=== PATIENT | male | born 1965 | race Caucasian/White ===

== ENCOUNTER 2017-01-30 17:00 | Emergency (ER) | payer OTHER ==
[2017-01-30 17:21] VITALS: BMI 25.0
--- NOTE | 2017-01-30 17:37 | PDOC ---
[id number] is a 51 year old male, nonverbal at baseline, with a significant past medical history of epilepsy (last seizure was about a month ago) and MR, who presents to the emergency department via ems from [facility]) for seizure activity today. The patients framer reports the patient usually perks up just seconds after the one prior seizure she witnessed him have, however, was told by the laborer beam house that the patient was shaking intensely and became very sleepy after the seizure occurred. The patient s framer states the patient is ambulatory with leg braces, but uses a wheelchair on most days, and responds to verbal prompts. The patients framer states the patient has been at the home for about 2 months and she is new to the facility herself about 4 weeks ago. Allergies: NKDA <Ladi Finn - Last Filed: 01/30/17 18:42> <Jillian Mobley - Last Filed: 02/01/17 10:54> - General Chief Complaint: Seizure Stated Complaint: Seizure Time Seen by Provider: 01/30/17 17:17 Past History <Ladi Finn - Last Filed: 01/30/17 18:42> - Past Medical History GI Disorders: Yes (gerd, constipation) Seizures: Yes Other medical history: profound intellectual developmental disability, eczema - Psycho/Social/Smoking Cessation Hx Anxiety: No Suicidal Ideation: No Smoking History: Never smoked Have you smoked in the past 12 months: No Information on smoking cessation initiated: No Hx Alcohol Use: No Drug/Substance Use Hx: No Substance Use Type: None <Jillian Mobley - Last Filed: 02/01/17 10:54> - Past Medical History Allergies/Adverse Reactions: Allergies Allergy/AdvReac Type Severity Reaction Status Date / Time No Known Allergies Allergy Verified 01/30/17 17:14 Home Medications: Ambulatory Orders Ascorbate Calcium [Vitamin C] 500 mg PO DAILY 01/30/17 Calcium Carbonate/Vitamin D3 [Calcium 600 + D3 Softgel] 1 each PO BID 01/30/17 Lacosamide [Vimpat -] 100 mg PO BID 01/30/17 Lactulose [Kristalose] 10 gm PO DAILY 01/30/17 Loratadine 10 mg PO DAILY 01/30/17 Lorazepam [Ativan] 0.25 mg PO TID 01/30/17 [place]-3 Fatty Acids [Fish Oil] 500 mg PO DAILY 01/30/17 Phenobarbital 64.8 mg PO HS 01/30/17 Polyethylene Glycol 3350 [Miralax (For Daily Use) -] 17 gm PO DAILY 01/30/17 Potassium Chloride [Klor-Con 10] 10 meq PO DAILY 01/30/17 Ranitidine [Zantac -] 150 mg PO BID 01/30/17 Ubidecarenone/Vit E Acetate [Co Q-10 100 mg Softgel] 1 each PO DAILY 01/30/17 Review of Systems - Review of Systems Able to Perform ROS?: No (Pt is nonverbal at BL.) <Ladi Finn - Last Filed: 01/30/17 18:42> *Physical Exam - Vital Signs Last Vital Signs Temp Pulse Resp BP Pulse Ox 98.2 F 60 20 155/79 99 01/30/17 17:15 01/30/17 17:15 01/30/17 17:15 01/30/17 17:15 01/30/17 17:15 - Physical Exam Comments: 01/30/17 17:44 GENERAL: (+) Awake, Alert, and appropriate. in no acute distress HEAD: No signs of trauma EYES: PERRLA, EOMI, sclera anicteric, conjunctiva clear ENT: Auricles normal inspection, hearing grossly normal, nares patent, oropharynx clear without exudates. Moist mucosa NECK: Normal ROM, supple, no lymphadenopathy, JVD, or masses LUNGS: Breath sounds equal, clear to auscultation bilaterally. No wheezes, and no crackles HEART: Regular rate and rhythm, normal S1 and S2, no murmurs, rubs or gallops ABDOMEN: Soft, nontender, normoactive bowel sounds. No guarding, no rebound. No masses EXTREMITIES: (+) braces on bilateral lower extremities. no edema. No clubbing or cyanosis. No cords, erythema, or tenderness SKIN: Warm, Dry, normal turgor, no rashes or lesions noted. NEURO: Unable to assess due to patient's capacity. <Ladi Finn - Last Filed: 01/30/17 18:42> - Vital Signs Last Vital Signs Temp Pulse Resp BP Pulse Ox 98.2 F 60 20 155/79 99 01/30/17 17:15 01/30/17 17:15 01/30/17 17:15 01/30/17 17:15 01/30/17 17:15 <Jillian Mobley - Last Filed: 02/01/17 10:54> ED Treatment Course - LABORATORY CBC & Chemistry Diagram: 01/30/17 18:33 01/30/17 18:33 <Jillian Mobley - Last Filed: 02/01/17 10:54> Medical Decision Making - Medical Decision Making 01/30/17 18:42 The framer states the facility has a nurse on staff and provided me with her information: Name: Baron RN <Ladi Finn - Last Filed: 01/30/17 18:42> - Medical Decision Making Pt endorsed to Dr. Xavier at 7pm shift change. Awaiting basic labs (as patient is new to his facility and they do not know him well). If lytes wnl, will DC back to facility. I have given him the PM klonopin. Vimpat is not on formulary. Will give phenobarb as well, as he is due for it at 8pm. <Jillian Mobley - Last Filed: 02/01/17 10:54> *DC/Admit/Observation/Transfer - Attestations Scribe Attestion: 01/30/17 17:45 Documentation prepared by Ladi Finn, acting as medical lab scientist for Jillian Mobley MD, MD <Ladi Finn - Last Filed: 01/30/17 18:42> <Jillian Mobley - Last Filed: 02/01/17 10:54> Diagnosis at time of Disposition: Seizure - Discharge Dispostion Disposition: HOME Condition at time of disposition: Good - Referrals Referrals: Estrella Rhoades MD [Primary Care Provider] - - Patient Instructions Additional Instructions: Please follow up with the PMD within the next 48 hours and if there is any change otherwise in symptoms, please return immediately to the ED.
[2017-01-30] MEDS ORDERED: clonazePAM 0.5 MG TABLET PO ONE (17:43)
[2017-01-30] MEDS ORDERED: clonazePAM 0.5 MG TABLET ONE (18:03)
[2017-01-30 18:45] LABS: BASOPHIL 0.6 % (0-2.0); EOSINOPHIL 2.4 % (0-4.5); MCH 28.3 pg (25.7-33.7); MCHC 33.9 g/dl (32.0-35.9); MEAN CELL VOLUME 83.4 fl (80-96); MEAN PLT VOLUME 9.2 fl (7.5-11.1); NEUTROPHILS 57.1 % (42.8-82.8); PLATELET COUNT 200 K/MM3 (134-434); RDW 12.8 % (11.9-15.9); WHITE BLOOD COUNT 4.5 K/mm3 (4.0-10.0)
[2017-01-30 19:12] LABS: ALBUMIN 3.7 g/dl (3.4-5.0); ALK PHOS 231 U/L (45-117); ANION GAP 9 (8-16); BILIRUBIN,TOTAL 0.1 mg/dL (0.2-1.0); CALCIUM 8.8 mg/dL (8.5-10.1); CO2 30 mmol/L (21-32); COCKROFT - GAULT 146.15; CREATININE 0.6 mg/dL (0.7-1.3); GLUCOSE,RANDOM 90 mg/dL (74-106); SGPT/ALT 37 U/L (12-78)
[2017-01-30 19:14] LABS: TOT PROT 8.2 g/dl (6.4-8.2)
[2017-01-30 19:30] LABS: MAGNESIUM 1.9 mg/dL (1.8-2.4); SGOT/AST 31 U/L (15-37)
[2017-01-30] MEDS ORDERED: PHENobarbital 30 MG TABLET PO ONE (19:42)
[2017-01-30] MEDS ORDERED: PHENobarbital 20 MG/5 ML UNIT-DOSE CUP ONE (19:58)
--- NOTE | 2017-01-30 20:53 | PDOC ---
*Physical Exam - Vital Signs Last Vital Signs Temp Pulse Resp BP Pulse Ox 98.7 F 67 19 152/72 100 01/30/17 19:30 01/30/17 19:30 01/30/17 19:30 01/30/17 19:30 01/30/17 19:30 ED Treatment Course - LABORATORY CBC & Chemistry Diagram: 01/30/17 18:33 01/30/17 18:33 - ADDITIONAL ORDERS Additional order review: Laboratory Results 01/30/17 18:33 Sodium 135 L Potassium 4.5 Chloride 96 L Carbon Dioxide 30 Anion Gap 9 BUN 10 Creatinine 0.6 L Creat Clearance w eGFR > 60 Random Glucose 90 Calcium 8.8 Magnesium 1.9 Total Bilirubin 0.1 L AST 31 ALT 37 Alkaline Phosphatase 231 H Total Protein 8.2 Albumin 3.7 01/30/17 18:33 RBC 5.25 MCV 83.4 MCHC 33.9 RDW 12.8 MPV 9.2 Neutrophils % 57.1 Lymphocytes % 32.6 Monocytes % 7.3 Eosinophils % 2.4 Basophils % 0.6 - Medications Given in the ED: ED Medications Discontinued Medications Generic Name Dose Route Start Last Admin Trade Name Freq PRN Reason Stop Dose Admin Clonazepam 0.25 mg 01/30/17 17:43 01/30/17 18:20 Klonopin - PO 01/30/17 17:44 0.25 mg ONCE ONE Administration Phenobarbital 60 mg 01/30/17 19:42 01/30/17 20:06 Phenobarbital - PO 01/30/17 19:43 60 mg NOW ONE Administration Medical Decision Making - Medical Decision Making 01/30/17 20:52 Pt received, comfortable; no repeated seizure activity noted, labs pending at this time; will likely discharge after observation. 01/30/17 22:16 All labs reviewed, normal with mild elevation of ALP; no pain on palpation; he has been observed for appreciable amount of time without repeated seizure episode. Will discharge at this time. Encouraged follow up with the PMD within the next 24 hours. *DC/Admit/Observation/Transfer Diagnosis at time of Disposition: Seizure - Discharge Dispostion Disposition: HOME Condition at time of disposition: Good Admit: No Decision to Admit order Date/Time: 01/30/17 22:19 - Referrals Referrals: Estrella Rhoades MD [Primary Care Provider] - - Patient Instructions Additional Instructions: Please follow up with the PMD within the next 48 hours and if there is any change otherwise in symptoms, please return immediately to the ED. - Post Discharge Activity
[2017-01-30 22:29] VITALS: BP 141/73; PULSE 66; TEMP 98.5
== END 2017-01-30 22:29 | disposition home or self-care (01) ==
LOC: JER 17:00
DX: G40.909 Epilepsy, unspecified, not intractable, without status epilepticus (principal); F73 Profound intellectual disabilities; K21.9 Gastro-esophageal reflux disease without esophagitis; K59.00 Constipation, unspecified
CPT/HCPCS: 36415; 80053; 83735; 85025; 99282-25

== ENCOUNTER 2017-11-15 10:25 | Inpatient (IN) | payer OTHER ==
[2017-11-15 11:06] VITALS: BMI 23.7
--- NOTE | 2017-11-15 12:38 | PDOC ---
History of Present Illness - General Chief Complaint: Edema Stated Complaint: SWOLLEN LT LEG Time Seen by Provider: 11/15/17 12:36 History Source: Patient Exam Limitations: No Limitations - History of Present Illness Initial Comments: CHIEF COMPLAINT: 52 y/o tachycardic male BIB EMS from [facility] for swollen left leg. HISTORY OF PRESENT ILLNESS: Care workers state they noticed the left leg swollen yesterday. Patient is non verbal with a PMH of severe intellectual disability. Patient was uncooperative for temperature. Vital signs on arrival are notable for pulse of 114. REVIEW OF SYSTEMS: Provided by staff and skilled nursing notes. GENERAL/CONSTITUTIONAL: No fever/chills. GENITOURINARY: No change in urination. MUSCULOSKELETAL: +swollen, red and warm left lower leg SKIN: No rash or easy bruising. PHYSICAL EXAM: VITAL_SIGNS: tachycardic GENERAL_APPEARANCE: non verbal. MENTAL_STATUS: non verbal. EXTREMITIES: 2+ dorsalis pedis pulse in left LE. LLE erythematous and edematous with 2+pitting edema 1/3 way up left lower leg. Area is warm to touch. Small wound on dorsum of left foot that is scabbed over. SKIN: warm, dry, good color. Past History - Past Medical History Allergies/Adverse Reactions: Allergies Allergy/AdvReac Type Severity Reaction Status Date / Time No Known Allergies Allergy Verified 11/15/17 10:59 Home Medications: Ambulatory Orders Calcium Carbonate/Vitamin D3 [Calcium 600 + D3 Softgel] 1 each PO BID 01/30/17 Lactulose [Kristalose] 10 gm PO DAILY 01/30/17 [place]-3 Fatty Acids [Fish Oil] 500 mg PO DAILY 01/30/17 Polyethylene Glycol 3350 [Miralax (For Daily Use) -] 17 gm PO DAILY 01/30/17 Ranitidine [Zantac -] 150 mg PO BID 01/30/17 Ubidecarenone/Vit E Acet [Co Q-10 100 mg Softgel] 1 each PO DAILY 01/30/17 Pravastatin Sodium [Pravachol (Nf)] 40 mg PO HS 11/15/17 Clonazepam 0.25 tab PO TID 11/16/17 Lacosamide [Vimpat -] 100 mg PO DAILY 11/16/17 Lacosamide [Vimpat -] 200 tab PO HS 11/16/17 Multiple Vitamins 1 each PO DAILY 11/16/17 COPD: No GI Disorders: Yes (gerd, constipation) Seizures: Yes Other medical history: MR - Suicide/Smoking/Psychosocial Hx Smoking History: Never smoked Have you smoked in the past 12 months: No Information on smoking cessation initiated: No Hx Alcohol Use: No Drug/Substance Use Hx: No Substance Use Type: None *Physical Exam - Vital Signs Last Vital Signs Temp Pulse Resp BP Pulse Ox 114 H 20 126/73 99 11/15/17 10:59 11/15/17 10:59 11/15/17 10:59 11/15/17 10:59 ED Treatment Course - LABORATORY CBC & Chemistry Diagram: 11/18/17 05:56 11/18/17 05:56 Medical Decision Making - Medical Decision Making A/P: 52 y/o male with left lower extremity swelling, warmth and redness. Plan is to r/o DVT and infection. 1. Labs 2. Doppler 3. IV tylenol 4. IV fluids pt signed out to Dr. Fenton, who will follow up on labs and doppler results and dispo accordingly. *DC/Admit/Observation/Transfer Diagnosis at time of Disposition: Cellulitis - Discharge Dispostion Condition at time of disposition: Guarded - Referrals - Patient Instructions - Post Discharge Activity
[2017-11-15] MEDS ORDERED: SODIUM CHLORIDE 1,000 ML IV STA (12:46)
[2017-11-15] MEDS ORDERED: ACETAMINOPHEN 1000 MG/100 ML VIAL (NON FORMULARY) IVPB ONE (12:46)
[2017-11-15] MEDS ORDERED: ACETAMINOPHEN INJECTION 100 ML IVPB ONE (13:26)
[2017-11-15 13:27] LABS: BASO % 0.3 % (0-2.0); HEMATOCRIT 40.7 % (35.4-49); HEMOGLOBIN 13.4 GM/dL (11.7-16.9); LYMPH % 13.4 % (8-40); MCH 27.1 pg (25.7-33.7); MCHC 32.9 g/dl (32.0-35.9); MEAN CELL VOLUME 82.3 fl (80-96); MEAN PLT VOLUME 8.7 fl (7.5-11.1); MONO % 10.5 % (3.8-10.2); NEUT % 75.8 % (42.8-82.8); PLATELET COUNT 184 K/MM3 (134-434); RBC 4.94 M/mm3 (4.00-5.60); RDW 12.7 % (11.9-15.9); WHITE BLOOD COUNT 9.4 K/mm3 (4.0-10.0)
[2017-11-15 13:51] LABS: ALBUMIN 3.9 g/dl (3.4-5.0); ALK PHOS 221 U/L (45-117); ANION GAP 10 (8-16); BILIRUBIN,TOTAL 0.4 mg/dL (0.2-1.0); BLOOD UREA NITROGEN 13 mg/dL (7-18); CALCIUM 9.1 mg/dL (8.5-10.1); CHLORIDE 97 mmol/L (98-107); CO2 30 mmol/L (21-32); CREATININE 0.7 mg/dL (0.7-1.3); GLUCOSE,RANDOM 106 mg/dL (74-106); POTASSIUM 4.2 mmol/L (3.5-5.1); SGOT/AST 48 U/L (15-37); SGPT/ALT 35 U/L (12-78); SODIUM 137 mmol/L (136-145); TOT PROT 8.2 g/dl (6.4-8.2)
--- NOTE | 2017-11-15 14:18 | PDOC ---
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 Tachycardic, possibly febrile, unable to get temp on arrival as patient was resisting. Awaiting results of Doppler r/o DVT. ED Treatment Course - LABORATORY CBC & Chemistry Diagram: 11/15/17 12:30 11/15/17 12:30 - ADDITIONAL ORDERS Additional order review: Laboratory Results 11/15/17 12:30 Sodium 137 Potassium 4.2 Chloride 97 L Carbon Dioxide 30 Anion Gap 10 BUN 13 D Creatinine 0.7 Creat Clearance w eGFR > 60 Random Glucose 106 Calcium 9.1 Total Bilirubin 0.4 D AST 48 H D ALT 35 Alkaline Phosphatase 221 H Total Protein 8.2 Albumin 3.9 11/15/17 12:30 RBC 4.94 MCV 82.3 MCHC 32.9 RDW 12.7 MPV 8.7 Neutrophils % 75.8 D Lymphocytes % 13.4 D Monocytes % 10.5 H Eosinophils % 0.0 D Basophils % 0.3 - Medications Given in the ED: ED Medications Discontinued Medications Generic Name Dose Route Start Last Admin Trade Name Freq PRN Reason Stop Dose Admin Acetaminophen 1,000 mg 11/15/17 12:46 11/15/17 13:32 Ofirmev Injection - IVPB 11/15/17 12:47 1,000 mg ONCE ONE Administration Sodium Chloride 1,000 mls @ 1,000 mls/hr 11/15/17 12:46 11/15/17 13:32 Normal Saline - IV 11/15/17 13:45 1,000 mls/hr ASDIR STA Administration Medical Decision Making - Medical Decision Making 11/15/17 16:37 [facility] microblogged for obs placement. Ordered is 1 GM vancomycin IV. Will attempt to get rectal temp. 11/15/17 17:02 Spoke to Raffi Campbell, admitting to Dr. Rock to Med/Surg obs for IV abx. *DC/Admit/Observation/Transfer Diagnosis at time of Disposition: Cellulitis Qualifiers: Site of cellulitis: unspecified site Qualified Code(s): L03.90 - Cellulitis, unspecified - Discharge Dispostion Condition at time of disposition: Guarded Admit: Yes - Referrals - Patient Instructions - Post Discharge Activity
[2017-11-15] MEDS ORDERED: VANCOMYCIN 1 GRAM (PRE-DOCKED) 1,000 MG/250 ML BAG IVPB ONE ×2 (16:35→16:57)
--- NOTE | 2017-11-15 17:52 | HP ---
<Raffi Campbell - Last Filed: 11/16/17 07:15> CHIEF COMPLAINT: swelling of L leg PCP: From [facility] HISTORY OF PRESENT ILLNESS: 52 y/o non-verbal / non-communicative male w/PMH of MR, seizure d/o (has multiple seizures/day which they let pass and is not medically treated), GERD, eczema presents to the ER from [facility] for LLE swelling that started yesterday and progressed from his foot to mid tibial region since then. According to staff from [place] present at bedside pt had a healing lesion ( healing over past several days) on dorsal aspect of foot w/no signs of new infection at site. Pt has not been vomiting, no changes in bowel movements, no changes in urination, no diaphoresis, no change in behavior noted by staff. ER course was notable for: (1) [facility] (2) LLE U/S (3) Recent Travel: no recent travel PAST MEDICAL HISTORY: seizure d/o (has multiple seizures/day which they let pass and is not medically treated), GERD, eczema Social History: Smoking: no smoking hx Alcohol: no alcohol use Drugs: no drug use Family History: n-c Allergies No Known Allergies Allergy (Verified 11/15/17 10:59) HOME MEDICATIONS: Home Medications Medication Instructions Recorded Calcium Carbonate/Vitamin D3 1 each PO BID 01/30/17 [Calcium 600 + D3 Softgel] Lactulose [Kristalose] 10 gm PO DAILY 01/30/17 [place]-3 Fatty Acids [Fish Oil] 500 mg PO DAILY 01/30/17 Polyethylene Glycol 3350 [Miralax 17 gm PO DAILY 01/30/17 (For Daily Use) -] Ranitidine [Zantac -] 150 mg PO BID 01/30/17 Ubidecarenone/Vit E Acet [Co Q-10 1 each PO DAILY 01/30/17 100 mg Softgel] Pravastatin Sodium [Pravachol (Nf)] 40 mg PO HS 11/15/17 REVIEW OF SYSTEMS Unable to get as pt is non-communicative PHYSICAL EXAMINATION Vital Signs - 24 hr 11/15/17 10:59 Pulse Rate 114 H Respiratory 20 Rate Blood Pressure 126/73 O2 Sat by Pulse 99 Oximetry (%) GENERAL: Awake, alert, in no acute distress. Pt unable to communicate HEAD: Normal with no signs of trauma. EYES: sclera anicteric, conjunctiva clear. No lid lag. EARS, NOSE, THROAT: Dry mucous membranes. LUNGS: Auscultated anteriorly, poor inspiratory effort, diminished breath sounds. HEART: Regular rate and rhythm, normal S1 and S2. 2/6 systolic murmur heard best in aortic region ABDOMEN: Soft, nontender, not distended, normoactive bowel sounds. UPPER EXTREMITIES: warm, well-perfused. No peripheral edema. LOWER EXTREMITIES:+small 1cm in diameter lesion on dorsal aspect of L foot with no active drainage. LLE swollen, red, tender touch, warm to touch from foot to L mid flores w/ 2+ pitting edema. Laboratory Results - last 24 hr 11/15/17 11/15/17 12:30 12:30 WBC 9.4 D RBC 4.94 Hgb 13.4 D Hct 40.7 MCV 82.3 MCH 27.1 MCHC 32.9 RDW 12.7 Plt Count 184 MPV 8.7 Neutrophils % 75.8 D Lymphocytes % 13.4 D Monocytes % 10.5 H Eosinophils % 0.0 D Basophils % 0.3 Sodium 137 Potassium 4.2 Chloride 97 L Carbon Dioxide 30 Anion Gap 10 BUN 13 D Creatinine 0.7 Creat Clearance w eGFR > 60 Random Glucose 106 Calcium 9.1 Total Bilirubin 0.4 D AST 48 H D ALT 35 Alkaline Phosphatase 221 H Total Protein 8.2 Albumin 3.9 Imaging: LLE DUPLEX U/S 11/15/17: No evidence of DVT Active Medications Acetaminophen (Tylenol -) 650 mg PO Q4H PRN PRN Reason: PAIN OR FEVER Atorvastatin Calcium (Lipitor -) 10 mg PO HS [facility] Heparin Sodium (Porcine) (Heparin -) 5,000 unit SQ TID SEAN Sodium Chloride (Normal Saline -) 1,000 mls @ 75 mls/hr IV ASDIR SEAN Lactulose (Cephulac (Oral Use)) 10 gm PO DAILY SE[facility] Polyethylene Glycol (Miralax (For Daily Use) -) 17 gm PO DAILY [facility] Ranitidine HCl (Zantac -) 150 mg PO BID [facility] ASSESSMENT/PLAN: 52 y/o non-verbal / non-communicative male w/PMH of MR, seizure d/o, GERD, eczema presents to the ER from [facility]. Pt admitted for cellulitis -Cellulitis of LLE -Given vanco x1 in ER -ID consulted -Tylenol 650 mg po q4h PRN for fever or pain -NS @ 75 ml/hr -Seizures -Pt has hx of daily seizures despite being on vimpat 100 mg in am and 200 mg in pm and clonazepam 0.25 mg tid. these meds have been restarted here -Neuro consulted -Hx of constipation -Lactulose 10 g po qd, Miralax qd -GERD -Ranitidine 150 mg po bid -DVT ppx -Heparin 5000 units sq q8h -FEN -NS @ 75 ml/hr -Monitor electrolytes -Chopped diet w/thin liquids as per [facility] staff -Dispo: Admit to m/s Visit type - Emergency Visit Emergency Visit: Yes ED Registration Date: 11/15/17 Care time: The patient presented to the Emergency Department on the above date and was hospitalized for further evaluation of their emergent condition. - New Patient This patient is new to me today: Yes Date on this admission: 11/16/17 - Critical Care Critical Care patient: No <Alexei Holden - Last Filed: 11/16/17 07:53> PE: as per resident's note LLE: increased the size 2x of RLE. positive erythema and swelling up to the knee area. Patient is seen and examined with the resident. Agree with the Assessment and plan. # Acute cellulitis of LLE with edema , on IV antibiotic, finn cx, duplex of LLE is negative since positive for swelling and erythema of LLE.
[2017-11-15] MEDS: SODIUM CHLORIDE 1,000 ML IV SCH (21:34)
[2017-11-15] MEDS: HEPARIN NA (PORCINE) 5,000 UNITS/ML 1ML VIAL SQ SCH (21:36)
[2017-11-15] MEDS: ATORVASTATIN CA 10 MG TABLET (FP) PO SCH (21:37)
[2017-11-15] MEDS: RANITIDINE HCL 150 MG TABLET (FP) PO SCH (21:37)
[2017-11-16] MEDS: ACETAMINOPHEN 325 MG TABLET (FP) PO PRN ×3 (01:26→16:51)
[2017-11-16] MEDS ORDERED: clonazePAM 0.5 MG TABLET PO PRN (04:56)
[2017-11-16] MEDS: LACOSAMIDE 50 MG TABLET PO SCH (05:24)
[2017-11-16] MEDS: HEPARIN NA (PORCINE) 5,000 UNITS/ML 1ML VIAL SQ SCH ×3 (05:26→21:55)
[2017-11-16] MEDS ORDERED: LACOSAMIDE 50 MG TABLET PO SCH ×2 (06:00→21:00)
[2017-11-16] MEDS: clonazePAM 0.5 MG TABLET PO SCH ×3 (06:36→21:54)
[2017-11-16 07:50] LABS: BASO % 0.2 % (0-2.0); EOS % 0.1 % (0-4.5); HEMATOCRIT 36.7 % (35.4-49); HEMOGLOBIN 12.1 GM/dL (11.7-16.9); LYMPH % 20.2 % (8-40); MCH 27.4 pg (25.7-33.7); MCHC 32.9 g/dl (32.0-35.9); MEAN CELL VOLUME 83.2 fl (80-96); MEAN PLT VOLUME 8.7 fl (7.5-11.1); MONO % 14.8 % (3.8-10.2); NEUT % 64.7 % (42.8-82.8); PLATELET COUNT 164 K/MM3 (134-434); RBC 4.42 M/mm3 (4.00-5.60); RDW 12.8 % (11.9-15.9); WHITE BLOOD COUNT 8.4 K/mm3 (4.0-10.0)
[2017-11-16 08:10] LABS: ALBUMIN 3.2 g/dl (3.4-5.0); ANION GAP 4 (8-16); BLOOD UREA NITROGEN 8 mg/dL (7-18); CHLORIDE 102 mmol/L (98-107); CO2 32 mmol/L (21-32); GLUCOSE,RANDOM 93 mg/dL (74-106); MAGNESIUM 1.6 mg/dL (1.8-2.4); PHOSPHOROUS 2.9 mg/dL (2.5-4.9); POTASSIUM 3.8 mmol/L (3.5-5.1); SODIUM 138 mmol/L (136-145)
[2017-11-16 08:13] LABS: ALK PHOS 182 U/L (45-117); BILIRUBIN,TOTAL 0.8 mg/dL (0.2-1.0); CREATININE 0.5 mg/dL (0.7-1.3); SGOT/AST 53 U/L (15-37); SGPT/ALT 32 U/L (12-78); TOT PROT 6.9 g/dl (6.4-8.2)
[2017-11-16] MEDS ORDERED: PT OWN MED DRAWER 7, Y5N ONE ×3 (08:59→21:03)
[2017-11-16] MEDS: LACTULOSE 20 GM/30 ML UDC (FOR ORAL USE ONLY) PO SCH (09:01)
[2017-11-16] MEDS: RANITIDINE HCL 150 MG TABLET (FP) PO SCH ×2 (09:02→21:54)
--- NOTE | 2017-11-16 09:03 | PN ---
Progress Note, Physician Chief Complaint: ID Full note dictated - Current Medication List Current Medications: Active Medications Acetaminophen (Tylenol -) 650 mg PO Q4H PRN PRN Reason: PAIN OR FEVER Last Admin: 11/16/17 01:26 Dose: 650 mg Atorvastatin Calcium (Lipitor -) 10 mg PO HS [facility] Last Admin: 11/15/17 21:37 Dose: 10 mg Clonazepam (Klonopin -) 0.25 mg PO TID [facility] Last Admin: 11/16/17 06:36 Dose: 0.25 mg Heparin Sodium (Porcine) (Heparin -) 5,000 unit SQ TID [facility] Last Admin: 11/16/17 05:26 Dose: 5,000 unit Sodium Chloride (Normal Saline -) 1,000 mls @ 75 mls/hr IV ASDIR [facility] Last Admin: 11/15/17 21:34 Dose: 75 mls/hr Lacosamide (Vimpat -) 100 mg PO DAILY@0500 [facility] Last Admin: 11/16/17 05:24 Dose: 100 mg Lacosamide (Vimpat -) 200 mg PO DAILY@2100 [facility] Lactulose (Cephulac (Oral Use)) 10 gm PO DAILY [facility] Polyethylene Glycol (Miralax (For Daily Use) -) 17 gm PO DAILY [facility] Ranitidine HCl (Zantac -) 150 mg PO BID [facility] Last Admin: 11/15/17 21:37 Dose: 150 mg - Objective Vital Signs: Vital Signs Temperature 99.3 F 11/16/17 05:53 Pulse Rate 104 H 11/16/17 05:53 Respiratory Rate 20 11/16/17 05:53 Blood Pressure 146/78 11/16/17 05:53 O2 Sat by Pulse Oximetry (%) 96 11/15/17 23:13 Extremities: Yes: Other (Confluent erythema left foot and LLE hard swelling with dry eschar dorsum of the foot dry no fluctuance) Labs: CBC, BMP 11/16/17 06:10 11/16/17 06:10 Problem List - Problems (1) Cellulitis Code(s): L03.90 - CELLULITIS, UNSPECIFIED Qualifiers: Site of cellulitis: unspecified site Qualified Code(s): L03.90 - Cellulitis , unspecified Assessment/Plan Microbiology Laboratory Tests 11/16/17 11/16/17 06:10 06:10 WBC 8.4 RBC 4.42 Hct 36.7 Plt Count 164 BUN 8 D ALT 32 Assessment Severe cellulitis of the LLE NO DVT seen on duplex from a skilled care facility Plan Vanco and Cefepime ( yes would cover gram negative celleulitis as well) Tiera SHAH
--- NOTE | 2017-11-16 09:56 | PN ---
Physical Exam: SUBJECTIVE: Patient seen and examined Patient is lying in bed comfortably. no fever or chills. OBJECTIVE: Vital Signs Period Temp Pulse Resp BP Sys/Morales Pulse Ox Last 24 Hr 98.3 F-100.3 F 99-114 20-20 122-167/57-93 95-99 GENERAL: The patient lying in bed , non verbal just stares at you in no acute distress. HEAD: Normal with no signs of trauma. EYES: PERRL, extraocular movements intact, sclera anicteric, conjunctiva clear. ENT: Ears normal, oropharynx clear without exudates, moist mucous membranes. NECK: Trachea midline, full range of motion, supple. LUNGS: Breath sounds equal, clear to auscultation bilaterally, no wheezes, no crackles, no accessory muscle use. HEART: mild tachycardia , rhythm, S1, S2 without murmur, rub or gallop. ABDOMEN: Soft, nontender, nondistended, normoactive bowel sounds, no guarding, no rebound, no hepatosplenomegaly, no masses. EXTREMITIES: 2+ pulses, warm, LLE SWELLING WITH ERYTHEMA WITH CELLULITIS . cONTRACTED lower extremities. NEUROLOGICAL: gait not observed. PSYCH: MR unable to access . SKIN: Warm, dry, normal turgor, CBCD WBC 8.4 K/mm3 (4.0-10.0) 11/16/17 06:10 RBC 4.42 M/mm3 (4.00-5.60) 11/16/17 06:10 Hgb 12.1 GM/dL (11.7-16.9) 11/16/17 06:10 Hct 36.7 % (35.4-49) 11/16/17 06:10 MCV 83.2 fl (80-96) 11/16/17 06:10 MCHC 32.9 g/dl (32.0-35.9) 11/16/17 06:10 RDW 12.8 % (11.9-15.9) 11/16/17 06:10 Plt Count 164 K/MM3 (134-434) 11/16/17 06:10 MPV 8.7 fl (7.5-11.1) 11/16/17 06:10 CMP Sodium 138 mmol/L (136-145) 11/16/17 06:10 Potassium 3.8 mmol/L (3.5-5.1) 11/16/17 06:10 Chloride 102 mmol/L (98-107) 11/16/17 06:10 Carbon Dioxide 32 mmol/L (21-32) 11/16/17 06:10 Anion Gap 4 (8-16) L 11/16/17 06:10 BUN 8 mg/dL (7-18) D 11/16/17 06:10 Creatinine 0.5 mg/dL (0.7-1.3) L D 11/16/17 06:10 Creat Clearance w eGFR > 60 (>60) 11/16/17 06:10 Random Glucose 93 mg/dL (74-106) 11/16/17 06:10 Calcium 8.0 mg/dL (8.5-10.1) L 11/16/17 06:10 Total Bilirubin 0.8 mg/dL (0.2-1.0) D 11/16/17 06:10 AST 53 U/L (15-37) H 11/16/17 06:10 ALT 32 U/L (12-78) 11/16/17 06:10 Alkaline Phosphatase 182 U/L (45-117) H 11/16/17 06:10 Total Protein 6.9 g/dl (6.4-8.2) 11/16/17 06:10 Albumin 3.2 g/dl (3.4-5.0) L 11/16/17 06:10 Active Medications Generic Name Dose Route Start Last Admin Trade Name Freq PRN Reason Stop Dose Admin Acetaminophen 650 mg 11/15/17 17:37 11/16/17 01:26 Tylenol - PO 650 mg Q4H PRN Administration PAIN OR FEVER Atorvastatin Calcium 10 mg 11/15/17 22:00 11/15/17 21:37 Lipitor - PO 10 mg HS SEAN Administration Clonazepam 0.25 mg 11/16/17 06:00 11/16/17 06:36 Klonopin - PO 0.25 mg TID SEAN Administration Heparin Sodium (Porcine) 5,000 unit 11/15/17 22:00 11/16/17 05:26 Heparin - SQ 5,000 unit TID SEAN Administration Sodium Chloride 1,000 mls @ 75 mls/hr 11/15/17 17:45 11/15/17 21:34 Normal Saline - IV 75 mls/hr ASDIR SEAN Administration Vancomycin HCl 1,000 mg/ 250 mls @ 250 mls/hr 11/16/17 10:00 Dextrose IVPB BID SEAN Protocol Cefepime HCl 2 gm/ Dextrose 100 mls @ 200 mls/hr 11/16/17 10:00 IVPB Q8H-IV SEAN Lacosamide 100 mg 11/16/17 05:30 11/16/17 05:24 Vimpat - PO 100 mg DAILY@0500 SEAN Administration Lacosamide 200 mg 11/16/17 21:00 Vimpat - PO DAILY@2100 [facility] Lactulose 10 gm 11/16/17 10:00 11/16/17 09:01 Cephulac (Oral Use) PO 10 gm DAILY SEAN Administration Polyethylene Glycol 17 gm 11/16/17 10:00 Miralax (For Daily Use) - PO DAILY [facility] Ranitidine HCl 150 mg 11/15/17 22:00 11/16/17 09:02 Zantac - PO 150 mg BID SEAN Administration Home Medications Medication Instructions Recorded Calcium Carbonate/Vitamin D3 1 each PO BID 01/30/17 [Calcium 600 + D3 Softgel] Lactulose [Kristalose] 10 gm PO DAILY 01/30/17 [place]-3 Fatty Acids [Fish Oil] 500 mg PO DAILY 01/30/17 Polyethylene Glycol 3350 [Miralax 17 gm PO DAILY 01/30/17 (For Daily Use) -] Ranitidine [Zantac -] 150 mg PO BID 01/30/17 Ubidecarenone/Vit E Acet [Co Q-10 1 each PO DAILY 01/30/17 100 mg Softgel] Pravastatin Sodium [Pravachol (Nf)] 40 mg PO HS 11/15/17 Clonazepam 0.25 tab PO TID 11/16/17 Lacosamide [Vimpat -] 100 mg PO DAILY 11/16/17 Lacosamide [Vimpat -] 200 tab PO HS 11/16/17 Multiple Vitamins 1 each PO DAILY 11/16/17 ASSESSMENT/PLAN: [place] is a 52 y/o non-verbal ,non-communicative male w/PMH of MR, seizure d/o , GERD, eczema presents to the ER from [facility]. Pt is being admitted for cellulitis #Acute Cellulitis of LLE on Vanco/cefepime continue as per ID #Seizures continue his meds at home vimpat 100 mg in am and 200 mg in pm and clonazepam 0.25 mg tid. Neuro consulted #Hx of constipation continue Lactulose 10 g po qd, Miralax qd #GERD continue Ranitidine 150 mg po bid DVT ppx: Heparin 5000 units sq q8h Visit type - Emergency Visit Emergency Visit: Yes ED Registration Date: 11/15/17 Care time: The patient presented to the Emergency Department on the above date and was hospitalized for further evaluation of their emergent condition. - New Patient This patient is new to me today: No - Critical Care Critical Care patient: No - Discharge Referral Referred to [facility] Med P.C.: No
--- NOTE | 2017-11-16 09:57 | CONS ---
INFECTIOUS DISEASE CONSULTATION DATE OF CONSULTATION: DATE OF DICTATION: 11/16/2017 HISTORY OF PRESENT ILLNESS: This is a 52-year-old male, profoundly mentally retarded individual from the [facility], who is brought after his foot and left lower extremity were noted to be red and swollen. He apparently has had a healing ulcer of the dorsal aspect of his left foot noted over the last week. On admission here, he had low-grade temperature, and the leg was markedly swollen. A duplex study was ordered which showed no evidence for DVT and he was given a dose of vancomycin and I am asked to see him for further evaluation and treatment. PAST MEDICAL HISTORY: Includes seizure disorder with refractory seizures and eczema. CURRENT MEDICATIONS: [place] fatty acids, ranitidine, pravastatin. ALLERGIES: None known. SOCIAL HISTORY: Nonsmoker. No EtOH history. FAMILY HISTORY: Unobtainable. REVIEW OF SYSTEMS: All systems reviewed and noncontributory. PHYSICAL EXAMINATION: General: He was an arousable man in no acute distress. Vital Signs: The temperature maximum 100.3, currently 99.3; pulse 104; blood pressure 146/78; respirations 20. Neck: Supple. Lungs: Clear to P&A. Heart: S1, S2. Regular rhythm. No audible murmur. Abdomen: Soft, nontender. No organomegaly. Extremities: Reveal diffuse redness and confluent erythema with marked swelling and induration of the left lower extremity and foot. There was a dry, necrotic ulcer on the dorsal aspect of the foot. No purulence or fluctuance was noted. DIAGNOSTIC DATA: The BUN was 8 with a creatinine of 0.5. AST 53, alkaline phosphatase 182. White count of 9.4, hemoglobin 13.4, platelets of 184. ASSESSMENT: A 52-year-old male with a small, necrotic eschar of the dorsal aspect of the left foot, dry. Probably portal of entry for bacterial cellulitis of the left lower extremity. Should be gram positive. However, given his background living in a skilled care nursing facility, would empirically treat him for both gram- positive as well as gram-negative organisms. I will give him a combination of vancomycin and cefepime. Two sets of blood cultures drawn TOMMIE MCDANIEL M.D. [id number] [facility] HEALTH CENTERGurwinder
[2017-11-16] MEDS ORDERED: CEFEPIME 2 GM in DEXTROSE 5%-WATER - 100 ML IVPB SCH (10:00)
[2017-11-16] MEDS ORDERED: CEFEPIME HCL 2 GM VIAL (RESTRICTED TO ID) IVPB SCH (10:00)
[2017-11-16] MEDS: CEFEPIME 2 GM in DEXTROSE 5%-WATER - 100 ML IVPB SCH ×2 (10:20→18:08)
[2017-11-16] MEDS: VANCOMYCIN 1,000 MG in DEXTROSE 5%-WATER - 250 ML IVPB SCH ×2 (11:20→21:53)
--- NOTE | 2017-11-16 13:12 | EKG ---
Test Reason : Blood Pressure : / mmHG Vent. Rate : 104 BPM Atrial Rate : 104 BPM P-R Int : 186 ms QRS Dur : 062 ms QT Int : 320 ms P-R-T Axes : 074 060 069 degrees QTc Int : 420 ms SINUS TACHYCARDIA BIATRIAL ENLARGEMENT NONSPECIFIC T WAVE ABNORMALITY ABNORMAL ECG WHEN COMPARED WITH ECG OF 12-NOV-2017 10:32, VENT. RATE HAS INCREASED BY 35 BPM BASELINE ARTIFACT Confirmed by BLAYNE SHAH, DAKOTA ([id number]) on 11/16/2017 1:12:08 PM Referred By: Confirmed By:DAKOTA CISNEROS MD
--- NOTE | 2017-11-16 17:26 | PN ---
Physical Exam: SUBJECTIVE: Patient seen and examined OBJECTIVE: Vital Signs Period Temp Pulse Resp BP Sys/Morales Pulse Ox Last 24 Hr 98.3 F-101.8 F 101-117 18-20 122-167/57-93 95-96 GENERAL: The patient is awake, alert, and fully oriented, in no acute distress. HEAD: Normal with no signs of trauma. EYES: PERRL, extraocular movements intact, sclera anicteric, conjunctiva clear. No ptosis. ENT: Ears normal, nares patent, oropharynx clear without exudates, moist mucous membranes. NECK: Trachea midline, full range of motion, supple. LUNGS: Breath sounds equal, clear to auscultation bilaterally, no wheezes, no crackles, no accessory muscle use. HEART: Regular rate and rhythm, S1, S2 without murmur, rub or gallop. ABDOMEN: Soft, nontender, nondistended, normoactive bowel sounds, no guarding, no rebound, no hepatosplenomegaly, no masses. EXTREMITIES: 2+ pulses, warm, well-perfused, no edema. NEUROLOGICAL: Cranial nerves II through XII grossly intact. Normal speech, gait not observed. PSYCH: Normal mood, normal affect. SKIN: Warm, dry, normal turgor, no rashes or lesions noted Laboratory Results - last 24 hr 11/16/17 11/16/17 06:10 06:10 WBC 8.4 RBC 4.42 Hgb 12.1 Hct 36.7 MCV 83.2 MCH 27.4 MCHC 32.9 RDW 12.8 Plt Count 164 MPV 8.7 Neutrophils % 64.7 Lymphocytes % 20.2 D Monocytes % 14.8 H Eosinophils % 0.1 D Basophils % 0.2 Sodium 138 Potassium 3.8 Chloride 102 Carbon Dioxide 32 Anion Gap 4 L BUN 8 D Creatinine 0.5 L D Creat Clearance w eGFR > 60 Random Glucose 93 Calcium 8.0 L Phosphorus 2.9 Magnesium 1.6 L Total Bilirubin 0.8 D AST 53 H ALT 32 Alkaline Phosphatase 182 H Total Protein 6.9 Albumin 3.2 L Active Medications Generic Name Dose Route Start Last Admin Trade Name Freq PRN Reason Stop Dose Admin Acetaminophen 650 mg 11/15/17 17:37 11/16/17 16:51 Tylenol - PO 650 mg Q4H PRN Administration PAIN OR FEVER Atorvastatin Calcium 10 mg 11/15/17 22:00 11/15/17 21:37 Lipitor - PO 10 mg HS SEAN Administration Clonazepam 0.25 mg 11/16/17 06:00 11/16/17 13:49 Klonopin - PO 0.25 mg TID SEAN Administration Heparin Sodium (Porcine) 5,000 unit 11/15/17 22:00 11/16/17 13:50 Heparin - SQ 5,000 unit TID SEAN Administration Sodium Chloride 1,000 mls @ 75 mls/hr 11/15/17 17:45 11/15/17 21:34 Normal Saline - IV 11/17/17 07:04 75 mls/hr ASDIR SEAN Administration Vancomycin HCl 1,000 mg/ 250 mls @ 250 mls/hr 11/16/17 10:00 11/16/17 11:20 Dextrose IVPB 250 mls/hr BID SEAN Administration Protocol Cefepime HCl 2 gm/ Dextrose 100 mls @ 200 mls/hr 11/16/17 10:00 11/16/17 10: 20 IVPB 200 mls/hr Q8H-IV SEAN Administration Lacosamide 100 mg 11/16/17 05:30 11/16/17 05:24 Vimpat - PO 100 mg DAILY@0500 SEAN Administration Lacosamide 200 mg 11/16/17 21:00 Vimpat - PO DAILY@2100 SEAN Lactulose 10 gm 11/16/17 10:00 11/16/17 09:01 Cephulac (Oral Use) PO 10 gm DAILY SEAN Administration Polyethylene Glycol 17 gm 11/16/17 10:00 Miralax (For Daily Use) - PO DAILY SEAN Ranitidine HCl 150 mg 11/15/17 22:00 11/16/17 09:02 Zantac - PO 150 mg BID SEAN Administration ASSESSMENT/PLAN:
[2017-11-16] MEDS ORDERED: ACETAMINOPHEN 325 MG TABLET (FP) PO ONE (18:30)
--- NOTE | 2017-11-16 19:09 | CONSULT ---
Consult - text type - Consultation Consultation Note: NEUROLOGY CONSULTATION is greatly appreciated: This52 yo man with h/o static encephalopathy and seizure disorder is admitted with lethargy, fever and left leg cellulitis. Apparently has multiple seizures at the adult home in which he lives, according to Dustin, his aide, who estimates 16 seizures/month. Dustin sees approx 8/month and believes the same again occur at his day program. He describes both Tonic/clonic, Brief clonic/atonic and even briefer atonic seizures. In spite of this he is only maintained on Vimpat 100 mg BID and Phenobarbital 64.8 mg QHS. ODILIA: Multiple well-healed forehead scars. Neck supple. Left leg/foot swollen and cellulytic to the mid-calf. Clear palpation tenderness left ankle. NEURO: Lethargic. Opens eyes to name. Makes eye contact. No speech, follows no commands. Full lazaro to threat. Full EOM's. Moves all fours well without dystaxia. Normal reflexes in arms, reduced both knees, absent both ankles. Downgoing toes. Withdraws all fours to pinch. IMP: Static encephalopathy (moderately severe, B/L cerebral dysfunction) Seizure disorder Toxic-metabolic encephalpathy due to cellulitis/sepsis. SUGGEST: Continue antibiotics, hydration. Seizures are clearly undertreated, for unclear reasons. When infection has cleared, I would strongly recommend increasing Vimpat to 200 mg q12 hrs and PB to 97.2 mg q HS and a neurological follow-up after 2-3 mos on these doses. Thank you very much, Mayito Jefferson MD
[2017-11-16] MEDS: POLYETHYLENE GLYCOL 3350 119 GM BTL PO SCH (19:38)
[2017-11-16] MEDS: ATORVASTATIN CA 10 MG TABLET (FP) PO SCH (21:54)
[2017-11-16] MEDS: SODIUM CHLORIDE 1,000 ML IV SCH (21:56)
[2017-11-17] MEDS ORDERED: PT OWN MED DRAWER 7, Y5N ONE ×4 (01:18→21:38)
[2017-11-17] MEDS: ACETAMINOPHEN 325 MG TABLET (FP) PO PRN ×4 (01:22→23:55)
[2017-11-17] MEDS: CEFEPIME 2 GM in DEXTROSE 5%-WATER - 100 ML IVPB SCH ×3 (01:22→17:21)
[2017-11-17] MEDS: SODIUM CHLORIDE 1,000 ML IV SCH ×2 (01:28)
[2017-11-17] MEDS: LACOSAMIDE 50 MG TABLET PO SCH ×2 (05:39→21:58)
[2017-11-17] MEDS: clonazePAM 0.5 MG TABLET PO SCH ×3 (05:40→21:58)
[2017-11-17] MEDS: HEPARIN NA (PORCINE) 5,000 UNITS/ML 1ML VIAL SQ SCH ×3 (05:40→21:57)
[2017-11-17] MEDS: RANITIDINE HCL 150 MG TABLET (FP) PO SCH ×2 (09:12→21:58)
[2017-11-17] MEDS: VANCOMYCIN 1,000 MG in DEXTROSE 5%-WATER - 250 ML IVPB SCH ×2 (09:57→21:57)
[2017-11-17] MEDS: POLYETHYLENE GLYCOL 3350 119 GM BTL PO SCH (10:06)
--- NOTE | 2017-11-17 11:59 | PN ---
<Ricardo Gomez - Last Filed: 11/17/17 12:04> Physical Exam: SUBJECTIVE: Patient seen and examined at bedside. No acute overnight events. Patient is not able to communicate for a good history. His aid from [place] is present but unable to answer questions about his current cellulitis. OBJECTIVE: Vital Signs Period Temp Pulse Resp BP Sys/Morales Pulse Ox Last 24 Hr 98.6 F-101.8 F 88-117 18-20 103-143/46-73 95 GENERAL: The patient is alert but not oriented x 3, no acute distress HEAD: Normal with no signs of trauma. LUNGS: Breath sounds equal, clear to auscultation bilaterally, no wheezes, no crackles, no accessory muscle use. HEART: Regular rate and rhythm, S1, S2, systolic murmur appreciated on exam ABDOMEN: Soft, nontender, nondistended, normoactive bowel sounds, no guarding, no rebound, no hepatosplenomegaly, no masses. EXTREMITIES: 2+ pulses, warm, well-perfused, L leg warm and erythematous/ blanching with non-pitting edema. erythema demarcated on leg with a pen. mildly improved since demarcation. Active Medications Generic Name Dose Route Start Last Admin Trade Name Freq PRN Reason Stop Dose Admin Acetaminophen 650 mg 11/15/17 17:37 11/17/17 01:22 Tylenol - PO 650 mg Q4H PRN Administration PAIN OR FEVER Atorvastatin Calcium 10 mg 11/15/17 22:00 11/16/17 21:54 Lipitor - PO 10 mg HS SEAN Administration Clonazepam 0.25 mg 11/16/17 06:00 11/17/17 05:40 Klonopin - PO 0.25 mg TID SEAN Administration Heparin Sodium (Porcine) 5,000 unit 11/15/17 22:00 11/17/17 05:40 Heparin - SQ 5,000 unit TID SEAN Administration Vancomycin HCl 1,000 mg/ 250 mls @ 250 mls/hr 11/16/17 10:00 11/17/17 09:57 Dextrose IVPB 250 mls/hr BID SEAN Administration Protocol Cefepime HCl 2 gm/ Dextrose 100 mls @ 200 mls/hr 11/16/17 10:00 11/17/17 09: 12 IVPB 200 mls/hr Q8H-IV SEAN Administration Lacosamide 100 mg 11/16/17 05:30 11/17/17 05:39 Vimpat - PO 100 mg DAILY@0500 SEAN Administration Lacosamide 200 mg 11/16/17 21:00 11/16/17 21:54 Vimpat - PO 200 mg DAILY@2100 SEAN Administration Lactulose 10 gm 11/16/17 10:00 11/16/17 09:01 Cephulac (Oral Use) PO 10 gm DAILY SEAN Administration Polyethylene Glycol 17 gm 11/16/17 10:00 11/16/17 19:38 Miralax (For Daily Use) - PO Not Given DAILY SEAN Ranitidine HCl 150 mg 11/15/17 22:00 11/17/17 09:12 Zantac - PO 150 mg BID SEAN Administration ASSESSMENT/PLAN: 52 year old male from [facility] [place] (non-verbal), with past medical history of of MR, seizure disorder, GERD, eczema is admitted for treatment of cellulitis #Cellulitis of LLE: slightly improving -Continue vancomycin/cefepime -ID consult appreciated -Tylenol 650 mg po q4h PRN for fever or pain #Seizure Disorder: no acute overnight events -neuro consult Dr. Jefferson appreciated- once infection clears, recommends vimpat 200 Q12 and phenobarbitol 97.2 -currently, continue vimpat on 100PO in AM and 200PO PM, and klonopin 0.25mg TID #Constipation: not an acute issue -continue Lactulose 10 g po qd and Miralax qd #GERD: not an acute issue -Ranitidine 150 mg po bid #Hyperlipidemia: not an acute concern -continue on atorvastatin 10mg PO at night #FEN -No standing fluids -Replete lytes in AM -Chopped diet w/thin liquids as per [facility] staff #Prophylaxis: -Heparin 5000 units sq q8h #Disposition: -continue to monitor on med-surg Visit type - Emergency Visit Emergency Visit: No - New Patient This patient is new to me today: Yes Date on this admission: 11/17/17 - Critical Care Critical Care patient: No <Alexei Holden - Last Filed: 11/17/17 19:14> Physical Exam: Patient seen and examined, agree with the plan.
[2017-11-17] MEDS: LACTULOSE 20 GM/30 ML UDC (FOR ORAL USE ONLY) PO SCH (12:21)
--- NOTE | 2017-11-17 15:07 | PN ---
Progress Note (short form) - Note Progress Note: NEUROLOGY FOLLOW-UP: Events reviewed and discussed with his aide, Iván, who has not noticed and seizures. Patient is more alert and interactive. At his baseline according to his aide. EXAM: Unchanged. Non-verbal. Follows simple commands. Makes eye contact and follows examiner. Moves all 4'w symmetrically. IMP: Severe static encephalopathy Refractory seizure disorder. Toxic-metabolic encephalopathy. SUGGEST: Will increase vimpat to 200mg BID while he is in the hospital in order to observe for tolerability and any possible adverse effects. Thank you very much, Mayito Jefferson MD
[2017-11-17 17:28] LABS: URINE APPEARANCE CLEAR; URINE BILIRUBIN NEGATIVE (NEGATIVE); URINE BLOOD NEGATIVE (NEGATIVE); URINE COLOR LTYELLOW; URINE GLUCOSE (UA) NEGATIVE (NEGATIVE); URINE KETONE NEGATIVE (NEGATIVE); URINE LEUK ESTERASE NEGATIVE (NEGATIVE); URINE NITRITE NEGATIVE (NEGATIVE); URINE PROTEIN NEGATIVE (NEGATIVE); URINE UROBILINOGEN NEGATIVE mg/dL (0.2-1.0)
[2017-11-17 18:05] LABS: BASO % 0.3 % (0-2.0); HEMATOCRIT 33.4 % (35.4-49); HEMOGLOBIN 11.1 GM/dL (11.7-16.9); LYMPH % 16.4 % (8-40); MCH 27.5 pg (25.7-33.7); MCHC 33.1 g/dl (32.0-35.9); MEAN PLT VOLUME 8.9 fl (7.5-11.1); MONO % 13.1 % (3.8-10.2); NEUT % 70.2 % (42.8-82.8); PLATELET COUNT 199 K/MM3 (134-434); RBC 4.03 M/mm3 (4.00-5.60); RDW 12.4 % (11.9-15.9); WHITE BLOOD COUNT 8.1 K/mm3 (4.0-10.0)
[2017-11-17] MEDS: ATORVASTATIN CA 10 MG TABLET (FP) PO SCH (21:58)
[2017-11-18] MEDS ORDERED: IBUPROFEN 800 MG/8 ML IJ IVPB ONE (01:25)
[2017-11-18] MEDS ORDERED: PT OWN MED DRAWER 7, Y5N ONE ×3 (01:59→18:02)
[2017-11-18] MEDS: CEFEPIME 2 GM in DEXTROSE 5%-WATER - 100 ML IVPB SCH ×3 (02:31→18:04)
[2017-11-18] MEDS: HEPARIN NA (PORCINE) 5,000 UNITS/ML 1ML VIAL SQ SCH ×3 (06:40→22:16)
[2017-11-18 07:16] LABS: HEMATOCRIT 33.9 % (35.4-49); HEMOGLOBIN 11.3 GM/dL (11.7-16.9); MCHC 33.3 g/dl (32.0-35.9); MEAN CELL VOLUME 84.1 fl (80-96); MEAN PLT VOLUME 9.1 fl (7.5-11.1); PLATELET COUNT 206 K/MM3 (134-434); RBC 4.02 M/mm3 (4.00-5.60); RDW 12.9 % (11.9-15.9); WHITE BLOOD COUNT 7.1 K/mm3 (4.0-10.0)
[2017-11-18 07:36] LABS: ALBUMIN 2.7 g/dl (3.4-5.0); ALK PHOS 129 U/L (45-117); ANION GAP 8 (8-16); BILIRUBIN,TOTAL 0.4 mg/dL (0.2-1.0); BLOOD UREA NITROGEN 10 mg/dL (7-18); CALCIUM 7.7 mg/dL (8.5-10.1); CHLORIDE 103 mmol/L (98-107); CO2 30 mmol/L (21-32); CREATININE 0.5 mg/dL (0.7-1.3); GLUCOSE,RANDOM 89 mg/dL (74-106); MAGNESIUM 1.9 mg/dL (1.8-2.4); PHOSPHOROUS 3.5 mg/dL (2.5-4.9); POTASSIUM 3.8 mmol/L (3.5-5.1); SGOT/AST 50 U/L (15-37); SGPT/ALT 26 U/L (12-78); SODIUM 141 mmol/L (136-145); TOT PROT 6.4 g/dl (6.4-8.2)
[2017-11-18] MEDS: clonazePAM 0.5 MG TABLET PO SCH ×3 (07:56→22:18)
[2017-11-18] MEDS: LACTULOSE 20 GM/30 ML UDC (FOR ORAL USE ONLY) PO SCH (09:56)
[2017-11-18] MEDS: RANITIDINE HCL 150 MG TABLET (FP) PO SCH ×2 (09:57→22:19)
[2017-11-18] MEDS: LACOSAMIDE 50 MG TABLET PO SCH ×2 (09:57→22:18)
--- NOTE | 2017-11-18 10:57 | PN ---
Progress Note, Physician Chief Complaint: ID Fevers noted but Im not really too concerned as he appears stable and has severe LLE cellulitis which will take time Vancomyin and Cefepime - Current Medication List Current Medications: Active Medications Acetaminophen (Tylenol -) 650 mg PO Q4H PRN PRN Reason: PAIN OR FEVER Last Admin: 11/17/17 23:55 Dose: 650 mg Atorvastatin Calcium (Lipitor -) 10 mg PO HS [facility] Last Admin: 11/17/17 21:58 Dose: 10 mg Clonazepam (Klonopin -) 0.25 mg PO TID [facility] Last Admin: 11/18/17 07:56 Dose: Not Given Heparin Sodium (Porcine) (Heparin -) 5,000 unit SQ TID [facility] Last Admin: 11/18/17 06:40 Dose: 5,000 unit Vancomycin HCl 1,000 mg/ (Dextrose) 250 mls @ 250 mls/hr IVPB BID SEAN PRN Reason: Protocol Last Admin: 11/17/17 21:57 Dose: 250 mls/hr Cefepime HCl 2 gm/ Dextrose 100 mls @ 200 mls/hr IVPB Q8H-IV [facility] Last Admin: 11/18/17 09:56 Dose: 200 mls/hr Lacosamide (Vimpat -) 200 mg PO BID [facility] Last Admin: 11/18/17 09:57 Dose: 200 mg Lactulose (Cephulac (Oral Use)) 10 gm PO DAILY [facility] Last Admin: 11/18/17 09:56 Dose: 10 gm Polyethylene Glycol (Miralax (For Daily Use) -) 17 gm PO DAILY [facility] Last Admin: 11/16/17 19:38 Dose: Not Given Ranitidine HCl (Zantac -) 150 mg PO BID [facility] Last Admin: 11/18/17 09:57 Dose: 150 mg - Objective Vital Signs: Vital Signs Temperature 100.1 F H 11/18/17 09:35 Pulse Rate 96 H 11/18/17 09:35 Respiratory Rate 18 11/18/17 09:35 Blood Pressure 146/53 11/18/17 09:35 O2 Sat by Pulse Oximetry (%) 95 11/17/17 21:00 Constitutional: Yes: Well Nourished, No Distress HENT: Yes: WNL, Atraumatic Neck: Yes: WNL, Supple Cardiovascular: Yes: Regular Rate and Rhythm, S1, S2. No: Murmur Respiratory: Yes: WNL, Regular, CTA Bilaterally Gastrointestinal: Yes: WNL, Normal Bowel Sounds, Soft Extremities: Yes: Other (Erythema improving Dry eschar no fluctuant no crepitance really no pain when I press mostly swelling redness) Labs: CBC, BMP 11/18/17 05:56 11/18/17 05:56 Problem List - Problems (1) Cellulitis Code(s): L03.90 - CELLULITIS, UNSPECIFIED Qualifiers: Site of cellulitis: unspecified site Qualified Code(s): L03.90 - Cellulitis , unspecified Assessment/Plan Microbiology 11/15/17 12:30 Blood - Peripheral Venous Blood Culture - Preliminary NO GROWTH OBTAINED AFTER 48 HOURS, INCUBATION TO CONTINUE FOR 3 DAYS. 11/15/17 12:30 Blood - Peripheral Venous Blood Culture - Preliminary NO GROWTH OBTAINED AFTER 48 HOURS, INCUBATION TO CONTINUE FOR 3 DAYS. Laboratory Tests 11/18/17 11/18/17 05:56 05:56 WBC 7.1 Hgb 11.3 L Hct 33.9 L Plt Count 206 BUN 10 D Assessment Severe cellulitis improving gradually Plan to continue IV as ordered another 48 h ours then po ? Keflex or vipul Mott MD
[2017-11-18] MEDS: VANCOMYCIN 1,000 MG in DEXTROSE 5%-WATER - 250 ML IVPB SCH ×2 (11:43→23:53)
[2017-11-18] MEDS: POLYETHYLENE GLYCOL 3350 119 GM BTL PO SCH (11:43)
--- NOTE | 2017-11-18 12:49 | PN ---
<Ricardo Gomez - Last Filed: 11/18/17 12:50> Physical Exam: SUBJECTIVE: Patient seen and examined at bedside. Due to mental status, history unable to be taken. no acute overnight events. OBJECTIVE: Vital Signs Period Temp Pulse Resp BP Sys/Morales Pulse Ox Last 24 Hr 98.9 F-102.6 F 87-114 16-20 130-149/53-82 95 GENERAL: The patient is alert but not oriented x 3, no acute distress HEAD: Normal with no signs of trauma. LUNGS: Breath sounds equal, clear to auscultation bilaterally, no wheezes, no crackles, no accessory muscle use. HEART: Regular rate and rhythm, S1, S2, systolic murmur appreciated on exam ABDOMEN: Soft, nontender, nondistended, normoactive bowel sounds, no guarding, no rebound, no hepatosplenomegaly, no masses. EXTREMITIES: 2+ pulses, warm, well-perfused, IMPROVING L leg warm and erythematous/blanching with non-pitting edema. erythema demarcated on leg with a pen. mildly improved since demarcation. Laboratory Results - last 24 hr 11/17/17 11/17/17 11/18/17 17:00 18:10 05:56 WBC 8.1 7.1 RBC 4.03 4.02 Hgb 11.1 L 11.3 L Hct 33.4 L 33.9 L MCV 83.0 84.1 MCH 27.5 28.0 MCHC 33.1 33.3 RDW 12.4 12.9 Plt Count 199 D 206 MPV 8.9 9.1 Neutrophils % 70.2 Lymphocytes % 16.4 Monocytes % 13.1 H Eosinophils % 0.0 D Basophils % 0.3 Sodium Potassium Chloride Carbon Dioxide Anion Gap BUN Creatinine Creat Clearance w eGFR Random Glucose Calcium Phosphorus Magnesium Total Bilirubin AST ALT Alkaline Phosphatase Total Protein Albumin Urine Color Ltyellow Urine Appearance Clear Urine pH 7.0 Ur Specific [place] 1.013 Urine Protein Negative Urine Glucose (UA) Negative Urine Ketones Negative Urine Blood Negative Urine Nitrite Negative Urine Bilirubin Negative Urine Urobilinogen Negative Ur Leukocyte Esterase Negative 11/18/17 05:56 WBC RBC Hgb Hct MCV MCH MCHC RDW Plt Count MPV Neutrophils % Lymphocytes % Monocytes % Eosinophils % Basophils % Sodium 141 Potassium 3.8 Chloride 103 Carbon Dioxide 30 Anion Gap 8 BUN 10 D Creatinine 0.5 L Creat Clearance w eGFR > 60 Random Glucose 89 Calcium 7.7 L Phosphorus 3.5 D Magnesium 1.9 Total Bilirubin 0.4 D AST 50 H ALT 26 Alkaline Phosphatase 129 H D Total Protein 6.4 Albumin 2.7 L Urine Color Urine Appearance Urine pH Ur Specific [place] Urine Protein Urine Glucose (UA) Urine Ketones Urine Blood Urine Nitrite Urine Bilirubin Urine Urobilinogen Ur Leukocyte Esterase Active Medications Generic Name Dose Route Start Last Admin Trade Name Freq PRN Reason Stop Dose Admin Acetaminophen 650 mg 11/15/17 17:37 11/17/17 23:55 Tylenol - PO 650 mg Q4H PRN Administration PAIN OR FEVER Atorvastatin Calcium 10 mg 11/15/17 22:00 11/17/17 21:58 Lipitor - PO 10 mg HS SEAN Administration Clonazepam 0.25 mg 11/16/17 06:00 11/18/17 07:56 Klonopin - PO Not Given TID SENA Heparin Sodium (Porcine) 5,000 unit 11/15/17 22:00 11/18/17 06:40 Heparin - SQ 5,000 unit TID SEAN Administration Vancomycin HCl 1,000 mg/ 250 mls @ 250 mls/hr 11/16/17 10:00 11/18/17 11:43 Dextrose IVPB 250 mls/hr BID SEAN Administration Protocol Cefepime HCl 2 gm/ Dextrose 100 mls @ 200 mls/hr 11/16/17 10:00 11/18/17 09: 56 IVPB 200 mls/hr Q8H-IV SEAN Administration Lacosamide 200 mg 11/17/17 22:00 11/18/17 09:57 Vimpat - PO 200 mg BID SEAN Administration Lactulose 10 gm 11/16/17 10:00 11/18/17 09:56 Cephulac (Oral Use) PO 10 gm DAILY SEAN Administration Polyethylene Glycol 17 gm 11/16/17 10:00 11/18/17 11:43 Miralax (For Daily Use) - PO Not Given DAILY SEAN Ranitidine HCl 150 mg 11/15/17 22:00 11/18/17 09:57 Zantac - PO 150 mg BID SEAN Administration ASSESSMENT/PLAN: 52 year old male from [facility] (non-verbal), with past medical history of of MR, seizure disorder, GERD, eczema is admitted for treatment of cellulitis #Cellulitis of LLE: slightly improving -Continue vancomycin/cefepime day 3 abx -ID consult appreciated -Tylenol 650 mg po q4h PRN for fever or pain #Seizure Disorder: no acute overnight events -neuro consult Dr. Jefferson appreciated- once infection clears, recommends vimpat 200 Q12 and phenobarbitol 97.2 -vimpat 200PO BID and klonopin 0.25mg TID #Constipation: not an acute issue -continue Lactulose 10 g po qd and Miralax qd #GERD: not an acute issue -Ranitidine 150 mg po bid #Hyperlipidemia: not an acute concern -continue on atorvastatin 10mg PO at night #FEN -No standing fluids -Replete lytes in AM -Chopped diet w/thin liquids as per [place] staff #Prophylaxis: -Heparin 5000 units sq q8h #Disposition: -continue to monitor on med-surg Visit type - Emergency Visit Emergency Visit: No - New Patient This patient is new to me today: No - Critical Care Critical Care patient: No <Alexei Holden - Last Filed: 11/18/17 17:52> Physical Exam: Patient seen and examined Vital Signs Temperature 100.9 F H 11/18/17 14:13 Pulse Rate 100 H 11/18/17 14:13 Respiratory Rate 20 11/18/17 14:13 Blood Pressure 144/73 11/18/17 14:13 O2 Sat by Pulse Oximetry (%) 95 11/18/17 09:00 CBCD WBC 7.1 K/mm3 (4.0-10.0) 11/18/17 05:56 RBC 4.02 M/mm3 (4.00-5.60) 11/18/17 05:56 Hgb 11.3 GM/dL (11.7-16.9) L 11/18/17 05:56 Hct 33.9 % (35.4-49) L 11/18/17 05:56 MCV 84.1 fl (80-96) 11/18/17 05:56 MCHC 33.3 g/dl (32.0-35.9) 11/18/17 05:56 RDW 12.9 % (11.9-15.9) 11/18/17 05:56 Plt Count 206 K/MM3 (134-434) 02/05/18 05:56 MPV 9.1 fl (7.5-11.1) 11/18/17 05:56 CMP Sodium 141 mmol/L (136-145) 11/18/17 05:56 Potassium 3.8 mmol/L (3.5-5.1) 11/18/17 05:56 Chloride 103 mmol/L (98-107) 11/18/17 05:56 Carbon Dioxide 30 mmol/L (21-32) 11/18/17 05:56 Anion Gap 8 (8-16) 11/18/17 05:56 BUN 10 mg/dL (7-18) D 11/18/17 05:56 Creatinine 0.5 mg/dL (0.7-1.3) L 11/18/17 05:56 Creat Clearance w eGFR > 60 (>60) 11/18/17 05:56 Random Glucose 89 mg/dL (74-106) 11/18/17 05:56 Calcium 7.7 mg/dL (8.5-10.1) L 11/18/17 05:56 Total Bilirubin 0.4 mg/dL (0.2-1.0) D 11/18/17 05:56 AST 50 U/L (15-37) H 11/18/17 05:56 ALT 26 U/L (12-78) 11/18/17 05:56 Alkaline Phosphatase 129 U/L (45-117) H D 11/18/17 05:56 Total Protein 6.4 g/dl (6.4-8.2) 11/18/17 05:56 Albumin 2.7 g/dl (3.4-5.0) L 11/18/17 05:56 Current Medications Generic Name Dose Route Start Last Admin Trade Name Freq PRN Reason Stop Dose Admin Acetaminophen 650 mg 11/15/17 17:37 11/17/17 23:55 Tylenol - PO 650 mg Q4H PRN Administration PAIN OR FEVER Atorvastatin Calcium 10 mg 11/15/17 22:00 11/17/17 21:58 Lipitor - PO 10 mg HS SEAN Administration Clonazepam 0.25 mg 11/16/17 06:00 11/18/17 14:30 Klonopin - PO 0.25 mg TID SEAN Administration Heparin Sodium (Porcine) 5,000 unit 11/15/17 22:00 11/18/17 14:31 Heparin - SQ 5,000 unit TID SEAN Administration Vancomycin HCl 1,000 mg/ 250 mls @ 250 mls/hr 11/16/17 10:00 11/18/17 11:43 Dextrose IVPB 250 mls/hr BID SEAN Administration Protocol Cefepime HCl 2 gm/ Dextrose 100 mls @ 200 mls/hr 11/16/17 10:00 11/18/17 09: 56 IVPB 200 mls/hr Q8H-IV SEAN Administration Lacosamide 200 mg 11/17/17 22:00 11/18/17 09:57 Vimpat - PO 200 mg BID SEAN Administration Lactulose 10 gm 11/16/17 10:00 11/18/17 09:56 Cephulac (Oral Use) PO 10 gm DAILY SEAN Administration Polyethylene Glycol 17 gm 11/16/17 10:00 11/18/17 11:43 Miralax (For Daily Use) - PO Not Given DAILY SEAN Ranitidine HCl 150 mg 11/15/17 22:00 11/18/17 09:57 Zantac - PO 150 mg BID SEAN Administration Home Medications Medication Instructions Recorded Calcium Carbonate/Vitamin D3 1 each PO BID 01/30/17 [Calcium 600 + D3 Softgel] Lactulose [Kristalose] 10 gm PO DAILY 01/30/17 [place]-3 Fatty Acids [Fish Oil] 500 mg PO DAILY 01/30/17 Polyethylene Glycol 3350 [Miralax 17 gm PO DAILY 01/30/17 (For Daily Use) -] Ranitidine [Zantac -] 150 mg PO BID 01/30/17 Ubidecarenone/Vit E Acet [Co Q-10 1 each PO DAILY 01/30/17 100 mg Softgel] Pravastatin Sodium [Pravachol (Nf)] 40 mg PO HS 11/15/17 Clonazepam 0.25 tab PO TID 11/16/17 Lacosamide [Vimpat -] 100 mg PO DAILY 11/16/17 Lacosamide [Vimpat -] 200 tab PO HS 11/16/17 Multiple Vitamins 1 each PO DAILY 11/16/17 PE: LLE: swelling and erythema continues but improving , pulses are positive. CT Of left LE: reported Fx of Tibia and Fibia distally. # Acute fx of LLE will get ortho consult who is [employer] # Acute cellulitis of LLE continue IV antibiotic for now as per ID further management.
[2017-11-18] MEDS: ATORVASTATIN CA 10 MG TABLET (FP) PO SCH (22:19)
[2017-11-18] MEDS: ACETAMINOPHEN 325 MG TABLET (FP) PO PRN (23:29)
[2017-11-19] MEDS: CEFEPIME 2 GM in DEXTROSE 5%-WATER - 100 ML IVPB SCH ×3 (01:22→17:11)
[2017-11-19] MEDS: HEPARIN NA (PORCINE) 5,000 UNITS/ML 1ML VIAL SQ SCH ×3 (06:44→21:48)
[2017-11-19] MEDS: clonazePAM 0.5 MG TABLET PO SCH ×3 (06:45→21:49)
[2017-11-19] MEDS: ACETAMINOPHEN 325 MG TABLET (FP) PO PRN ×3 (06:45→21:55)
[2017-11-19 07:51] LABS: BLOOD UREA NITROGEN 13 mg/dL (7-18); CALCIUM 7.8 mg/dL (8.5-10.1); CHLORIDE 99 mmol/L (98-107); POTASSIUM 3.9 mmol/L (3.5-5.1); SODIUM 137 mmol/L (136-145)
[2017-11-19 07:54] LABS: ANION GAP 9 (8-16); CO2 29 mmol/L (21-32); CREATININE 0.6 mg/dL (0.7-1.3); GLUCOSE,RANDOM 99 mg/dL (74-106)
[2017-11-19 08:13] LABS: HEMATOCRIT 34.2 % (35.4-49); HEMOGLOBIN 11.1 GM/dL (11.7-16.9); MCH 27.2 pg (25.7-33.7); MCHC 32.6 g/dl (32.0-35.9); MEAN CELL VOLUME 83.6 fl (80-96); MEAN PLT VOLUME 8.7 fl (7.5-11.1); PLATELET COUNT 243 K/MM3 (134-434); RBC 4.09 M/mm3 (4.00-5.60); RDW 12.6 % (11.9-15.9)
--- NOTE | 2017-11-19 09:00 | PN ---
Physical Exam: SUBJECTIVE: Patient seen and examined at bedside. No acute overnight events, no interval change from last night. OBJECTIVE: Vital Signs Period Temp Pulse Resp BP Sys/Morales Pulse Ox Last 24 Hr 100.1 F-101.8 F 93-115 18-20 113-148/53-74 95-95 GENERAL: The patient is alert but not oriented x 3, no acute distress HEAD: Normal with no signs of trauma. LUNGS: Breath sounds equal, clear to auscultation bilaterally, no wheezes, no crackles, no accessory muscle use. HEART: Regular rate and rhythm, S1, S2, systolic murmur appreciated on exam ABDOMEN: Soft, nontender, nondistended, normoactive bowel sounds, no guarding, no rebound, no hepatosplenomegaly, no masses. EXTREMITIES: 2+ pulses, warm, well-perfused, IMPROVING L leg warm and erythematous/blanching with non-pitting edema. erythema demarcated on leg with a pen. mildly improved since demarcation. Laboratory Results - last 24 hr 11/18/17 11/19/17 11/19/17 23:10 06:45 06:45 WBC 10.0 D RBC 4.09 Hgb 11.1 L Hct 34.2 L MCV 83.6 MCH 27.2 MCHC 32.6 RDW 12.6 Plt Count 243 MPV 8.7 Sodium 137 Potassium 3.9 Chloride 99 Carbon Dioxide 29 Anion Gap 9 BUN 13 D Creatinine 0.6 L Random Glucose 99 Calcium 7.8 L Magnesium 2.0 Vancomycin Pre-Dose 5.889 Active Medications Generic Name Dose Route Start Last Admin Trade Name Freq PRN Reason Stop Dose Admin Acetaminophen 650 mg 11/15/17 17:37 11/19/17 06:45 Tylenol - PO 650 mg Q4H PRN Administration PAIN OR FEVER Atorvastatin Calcium 10 mg 11/15/17 22:00 11/18/17 22:19 Lipitor - PO 10 mg HS SEAN Administration Clonazepam 0.25 mg 11/16/17 06:00 11/19/17 06:45 Klonopin - PO 0.25 mg TID SEAN Administration Heparin Sodium (Porcine) 5,000 unit 11/15/17 22:00 11/19/17 06:44 Heparin - SQ 5,000 unit TID SEAN Administration Vancomycin HCl 1,000 mg/ 250 mls @ 250 mls/hr 11/16/17 10:00 11/18/17 23:53 Dextrose IVPB 250 mls/hr BID SEAN Administration Protocol Cefepime HCl 2 gm/ Dextrose 100 mls @ 200 mls/hr 11/16/17 10:00 11/19/17 01: 22 IVPB 200 mls/hr Q8H-IV SEAN Administration Lacosamide 200 mg 11/17/17 22:00 11/18/17 22:18 Vimpat - PO 200 mg BID SEAN Administration Lactulose 10 gm 11/16/17 10:00 11/18/17 09:56 Cephulac (Oral Use) PO 10 gm DAILY SEAN Administration Polyethylene Glycol 17 gm 11/16/17 10:00 11/18/17 11:43 Miralax (For Daily Use) - PO Not Given DAILY SEAN Ranitidine HCl 150 mg 11/15/17 22:00 11/18/17 22:19 Zantac - PO 150 mg BID SEAN Administration ASSESSMENT/PLAN: 52 year old male from [facility] (non-verbal), with past medical history of of MR, seizure disorder, GERD, eczema is admitted for treatment of cellulitis #Cellulitis of LLE: slightly improving -Continue vancomycin/cefepime day 4 abx -ID consult appreciated -Tylenol 650 mg po q4h PRN for fever or pain -CT lower extremities was done to R/O fluid collection, discovered tib/fib fracture #Tib/Fib fracture: new, unclear etiology -Sugar tong splint placed to stabilize the fracture with ample padding -ORIF contraindicated at this time due to cellulitis. #Seizure Disorder: no acute overnight events -neuro consult Dr. Jefferson appreciated- vimpat 200 Q12, possible phenobarbital when infection clears -vimpat 200PO BID and klonopin 0.25mg TID #Constipation: not an acute issue -continue Lactulose 10 g po qd and Miralax qd #GERD: not an acute issue -Ranitidine 150 mg po bid #Hyperlipidemia: not an acute concern -continue on atorvastatin 10mg PO at night #FEN -No standing fluids -Replete lytes in AM -Chopped diet w/thin liquids as per [place] staff #Prophylaxis: -Heparin 5000 units sq q8h #Disposition: -continue to monitor on med-surg Visit type - Emergency Visit Emergency Visit: No - New Patient This patient is new to me today: No - Critical Care Critical Care patient: No
[2017-11-19] MEDS ORDERED: PT OWN MED DRAWER 7, Y5N ONE (09:09)
[2017-11-19] MEDS: POLYETHYLENE GLYCOL 3350 119 GM BTL PO SCH (09:29)
[2017-11-19] MEDS: LACTULOSE 20 GM/30 ML UDC (FOR ORAL USE ONLY) PO SCH (09:30)
[2017-11-19] MEDS: LACOSAMIDE 50 MG TABLET PO SCH ×2 (09:30→21:54)
[2017-11-19] MEDS: RANITIDINE HCL 150 MG TABLET (FP) PO SCH ×2 (09:30→21:48)
[2017-11-19] MEDS: VANCOMYCIN 1,000 MG in DEXTROSE 5%-WATER - 250 ML IVPB SCH ×2 (10:20→21:44)
--- NOTE | 2017-11-19 10:27 | CONSULT ---
Consult Consult Specialty:: orthopedics Reason for Consultation:: left leg - History of Present Illness Chief Complaint: left leg History of Present Illness: 52y/o male admitted to the hospital after a fall 5 days ago. he developed cellulitis of the LLE and has been treated with IV ABX. He had a CT scan and was found to have fractures of the tibia and fibula. Pt is non-verbal and lying in bed comfortably. According to the manager building at the home he lives they did not witness any injury to his LLE or fall. They did not that he was not walking on despite being able to walk normally. - History Source History Provided By: Medical Record, Caregiver - Alcohol/Substance Use Hx Alcohol Use: No - Smoking History Smoking history: Never smoked Have you smoked in the past 12 months: No Aproximately how many cigarettes per day: 0 Home Medications - Allergies Allergies/Adverse Reactions: Allergies Allergy/AdvReac Type Severity Reaction Status Date / Time No Known Allergies Allergy Verified 11/15/17 10:59 - Home Medications Home Medications: Ambulatory Orders Calcium Carbonate/Vitamin D3 [Calcium 600 + D3 Softgel] 1 each PO BID 01/30/17 Lactulose [Kristalose] 10 gm PO DAILY 01/30/17 [place]-3 Fatty Acids [Fish Oil] 500 mg PO DAILY 01/30/17 Polyethylene Glycol 3350 [Miralax (For Daily Use) -] 17 gm PO DAILY 01/30/17 Ranitidine [Zantac -] 150 mg PO BID 01/30/17 Ubidecarenone/Vit E Acet [Co Q-10 100 mg Softgel] 1 each PO DAILY 01/30/17 Pravastatin Sodium [Pravachol (Nf)] 40 mg PO HS 11/15/17 Clonazepam 0.25 tab PO TID 11/16/17 Lacosamide [Vimpat -] 100 mg PO DAILY 11/16/17 Lacosamide [Vimpat -] 200 tab PO HS 11/16/17 Multiple Vitamins 1 each PO DAILY 11/16/17 Review of Systems Unable to obtain ROS, reason: Non-verbal Physical Exam Vital Signs: Vital Signs Temperature 100.2 F H 11/19/17 09:17 Pulse Rate 98 H 11/19/17 09:17 Respiratory Rate 18 11/19/17 09:17 Blood Pressure 152/73 11/19/17 09:17 O2 Sat by Pulse Oximetry (%) 95 11/18/17 21:00 Constitutional: Yes: Well Nourished, No Distress, Calm HENT: Yes: Atraumatic, Normocephalic Musculoskeletal: Yes: Other (LLE: There is diffuse erythema and edema of the foot and ankle. No open wounds or drainage. Tenderness over the distal tibia/ fibula. +2 distal pulses. compartments soft) Labs: CBC, BMP 11/19/17 06:45 11/19/17 06:45 Imaging - Results Cat Scan: Report Reviewed, Image Reviewed (Distal 1/3rd tibia and fibula fractures) Assessment/Plan #1 LLE cellultis and tibia/fibula fractures -Sugar tong splint placed to stabilize the fracture with ample padding -ORIF contraindicated at this time due to cellulitis. -LLE elevated on pillows and blankets
--- NOTE | 2017-11-19 15:47 | PN ---
Progress Note, Physician History of Present Illness: Awake No acute distress Remains febrile Cast placed L LE WBC WNL BC(-) - Current Medication List Current Medications: Active Medications Acetaminophen (Tylenol -) 650 mg PO Q4H PRN PRN Reason: PAIN OR FEVER Last Admin: 11/19/17 15:34 Dose: 650 mg Atorvastatin Calcium (Lipitor -) 10 mg PO HS [facility] Last Admin: 11/18/17 22:19 Dose: 10 mg Clonazepam (Klonopin -) 0.25 mg PO TID [facility] Last Admin: 11/19/17 14:15 Dose: 0.25 mg Heparin Sodium (Porcine) (Heparin -) 5,000 unit SQ TID [facility] Last Admin: 11/19/17 14:15 Dose: 5,000 unit Vancomycin HCl 1,000 mg/ (Dextrose) 250 mls @ 250 mls/hr IVPB BID SEAN PRN Reason: Protocol Last Admin: 11/19/17 10:20 Dose: 250 mls/hr Cefepime HCl 2 gm/ Dextrose 100 mls @ 200 mls/hr IVPB Q8H-IV [facility] Last Admin: 11/19/17 09:29 Dose: 200 mls/hr Lacosamide (Vimpat -) 200 mg PO BID [facility] Last Admin: 11/19/17 09:30 Dose: 200 mg Lactulose (Cephulac (Oral Use)) 10 gm PO DAILY [facility] Last Admin: 11/19/17 09:30 Dose: 10 gm Polyethylene Glycol (Miralax (For Daily Use) -) 17 gm PO DAILY [facility] Last Admin: 11/19/17 09:29 Dose: 17 gm Ranitidine HCl (Zantac -) 150 mg PO BID [facility] Last Admin: 11/19/17 09:30 Dose: 150 mg - Objective Vital Signs: Vital Signs Temperature 101.2 F H 11/19/17 13:26 Pulse Rate 100 H 11/19/17 13:26 Respiratory Rate 20 11/19/17 13:26 Blood Pressure 129/66 11/19/17 13:26 O2 Sat by Pulse Oximetry (%) 96 11/19/17 09:00 Constitutional: Yes: No Distress Cardiovascular: Yes: Regular Rate and Rhythm, S1, S2 Respiratory: Yes: CTA Bilaterally Gastrointestinal: Yes: Normal Bowel Sounds, Soft. No: Tenderness Extremities: Yes: Other (Cast in place L LE) Labs: CBC, BMP 11/19/17 06:45 11/19/17 06:45 Assessment/Plan L tib/fib fracture Cellulitis Profound MR Await BC Continue vancomycin/ cefepime
--- NOTE | 2017-11-19 18:12 | PN ---
Teaching Attending Note Name of Resident: Ricardo Gomez ATTENDING PHYSICIAN STATEMENT I saw and evaluated the patient. I reviewed the resident's note and discussed the case with the resident. I agree with the resident's findings and plan as documented. SUBJECTIVE: Patient is lying in bed with no acute distress. OBJECTIVE: Vital Signs Temperature 99.5 F 11/19/17 17:53 Pulse Rate 106 H 11/19/17 17:53 Respiratory Rate 20 11/19/17 17:53 Blood Pressure 121/60 11/19/17 17:53 O2 Sat by Pulse Oximetry (%) 96 11/19/17 09:00 CBCD WBC 10.0 K/mm3 (4.0-10.0) D 11/19/17 06:45 RBC 4.09 M/mm3 (4.00-5.60) 11/19/17 06:45 Hgb 11.1 GM/dL (11.7-16.9) L 11/19/17 06:45 Hct 34.2 % (35.4-49) L 11/19/17 06:45 MCV 83.6 fl (80-96) 11/19/17 06:45 MCHC 32.6 g/dl (32.0-35.9) 11/19/17 06:45 RDW 12.6 % (11.9-15.9) 11/19/17 06:45 Plt Count 243 K/MM3 (134-434) 11/19/17 06:45 MPV 8.7 fl (7.5-11.1) 11/19/17 06:45 CMP Sodium 137 mmol/L (136-145) 11/19/17 06:45 Potassium 3.9 mmol/L (3.5-5.1) 11/19/17 06:45 Chloride 99 mmol/L (98-107) 11/19/17 06:45 Carbon Dioxide 29 mmol/L (21-32) 11/19/17 06:45 Anion Gap 9 (8-16) 11/19/17 06:45 BUN 13 mg/dL (7-18) D 11/19/17 06:45 Creatinine 0.6 mg/dL (0.7-1.3) L 11/19/17 06:45 Creat Clearance w eGFR > 60 (>60) 11/18/17 05:56 Random Glucose 99 mg/dL (74-106) 11/19/17 06:45 Calcium 7.8 mg/dL (8.5-10.1) L 11/19/17 06:45 Total Bilirubin 0.4 mg/dL (0.2-1.0) D 11/18/17 05:56 AST 50 U/L (15-37) H 11/18/17 05:56 ALT 26 U/L (12-78) 11/18/17 05:56 Alkaline Phosphatase 129 U/L (45-117) H D 11/18/17 05:56 Total Protein 6.4 g/dl (6.4-8.2) 11/18/17 05:56 Albumin 2.7 g/dl (3.4-5.0) L 11/18/17 05:56 Current Medications Generic Name Dose Route Start Last Admin Trade Name Freq PRN Reason Stop Dose Admin Acetaminophen 650 mg 11/15/17 17:37 11/19/17 15:34 Tylenol - PO 650 mg Q4H PRN Administration PAIN OR FEVER Atorvastatin Calcium 10 mg 11/15/17 22:00 11/18/17 22:19 Lipitor - PO 10 mg HS SEAN Administration Clonazepam 0.25 mg 11/16/17 06:00 11/19/17 14:15 Klonopin - PO 0.25 mg TID SEAN Administration Heparin Sodium (Porcine) 5,000 unit 11/15/17 22:00 11/19/17 14:15 Heparin - SQ 5,000 unit TID SEAN Administration Vancomycin HCl 1,000 mg/ 250 mls @ 250 mls/hr 11/16/17 10:00 11/19/17 10:20 Dextrose IVPB 250 mls/hr BID SEAN Administration Protocol Cefepime HCl 2 gm/ Dextrose 100 mls @ 200 mls/hr 11/16/17 10:00 11/19/17 17: 11 IVPB 200 mls/hr Q8H-IV SEAN Administration Lacosamide 200 mg 11/17/17 22:00 11/19/17 09:30 Vimpat - PO 200 mg BID SEAN Administration Lactulose 10 gm 11/16/17 10:00 11/19/17 09:30 Cephulac (Oral Use) PO 10 gm DAILY SEAN Administration Polyethylene Glycol 17 gm 11/16/17 10:00 11/19/17 09:29 Miralax (For Daily Use) - PO 17 gm DAILY SEAN Administration Ranitidine HCl 150 mg 11/15/17 22:00 11/19/17 09:30 Zantac - PO 150 mg BID SEAN Administration Home Medications Medication Instructions Recorded Calcium Carbonate/Vitamin D3 1 each PO BID 01/30/17 [Calcium 600 + D3 Softgel] Lactulose [Kristalose] 10 gm PO DAILY 01/30/17 [place]-3 Fatty Acids [Fish Oil] 500 mg PO DAILY 01/30/17 Polyethylene Glycol 3350 [Miralax 17 gm PO DAILY 01/30/17 (For Daily Use) -] Ranitidine [Zantac -] 150 mg PO BID 01/30/17 Ubidecarenone/Vit E Acet [Co Q-10 1 each PO DAILY 01/30/17 100 mg Softgel] Pravastatin Sodium [Pravachol (Nf)] 40 mg PO HS 11/15/17 Clonazepam 0.25 tab PO TID 11/16/17 Lacosamide [Vimpat -] 100 mg PO DAILY 11/16/17 Lacosamide [Vimpat -] 200 tab PO HS 11/16/17 Multiple Vitamins 1 each PO DAILY 11/16/17 PE: Lying in bed with no acute distress LLE placed in sugar tong splint rest of PE per resident's note Cat Scan: Report Reviewed, Image Reviewed (Distal 1/3rd tibia and fibula fractures) ASSESSMENT AND PLAN: 52 [facility] old male from [facility] (non-verbal), with past medical history of of MR, seizure disorder, GERD, eczema is admitted for treatment of cellulitis. #Acute Fracture of Tibia and Fibula s/p sugar tong splint placed to stabilize the fracture with ample padding as per ortho ORIF is contraindicated at this time due to cellulitis. # Acute Cellulitis of LLE: slightly improving on Vancomycin and cefepime ID consult appreciated , Tylenol 650 mg po q4h PRN for fever or pain #Seizure Disorder: neuro consult Dr. Jefferson appreciated- once infection clears , increased vimpat 200 Q12 and phenobarbitol 97.2 and klonopin 0.25mg TID #Constipation: continue Lactulose 10 g po qd and Miralax qd #GERD: Ranitidine 150 mg po bid #Hyperlipidemia: continue on atorvastatin 10mg PO at night #Prophylaxis:Heparin 5000 units sq q8h
[2017-11-19] MEDS: ATORVASTATIN CA 10 MG TABLET (FP) PO SCH (21:48)
[2017-11-20] MEDS: CEFEPIME 2 GM in DEXTROSE 5%-WATER - 100 ML IVPB SCH ×3 (02:10→18:14)
[2017-11-20] MEDS: ACETAMINOPHEN 325 MG TABLET (FP) PO PRN ×3 (02:15→19:11)
[2017-11-20] MEDS: clonazePAM 0.5 MG TABLET PO SCH ×3 (05:48→21:49)
[2017-11-20] MEDS: HEPARIN NA (PORCINE) 5,000 UNITS/ML 1ML VIAL SQ SCH ×3 (05:48→21:49)
[2017-11-20 08:20] LABS: ANION GAP 9 (8-16); BLOOD UREA NITROGEN 14 mg/dL (7-18); CALCIUM 8.4 mg/dL (8.5-10.1); CHLORIDE 99 mmol/L (98-107); CO2 30 mmol/L (21-32); GLUCOSE,RANDOM 92 mg/dL (74-106); MAGNESIUM 2.3 mg/dL (1.8-2.4); POTASSIUM 4.1 mmol/L (3.5-5.1); SODIUM 138 mmol/L (136-145)
[2017-11-20 08:22] LABS: CREATININE 0.5 mg/dL (0.7-1.3); PHOSPHOROUS 3.8 mg/dL (2.5-4.9)
[2017-11-20 08:24] LABS: HEMATOCRIT 32.6 % (35.4-49); HEMOGLOBIN 10.7 GM/dL (11.7-16.9); MCH 27.3 pg (25.7-33.7); MCHC 32.8 g/dl (32.0-35.9); MEAN CELL VOLUME 83.2 fl (80-96); MEAN PLT VOLUME 8.5 fl (7.5-11.1); PLATELET COUNT 271 K/MM3 (134-434); RBC 3.92 M/mm3 (4.00-5.60); RDW 12.3 % (11.9-15.9); WHITE BLOOD COUNT 8.9 K/mm3 (4.0-10.0)
[2017-11-20] MEDS ORDERED: PT OWN MED DRAWER 7, Y5N ONE ×3 (09:56→20:58)
[2017-11-20] MEDS: LACTULOSE 20 GM/30 ML UDC (FOR ORAL USE ONLY) PO SCH (10:05)
[2017-11-20] MEDS: RANITIDINE HCL 150 MG TABLET (FP) PO SCH ×2 (10:05→21:50)
[2017-11-20] MEDS: LACOSAMIDE 50 MG TABLET PO SCH ×2 (10:05→21:49)
[2017-11-20] MEDS: POLYETHYLENE GLYCOL 3350 119 GM BTL PO SCH (10:06)
[2017-11-20] MEDS: VANCOMYCIN 1,000 MG in DEXTROSE 5%-WATER - 250 ML IVPB SCH (11:17)
--- NOTE | 2017-11-20 15:21 | PN ---
Physical Exam: SUBJECTIVE: Patient seen and examined at bedside. No acute overnight events. Patient's left leg is in a splint and wrapped. OBJECTIVE: Vital Signs Period Temp Pulse Resp BP Sys/Morales Pulse Ox Last 24 Hr 99 F-102.3 F 89-106 18-20 106-137/60-64 97-97 GENERAL: The patient is alert but not oriented x 3, no acute distress HEAD: Normal with no signs of trauma. LUNGS: Breath sounds equal, clear to auscultation bilaterally, no wheezes, no crackles, no accessory muscle use. HEART: Regular rate and rhythm, S1, S2, systolic murmur appreciated on exam ABDOMEN: Soft, nontender, nondistended, normoactive bowel sounds, no guarding, no rebound, no hepatosplenomegaly, no masses. EXTREMITIES: 2+ pulses, warm, well-perfused, L leg wrapped in agnes and in a splint - IMPROVING L leg warm and erythematous/blanching with non-pitting edema. erythema demarcated on leg with a pen. improved considerably since demarcation. Laboratory Results - last 24 hr 11/20/17 11/20/17 06:00 06:00 WBC 8.9 RBC 3.92 L Hgb 10.7 L Hct 32.6 L MCV 83.2 MCH 27.3 MCHC 32.8 RDW 12.3 Plt Count 271 MPV 8.5 Sodium 138 Potassium 4.1 Chloride 99 Carbon Dioxide 30 Anion Gap 9 BUN 14 Creatinine 0.5 L Random Glucose 92 Calcium 8.4 L Phosphorus 3.8 Magnesium 2.3 Active Medications Generic Name Dose Route Start Last Admin Trade Name Anirudhq PRN Reason Stop Dose Admin Acetaminophen 650 mg 11/15/17 17:37 11/20/17 11:34 Tylenol - PO 650 mg Q4H PRN Administration PAIN OR FEVER Atorvastatin Calcium 10 mg 11/15/17 22:00 11/19/17 21:48 Lipitor - PO 10 mg HS SEAN Administration Clonazepam 0.25 mg 11/16/17 06:00 11/20/17 15:00 Klonopin - PO 0.25 mg TID SEAN Administration Heparin Sodium (Porcine) 5,000 unit 11/15/17 22:00 11/20/17 15:01 Heparin - SQ 5,000 unit TID SEAN Administration Vancomycin HCl 1,000 mg/ 250 mls @ 250 mls/hr 11/16/17 10:00 11/20/17 11:17 Dextrose IVPB 250 mls/hr BID SEAN Administration Protocol Cefepime HCl 2 gm/ Dextrose 100 mls @ 200 mls/hr 11/16/17 10:00 11/20/17 10: 05 IVPB 200 mls/hr Q8H-IV SEAN Administration Lacosamide 200 mg 11/17/17 22:00 11/20/17 10:05 Vimpat - PO 200 mg BID SEAN Administration Lactulose 10 gm 11/16/17 10:00 11/20/17 10:05 Cephulac (Oral Use) PO 10 gm DAILY SEAN Administration Polyethylene Glycol 17 gm 11/16/17 10:00 11/20/17 10:06 Miralax (For Daily Use) - PO 17 gm DAILY SEAN Administration Ranitidine HCl 150 mg 11/15/17 22:00 11/20/17 10:05 Zantac - PO 150 mg BID SEAN Administration ASSESSMENT/PLAN: 52 year old male from [facility] (non-verbal), with past medical history of of MR, seizure disorder, GERD, eczema is admitted for treatment of cellulitis #Cellulitis of LLE: improving compared to yesterday -Continue vancomycin/cefepime day 5 abx -vanc trough ~5-6 -ID consult appreciated -Tylenol 650 mg po q4h PRN for fever or pain -CT lower extremities was done to R/O fluid collection, discovered tib/fib fracture #Tib/Fib fracture: new, unclear etiology -Sugar tong splint placed to stabilize the fracture with ample padding -ORIF contraindicated at this time due to cellulitis. Continue treating cellulitis #Seizure Disorder: no acute overnight events -neuro consult Dr. Jefferson appreciated- vimpat 200 Q12, possible phenobarbital when infection clears -vimpat 200PO BID and klonopin 0.25mg TID #Constipation: not an acute issue -continue Lactulose 10 g po qd and Miralax qd #GERD: not an acute issue -Ranitidine 150 mg po bid #Hyperlipidemia: not an acute concern -continue on atorvastatin 10mg PO at night #FEN -No standing fluids -Replete lytes in AM -Chopped diet w/thin liquids as per [facility] staff #Prophylaxis: -Heparin 5000 units sq q8h #Disposition: -continue to monitor on med-surg Visit type - Emergency Visit Emergency Visit: No - New Patient This patient is new to me today: No - Critical Care Critical Care patient: No
--- NOTE | 2017-11-20 19:26 | HOSP ---
Subjective - Review of Symptoms Events since last encounter: Was called to see patient because of possible seizure like activity. Pt is nonverbal and does not reliably follow commands. Pt was witnessed by nurse to have a spell of blankly staring, which was different from his baseline. Pt reportedly tracks and makes eye contact. Pt has a sitter who has been with him for a year who confirmed that this is the appearance when pt has a seizure. Pt has been seen by neuro. Currently, pt is at baseline confirmed by nurse and sitter. Vital signs stable. Pupils reactive. Neuro exam limited as pt does not follow commands. Currently tracking and making good eye contact. Physical Examination Vital Signs: Vital Signs Temperature 99 F 11/20/17 16:15 Pulse Rate 95 H 11/20/17 16:15 Respiratory Rate 20 11/20/17 16:15 Blood Pressure 137/65 11/20/17 16:15 O2 Sat by Pulse Oximetry (%) 97 11/20/17 09:00 Labs: CBC, BMP 11/20/17 06:00 11/20/17 06:00 Visit type - Emergency Visit Emergency Visit: No - New Patient This patient is new to me today: Yes Date on this admission: 11/20/17 - Critical Care Critical Care patient: No
--- NOTE | 2017-11-20 19:55 | PN ---
Teaching Attending Note Name of Resident: Ricardo Gomez ATTENDING PHYSICIAN STATEMENT I saw and evaluated the patient. I reviewed the resident's note and discussed the case with the resident. I agree with the resident's findings and plan as documented. SUBJECTIVE: Unable to obtain hx OBJECTIVE: NAD, awake , tracks with eyes. cooperative CV: RRR Lungs: CTAB Ext: LLE in splint which was removed. erythema and tenderness and edema on lower leg , and dorsal foot . DP 2+ . RLE with no edema or erythema Neuro : moves all his ext. tracks , no facial droop ASSESSMENT AND PLAN: 52 y/o man with h/o MR , from [place], seizure , GERD , and other medical problems who presented with LLE erythema and edema . He was found to have cellulitis and L fib/tib Fx 1- cellulitis : improved - cont vanco and cefepime - vanco trough at 9:30 tonight , goal 10-15 2- L Tib/Fib Fx : - cont splint due to cellulitis. - swelling of muscles noted on CT, monitor neuro vascular exam of leg/foot . no signs of compartment syndrome 3- Seizure disorder: - cont Vimpat , phenobarbital - cont klonopin HLOC
[2017-11-20] MEDS: ATORVASTATIN CA 10 MG TABLET (FP) PO SCH (21:50)
[2017-11-20] MEDS ORDERED: IBUPROFEN 800 MG/8 ML IJ IVPB ONE (23:59)
[2017-11-21] MEDS ORDERED: PT OWN MED DRAWER 7, Y5N ONE ×4 (02:01→20:41)
[2017-11-21] MEDS: CEFEPIME 2 GM in DEXTROSE 5%-WATER - 100 ML IVPB SCH ×2 (03:09→09:55)
[2017-11-21] MEDS: VANCOMYCIN 1,000 MG in DEXTROSE 5%-WATER - 250 ML IVPB SCH ×2 (04:22→09:55)
[2017-11-21] MEDS: HEPARIN NA (PORCINE) 5,000 UNITS/ML 1ML VIAL SQ SCH ×3 (06:00→21:32)
[2017-11-21] MEDS: clonazePAM 0.5 MG TABLET PO SCH ×3 (06:00→21:33)
[2017-11-21 08:23] LABS: HEMATOCRIT 31.2 % (35.4-49); HEMOGLOBIN 10.2 GM/dL (11.7-16.9); MCH 27.3 pg (25.7-33.7); MCHC 32.6 g/dl (32.0-35.9); MEAN CELL VOLUME 83.7 fl (80-96); PLATELET COUNT 286 K/MM3 (134-434); RBC 3.73 M/mm3 (4.00-5.60); RDW 12.5 % (11.9-15.9); WHITE BLOOD COUNT 8.6 K/mm3 (4.0-10.0)
[2017-11-21 08:55] LABS: ANION GAP 8 (8-16); BLOOD UREA NITROGEN 19 mg/dL (7-18); CALCIUM 8.3 mg/dL (8.5-10.1); CHLORIDE 101 mmol/L (98-107); CO2 31 mmol/L (21-32); CREATININE 0.5 mg/dL (0.7-1.3); GLUCOSE,RANDOM 96 mg/dL (74-106); POTASSIUM 3.9 mmol/L (3.5-5.1); SODIUM 140 mmol/L (136-145)
[2017-11-21] MEDS: LACTULOSE 20 GM/30 ML UDC (FOR ORAL USE ONLY) PO SCH (09:55)
[2017-11-21] MEDS: RANITIDINE HCL 150 MG TABLET (FP) PO SCH ×2 (09:56→21:33)
[2017-11-21] MEDS: POLYETHYLENE GLYCOL 3350 119 GM BTL PO SCH (09:56)
--- NOTE | 2017-11-21 11:11 | PN ---
Progress Note, Physician Chief Complaint: ID On off fevers now yet looks quite comfortable no distress - Current Medication List Current Medications: Active Medications Acetaminophen (Tylenol -) 650 mg PO Q4H PRN PRN Reason: PAIN OR FEVER Last Admin: 11/20/17 19:11 Dose: 650 mg Atorvastatin Calcium (Lipitor -) 10 mg PO HS [facility] Last Admin: 11/20/17 21:50 Dose: 10 mg Clonazepam (Klonopin -) 0.25 mg PO TID [facility] Last Admin: 11/21/17 06:00 Dose: 0.25 mg Heparin Sodium (Porcine) (Heparin -) 5,000 unit SQ TID [facility] Last Admin: 11/21/17 06:00 Dose: 5,000 unit Cefepime HCl 2 gm/ Dextrose 100 mls @ 200 mls/hr IVPB Q8H-IV [facility] Last Admin: 11/21/17 09:55 Dose: 200 mls/hr Vancomycin HCl 1,250 mg/ (Dextrose) 250 mls @ 250 mls/hr IVPB BID SEAN PRN Reason: Protocol Lacosamide (Vimpat -) 200 mg PO BID [facility] Last Admin: 11/20/17 21:49 Dose: 200 mg Lactulose (Cephulac (Oral Use)) 10 gm PO DAILY [facility] Last Admin: 11/21/17 09:55 Dose: 10 gm Polyethylene Glycol (Miralax (For Daily Use) -) 17 gm PO DAILY [facility] Last Admin: 11/21/17 09:56 Dose: 17 gm Ranitidine HCl (Zantac -) 150 mg PO BID [facility] Last Admin: 11/21/17 09:56 Dose: 150 mg - Objective Vital Signs: Vital Signs Temperature 98.7 F 11/21/17 05:53 Pulse Rate 82 11/21/17 05:53 Respiratory Rate 20 11/21/17 05:53 Blood Pressure 107/56 11/21/17 05:53 O2 Sat by Pulse Oximetry (%) 94 L 11/20/17 21:59 Constitutional: Yes: Well Nourished, No Distress Neck: Yes: WNL, Supple Cardiovascular: Yes: Regular Rate and Rhythm, S1, S2. No: Murmur Respiratory: Yes: WNL, Regular, CTA Bilaterally Extremities: Yes: Other (Erythema has subsided and swelling less No locaized tenderness Dry Eschar no fluctuance) Labs: CBC, BMP 11/21/17 08:00 11/21/17 08:00 Problem List - Problems (1) Cellulitis Code(s): L03.90 - CELLULITIS, UNSPECIFIED Qualifiers: Site of cellulitis: unspecified site Qualified Code(s): L03.90 - Cellulitis , unspecified Assessment/Plan Microbiology 11/15/17 12:30 Blood - Peripheral Venous Blood Culture - Final NO GROWTH AFTER 5 DAYS INCUBATION 11/15/17 12:30 Blood - Peripheral Venous Blood Culture - Final NO GROWTH AFTER 5 DAYS INCUBATION 11/17/17 17:25 Blood - Peripheral Venous Blood Culture - Preliminary NO GROWTH OBTAINED AFTER 72 HOURS, INCUBATION TO CONTINUE FOR 2 DAYS. 11/17/17 16:50 Blood - Peripheral Venous Blood Culture - Preliminary NO GROWTH OBTAINED AFTER 72 HOURS, INCUBATION TO CONTINUE FOR 2 DAYS. Laboratory Tests 11/21/17 11/21/17 08:00 08:00 WBC 8.6 Hgb 10.2 L Hct 31.2 L Plt Count 286 BUN 19 H D Creatinine 0.5 L Assessment LLE fracture with complicating cellulitis ( culture neg) improving Fever ? secondary hematoma will take time Plan Substitute Unasyn 1.5grs q 6 H Tiera SHAH
[2017-11-21] MEDS: LACOSAMIDE 50 MG TABLET PO SCH ×2 (11:53→21:32)
--- NOTE | 2017-11-21 13:16 | PN ---
Progress Note (short form) - Note Progress Note: Pt lying in bed. Nonresponsive to questions. Last Vital Signs Temp Pulse Resp BP Pulse Ox 97.4 F L 85 20 115/64 96 11/21/17 09:00 11/21/17 09:00 11/21/17 09:00 11/21/17 09:00 11/21/17 09:[address] exam shows persistent erythema about the ankle moderate swelling compartments soft calves soft 2+ dp pulse NV exam limited by pt MS XR: displaced tib/fib fracture / mild angulation A/p: 52y M with distal tib fib fracture -given pt is an ambulator and his fracture is not in satisfactory alignment, I believe further intervention is warranted -that being said, the cellulitis precludes casting or operative intervention -will continue abx at this time -while hematoma/fracture inflammation is probably driving some degree of inflammation, the skin does still appear more red than would be typical for fracture alone -would wait about 1 week for skin condition to improve and then consider closed vs open reduction -pt's sister is currently requesting transfer, can further discuss if care will be continued at [facility]
[2017-11-21] MEDS: AMPICILLIN NA/SULBACTAM NA 1.5 GM in SODIUM CHLORIDE 100 ML IVPB SCH ×2 (15:11→23:20)
--- NOTE | 2017-11-21 17:32 | PN ---
Physical Exam: SUBJECTIVE: Patient seen and examined at bedside. Patient is not A&O. Was told by nurse that overnight aid noticed patient staring into space blankly which she thought was seizure-like activity. On exam, patient did not appear changed from yesterday. Patient was febrile overnight OBJECTIVE: Vital Signs Period Temp Pulse Resp BP Sys/Morales Pulse Ox Last 24 Hr 97.4 F-101.5 F 82-115 18-20 107-149/56-69 94-96 GENERAL: The patient is alert but not oriented x 3, no acute distress HEAD: Normal with no signs of trauma. LUNGS: Breath sounds equal, clear to auscultation bilaterally, no wheezes, no crackles, no accessory muscle use. HEART: Regular rate and rhythm, S1, S2, systolic murmur appreciated on exam ABDOMEN: Soft, nontender, nondistended, normoactive bowel sounds, no guarding, no rebound, no hepatosplenomegaly, no masses. EXTREMITIES: L leg wrapped in agnes and in a splint - IMPROVING L leg warm and erythematous/blanching with non-pitting edema. erythema demarcated on leg with a pen. improved considerably since demarcation. L hand new onset swelling without erythema, pulses 2+ in upper extremities and 1+ in left lower extremity Laboratory Results - last 24 hr 11/20/17 11/21/17 11/21/17 22:00 08:00 08:00 WBC 8.6 RBC 3.73 L Hgb 10.2 L Hct 31.2 L MCV 83.7 MCH 27.3 MCHC 32.6 RDW 12.5 Plt Count 286 MPV 8.0 Sodium 140 Potassium 3.9 Chloride 101 Carbon Dioxide 31 Anion Gap 8 BUN 19 H D Creatinine 0.5 L Random Glucose 96 Calcium 8.3 L C-Reactive Protein 12.5 H Vancomycin Pre-Dose 7.968 D 11/21/17 08:00 WBC RBC Hgb Hct MCV MCH MCHC RDW Plt Count MPV Sodium Potassium Chloride Carbon Dioxide Anion Gap BUN Creatinine Random Glucose Calcium C-Reactive Protein Cancelled Vancomycin Pre-Dose Active Medications Generic Name Dose Route Start Last Admin Trade Name Freq PRN Reason Stop Dose Admin Acetaminophen 650 mg 11/15/17 17:37 11/20/17 19:11 Tylenol - PO 650 mg Q4H PRN Administration PAIN OR FEVER Atorvastatin Calcium 10 mg 11/15/17 22:00 02/07/18 21:50 Lipitor - PO 10 mg HS SEAN Administration Clonazepam 0.25 mg 11/16/17 06:00 11/21/17 14:21 Klonopin - PO 0.25 mg TID SEAN Administration Heparin Sodium (Porcine) 5,000 unit 11/15/17 22:00 11/21/17 14:20 Heparin - SQ 5,000 unit TID SEAN Administration Ampicillin Sodium/Sulbactam 100 mls @ 200 mls/hr 11/21/17 15:00 11/21/17 15: 11 Sodium 1.5 gm/ Sodium Chloride IVPB 200 mls/hr Q6H-IV SEAN Administration Lacosamide 200 mg 11/17/17 22:00 11/21/17 11:53 Vimpat - PO 200 mg BID SEAN Administration Lactulose 10 gm 11/16/17 10:00 11/21/17 09:55 Cephulac (Oral Use) PO 10 gm DAILY SEAN Administration Polyethylene Glycol 17 gm 11/16/17 10:00 11/21/17 09:56 Miralax (For Daily Use) - PO 17 gm DAILY SEAN Administration Ranitidine HCl 150 mg 11/15/17 22:00 11/21/17 09:56 Zantac - PO 150 mg BID SEAN Administration ASSESSMENT/PLAN: 52 year old male from [facility] (non-verbal), with past medical history of of MR, seizure disorder, GERD, eczema is admitted for treatment of cellulitis #Cellulitis of LLE: improving compared to yesterday -Continue vancomycin/cefepime day 6 abx -vanc trough ~7.96 -ID consult appreciated - change to unasyn -Tylenol 650 mg po q4h PRN for fever or pain #Left Hand Swelling: unclear etiology - not erythematous -L hand xray portable #Tib/Fib fracture: new, unclear etiology -Sugar tong splint to stabilize the fracture with ample padding -ORIF contraindicated at this time due to cellulitis. Continue treating cellulitis #Seizure Disorder: no acute overnight events -neuro consult Dr. Jefferson appreciated- vimpat 200 Q12, possible phenobarbital when infection clears -vimpat 200PO BID and klonopin 0.25mg TID #Constipation: not an acute issue -continue Lactulose 10 g po qd and Miralax qd #GERD: not an acute issue -Ranitidine 150 mg po bid #Hyperlipidemia: not an acute concern -continue on atorvastatin 10mg PO at night #FEN -No standing fluids -Replete lytes in AM -Chopped diet w/thin liquids as per [place] staff #Prophylaxis: -Heparin 5000 units sq q8h #Disposition: -continue to monitor on med-surg -patient family initially wanted transfer to [facility]. Called [facility] and spoke to Dr. Amador. Denied transfer. Visit type - Emergency Visit Emergency Visit: No - New Patient This patient is new to me today: No - Critical Care Critical Care patient: No
--- NOTE | 2017-11-21 18:26 | PN ---
Teaching Attending Note Name of Resident: Ricardo Gomez ATTENDING PHYSICIAN STATEMENT I saw and evaluated the patient. I reviewed the resident's note and discussed the case with the resident. I agree with the resident's findings and plan as documented. SUBJECTIVE: No events over night, screamed when blood was being drawn, but no seizure activity OBJECTIVES NAD, awake, tracks with eyes. cooperative CV: RRR Lungs: CTAB Ext: LLE in splint which was removed. Erythema and edema on lower leg , and dorsal foot . DP 2+ . RLE with no edema or erythema ASSESSMENT AND PLAN: 52 y/o man with h/o MR , from [place], seizure , GERD , and other medical problems who presented with LLE erythema and edema . He was found to have cellulitis and L fib/tib Fx 1- cellulitis : stable . cont to have low grade fever but improved from before - d?W Dr. Mott who recommended unasyn 2- L Tib/Fib Fx : - cont splint due to cellulitis. - no evidence of compartment sx - xray reviewed. 3- Seizure disorder: - cont Vimpat , phenobarbital - cont klonopin family requested transfer to [facility], team called but pt was not accepted. OC
[2017-11-21] MEDS ORDERED: ACETAMINOPHEN 1000 MG/100 ML VIAL (NON FORMULARY) IVPB ONE (20:30)
[2017-11-21] MEDS ORDERED: ACETAMINOPHEN 500 MG TABLET (FP) PO ONE (21:15)
[2017-11-21] MEDS: ATORVASTATIN CA 10 MG TABLET (FP) PO SCH (21:33)
[2017-11-21] MEDS ORDERED: VANCOMYCIN 1,250 MG in DEXTROSE 5%-WATER - 250 ML IVPB SCH (22:00)
[2017-11-22] MEDS: ACETAMINOPHEN 325 MG TABLET (FP) PO PRN ×3 (00:29→21:08)
[2017-11-22] MEDS: AMPICILLIN NA/SULBACTAM NA 1.5 GM in SODIUM CHLORIDE 100 ML IVPB SCH ×5 (03:48→20:57)
[2017-11-22] MEDS: clonazePAM 0.5 MG TABLET PO SCH ×3 (06:09→21:04)
[2017-11-22] MEDS: HEPARIN NA (PORCINE) 5,000 UNITS/ML 1ML VIAL SQ SCH ×3 (06:09→21:03)
[2017-11-22 08:10] LABS: ANION GAP 7 (8-16); BLOOD UREA NITROGEN 16 mg/dL (7-18); CALCIUM 8.2 mg/dL (8.5-10.1); CHLORIDE 104 mmol/L (98-107); CO2 26 mmol/L (21-32); CREATININE 0.5 mg/dL (0.7-1.3); GLUCOSE,RANDOM 88 mg/dL (74-106); SODIUM 137 mmol/L (136-145)
[2017-11-22 08:13] LABS: POTASSIUM 4.6 mmol/L (3.5-5.1)
[2017-11-22 08:22] LABS: HEMATOCRIT 32.3 % (35.4-49); HEMOGLOBIN 10.6 GM/dL (11.7-16.9); MCH 27.3 pg (25.7-33.7); MCHC 32.9 g/dl (32.0-35.9); MEAN CELL VOLUME 82.9 fl (80-96); MEAN PLT VOLUME 8.2 fl (7.5-11.1); PLATELET COUNT 340 K/MM3 (134-434); RDW 12.3 % (11.9-15.9); WHITE BLOOD COUNT 8.6 K/mm3 (4.0-10.0)
[2017-11-22] MEDS ORDERED: PT OWN MED DRAWER 7, Y5N ONE ×2 (08:55→14:08)
[2017-11-22] MEDS: RANITIDINE HCL 150 MG TABLET (FP) PO SCH ×2 (09:15→21:07)
[2017-11-22] MEDS: LACTULOSE 20 GM/30 ML UDC (FOR ORAL USE ONLY) PO SCH (09:15)
[2017-11-22] MEDS: LACOSAMIDE 50 MG TABLET PO SCH ×2 (09:15→21:07)
[2017-11-22] MEDS: POLYETHYLENE GLYCOL 3350 119 GM BTL PO SCH (09:15)
--- NOTE | 2017-11-22 11:27 | PN ---
Progress Note (short form) - Note Progress Note: Spoke w pt's sister. Informed her of current situation. Will plan on observation over the next 1 week or so to allow skin condition to improve. Patient will require definitive management with either internal or external fixation depending on skin quality. I reviewed surgical options along with the risks benefits and alternatives. She voiced understanding with the plan.
--- NOTE | 2017-11-22 12:05 | PN ---
Progress Note (short form) - Note Progress Note: ID Now on Unasyn for cellulitis Selected Entries 11/22/17 09:00 Temperature 98.4 F Pulse Rate 89 Respiratory 18 Rate Blood Pressure 123/60 Microbiology 11/15/17 12:30 Blood - Peripheral Venous Blood Culture - Final NO GROWTH AFTER 5 DAYS INCUBATION 11/15/17 12:30 Blood - Peripheral Venous Blood Culture - Final NO GROWTH AFTER 5 DAYS INCUBATION 11/17/17 17:25 Blood - Peripheral Venous Blood Culture - Preliminary NO GROWTH OBTAINED AFTER 96 HOURS, INCUBATION TO CONTINUE FOR 1 DAYS. 11/17/17 16:50 Blood - Peripheral Venous Blood Culture - Preliminary NO GROWTH OBTAINED AFTER 96 HOURS, INCUBATION TO CONTINUE FOR 1 DAYS. Laboratory Tests 11/21/17 11/22/17 11/22/17 08:00 07:45 07:45 WBC 8.6 Hgb 10.6 L Plt Count 340 ESR 99 H C-Reactive Protein 12.5 H Assessment Cellulitis with fracture Unclear reason for fever ESR CRP high seems unusual for typical celliulitis Plan If fever persists may stop antibiotics as clinical course seems unusual for a typical cullulitis Hematoma may be driving this fever Problem List - Problems (1) Cellulitis Code(s): L03.90 - CELLULITIS, UNSPECIFIED Qualifiers: Site of cellulitis: unspecified site Qualified Code(s): L03.90 - Cellulitis , unspecified
--- NOTE | 2017-11-22 12:26 | PN ---
Progress Note (short form) - Note Progress Note: doing well fevers trending down Vital Signs Period Temp Pulse Resp BP Sys/Morales Pulse Ox Last 24 Hr 98.4 F-101 F 81-94 18-19 113-133/50-67 94-95 cor-rrr lungs clear leg examined- +ecchymoses at the ankle, less erythema no fluctuance CBC, BMP 11/22/17 07:45 11/22/17 06:30 Microbiology 11/21/17 20:40 Nasopharyngeal Aspirate Influenza Types A,B Antigen (JYOTI) - Final 11/21/17 20:40 Nasopharyngeal Aspirate - Final 11/17/17 16:50 Blood - Peripheral Venous Blood Culture - Preliminary NO GROWTH OBTAINED AFTER 96 HOURS, INCUBATION TO CONTINUE FOR 1 DAYS. 11/17/17 17:25 Blood - Peripheral Venous Blood Culture - Preliminary NO GROWTH OBTAINED AFTER 96 HOURS, INCUBATION TO CONTINUE FOR 1 DAYS. 11/15/17 12:30 Blood - Peripheral Venous Blood Culture - Final NO GROWTH AFTER 5 DAYS INCUBATION 11/15/17 12:30 Blood - Peripheral Venous Blood Culture - Final NO GROWTH AFTER 5 DAYS INCUBATION 11/17/17 17:00 Urine - Urine - Catheterized Urine Culture - Final NO GROWTH OBTAINED a/p s/p fracture tib/fib cellulitis appears to be improving continue unasyn for now
--- NOTE | 2017-11-22 13:08 | PN ---
Physical Exam: SUBJECTIVE: Patient seen and examined at bedside. No acute overnight events. OBJECTIVE: Vital Signs Period Temp Pulse Resp BP Sys/Morales Pulse Ox Last 24 Hr 98.4 F-101 F 81-94 18-19 113-133/50-67 94-95 GENERAL: The patient is alert but not oriented x 3, no acute distress HEAD: Normal with no signs of trauma. LUNGS: Breath sounds equal, clear to auscultation bilaterally, no wheezes, no crackles, no accessory muscle use. HEART: Regular rate and rhythm, S1, S2, systolic murmur appreciated on exam ABDOMEN: Soft, nontender, nondistended, normoactive bowel sounds, no guarding, no rebound, no hepatosplenomegaly, no masses. EXTREMITIES: L leg wrapped in agnes and in a splint - IMPROVING L leg warm and erythematous/blanching with non-pitting edema. erythema demarcated on leg with a pen. Improved considerably since demarcation. LUE hand less swelling, pulses 2 + in upper extremities and 1+ in left lower extremity Laboratory Results - last 24 hr 11/22/17 11/22/17 11/22/17 06:30 07:45 07:45 WBC 8.6 RBC 3.90 L Hgb 10.6 L Hct 32.3 L MCV 82.9 MCH 27.3 MCHC 32.9 RDW 12.3 Plt Count 340 MPV 8.2 ESR 99 H Sodium 137 Potassium 4.6 Chloride 104 Carbon Dioxide 26 Anion Gap 7 L BUN 16 Creatinine 0.5 L Random Glucose 88 Calcium 8.2 L Active Medications Generic Name Dose Route Start Last Admin Trade Name Freq PRN Reason Stop Dose Admin Acetaminophen 650 mg 11/21/17 21:06 11/22/17 00:29 Tylenol - PO 650 mg Q4H PRN Administration PAIN OR FEVER Atorvastatin Calcium 10 mg 11/15/17 22:00 11/21/17 21:33 Lipitor - PO 10 mg HS SEAN Administration Clonazepam 0.25 mg 11/16/17 06:00 11/22/17 06:09 Klonopin - PO 0.25 mg TID SEAN Administration Heparin Sodium (Porcine) 5,000 unit 11/15/17 22:00 11/22/17 06:09 Heparin - SQ 5,000 unit TID SEAN Administration Ampicillin Sodium/Sulbactam 100 mls @ 200 mls/hr 11/21/17 15:00 11/22/17 10: 28 Sodium 1.5 gm/ Sodium Chloride IVPB 200 mls/hr Q6H-IV SEAN Administration Lacosamide 200 mg 11/17/17 22:00 11/22/17 09:15 Vimpat - PO 200 mg BID SEAN Administration Lactulose 10 gm 11/16/17 10:00 11/22/17 09:15 Cephulac (Oral Use) PO 10 gm DAILY SEAN Administration Polyethylene Glycol 17 gm 11/16/17 10:00 11/22/17 09:15 Miralax (For Daily Use) - PO 17 gm DAILY SEAN Administration Ranitidine HCl 150 mg 11/15/17 22:00 11/22/17 09:15 Zantac - PO 150 mg BID SEAN Administration ASSESSMENT/PLAN: 52 year old male from [facility] (non-verbal), with past medical history of of MR, seizure disorder, GERD, eczema is admitted for treatment of cellulitis #Cellulitis of LLE: improving compared to yesterday -continue unasyn -ID consult appreciated -Tylenol 650 mg po q4h PRN for fever or pain #Left Hand Swelling: unclear etiology - not erythematous, improved from yesterday -L hand xray portable negative for fracture -f/u ultrasound #Tib/Fib fracture: new, unclear etiology -Sugar tong splint to stabilize the fracture with ample padding -ORIF contraindicated at this time due to cellulitis. Continue treating cellulitis #Seizure Disorder: no acute overnight events -neuro consult Dr. Jefferson appreciated- vimpat 200 Q12, possible phenobarbital when infection clears -vimpat 200PO BID and klonopin 0.25mg TID #Constipation: not an acute issue -continue Lactulose 10 g po qd and Miralax qd #GERD: not an acute issue -Ranitidine 150 mg po bid #Hyperlipidemia: not an acute concern -continue on atorvastatin 10mg PO at night #FEN -No standing fluids -Replete lytes in AM -Chopped diet w/thin liquids as per [place] [facility] staff #Prophylaxis: -Heparin 5000 units sq q8h #Disposition: -continue to monitor on med-surg -patient family initially wanted transfer to [facility]. Called [facility] and spoke to Dr. Amador. Denied transfer. Visit type - Emergency Visit Emergency Visit: No - New Patient This patient is new to me today: No - Critical Care Critical Care patient: No
--- NOTE | 2017-11-22 18:51 | PN ---
Teaching Attending Note Name of Resident: Ricardo Gomez ATTENDING PHYSICIAN STATEMENT I saw and evaluated the patient. I reviewed the resident's note and discussed the case with the resident. I agree with the resident's findings and plan as documented. SUBJECTIVE: No evens over night OBJECTIVE: NAD, awake, tracks with eyes. cooperative CV: RRR Lungs: CTAB Ext: LLE in splint which was removed. Erythema and edema on lower leg , and dorsal foot ( slightly better than yesterday) . DP 1+ . bruising now visible on ankle RLE with no edema or erythema ASSESSMENT AND PLAN: 52 y/o man with h/o MR , from [place], seizure , GERD , and other medical problems who presented with LLE erythema and edema . He was found to have cellulitis and L fib/tib Fx 1- Cellulitis : stable . fever curve improved , possible small hematoma causing all this fever - cont unasyn - monitor for now - d/w Jim [place] 2- L Tib/Fib Fx : - cont splint due to cellulitis. surgical procedure to be determined - no evidence of compartment sx. 3- Seizure disorder: - cont Vimpat - cont klonopin HLOC
[2017-11-22] MEDS: ATORVASTATIN CA 10 MG TABLET (FP) PO SCH (21:06)
[2017-11-22] MEDS ORDERED: ACETAMINOPHEN 325 MG TABLET (FP) PO ONE (21:56)
[2017-11-23] MEDS: AMPICILLIN NA/SULBACTAM NA 1.5 GM in SODIUM CHLORIDE 100 ML IVPB SCH ×4 (02:21→21:15)
[2017-11-23] MEDS: ACETAMINOPHEN 325 MG TABLET (FP) PO PRN ×2 (02:30→21:18)
--- NOTE | 2017-11-23 05:56 | HOSP ---
Physical Examination Vital Signs: Vital Signs Temperature 100.7 F H 11/23/17 02:00 Pulse Rate 81 11/23/17 02:00 Respiratory Rate 20 11/23/17 02:00 Blood Pressure 112/51 11/23/17 02:00 O2 Sat by Pulse Oximetry (%) 94 L 11/22/17 20:49 Labs: CBC, BMP 11/22/17 07:45 11/22/17 06:30 Hospitalist Encounter Assessment: At 3:38 am this morning, RN informed that patient had shaking movements. RN mentioned that she noticed the shaking movement localized in the face area, lasting for about 3 seconds. This was the third episode that happened tonight @1 :45 am, 2:30 am and 3:35am No urinary/bowel incontinence or tongue bite. plumbing assembler installer was at bed side who said patient makes some noise before the shaking starts and then has up rolling of eyes, hyperextension of neck lasting for about 3 seconds and returns back to his normal state. Physical exam: Vitals: BP- 116/57 mmHg P- 75 bpm RR- 16 Temp- 99.6 F General: Patient lying in bed comfortably, awake, alert, non verbal at baseline. EOM: No pallor or icterus. Chest: B/L lungs clear, no added sounds CVS: Regular rate, no murmurs. Abdomen: Soft, non tender. Ext: Bandage applied on the left lower ext. A/P: Seizures: Focal seizure-lasted for about 3 seconds. Patient has h/o seizure and is on medication Consider Head CT if he continues to have seizure. Will inform the primary team in the morning. Visit type - Emergency Visit Emergency Visit: Yes ED Registration Date: 11/15/17 Care time: The patient presented to the Emergency Department on the above date and was hospitalized for further evaluation of their emergent condition. - New Patient This patient is new to me today: Yes Date on this admission: 11/23/17 - Critical Care Critical Care patient: No
[2017-11-23] MEDS: HEPARIN NA (PORCINE) 5,000 UNITS/ML 1ML VIAL SQ SCH ×3 (06:10→21:16)
[2017-11-23] MEDS: clonazePAM 0.5 MG TABLET PO SCH ×3 (06:11→21:17)
[2017-11-23 08:48] LABS: HEMATOCRIT 31.9 % (35.4-49); HEMOGLOBIN 10.4 GM/dL (11.7-16.9); MCH 27.2 pg (25.7-33.7); MCHC 32.5 g/dl (32.0-35.9); MEAN CELL VOLUME 83.6 fl (80-96); MEAN PLT VOLUME 7.9 fl (7.5-11.1); PLATELET COUNT 371 K/MM3 (134-434); RBC 3.81 M/mm3 (4.00-5.60); RDW 12.4 % (11.9-15.9); WHITE BLOOD COUNT 9.2 K/mm3 (4.0-10.0)
[2017-11-23 08:51] LABS: ALBUMIN 2.7 g/dl (3.4-5.0); ANION GAP 6 (8-16); BLOOD UREA NITROGEN 16 mg/dL (7-18); CALCIUM 8.9 mg/dL (8.5-10.1); CHLORIDE 103 mmol/L (98-107); CO2 31 mmol/L (21-32); CREATININE 0.6 mg/dL (0.7-1.3); GLUCOSE,RANDOM 92 mg/dL (74-106); SODIUM 140 mmol/L (136-145)
[2017-11-23] MEDS: LACOSAMIDE 50 MG TABLET PO SCH ×2 (10:43→21:18)
[2017-11-23] MEDS: LACTULOSE 20 GM/30 ML UDC (FOR ORAL USE ONLY) PO SCH (10:43)
[2017-11-23] MEDS: levETIRAcetam 500 MG TABLET (FP) PO SCH ×2 (10:44→21:16)
[2017-11-23] MEDS: POLYETHYLENE GLYCOL 3350 119 GM BTL PO SCH (10:44)
[2017-11-23] MEDS: RANITIDINE HCL 150 MG TABLET (FP) PO SCH ×2 (10:44→21:17)
--- NOTE | 2017-11-23 11:43 | PN ---
Progress Note (short form) - Note Progress Note: day #8 antibiotics low grade temps persist but these are all rectal temps aide at bedside confirms seizures at his residence-this does not appear to be new Vital Signs Period Temp Pulse Resp BP Sys/Morales Pulse Ox Last 24 Hr 97.4 F-100.8 F 75-89 18-20 112-125/51-63 94 cor-rrr lungs decreased bs at bases abd soft,nt ext foot in splint, less erythema noted, +ecchymoses at ankle CBC, BMP 11/23/17 08:05 11/23/17 08:05 Microbiology 11/17/17 16:50 Blood - Peripheral Venous Blood Culture - Final NO GROWTH AFTER 5 DAYS INCUBATION 11/17/17 17:25 Blood - Peripheral Venous Blood Culture - Final NO GROWTH AFTER 5 DAYS INCUBATION 11/21/17 20:40 Nasopharyngeal Aspirate Influenza Types A,B Antigen (JYOTI) - Final 11/21/17 20:40 Nasopharyngeal Aspirate - Final 11/15/17 12:30 Blood - Peripheral Venous Blood Culture - Final NO GROWTH AFTER 5 DAYS INCUBATION 11/15/17 12:30 Blood - Peripheral Venous Blood Culture - Final NO GROWTH AFTER 5 DAYS INCUBATION 11/17/17 17:00 Urine - Urine - Catheterized Urine Culture - Final NO GROWTH OBTAINED a/p s/p fracture tib/fib intermittent fevers- ?hematoma cellulitis improving continue unasyn d/w hospitalist
--- NOTE | 2017-11-23 14:32 | CON.NEURO ---
Consult - Alcohol/Substance Use Hx Alcohol Use: No - Smoking History Smoking history: Never smoked Have you smoked in the past 12 months: No Aproximately how many cigarettes per day: 0 Home Medications - Allergies Allergies/Adverse Reactions: Allergies Allergy/AdvReac Type Severity Reaction Status Date / Time No Known Allergies Allergy Verified 11/15/17 10:59 - Home Medications Home Medications: Ambulatory Orders Calcium Carbonate/Vitamin D3 [Calcium 600 + D3 Softgel] 1 each PO BID 01/30/17 Lactulose [Kristalose] 10 gm PO DAILY 01/30/17 Irmo-3 Fatty Acids [Fish Oil] 500 mg PO DAILY 01/30/17 Polyethylene Glycol 3350 [Miralax (For Daily Use) -] 17 gm PO DAILY 01/30/17 Ranitidine [Zantac -] 150 mg PO BID 01/30/17 Ubidecarenone/Vit E Acet [Co Q-10 100 mg Softgel] 1 each PO DAILY 01/30/17 Pravastatin Sodium [Pravachol (Nf)] 40 mg PO HS 11/15/17 Clonazepam 0.25 tab PO TID 11/16/17 Lacosamide [Vimpat -] 100 mg PO DAILY 11/16/17 Lacosamide [Vimpat -] 200 tab PO HS 11/16/17 Multiple Vitamins 1 each PO DAILY 11/16/17 Physical Exam-Neuro Vital Signs: Vital Signs Temperature 99.5 F 11/23/17 13:58 Pulse Rate 92 H 11/23/17 13:58 Respiratory Rate 20 11/23/17 13:58 Blood Pressure 129/60 11/23/17 13:58 O2 Sat by Pulse Oximetry (%) 94 L 11/22/17 20:49 Labs: CBC, BMP 11/23/17 08:05 11/23/17 08:05 Assessment/Plan cc Episode of shaking movement ,only on face HPI 52 year old male history of mental retardation, and came with fracture of left tibia and fibula. He has been running fever. Initially seen by Dr Jefferson for breakthrough seizure and vimpat was increased to 200 mg po bid He has one more seizure last night. It was face twitching . Past Medication as above SH,ROS FH reviewed in chart Neurological Examination Alert and track object, no spontaneous speech or not able to follow command. eomi, pupils is reactive, moving all extremity Reflex are normal in upper extremity and diminished in lower extremity sensation isn ormal ct head is unremarkable Assessment/Plan-- 1.Static enecphalopathy- Continue supportive treatment 2. Breakthrough seizure - I suggested to add keppra 500 mg po bid and obtain an EEG , ct head was normal. no further work up needed for cavernoma. Please feel free to call me if you have any question John Zepeda MD
--- NOTE | 2017-11-23 15:16 | PN ---
Physical Exam: SUBJECTIVE: Patient seen and examined at bedside. Pt non-verbal and non- communicative. Pt w/3 short lived seizures that resolved on their own overnight. I was paged to see pt for a seizure that occurred at approx 7:13 AM today where pt hit his head on bed railing. Seizure was witnessed by aide from [facility], who reports it lasted for seconds and resolved on its own. Suzette also mentions that she had seen Mr. Vogel prior to his admission to the hospital and that he would sometimes get up from bed and be able to ambulate a little. But in the days before being sent to the ER for this admission she noticed that he was unable to bear weight on his L leg and was not walking like he usually did and stayed in bed. OBJECTIVE: Vital Signs Temperature 99.5 F 11/23/17 13:58 Pulse Rate 92 H 11/23/17 13:58 Respiratory Rate 20 11/23/17 13:58 Blood Pressure 129/60 11/23/17 13:58 O2 Sat by Pulse Oximetry (%) 94 L 11/22/17 20:49 GENERAL: The patient is awake, alert, in no acute distress. HEAD: no signs of trauma. No open skin lesions, No ecchymosis. No lumps or bumps on head. Non-tender to palpation. EYES: sclera anicteric, conjunctiva clear. ENT: Ears normal, nares patent, moist mucous membranes. NECK: Trachea midline LUNGS: Breath sounds equal, clear to auscultation bilaterally auscultated anteriorly. HEART: Regular rate and rhythm, S1, S2 ABDOMEN: Soft, nontender, nondistended, normoactive bowel sounds, no guarding EXTREMITIES: 2+ pulses, warm, well-perfused, no edema. LLE edematous but erythema much improved compared to when I saw his LLE on admission. Erythema that was present on dorsum of foot now no longer there compared to on day of admission and no longer warm to touch. NEUROLOGICAL: Non-verbal, non-communicative PSYCH: SKIN: Warm, dry, normal turgor, no rashes or lesions noted Laboratory Results - last 24 hr 11/23/17 11/23/17 11/23/17 08:05 08:05 08:05 WBC 9.2 RBC 3.81 L Hgb 10.4 L Hct 31.9 L MCV 83.6 MCH 27.2 MCHC 32.5 RDW 12.4 Plt Count 371 MPV 7.9 Sodium 140 Potassium 4.0 Chloride 103 Carbon Dioxide 31 Anion Gap 6 L BUN 16 Creatinine 0.6 L Random Glucose 92 Calcium 8.9 Albumin 2.7 L Vancomycin Pre-Dose < 0.800 L* D Imaging: CXR: 11/23/17 : no significant change compared to previous study Head CT: 11/23/17 : 1. Subcentimeter nodular hyperdensity in the region of the left superior temporal gyrus may be a cavernoma. 2. No extra-axial collection, mass effects, midline shift or hydrocephalus. Active Medications Generic Name Dose Route Start Last Admin Trade Name Freq PRN Reason Stop Dose Admin Acetaminophen 650 mg 11/21/17 21:06 11/23/17 02:30 Tylenol - PO 650 mg Q4H PRN Administration PAIN OR FEVER Atorvastatin Calcium 10 mg 11/15/17 22:00 11/22/17 21:06 Lipitor - PO 10 mg HS SEAN Administration Clonazepam 0.25 mg 11/16/17 06:00 11/23/17 14:01 Klonopin - PO 0.25 mg TID SEAN Administration Heparin Sodium (Porcine) 5,000 unit 11/15/17 22:00 11/23/17 14:02 Heparin - SQ 5,000 unit TID SEAN Administration Ampicillin Sodium/Sulbactam 100 mls @ 200 mls/hr 11/21/17 15:00 11/23/17 10: 42 Sodium 1.5 gm/ Sodium Chloride IVPB 200 mls/hr Q6H-IV SEAN Administration Lacosamide 200 mg 11/17/17 22:00 11/23/17 10:43 Vimpat - PO 200 mg BID SEAN Administration Lactulose 10 gm 11/16/17 10:00 11/23/17 10:43 Cephulac (Oral Use) PO 10 gm DAILY SEAN Administration Levetiracetam 500 mg 11/23/17 10:00 11/23/17 10:44 Keppra - PO 500 mg BID SEAN Administration Polyethylene Glycol 17 gm 11/16/17 10:00 11/23/17 10:44 Miralax (For Daily Use) - PO 17 gm DAILY SEAN Administration Ranitidine HCl 150 mg 11/15/17 22:00 11/23/17 10:44 Zantac - PO 150 mg BID SEAN Administration ASSESSMENT/PLAN: 52 y/o M from [facility] w/PMH of MR, seizure d/o, GERD, eczema admitted for cellulitis and found to have L tib/fib fracture. -Cellulitis of LLE -c/w unasyn, ID on board -tylenol 650 mg po q4h PRN for fever -Seizure d/o -Spoke with Dr. Zepeda, to add keppra 500 mg po bid -Attempted to contact [facility] twice to find out patients neurologist and past head CT or MRI results and left message with call back number. -c/w vimpat 200 mg po bid, clonazepam 0.25 mg po tid -Tib/Fib fracture -splinted with padding -ORIF once cellulitis improves may be needed. Will need ortho f/u once cellulitis resolves. -Head trauma s/p seizure -Head CT: No acute pathology. -Cavernoma -no further w/u needed as per neuro -L hand swelling -No fracture, no DVT, monitor -GERD -c/w ranitidine 150 mg po bid -HLD -c/w atorvastatin 10 mg po qhs -DVT ppx -heparin 5000 units sq q8h -FEN -No fluids -monitor electrolytes -chopped diet w/thin liquids -Dispo: -monitor on floors. Visit type - Emergency Visit Emergency Visit: Yes ED Registration Date: 11/15/17 Care time: The patient presented to the Emergency Department on the above date and was hospitalized for further evaluation of their emergent condition. - New Patient This patient is new to me today: No - Critical Care Critical Care patient: No
[2017-11-23] MEDS ORDERED: PT OWN MED DRAWER 7, Y5N ONE ×2 (15:54→21:08)
--- NOTE | 2017-11-23 17:04 | PN ---
Teaching Attending Note Name of Resident: Raffi Campbell ATTENDING PHYSICIAN STATEMENT I saw and evaluated the patient. I reviewed the resident's note and discussed the case with the resident. I agree with the resident's findings and plan as documented. SUBJECTIVE: Events over night were noted for 3 episodes of possible seizure activity, this am at 7:13 also pat rolled eyes, screamed, and stared for few seconds.and during that hit his head on bed rail per his aid at bed side, he has these breath through seizures at [facility] as well at his base line ( confirmed by Dr. Fernandez) OBJECTIVE: NAD, awake, tracks with eyes. cooperative. CV: RRR Lungs: CTAB Ext: LLE in splint, Erythema and edema on lower leg are much better than yesterday . DP 1+ . bruising on lateral ankle posterior to lateral maleollus RLE with no edema or erythema ASSESSMENT AND PLAN: 52 y/o man with h/o MR , from [facility], seizure , GERD , and other medical problems who presented with LLE erythema and edema . He was found to have cellulitis and L fib/tib Fx 1- Cellulitis : stable . fever curve improved , possible small hematoma causing all this fever - cont unasyn - monitor for now - d/w Jim Anna again today 2- L Tib/Fib Fx: - cont splint due to cellulitis. surgical procedure per ortho - no evidence of compartment sx. 3- Seizure disorder: with break through seizures. per his aid, he has break through seizures at [facility]. - seen by Dr. Zepeda, keppra BID was recommended - cont increased dose of Vimpat - cont klonopin - EEG ordered. - daughter was updated by Dr. Campbell, and she requested [facility] neurologist to follow here. [facility] facility was called and MD there was not reached HLOC .
[2017-11-23] MEDS: ATORVASTATIN CA 10 MG TABLET (FP) PO SCH (21:17)
[2017-11-24] MEDS: AMPICILLIN NA/SULBACTAM NA 1.5 GM in SODIUM CHLORIDE 100 ML IVPB SCH ×4 (02:41→20:58)
[2017-11-24] MEDS: HEPARIN NA (PORCINE) 5,000 UNITS/ML 1ML VIAL SQ SCH ×3 (06:17→21:06)
[2017-11-24] MEDS: clonazePAM 0.5 MG TABLET PO SCH ×3 (06:17→21:02)
[2017-11-24 07:55] LABS: HEMATOCRIT 32.1 % (35.4-49); HEMOGLOBIN 10.6 GM/dL (11.7-16.9); MCH 27.4 pg (25.7-33.7); MEAN PLT VOLUME 8.1 fl (7.5-11.1); PLATELET COUNT 398 K/MM3 (134-434); RBC 3.87 M/mm3 (4.00-5.60); RDW 12.4 % (11.9-15.9); WHITE BLOOD COUNT 8.5 K/mm3 (4.0-10.0)
[2017-11-24 08:04] LABS: ALBUMIN 2.8 g/dl (3.4-5.0); ANION GAP 6 (8-16); BLOOD UREA NITROGEN 17 mg/dL (7-18); CALCIUM 8.5 mg/dL (8.5-10.1); CHLORIDE 103 mmol/L (98-107); CO2 30 mmol/L (21-32); CREATININE 0.6 mg/dL (0.7-1.3); GLUCOSE,RANDOM 91 mg/dL (74-106); POTASSIUM 4.2 mmol/L (3.5-5.1); SODIUM 139 mmol/L (136-145)
[2017-11-24] MEDS: LACTULOSE 20 GM/30 ML UDC (FOR ORAL USE ONLY) PO SCH (10:15)
[2017-11-24] MEDS: levETIRAcetam 500 MG TABLET (FP) PO SCH ×2 (10:16→21:01)
[2017-11-24] MEDS: RANITIDINE HCL 150 MG TABLET (FP) PO SCH ×2 (10:21→21:03)
[2017-11-24] MEDS: POLYETHYLENE GLYCOL 3350 119 GM BTL PO SCH (10:21)
[2017-11-24] MEDS: LACOSAMIDE 50 MG TABLET PO SCH ×2 (12:17→21:05)
[2017-11-24] MEDS ORDERED: PT OWN MED DRAWER 7, Y5N ONE (15:21)
--- NOTE | 2017-11-24 17:01 | PN ---
Progress Note (short form) - Note Progress Note: Subjective: No events over night Objective: Vital Signs: Last Vital Signs Temp Pulse Resp BP Pulse Ox 98.9 F 77 20 114/70 94 L 11/24/17 14:19 11/24/17 14:19 11/24/17 14:19 11/24/17 14:19 11/24/17 09:00 Laboratory Results - last 24 hr 11/24/17 11/24/17 06:00 06:00 WBC 8.5 RBC 3.87 L Hgb 10.6 L Hct 32.1 L MCV 83.0 MCH 27.4 MCHC 33.0 RDW 12.4 Plt Count 398 MPV 8.1 Sodium 139 Potassium 4.2 Chloride 103 Carbon Dioxide 30 Anion Gap 6 L BUN 17 Creatinine 0.6 L Random Glucose 91 Calcium 8.5 Albumin 2.8 L Physical Exam: NAD, awake, tracks with eyes. cooperative. CV: RRR Lungs: CTAB Ext: LLE in splint, Erythema and edema on L lower leg are much improved compared to yesterday's exam . DP 1+ . bruising on lateral ankle posterior to lateral maleollus RLE with no edema or erythema ASSESSMENT AND PLAN: 52 y/o man with h/o MR , from [facility], seizure , GERD , and other medical problems who presented with LLE erythema and edema . He was found to have cellulitis and L fib/tib Fx 1- Cellulitis : stable . fever curve improved , possible small hematoma causing all this fever - cont unasyn - monitor for now - d/w Jim Anna 2- L Tib/Fib Fx: - cont splint due to cellulitis. surgical procedure per ortho , possibly this week - no evidence of compartment sx. 3- Seizure disorder: with break through seizures.None last night after adding keppra - Cont keppra - cont increased dose of Vimpat - cont klonopin - EEG pending OC . Visit type - Emergency Visit Emergency Visit: Yes ED Registration Date: 11/15/17 Care time: The patient presented to the Emergency Department on the above date and was hospitalized for further evaluation of their emergent condition. - New Patient This patient is new to me today: No - Critical Care Critical Care patient: No
--- NOTE | 2017-11-24 18:04 | PN ---
Progress Note (short form) - Note Progress Note: cc Episode of shaking movement ,only on face HPI 52 year old male history of mental retardation, and came with fracture of left tibia and fibula. He has been running fever. Initially seen by Dr Jefferson for breakthrough seizure and vimpat was increased to 200 mg po bid He has one more seizure last night. It was face twitching . Neurological Examination Alert and track object, no spontaneous speech or not able to follow command. eomi, pupils is reactive, moving all extremity Reflex are normal in upper extremity and diminished in lower extremity sensation isn ormal ct head is unremarkable Assessment/Plan-- 1.Static enecphalopathy- Continue supportive treatment 2. Breakthrough seizure - continue keppra , vimpat a, ct head was normal. no further work up needed for cavernoma. eeg tomorrow Please feel free to call me if you have any question John Zepeda MD
[2017-11-24] MEDS: ATORVASTATIN CA 10 MG TABLET (FP) PO SCH (21:01)
[2017-11-25] MEDS: AMPICILLIN NA/SULBACTAM NA 1.5 GM in SODIUM CHLORIDE 100 ML IVPB SCH ×2 (02:03→10:39)
[2017-11-25] MEDS: clonazePAM 0.5 MG TABLET PO SCH ×3 (06:09→21:15)
[2017-11-25] MEDS: HEPARIN NA (PORCINE) 5,000 UNITS/ML 1ML VIAL SQ SCH ×3 (06:10→21:15)
--- NOTE | 2017-11-25 09:39 | PN ---
Progress Note, Physician Chief Complaint: ID Still on Unasyn and fever is down encouraging Day 4 Uansyn - Current Medication List Current Medications: Active Medications Acetaminophen (Tylenol -) 650 mg PO Q4H PRN PRN Reason: PAIN OR FEVER Last Admin: 11/23/17 21:18 Dose: 650 mg Atorvastatin Calcium (Lipitor -) 10 mg PO HS [facility] Last Admin: 11/24/17 21:01 Dose: 10 mg Clonazepam (Klonopin -) 0.25 mg PO TID [facility] Last Admin: 11/25/17 06:09 Dose: 0.25 mg Heparin Sodium (Porcine) (Heparin -) 5,000 unit SQ TID [facility] Last Admin: 11/25/17 06:10 Dose: 5,000 unit Ampicillin Sodium/Sulbactam (Sodium 1.5 gm/ Sodium Chloride) 100 mls @ 200 mls/ hr IVPB Q6H-IV [facility] Last Admin: 11/25/17 02:03 Dose: 200 mls/hr Lacosamide (Vimpat -) 200 mg PO BID [facility] Last Admin: 11/24/17 21:05 Dose: 200 mg Lactulose (Cephulac (Oral Use)) 10 gm PO DAILY [facility] Last Admin: 11/24/17 10:15 Dose: 10 gm Levetiracetam (Keppra -) 500 mg PO BID [facility] Last Admin: 11/24/17 21:01 Dose: 500 mg Polyethylene Glycol (Miralax (For Daily Use) -) 17 gm PO DAILY [facility] Last Admin: 11/24/17 10:21 Dose: 17 gm Ranitidine HCl (Zantac -) 150 mg PO BID [facility] Last Admin: 11/24/17 21:03 Dose: 150 mg - Objective Vital Signs: Vital Signs Temperature 98.3 F 11/25/17 05:36 Pulse Rate 84 11/25/17 05:36 Respiratory Rate 20 11/25/17 05:36 Blood Pressure 115/82 11/25/17 05:36 O2 Sat by Pulse Oximetry (%) 94 L 11/24/17 21:00 Constitutional: Yes: Well Nourished, No Distress Cardiovascular: Yes: Regular Rate and Rhythm, S1, S2 Respiratory: Yes: WNL, Regular, CTA Bilaterally Gastrointestinal: Yes: Soft. No: Tenderness, Epigastrium Extremities: Yes: Other (Erythema compleetly resolved) Labs: CBC, BMP 11/24/17 06:00 11/24/17 06:00 Problem List - Problems (1) Cellulitis Code(s): L03.90 - CELLULITIS, UNSPECIFIED Qualifiers: Site of cellulitis: unspecified site Qualified Code(s): L03.90 - Cellulitis , unspecified Assessment/Plan Microbiology 11/21/17 20:40 Nasopharyngeal Aspirate Influenza Types A,B Antigen (JYOTI) - Final 11/21/17 20:40 Nasopharyngeal Aspirate - Final 11/17/17 17:25 Blood - Peripheral Venous Blood Culture - Final NO GROWTH AFTER 5 DAYS INCUBATION 11/17/17 17:00 Urine - Urine - Catheterized Urine Culture - Final NO GROWTH OBTAINED 11/17/17 16:50 Blood - Peripheral Venous Blood Culture - Final NO GROWTH AFTER 5 DAYS INCUBATION 11/15/17 12:30 Blood - Peripheral Venous Blood Culture - Final NO GROWTH AFTER 5 DAYS INCUBATION 11/15/17 12:30 Blood - Peripheral Venous Blood Culture - Final NO GROWTH AFTER 5 DAYS INCUBATION Laboratory Tests 11/21/17 11/22/17 11/24/17 08:00 07:45 06:00 WBC 8.5 Hgb 10.6 L Plt Count 398 ESR 99 H C-Reactive Protein 12.5 H Assessment Cellultis improved LLE fracture Plan Substitute Augmentin 875 mg x 3 days Kindly recall as needed
[2017-11-25] MEDS: RANITIDINE HCL 150 MG TABLET (FP) PO SCH ×2 (10:39→21:15)
[2017-11-25] MEDS: LACTULOSE 20 GM/30 ML UDC (FOR ORAL USE ONLY) PO SCH (10:40)
[2017-11-25] MEDS: POLYETHYLENE GLYCOL 3350 119 GM BTL PO SCH (10:40)
[2017-11-25] MEDS: LACOSAMIDE 50 MG TABLET PO SCH ×2 (10:40→21:14)
[2017-11-25] MEDS: levETIRAcetam 500 MG TABLET (FP) PO SCH ×2 (10:40→21:14)
--- NOTE | 2017-11-25 17:31 | PN ---
Progress Note (short form) - Note Progress Note: 52 year old male history of mental retardation, and came with fracture of left tibia and fibula. He has been running fever. Initially seen by Dr Jefferson for breakthrough seizure and vimpat was increased to 200 mg po bid He has one more seizure last night . lasted for few seconds. there was no post ictal cnfusion Neurological Examination Alert and track object, no spontaneous speech or not able to follow command. eomi, pupils is reactive, moving all extremity Reflex are normal in upper extremity and diminished in lower extremity sensation isn ormal ct head is unremarkable Assessment/Plan-- 1.Static enecphalopathy- Continue supportive treatment 2. Breakthrough seizure - vimpat a, ct head was normal. no further work up needed for cavernoma. eeg tomorrow I would increase keppra to 750 mg po bid Please feel free to call me if you have any question John Zepeda MD
[2017-11-25] MEDS: AMOX TR/POT CLAV 875MG/125MG TABLETS (FP) PO SCH (17:36)
--- NOTE | 2017-11-25 18:44 | DS ---
Addendum entered and electronically signed by Ricardo Gomez, RESIDENT 11/25 18:56: Patient was discharged on augmentin BID for 2-3 days. Original Note: Physical Exam: SUBJECTIVE: Patient seen and examined at bedside. No acute changes overnight. Patient is resting comfortably in bed with his leg wrapped in a splint. Patient remained afebrile overnight. OBJECTIVE: Vital Signs Period Temp Pulse Resp BP Sys/Morales Pulse Ox Last 24 Hr 97.9 F-98.9 F 72-90 10-20 110-157/49-82 94-94 PHYSICAL EXAM GENERAL: The patient is alert but not oriented x 3, no acute distress HEAD: Normal with no signs of trauma. LUNGS: Breath sounds equal, clear to auscultation bilaterally, no wheezes, no crackles, no accessory muscle use. HEART: Regular rate and rhythm, S1, S2, systolic murmur appreciated on exam ABDOMEN: Soft, nontender, nondistended, normoactive bowel sounds, no guarding, no rebound, no hepatosplenomegaly, no masses. EXTREMITIES: L leg wrapped in agnes and in a splint -LLE swelling and erythema significantly improved CBC, BMP 11/24/17 06:00 11/24/17 06:00 Microbiology 11/17/17 16:50 Blood - Peripheral Venous Blood Culture - Final NO GROWTH AFTER 5 DAYS INCUBATION 11/17/17 17:25 Blood - Peripheral Venous Blood Culture - Final NO GROWTH AFTER 5 DAYS INCUBATION 11/21/17 20:40 Nasopharyngeal Aspirate Influenza Types A,B Antigen (JYOTI) - Final 11/21/17 20:40 Nasopharyngeal Aspirate - Final 11/15/17 12:30 Blood - Peripheral Venous Blood Culture - Final NO GROWTH AFTER 5 DAYS INCUBATION 11/15/17 12:30 Blood - Peripheral Venous Blood Culture - Final NO GROWTH AFTER 5 DAYS INCUBATION 11/17/17 17:00 Urine - Urine - Catheterized Urine Culture - Final NO GROWTH OBTAINED IMAGING: X ray L upper extremity: No evidence of acute fracture or dislocation in the left hand. Prominent dorsal soft tissues overlying the carpal rows and metacarpals likely correspond to the provided clinical history of left hand swelling. X ray L lower extremity: Encasted fractures of the distal tibia and fibula as above described. CT Left Lower Extremity: Acute fractures are identified involving the distal left tibia and fibula. Subcutaneous edema is seen along the left calf and ankle regions posteriorly. There is possible swelling of the left gastrocnemius and soleus muscles. HOSPITAL COURSE: Date of Admission:11/15/17 52 year old non-verbal male from [place] with past medical history of seizures (has multiple seizures/day normally at facility), GERD, eczema presents to the ER from [place] facility for left lower extremity swelling that started yesterday and progressed from his foot to mid tibial region. According to staff from [place] present at bedside pt had a healing lesion (healing over past several days) on dorsal aspect of foot w/no signs of new infection at site. Pt has not been vomiting, no changes in bowel movements, no changes in urination, no diaphoresis, no change in behavior noted by staff. He was admitted to the hospital for the treatment of left lower extremity cellulitis. Blood cultures were drawn and returned negative after 5 days incubation. Patient was initially started on vancomycin. After several days of treatment, patient remained febrile despite being on antibiotics. His left leg had improved with respect to edema and erythema, but patient still spiked fevers. It was determined that we obtain a CT of the leg to rule out abscess or fluid collection that could be contributing to persistent fevers. We found that incidentally, patient had a fracture of the tibia and fibula of the left leg. There were no documented or witness falls reported by either the nursing staff or staff from [place]. Patient was continued on antibiotics and later switched from vancomycin to unasyn. Patient's left leg continued to improve. Dr. Cerna from orthopedics was consulted. He placed a splint onto the leg and documented that surgical intervention would be discussed after the cellulitis acutely clears. Patient remained afebrile toward the end of this hospitalization. Orthopedics was again called who said to follow up in the office as an outpatient. Neurology saw the patient for suspected seizure-like activity. Dr. Zepeda added keppra 500BID and increased it to 750BID before discharge. Patient received an EEG in the hospital on the day prior to discharge. Patient was discharged home with instructions to see Dr. Cerna in the office within 1 week of discharge for surgical management of the left lower extremity. Date of Discharge: 11/25/17 Minutes to complete discharge: 35 Discharge Summary Reason For Visit: CELLULITIS Current Active Problems Cellulitis (Acute) Fracture closed, fibula, shaft (Acute) Seizure (Acute) Tibia fracture (Acute) Condition: Improved - Instructions Diet, Activity, Other Instructions: You were treated in the hospital for left leg cellulitis. You were treated with antibiotics, you will need an extra 3 days of antibiotics at home. We did a CT scan of your left leg and incidentally found a fracture of your tibia and fibula bones PLEASE DO NOT AMBULATE ON THAT LEG- BEDREST IF NECESSARY UNTIL YOU SEE THE ORTHOPEDIC SURGEON. Orthopedic Surgery was consulted, and it was decided that surgical intervention can be pursued as an outpatient in that office. Medical Recommendations: -Take the antibiotic Augmentin 875/25 twice a day for 3 more days. -Continue to take keppra 750mg twice a day for seizures ( a new medication added ) -Continue to take vimpat 200mg twice a day for seizures ( dose was increased form base line ) -Continue klonopin 0.25 PO TID -Keep your leg wrapped and in the splint until you see the orthopedic surgeon. You should have the wrap changed every day. -Make an appointment with the orthopedic surgeon Dr. Cerna within 1 week of discharge to discuss surgical options for your fracture -EEG was done on the day of discharge , the report which takes few days to be read, will need to be followed by Your neurologist Referrals: Bunny Cerna MD [Staff Physician] - 1 Week Disposition: TRANSFER ACUTE CARE/OTHER HOSP - Home Medications Comprehensive Discharge Medication List: Ambulatory Orders Calcium Carbonate/Vitamin D3 [Calcium 600 + Vit D 400 Softgl] 1 each PO BID Lactulose [Kristalose] 10 gm PO DAILY 01/30/17 [place]-3 Fatty Acids [Fish Oil] 500 mg PO DAILY 01/30/17 Polyethylene Glycol 3350 [Miralax 119 gm Btl -] 17 gm PO DAILY 01/30/17 Ranitidine [Zantac -] 150 mg PO BID 01/30/17 Ubidecarenone/Vit E Acet [Co Q-10 100 mg Softgel] 1 each PO DAILY 01/30/17 Pravastatin Sodium [Pravachol -] 40 mg PO HS 11/15/17 Clonazepam 0.25 tab PO TID 11/16/17 Multiple Vitamins 1 each PO DAILY 11/16/17 Amox-Tr/K Cl [Augmentin 875-125mg Tablet -] 1 tab PO BID@0800,1730 #6 tablet 09/30 Lacosamide [Vimpat -] 200 mg PO BID #60 tab MDD 400 11/25/17 levETIRAcetam [Keppra -] 750 mg PO BID #60 tablet 11/25/17 This patient is new to me today: No Emergency Visit: No Critical Care patient: No - Discharge Referral Referred to [facility] No
[2017-11-25] MEDS ORDERED: levETIRAcetam 500 MG TABLET (FP) PO ONE (18:45)
--- NOTE | 2017-11-25 19:31 | PN ---
Progress Note (short form) - Note Progress Note: Spoke with patient's nurse (Rosana) this evening and she requested a call be made to the patient's sister Miranda in [place] to update her regarding the discharge and transfer of the patient Patient had been discharged to [place] with arrangements made for transportation per Dr Gomez. Unfortunately the patient's nurse (Rosana) at [facility] noted that there was a mix up and the [facility] nurse on duty was not aware of the patient's discharge for today, so patient has not been picked up. I called and left a voice message for Miranda on her cell phone, and also updated Rosana.
--- NOTE | 2017-11-25 19:43 | PN ---
Teaching Attending Note Name of Resident: Ricardo Gomez ATTENDING PHYSICIAN STATEMENT I saw and evaluated the patient. I reviewed the resident's note and discussed the case with the resident. I agree with the resident's findings and plan as documented. SUBJECTIVE: last night had another episode of stating, witnessed by night aid OBJECTIVE: NAD, awake, tracks with eyes. cooperative. CV: RRR Lungs: CTAB Ext: LLE in splint, Erythema on L lower leg almost resolved .edema improved . DP 1+ . bruising on lateral ankle posterior to lateral maleollus RLE with no edema or erythema ASSESSMENT AND PLAN: 52 y/o man with h/o MR , from [place], seizure , GERD , and other medical problems who presented with LLE erythema and edema . He was found to have cellulitis and L fib/tib Fx 1- Cellulitis : stable. fever resolved - augmentin x 3 more days 2- L Tib/Fib Fx: - cont splint . case d/w ortho today, who indicated need for surgery as out pt 3- Seizure disorder: with break through seizures. improved - Cont keppra 750 BID ( increased today ) - cont increased dose of Vimpat 200 BID - cont klonopin - EEG done today, to be followed as out pt . dc to [place] . acepted by POND WORKER . sister updated.
[2017-11-25] MEDS: ATORVASTATIN CA 10 MG TABLET (FP) PO SCH (21:15)
[2017-11-25] MEDS: ACETAMINOPHEN 325 MG TABLET (FP) PO PRN (21:17)
[2017-11-25] MEDS ORDERED: levETIRAcetam 500 MG TABLET (FP) PO SCH (22:00)
[2017-11-25] MEDS ORDERED: levETIRAcetam 250 MG TABLET (FP) PO SCH (22:00)
--- NOTE | 2017-11-25 22:41 | RAPID ---
Physical Examination Vital Signs: Vital Signs Temperature 97.9 F 11/25/17 18:00 Pulse Rate 85 11/25/17 18:00 Respiratory Rate 18 11/25/17 18:00 Blood Pressure 157/61 11/25/17 18:00 O2 Sat by Pulse Oximetry (%) 97 11/25/17 20:32 Findings/Remarks: Rapid response called as the patient was having a seizure. When MD arrived at the room, the patient was post-ictal. Patient has profound MR and is nonverbal at baseline. Patient has a known seizure disorder and is currently in the process of having his AED medications titrated. Constitutional: Yes: Well Nourished, No Distress HENT: Yes: Atraumatic, Normocephalic Cardiovascular: Yes: Regular Rate and Rhythm, Murmur (Systolic ejection murmur heard best at right sternal border), S1, S2 Respiratory: Yes: Regular, CTA Bilaterally Extremities: Yes: WNL Labs: CBC, BMP 11/24/17 06:00 11/24/17 06:00 Rapid Response - Rapid Response Assessment: Patient is known to have seizures at baseline and is currently having his AED medications titrated. At the time of the rapid response, the patient was mildly hypertensive and tachycardic. Fingerstick glucose 190. Plan: Will not adjust the patient's anti-epileptic medications at this time as they are currently being titrated by the primary care team. If the patient continues to have seizures or enters status epilepticus, will consider administration of ativan PRN. Instructed nursing staff to repeat the patient's vital signs to ensure return to baseline.
[2017-11-26] MEDS: clonazePAM 0.5 MG TABLET PO SCH (06:06)
[2017-11-26] MEDS: HEPARIN NA (PORCINE) 5,000 UNITS/ML 1ML VIAL SQ SCH (06:06)
[2017-11-26] MEDS: LACOSAMIDE 50 MG TABLET PO SCH (09:09)
[2017-11-26] MEDS: AMOX TR/POT CLAV 875MG/125MG TABLETS (FP) PO SCH (09:10)
[2017-11-26] MEDS: levETIRAcetam 500 MG TABLET (FP) PO SCH (09:10)
[2017-11-26] MEDS: LACTULOSE 20 GM/30 ML UDC (FOR ORAL USE ONLY) PO SCH (09:10)
[2017-11-26] MEDS: RANITIDINE HCL 150 MG TABLET (FP) PO SCH (09:20)
[2017-11-26] MEDS: POLYETHYLENE GLYCOL 3350 119 GM BTL PO SCH (09:20)
[2017-11-26 12:04] VITALS: BP 107/61; PULSE 81; TEMP 98.1
--- NOTE | 2017-11-26 15:06 | PN ---
Physical Exam: SUBJECTIVE: Patient seen and examined at bedside. No acute changes overnight. Pt up for DC this AM. OBJECTIVE: Vital Signs Period Temp Pulse Resp BP Sys/Morales Pulse Ox Last 24 Hr 97.9 F-98.4 F 81-98 18-20 107-157/52-78 97-97 GENERAL: The patient is alert but not oriented x 3, no acute distress HEAD: Normal with no signs of trauma. LUNGS: Breath sounds equal, clear to auscultation bilaterally, no wheezes, no crackles, no accessory muscle use. HEART: Regular rate and rhythm, S1, S2, systolic murmur appreciated on exam ABDOMEN: Soft, nontender, nondistended, normoactive bowel sounds, no guarding, no rebound, no hepatosplenomegaly, no masses. EXTREMITIES: L leg wrapped in agnes and in a splint -LLE swelling and erythema significantly improved Laboratory Results - last 24 hr 11/25/17 22:29 POC Glucometer 119 ASSESSMENT/PLAN: 52 year old male from [facility] (non-verbal), with past medical history of of MR, seizure disorder, GERD, eczema is admitted for treatment of cellulitis #Cellulitis of LLE: improved -continue unasyn -Tylenol 650 mg po q4h PRN for fever or pain #Left Hand Swelling: resolved -L hand xray portable negative for fracture #Tib/Fib fracture: new, unclear etiology - stable -Sugar tong splint to stabilize the fracture with ample padding -ORIF planned as outpatient #Seizure Disorder: no acute overnight events #Constipation: not an acute issue -continue Lactulose 10 g po qd and Miralax qd #GERD: not an acute issue -Ranitidine 150 mg po bid #Hyperlipidemia: not an acute concern -continue on atorvastatin 10mg PO at night #FEN -No standing fluids -Replete lytes in AM -Chopped diet w/thin liquids as per [facility] staff #Prophylaxis: -Heparin 5000 units sq q8h #Disposition: -DC back to [facility] Visit type - Emergency Visit Emergency Visit: No - New Patient This patient is new to me today: No - Critical Care Critical Care patient: No
--- NOTE | 2017-11-26 18:52 | PN ---
Teaching Attending Note Name of Resident: Ricardo Gomez ATTENDING PHYSICIAN STATEMENT I saw and evaluated the patient. I reviewed the resident's note and discussed the case with the resident. I agree with the resident's findings and plan as documented. SUBJECTIVE: events overnight noted for an episode of staring OBJECTIVE: NAD, awake Lungs: CTAB Ext: LLE in splint, no erythema today over LLE .edema improved . DP 2+ . bruising on lateral ankle posterior to lateral maleollus RLE with no edema or erythema ASSESSMENT AND PLAN: 52 y/o man with h/o MR , from [place], seizure , GERD , and other medical problems who presented with LLE erythema and edema . He was found to have cellulitis and L fib/tib Fx 1- Cellulitis: stable. fever resolved - augmentin x 2 more days 2- L Tib/Fib Fx: - cont splint . sx to be considered as out pt 3- Seizure disorder: with break through seizures. improved - Cont keppra 750 BID ( increased yesterday ) - cont increased dose of Vimpat 200 BID - cont klonopin - EEG done yesterday, to be followed as out pt . was dc'd yesterday, went today due to issues with [facility] staff
== END 2017-11-26 12:54 | disposition home or self-care (01) | DRG 602 ==
LOC: JER 10:25 → JERBED 16:56 → OBSVTOIN 17:37 → J7W 18:55
PROVIDERS: ADMIT Internal Medicine; ATTEND Internal Medicine
DX: L03.116 Cellulitis of left lower limb (principal); G92 Toxic encephalopathy; F73 Profound intellectual disabilities; G40.909 Epilepsy, unspecified, not intractable, without status epilepticus; K59.00 Constipation, unspecified; K21.9 Gastro-esophageal reflux disease without esophagitis; E78.5 Hyperlipidemia, unspecified; S82.402A Unspecified fracture of shaft of left fibula, initial encounter for closed fracture; S82.302A Unspecified fracture of lower end of left tibia, initial encounter for closed fracture; T14.8XXA Other injury of unspecified body region, initial encounter; X58.XXXA Exposure to other specified factors, initial encounter; Y93.9 Activity, unspecified; Y92.89 Other specified places as the place of occurrence of the external cause; Y99.9 Unspecified external cause status
CPT/HCPCS: 36415; 70450-TC; 71045-TC; 73130-TC-LR-FY; 73590-TC-LT-FY; 73701-TC-RT; 80048; 80053; 81003; 82040; 82962; 83735; 84100; 85025; 85027; 85651; 86140; 87040; 87086; 87804; 93005; 93010; 93971; 93971-TC; 99283-25; G0378; G0480; J1644

== ENCOUNTER 2017-12-05 08:52 | Inpatient (IN) | payer OTHER ==
[2017-12-05 09:30] VITALS: BMI 23.7
--- NOTE | 2017-12-05 10:04 | HP ---
History & Physical Update - History History: No Change - Physical Physical: No Change - Assessment Assessment: No Change - Plan Plan: No Change
[2017-12-05] MEDS ORDERED: DIAZEPAM ACUDIAL 12.5-15-20 20 MG KIT RC PRN (10:09)
[2017-12-05] MEDS ORDERED: fentaNYL CITRATE 250 MCG/5 ML VIAL ONE (10:34)
[2017-12-05] MEDS ORDERED: MIDAZOLAM HCL 2 MG/2 ML SINGLE DOSE VIAL ONE ×2 (10:34)
[2017-12-05] MEDS ORDERED: PROPOFOL 20 ML ONE (10:35)
[2017-12-05] MEDS ORDERED: ROCURONIUM BROMIDE 50 MG/5 ML VIAL ONE (10:36)
[2017-12-05] MEDS ORDERED: ceFAZolin SODIUM 1 GM VIAL ONE (10:57)
[2017-12-05] MEDS ORDERED: DEXAMETHASONE SOD PHOSPHATE 4 MG/1 ML VIAL ONE (11:06)
[2017-12-05] MEDS ORDERED: ONDANSETRON 4 MG/2 ML VIAL ONE (14:43)
[2017-12-05] MEDS ORDERED: TRANEXAMIC ACID 1000 MG/10 ML VIAL ONE (15:03)
[2017-12-05] MEDS ORDERED: ACETAMINOPHEN 325 MG TABLET (FP) PO PRN (15:09)
[2017-12-05] MEDS ORDERED: LACTATED RINGERS SOLUTION 1,000 ML/1,000 ML INFUS.BAG IV SCH (15:15)
[2017-12-05] MEDS ORDERED: ACETAMINOPHEN 1000 MG/100 ML VIAL (NON FORMULARY) IVPB ONE (16:15)
[2017-12-05] MEDS ORDERED: ACETAMINOPHEN INJECTION 100 ML IVPB ONE (16:18)
[2017-12-05] MEDS: HYDROmorphone HCL CARPU-JECT 1 MG/1 ML DISP.SYRIN IVPB SCH ×2 (17:37→20:35)
[2017-12-05] MEDS: CEFAZOLIN 2 GM/D5W 2 GM/50 ML ML IVPB SCH (17:37)
--- NOTE | 2017-12-05 17:49 | OP ---
DATE OF OPERATION: 12/05/2017 PREOPERATIVE DIAGNOSIS: Left distal tibia and fibular fractures. POSTOPERATIVE DIAGNOSIS: Left distal tibia and fibular fractures. PROCEDURE: Left distal fibula open reduction and internal fixation, as well as fibula. SURGEON: Carmen Galeano MD POCKET STITCHER: LIBBY Hardwick, and a podiatry resident was present as well. Mr. Ann was necessary to be present for the case. He was able to assist in limb positioning, retraction, assist in fracture reduction, temporary and then final fixation. IMPLANTS: Heather [employer] distal tibia and [employer] distal tibia, 1/3 tibial locking plate. Both plates were filled with a combination of locking and nonlocking 3.5 screws. ANESTHESIA: General. POSTOPERATIVE CONDITION: Stable. COMPLICATIONS: None. BLOOD LOSS: 200 mL TOURNIQUET TIME: 2 hours. INDICATIONS: This is a pleasant gentleman who had an unwitnessed injury. He was initially found to be very cellulitic about the ankle. He was admitted and treated with IV antibiotics. The swelling and redness were allowed to resolve, and then, he was cleared to proceed with surgical fixation. Prior to surgery, the risks, benefits, and alternatives of surgery were discussed with both the patient's guardian as well as his sister. We discussed the option of nonoperative care which will result in malunion and he may never walk or not be able to walk correctly again. We reviewed that operative care was recommended given the displacement of the fractures. This involves putting the bones back into place and then fixing them there with orthopedic hardware. We reviewed surgical risks in detail including bleeding, infection, neurovascular injury, need for further surgery, postoperative pain and stiffness, malunion, nonunion, hardware failure, cutout. We reviewed he would not be able to walk for at least 6 weeks after surgery. We reviewed the use of perioperative and DVT prophylaxis. I addressed all the lace weaver's and the sister's questions. They voiced understanding and elected to proceed. DESCRIPTION OF PROCEDURE: The patient was brought to the operating room where general anesthesia was administered. The left lower extremity was then prepped and draped in the usual sterile fashion. A preoperative dose of antibiotics was given, and the usual timeout procedure was performed. Attention was first turned towards the fibula. An incision was planned out laterally over the fibula. This was carried down through the skin, through subcutaneous tissue. Blunt spreading was used to expose the fascia which was then split in line with its fibers, exposing the fracture. The fracture was noted to be significantly comminuted, significantly shortened. The fracture fragments were individually freed up. Two of the larger distal fragments were then clamped together using fracture reduction forceps, and then, two [id number] 2.7-mm screws from the [employer] tray were placed to stabilize these fractures together. These were then reduced to a more-proximal fragment utilizing the fracture reduction forceps. It was difficult to obtain the adequate length on this fracture. It was felt that the tibia might be holding this up. Therefore, a moist gauze was placed into the wound, and attention was turned to the medial side. Here, an incision was made over the fracture site on the medial side. This was also carried down through the skin, through subcutaneous tissue. Blunt spreading was used to expose the fascia which was then split in line with its fibers to expose the fracture site. Here again, a significant amount of comminution, more so than was appreciated on plain films, was encountered. Fracture fragments were freed up. It was still difficult to obtain the full length of the fracture. It was decided to place a calcaneal pin to try to provide additional traction. An incision was planned out over the calcaneal tuberosity as visualized on fluoroscopy. The calcaneal pin was placed and placement confirmed fluoroscopically. Traction was then applied, and this allowed somewhat better length to be obtained on the tibia. A fracture reduction clamp was then used to maintain the length. This allowed for near-anatomic alignment of the fibula. The fibula was then held in place with a K-wire. A plate was chosen to span the fracture site and bridge fixation. This plate was fixed distally using locking screws and then more proximally, given the good quality of the bone, with nonlocking screws. The fibular site was visualized both visually and fluoroscopically and was found to be in satisfactory alignment with satisfactory hardware placement. It should be noted that prior to starting the tibial side, tourniquet was inflated. Attention was now turned back to the tibial side. Here, during the insertion of the fixation hardware, the tourniquet time did run out to 2 hours, and therefore, the tourniquet was let down, but the procedure was continued. Here, fracture reduction forceps were again used to gain as close to an anatomic alignment as possible. The plate was then chosen and placed subperiosteally up along the tibial shaft. It was secured distally to the bone using initially a cancellous screw to suck it down to the bone, followed by locking screws to secure the fixation. A fracture reduction clamp, after applying this, was then reapplied, maintaining the plates in close continuity to the tibial shaft and maintaining the fracture reduced. The shaft screws were then inserted including a combination of locking and nonlocking screws. At this point, the entire construct was examined both visually and fluoroscopically. Both fracture reduction hardware placements were satisfactory. The deep tissues were approximated using 2-0 Vicryl. The subcutaneous tissue was approximated using 2-0 Vicryl. The skin was closed medially using running 3-0 nylon suture. Laterally, interrupted nylon was used as there was mild tension on the wound. A dressing was placed in order to limit the postoperative swelling. He was placed into a posterior splint. He was extubated, transferred to recovery room in stable condition. CARMEN GALEANO M.D. [id number]
[2017-12-05] MEDS ORDERED: LACOSAMIDE 50 MG TABLET PO SCH (20:30)
[2017-12-05] MEDS ORDERED: ESLICARBAZEPINE ACETATE 400 MG PO SCH (22:00)
[2017-12-05] MEDS: LACOSAMIDE 50 MG TABLET PO SCH (22:13)
[2017-12-05] MEDS: clonazePAM 0.5 MG TABLET PO SCH (22:14)
[2017-12-05] MEDS: ATORVASTATIN CA 10 MG TABLET (FP) PO SCH (22:15)
[2017-12-05] MEDS: CALCIUM 500MG/VIT-D 200 UNITS COMBO TABLET (FP) PO SCH (22:16)
[2017-12-05] MEDS: RANITIDINE HCL 150 MG TABLET (FP) PO SCH (22:16)
[2017-12-06] MEDS: HYDROmorphone HCL CARPU-JECT 1 MG/1 ML DISP.SYRIN IVPB SCH ×6 (00:54→21:39)
[2017-12-06] MEDS: CEFAZOLIN 2 GM/D5W 2 GM/50 ML ML IVPB SCH (01:54)
[2017-12-06] MEDS: clonazePAM 0.5 MG TABLET PO SCH ×3 (05:55→21:40)
[2017-12-06 08:58] LABS: ANION GAP 6 (8-16); BLOOD UREA NITROGEN 8 mg/dl (7-18); CALCIUM 8.3 mg/dl (8.4-10.2); CHLORIDE 95 mmol/L (98-107); CO2 30 mmol/L (22-28); GLUCOSE,RANDOM 111 mg/dl (74-106); SODIUM 131 mmol/L (136-145)
[2017-12-06 08:59] LABS: HEMATOCRIT 30.5 % (35.4-49); HEMOGLOBIN 10.6 GM/dl (11.7-16.9); MCH 28.9 pg (25.7-33.7); MCHC 34.6 g/dl (32.0-35.9); MEAN CELL VOLUME 83.6 fl (80-96); MEAN PLT VOLUME 8.1 fl (7.5-11.1); PLATELET COUNT 286 K/MM3 (134-434); RBC 3.66 M/mm3 (4.00-5.60); RDW 12.3 % (11.9-15.9); WHITE BLOOD COUNT 9.3 K/mm3 (4.0-10.8)
--- NOTE | 2017-12-06 09:11 | PN ---
Progress Note (short form) - Note Progress Note: ANESTHESIA POSTOP 52 YO MALE POD#1, S/P ANKLE ORIF S: Patient alert, in bed, aide present, says patient is tolerating PO O: vitals WNL A/P: Patient doing well s/p anesthesia. Continue current care.
[2017-12-06] MEDS: ACETAMINOPHEN 325 MG TABLET (FP) PO PRN ×2 (10:15→23:34)
[2017-12-06] MEDS: RANITIDINE HCL 150 MG TABLET (FP) PO SCH ×2 (10:15→21:41)
[2017-12-06] MEDS: LACOSAMIDE 50 MG TABLET PO SCH ×3 (10:15→21:41)
[2017-12-06] MEDS: LORATADINE 10 MG TABLET PO SCH (10:15)
[2017-12-06] MEDS: POTASSIUM CHLORIDE TABS 10 MEQ TABLET.ER (FP) PO SCH (10:15)
[2017-12-06 10:16] LABS: CREATININE 0.7 mg/dl (0.6-1.3)
[2017-12-06] MEDS: LACTULOSE 20 GM/30 ML UDC (FOR ORAL USE ONLY) PO SCH (10:16)
[2017-12-06] MEDS: ASCORBIC ACID 500 MG TABLET (FP) PO SCH (10:16)
[2017-12-06] MEDS: POLYETHYLENE GLYCOL 3350 119 GM BTL PO SCH (10:16)
[2017-12-06] MEDS: CALCIUM 500MG/VIT-D 200 UNITS COMBO TABLET (FP) PO SCH ×2 (10:16→21:41)
[2017-12-06] MEDS: ATORVASTATIN CA 10 MG TABLET (FP) PO SCH (21:41)
[2017-12-07] MEDS: HYDROmorphone HCL CARPU-JECT 1 MG/1 ML DISP.SYRIN IVPB SCH ×7 (00:58→23:44)
[2017-12-07] MEDS: clonazePAM 0.5 MG TABLET PO SCH ×2 (06:24→21:33)
--- NOTE | 2017-12-07 08:29 | PN ---
Progress Note (short form) - Note Progress Note: pt lying in bed NAD LLE vac in place calves soft/nt nv exam ltd and unchanged a/p L tib/fib ORIF pod 1 -cont vac for wound swelling -elevate -NWB
[2017-12-07] MEDS: RANITIDINE HCL 150 MG TABLET (FP) PO SCH ×2 (10:00→21:38)
[2017-12-07] MEDS: POTASSIUM CHLORIDE TABS 10 MEQ TABLET.ER (FP) PO SCH (10:26)
[2017-12-07] MEDS: LACOSAMIDE 50 MG TABLET PO SCH ×3 (10:26→21:33)
[2017-12-07] MEDS: CALCIUM 500MG/VIT-D 200 UNITS COMBO TABLET (FP) PO SCH ×2 (10:26→21:32)
[2017-12-07] MEDS: ASCORBIC ACID 500 MG TABLET (FP) PO SCH (10:27)
[2017-12-07] MEDS: LORATADINE 10 MG TABLET PO SCH (10:27)
[2017-12-07] MEDS: POLYETHYLENE GLYCOL 3350 119 GM BTL PO SCH (10:27)
[2017-12-07] MEDS: LACTULOSE 20 GM/30 ML UDC (FOR ORAL USE ONLY) PO SCH (10:27)
[2017-12-07] MEDS: ACETAMINOPHEN 325 MG TABLET (FP) PO PRN (18:22)
[2017-12-07] MEDS: ATORVASTATIN CA 10 MG TABLET (FP) PO SCH (21:34)
[2017-12-08] MEDS: HYDROmorphone HCL CARPU-JECT 1 MG/1 ML DISP.SYRIN IVPB SCH ×5 (04:46→21:29)
[2017-12-08] MEDS: clonazePAM 0.5 MG TABLET PO SCH ×3 (07:36→21:22)
[2017-12-08] MEDS: ACETAMINOPHEN 325 MG TABLET (FP) PO PRN ×2 (09:50→21:23)
[2017-12-08] MEDS: POLYETHYLENE GLYCOL 3350 119 GM BTL PO SCH (09:51)
[2017-12-08] MEDS: LACOSAMIDE 50 MG TABLET PO SCH ×3 (09:51→21:22)
[2017-12-08] MEDS: ASCORBIC ACID 500 MG TABLET (FP) PO SCH (09:51)
[2017-12-08] MEDS: POTASSIUM CHLORIDE TABS 10 MEQ TABLET.ER (FP) PO SCH (09:51)
[2017-12-08] MEDS: CALCIUM 500MG/VIT-D 200 UNITS COMBO TABLET (FP) PO SCH ×2 (09:51→21:22)
[2017-12-08] MEDS: LORATADINE 10 MG TABLET PO SCH (09:51)
[2017-12-08] MEDS: RANITIDINE HCL 150 MG TABLET (FP) PO SCH ×2 (09:51→21:22)
[2017-12-08] MEDS: LACTULOSE 20 GM/30 ML UDC (FOR ORAL USE ONLY) PO SCH (09:52)
[2017-12-08] MEDS: ATORVASTATIN CA 10 MG TABLET (FP) PO SCH (21:22)
[2017-12-09] MEDS: HYDROmorphone HCL CARPU-JECT 1 MG/1 ML DISP.SYRIN IVPB SCH ×4 (00:51→13:54)
[2017-12-09] MEDS: clonazePAM 0.5 MG TABLET PO SCH ×2 (06:50→13:58)
[2017-12-09] MEDS: ACETAMINOPHEN 325 MG TABLET (FP) PO PRN (06:50)
[2017-12-09] MEDS: LACTULOSE 20 GM/30 ML UDC (FOR ORAL USE ONLY) PO SCH (10:48)
[2017-12-09] MEDS: CALCIUM 500MG/VIT-D 200 UNITS COMBO TABLET (FP) PO SCH (10:49)
[2017-12-09] MEDS: RANITIDINE HCL 150 MG TABLET (FP) PO SCH (10:49)
[2017-12-09] MEDS: LACOSAMIDE 50 MG TABLET PO SCH (10:49)
[2017-12-09] MEDS: ASCORBIC ACID 500 MG TABLET (FP) PO SCH (10:49)
[2017-12-09] MEDS: POTASSIUM CHLORIDE TABS 10 MEQ TABLET.ER (FP) PO SCH (10:49)
[2017-12-09] MEDS: LORATADINE 10 MG TABLET PO SCH (10:49)
[2017-12-09] MEDS: POLYETHYLENE GLYCOL 3350 119 GM BTL PO SCH (10:50)
--- NOTE | 2017-12-09 11:23 | SURG ---
Surgery Director Of Estate Note Director Of Estate: Christopher Ann PA-C Date of Service: 12/05/17 Diagnosis: Left tibia/fibula fracture Procedure: Open reduction internal fixation of left tibia/fibula fracture I was present for the entirety of the operative procedure. For further detail, please refer to operative report. Visit type - Case Type Case Type: ED Admission - New patient This patient is new to me today: Yes Date on this admission: 12/09/17
--- NOTE | 2017-12-09 13:11 | PN ---
Progress Note (short form) - Note Progress Note: pt lying in bed NAD AFVSS LLE vac removed wounds CDI calves soft nv exam ltd and unchanged a/p L tib/fib ORIF pod 4 -no further need for vac -elevate -NWB -stable for DC -follow up 10 days
[2017-12-09 14:08] VITALS: BP 128/65; PULSE 68; TEMP 98.1
--- NOTE | 2017-12-10 13:59 | PN ---
Progress Note (short form) - Note Progress Note: This note is for Friday, December 08, 2017. At the time I saw the patient already computers were being used by nursing staff. Today is the first and had access to the system since to document the visit. The patient felt well and was with an aide who states he was doing well. The VAC is functioning and there is no drainage from the wound site. Compartments are soft. No infection. Plan continue elevation and wound care.
== END 2017-12-09 14:02 | disposition home or self-care (01) | DRG 494 ==
LOC: FASU 08:52 → FM/S 17:07
PROVIDERS: ADMIT Orthopaedic Surgery Sports Medicine; ATTEND Orthopaedic Surgery Sports Medicine
PROC: 0QSK04Z Reposition Left Fibula with Internal Fixation Device, Open Approach (ICD-10-PCS; 2017-12-05)
PROC: 0QSH04Z Reposition Left Tibia with Internal Fixation Device, Open Approach (ICD-10-PCS; principal; 2017-12-05 11:15)
DX: S82.302A Unspecified fracture of lower end of left tibia, initial encounter for closed fracture (principal); S82.832A Other fracture of upper and lower end of left fibula, initial encounter for closed fracture; S91.002A Unspecified open wound, left ankle, initial encounter; X58.XXXA Exposure to other specified factors, initial encounter; Y93.9 Activity, unspecified; Y92.89 Other specified places as the place of occurrence of the external cause; Y99.9 Unspecified external cause status
CPT/HCPCS: 36415; 73610-TC-LT-FY; 76001-TC-FY; 80048; 85027

== ENCOUNTER 2018-01-21 12:25 | Emergency (ER) | payer OTHER ==
[2018-01-21 12:35] VITALS: BP 111/65; PULSE 68; TEMP 97.8; BMI 22.0
--- NOTE | 2018-01-21 12:51 | PDOC ---
History of Present Illness - General Chief Complaint: Injury Stated Complaint: Contusion Time Seen by Provider: 01/21/18 12:38 History Source: Other (healthcare management consultant) - History of Present Illness Timing/Duration: reports: 4-6 hours Associated Symptoms: denies: loss of consciousness, nausea/vomiting, seizures Past History - Past Medical History Allergies/Adverse Reactions: Allergies Allergy/AdvReac Type Severity Reaction Status Date / Time No Known Allergies Allergy Verified 01/21/18 12:34 Home Medications: Ambulatory Orders Calcium Carbonate/Vitamin D3 [Calcium 600 + Vit D 400 Softgl] 1 each PO BID Lactulose [Kristalose] 10 gm PO DAILY 01/30/17 [place]-3 Fatty Acids [Fish Oil] 500 mg PO DAILY 01/30/17 Polyethylene Glycol 3350 [Miralax 119 gm Btl -] 17 gm PO DAILY 01/30/17 Ranitidine [Zantac -] 150 mg PO BID 01/30/17 Ubidecarenone/Vit E Acet [Co Q-10 100 mg Softgel] 1 each PO DAILY 01/30/17 Pravastatin Sodium [Pravachol -] 40 mg PO HS 11/15/17 Clonazepam 0.25 mg PO TID #0 11/16/17 Multivitamin [Multiple Vitamins] 1 each PO DAILY #0 11/16/17 Ascorbate Calcium [Vitamin C] 1,000 mg PO DAILY 12/04/17 Diazepam Rectal Gel [Diastat *Rectal Gel*] 15 mg RC PRN PRN 12/04/17 Eslicarbazepine Acetate [Aptiom] 400 mg PO BID 12/04/17 Lacosamide [Vimpat -] 100 mg PO BID 12/04/17 Lacosamide [Vimpat -] 200 mg PO HS 12/04/17 Loratadine 10 mg PO DAILY 12/04/17 Potassium Chloride [Klor-Con M10] 10 meq PO DAILY 12/04/17 Anemia: No Asthma: No Cancer: No Cardiac Disorders: No CVA: No COPD: No CHF: No DVT: No Dementia: No Diabetes: No GI Disorders: Yes (GERD /CONSTIPATION) Disorders: No HTN: No Hypercholesterolemia: No Liver Disease: No Seizures: Yes Thyroid Disease: No Other medical history: MR - Suicide/Smoking/Psychosocial Hx Smoking History: Never smoked Have you smoked in the past 12 months: No Number of Cigarettes Smoked Daily: 0 Cigars Per Day: 0 Information on smoking cessation initiated: No Hx Alcohol Use: No Drug/Substance Use Hx: No Substance Use Type: None Hx Substance Use Treatment: No Review of Systems - Review of Systems Able to Perform ROS?: No Constitutional: Yes: Fever *Physical Exam - Vital Signs Last Vital Signs Temp Pulse Resp BP Pulse Ox 97.8 F 68 18 111/65 100 01/21/18 12:33 01/21/18 12:33 01/21/18 12:33 01/21/18 12:33 01/21/18 12:33 - Physical Exam General Appearance: Yes: Appropriately Dressed. No: Apparent Distress HEENT: positive: Normal Voice, Other (~05c. superficial lac to occiput) Neck: positive: Supple Respiratory/Chest: negative: Respiratory Distress Extremity: positive: Normal Inspection, Other (moving all extremities) Integumentary: positive: Dry, Warm Neurologic: positive: Alert, Normal Mood/Affect Procedures - Laceration/Wound Repair Head Wound Length: to 2.5 cm Wound Explored: clean Wound's Depth, Shape: superficial Wound Repaired With: Shashi (3) Sterile Dressing Applied: Yes Medical Decision Making - Medical Decision Making 01/21/18 12:50 52-year-old male history of MR, nonverbal at baseline, epilepsy, brought in by staff from [facility] for head injury in setting of witnessed fall this a.m. As per general scrap worker patient recently had left ankle surgery and while attempting to get out of bed this a.m., lost balance and fell, hitting back of head. No LOC, seizure or vomiting. Patient baseline since fall per staff. Tetanus up-to-date. Patient well-appearing, in no apparent distress with approximately 0.5 cm superficial lac to occiput.. CT head pending. Anticipate discharge back to facility 01/21/18 14:13 CAT scan read as chronic findings, no acute changes. Patient stable to report to facility *DC/Admit/Observation/Transfer Diagnosis at time of Disposition: Head injury Qualifiers: Encounter type: initial encounter Qualified Code(s): S09.90XA - Unspecified injury of head, initial encounter - Discharge Dispostion Disposition: HOME Condition at time of disposition: Good - Referrals - Patient Instructions Printed Discharge Instructions: DI for Closed Head Injury Additional Instructions: Since CAT scan was negative for any acute abnormalities today. If patient develops vomiting or change in mental status, return to ER immediately. Patient had 3 shashi placed to scalp laceration. Keep wound clean and dry for the next 48 hours after that you can let water run over wound. You can also apply Neosporin or bacitracin daily until shashi are removed. Return in 7-14 days for staple removal, return sooner for signs of infection such as redness or fever - Post Discharge Activity
== END 2018-01-21 14:26 | disposition home or self-care (01) ==
LOC: JERFT 12:25
PROC: 0HQ0XZZ Repair Scalp Skin, External Approach (ICD-10-PCS; principal; 2018-01-21)
DX: S01.01XA Laceration without foreign body of scalp, initial encounter (principal); W06.XXXA Fall from bed, initial encounter; Y93.89 Activity, other specified; Y92.193 Bedroom in other specified residential institution as the place of occurrence of the external cause; F79 Unspecified intellectual disabilities; G40.909 Epilepsy, unspecified, not intractable, without status epilepticus; K59.00 Constipation, unspecified; K21.9 Gastro-esophageal reflux disease without esophagitis
CPT/HCPCS: 12001; 70450-TC; 99281-25

== ENCOUNTER 2018-08-04 13:04 | Emergency (ER) | payer OTHER ==
[2018-08-04 13:23] VITALS: BP 130/80; PULSE 80; BMI 22.1
--- NOTE | 2018-08-04 14:14 | PDOC ---
History of Present Illness - General Chief Complaint: Injury Stated Complaint: SWOLLEN TOE Time Seen by Provider: 08/04/18 13:50 History Source: Patient Exam Limitations: No Limitations Past History - Travel Traveled outside of the country in the last 30 days: No Close contact w/someone who was outside of country & ill: No - Past Medical History Allergies/Adverse Reactions: Allergies Allergy/AdvReac Type Severity Reaction Status Date / Time No Known Allergies Allergy Verified 08/04/18 14:01 Home Medications: Ambulatory Orders Calcium Carbonate/Vitamin D3 [Calcium 600 + Vit D 400 Softgl] 1 each PO BID Lactulose [Kristalose] 10 gm PO DAILY 01/30/17 [place]-3 Fatty Acids [Fish Oil] 500 mg PO DAILY 01/30/17 Polyethylene Glycol 3350 [Miralax 119 gm Btl -] 17 gm PO DAILY 01/30/17 Ranitidine [Zantac -] 150 mg PO BID 01/30/17 Ubidecarenone/Vit E Acet [Co Q-10 100 mg Softgel] 1 each PO DAILY 01/30/17 Pravastatin Sodium [Pravachol -] 40 mg PO HS 11/15/17 Clonazepam 0.25 mg PO TID #0 11/16/17 Multivitamin [Multiple Vitamins] 1 each PO DAILY #0 11/16/17 Ascorbate Calcium [Vitamin C] 1,000 mg PO DAILY 12/04/17 Diazepam Rectal Gel [Diastat *Rectal Gel*] 15 mg RC PRN PRN 12/04/17 Eslicarbazepine Acetate [Aptiom] 400 mg PO BID 12/04/17 Lacosamide [Vimpat -] 100 mg PO BID 12/04/17 Lacosamide [Vimpat -] 200 mg PO HS 12/04/17 Loratadine 10 mg PO DAILY 12/04/17 Potassium Chloride [Klor-Con M10] 10 meq PO DAILY 12/04/17 Anemia: No Asthma: No Cancer: No Cardiac Disorders: No CVA: No COPD: No CHF: No DVT: No Dementia: No Diabetes: No GI Disorders: Yes (GERD /CONSTIPATION) Disorders: No HTN: No Hypercholesterolemia: No Liver Disease: No Seizures: Yes Thyroid Disease: No - Suicide/Smoking/Psychosocial Hx Smoking History: Never smoked Have you smoked in the past 12 months: No Number of Cigarettes Smoked Daily: 0 Cigars Per Day: 0 Hx Alcohol Use: No Drug/Substance Use Hx: No Substance Use Type: None Hx Substance Use Treatment: No Review of Systems - Review of Systems Able to Perform ROS?: Yes Comments:: 08/04/18 15:49 CONSTITUTIONAL: Absent: fever, chills, diaphoresis, generalized weakness, malaise, loss of appetite HEENT: Absent: rhinorrhea, nasal congestion, throat pain, throat swelling, difficulty swallowing, mouth swelling, ear pain, eye pain, visual Changes CARDIOVASCULAR: Absent: chest pain, loss of consciousness, palpitations, irregular heart rate, peripheral edema RESPIRATORY: Absent: cough, shortness of breath, dyspnea with exertion, orthopnea, wheezing, stridor, hemoptysis GASTROINTESTINAL: Absent: abdominal pain, abdominal distension, nausea, vomiting, diarrhea, constipation, melena, hematochezia GENITOURINARY: Absent: dysuria, frequency, urgency, hesitancy, hematuria, flank pain, genital pain MUSCULOSKELETAL: Absent: myalgia, arthralgia, joint swelling SKIN: Absent: rash, itching, pallor HEMATOLOGIC/IMMUNOLOGIC: Absent: easy bleeding, easy bruising, lymphadenopathy, frequent infections ENDOCRINE: Absent: unexplained weight gain, unexplained weight loss, heat intolerance, cold intolerance NEUROLOGIC: Absent: headache, focal weakness or paresthesias, dizziness, unsteady gait, seizure, mental status changes, bladder or bowel incontinence PSYCHIATRIC: Absent: anxiety, depression, suicidal or homicidal ideation, hallucinations. Is the patient limited Italian proficient: No *Physical Exam - Vital Signs Last Vital Signs Temp Pulse Resp BP Pulse Ox 80 18 130/80 100 08/04/18 13:22 08/04/18 13:22 08/04/18 13:22 08/04/18 13:22 - Physical Exam Comments: 08/04/18 15:49 GENERAL: Well developed, well nourished. Awake and alert. No acute distress. HEENT: Normocephalic, atraumatic. PERRLA, EOMI. No conjunctival pallor. Sclera are non- icteric. Moist mucous membranes. Oropharynx is clear. NECK: Supple. Full ROM. No JVD. Carotid pulses 2+ and symmetric, without bruits. No thyromegaly. No lymphadenopathy. CARDIOVASCULAR: Regular rate and rhythm. No murmurs, rubs, or gallops. Distal pulses are 2+ and symmetric. PULMONARY: No evidence of respiratory distress. Lungs clear to auscultation bilaterally. No wheezing, rales or rhonchi. ABDOMINAL: Soft. Non-tender. Non-distended. No rebound or guarding. No organomegaly. Normoactive bowel sounds. MUSCULOSKELETAL Normal range of motion at all joints. No bony deformities or tenderness. No CVA tenderness. EXTREMITIES: No cyanosis. No clubbing. No edema. No calf tenderness. SKIN: Warm and dry. Normal capillary refill. No rashes. No jaundice. NEUROLOGICAL: Alert, awake, appropriate. Cranial nerves 2-12 intact. No deficits to light touch and temperature in face, upper extremities and lower extremities. No motor deficits in the in face, upper extremities and lower extremities. Normoreflexic in the upper and lower extremities. Normal speech. Toes are down- going bilaterally. Gait is normal without ataxia. PSYCHIATRIC: Cooperative. Good eye contact. Appropriate mood and affect. *DC/Admit/Observation/Transfer Diagnosis at time of Disposition: Sprain of toe, great, left Qualifiers: Encounter type: initial encounter Qualified Code(s): S93.502A - Unspecified sprain of left great toe, initial encounter - Discharge Dispostion Disposition: HOME Condition at time of disposition: Stable Decision to Admit order: No - Referrals Referrals: Estrella Rhoades MD [Primary Care Provider] - - Patient Instructions Printed Discharge Instructions: DI for Toe Sprain Additional Instructions: Bal's x-ray is negative for broken bones The swelling and bruising is mostly likely d/t a toe sprain Please ice the area for 20 minute intervals Wear shoes when walking He may have Tylenol as needed for pain. Follow the dosing instructions on the bottle. Return to the ED for any new or worsening symptoms - Post Discharge Activity
== END 2018-08-04 15:55 | disposition home or self-care (01) ==
LOC: JERFT 13:04
DX: S93.502A Unspecified sprain of left great toe, initial encounter (principal); X58.XXXA Exposure to other specified factors, initial encounter; Y93.89 Activity, other specified; Y92.198 Other place in other specified residential institution as the place of occurrence of the external cause; Y99.8 Other external cause status; K21.9 Gastro-esophageal reflux disease without esophagitis; K59.00 Constipation, unspecified; G40.909 Epilepsy, unspecified, not intractable, without status epilepticus; Z99.3 Dependence on wheelchair
CPT/HCPCS: 73630-TC-LT; 99281-25

== ENCOUNTER 2019-09-19 22:12 | Emergency (ER) | payer OTHER ==
--- NOTE | 2019-09-19 22:31 | PDOC ---
History of Present Illness - General Stated Complaint: SEIZURE Time Seen by Provider: 09/19/19 22:29 History Source: Patient Exam Limitations: No Limitations - History of Present Illness Initial Comments: 09/19/19 22:46 54 yo M with a hx of epilepsy, severe intellectual disability, and eczema presents to the emergency department with s/p seizure event that occurred today at his fdc ([place] [facility]). Per the nursing records, the patient usually has 2-3 seizures per day and is currently on phenobarbital and vimipat. The patient had 7-8 seizures from 8 pm, lasting approximately 20-45 seconds. The patient was given diazepam rectally prior to presentation. Per the fdc , the patient had a temperature of 100.5 F orally. Currently, the patient is at baseline which is alert without verbal ability. Does not respond to commands, consistent with baseline. Unable to perform ROS. Allergies: NDKA Past History - Past Medical History Allergies/Adverse Reactions: Allergies Allergy/AdvReac Type Severity Reaction Status Date / Time No Known Allergies Allergy Verified 09/19/19 22:32 Home Medications: Ambulatory Orders Ascorbic Acid [Vitamin C] 500 mg PO DAILY 09/19/19 Aspirin 81 mg PO DAILY 09/19/19 Atorvastatin Ca [Lipitor] 80 mg PO HS 09/19/19 Calcium Carb/Vitamin D3/Vit K1 [Calcium + D Soft Chewable Tab] 1 each PO BID 05/01 Clobazam 10 mg PO HS 09/19/19 Clonazepam 0.25 mg PO TID 09/19/19 Diazepam Rectal Gel [Diastat Rectal Gel -] 15 mg [place] ONCE 09/19/19 Docusate Sodium [Colace -] 100 mg PO BID 09/19/19 Famotidine [Pepcid] 40 mg PO HS 09/19/19 LORazepam [Ativan] 2 mg PO QID PRN 09/19/19 Lacosamide [Vimpat] 200 mg PO BID 09/19/19 Lactulose 10 gm PO DAILY 09/19/19 Multivitamins [Tab-A-Vit -] 1 tab PO DAILY 09/19/19 [place]-3 Fatty Acids/Fish Oil [Fish Oil 1,000 mg Capsule] 1 each PO DAILY Phenobarbital 64.8 mg PO DAILY 09/19/19 Polyethylene Glycol 3350 [Purelax] 17 gm PO HS 09/19/19 Potassium Chloride [Klor-Con 10] 10 meq PO DAILY 09/19/19 Sennosides [Senna] 8.6 mg PO DAILY 09/19/19 Ubidecarenone/Vit E Acet [Co Q-10 100 mg Softgel] 1 each PO DAILY 09/19/19 Zolpidem Tartrate [Ambien] 10 mg PO 09/19/19 Anemia: No Asthma: No Cancer: No Cardiac Disorders: No CVA: No COPD: No CHF: No DVT: No Dementia: No Diabetes: No GI Disorders: Yes (GERD /CONSTIPATION) Disorders: No HTN: No Hypercholesterolemia: No Liver Disease: No Seizures: Yes Thyroid Disease: No - Psycho Social/Smoking Cessation Hx Smoking History: Never smoked Have you smoked in the past 12 months: No Number of Cigarettes Smoked Daily: 0 Cigars Per Day: 0 Hx Alcohol Use: No Drug/Substance Use Hx: No Substance Use Type: None Hx Substance Use Treatment: No Review of Systems - Review of Systems Able to Perform ROS?: No (clinical condition) *Physical Exam - Physical Exam General Appearance: Yes: Nourished. No: Appropriately Dressed, Apparent Distress, Intoxicated HEENT: positive: Other (NOEMÍ, pharynx normal, no lympadenopathy, non verbal (At baseline)). negative: Pale Conjunctivae, Scleral Icterus (R), Scleral Icterus ( L), Pharyngeal Erythema, Tonsillar Exudate, Tonsillar Erythema, Nasal Congestion , Rhinorrhea Neck: positive: Trachea midline, Supple. negative: Tender, Decreased range of motion, Lymphadenopathy (R), Lymphadenopathy (L), Rigidity Respiratory/Chest: positive: Lungs Clear, Normal Breath Sounds. negative: Chest Tender, Respiratory Distress, Accessory Muscle Use, Crackles, Rales, Rhonchi, Stridor, Wheezing Cardiovascular: positive: Regular Rhythm, Regular Rate, S1, S2. negative: Systolic Murmur Gastrointestinal/Abdominal: positive: Normal Bowel Sounds, Flat, Soft. negative : Tender Lymphatic: negative: Adenopathy Musculoskeletal: positive: Normal Inspection. negative: CVA Tenderness, Vertebral Tenderness Extremity: positive: Normal Capillary Refill, Normal Inspection, Normal Range of Motion. negative: Tender, Swelling, Calf Tenderness Integumentary: positive: Normal Color, Dry, Warm Neurologic: positive: Alert, Normal Mood/Affect (per the pharmacist aide; at baseline). negative: Fully Oriented ED Treatment Course - LABORATORY CBC & Chemistry Diagram: 09/19/19 22:32 09/19/19 23:10 Medical Decision Making - Medical Decision Making 54 yo M with a hx of epilepsy, severe intellectual disability, and eczema presents to the emergency department with s/p seizure event that occurred today at his fdc ([place]). Initial vitals: Initial Vital Signs Pulse Resp BP Pulse Ox 104 H 20 163/84 100 09/19/19 22:30 09/19/19 22:30 09/19/19 22:30 09/19/19 22:30 Work up: the patient arrived via EMS s/p diazepam administration rectally approximately 30 minutes prior to presentation. patient feels warm to the touch, but afebrile rectally. will obtain labs, levels, CXR to rule out acute processes. Laboratory Tests 09/19/19 09/19/19 09/19/19 22:32 23:10 23:10 WBC 7.8 RBC 4.85 Hgb 13.3 Hct 40.2 D MCV 82.9 MCH 27.4 MCHC 33.0 RDW 12.7 Plt Count 208 D MPV 9.8 D Absolute Neuts (auto) 5.5 Neutrophils % 69.8 Lymphocytes % 21.3 D Monocytes % 7.8 Eosinophils % 0.5 D Basophils % 0.6 Nucleated RBC % 0 PT with INR 11.80 INR 1.00 PTT (Actin FS) 30.0 VBG pH POC VBG pCO2 POC VBG pO2 VBG HCO3 VBG O2 Sat (Sharee) VBG Base Excess Sodium Potassium Chloride Carbon Dioxide Anion Gap BUN Creatinine Est GFR (CKD-EPI)AfAm Est GFR (CKD-EPI)NonAf Random Glucose Lactic Acid Calcium Total Bilirubin AST ALT Alkaline Phosphatase Troponin I < 0.02 Total Protein Albumin Urine Color Urine Appearance Urine pH Ur Specific [place] Urine Protein Urine Glucose (UA) Urine Ketones Urine Blood Urine Nitrite Urine Bilirubin Urine Urobilinogen Ur Leukocyte Esterase Urine WBC (Auto) Urine RBC (Auto) Urine Casts (Auto) U Epithel Cells (Auto) U Sm Round Cell (Auto) Urine Bacteria (Auto) Influenza A (Rapid) Influenza B (Rapid) 09/19/19 09/19/19 09/19/19 23:10 23:10 23:10 WBC RBC Hgb Hct MCV MCH MCHC RDW Plt Count MPV Absolute Neuts (auto) Neutrophils % Lymphocytes % Monocytes % Eosinophils % Basophils % Nucleated RBC % PT with INR INR PTT (Actin FS) VBG pH 7.40 POC VBG pCO2 50.1 POC VBG pO2 127 H VBG HCO3 30.2 H VBG O2 Sat (Sharee) 98.5 H VBG Base Excess 4.8 H Sodium 142 Potassium 4.1 Chloride 106 Carbon Dioxide 31 Anion Gap 5 L BUN 16.1 Creatinine 1.0 Est GFR (CKD-EPI)AfAm 97.08 Est GFR (CKD-EPI)NonAf 83.76 Random Glucose 103 Lactic Acid 2.0 Calcium 9.2 Total Bilirubin 0.1 L AST 25 ALT 44 Alkaline Phosphatase 220 H Troponin I Total Protein 7.6 Albumin 3.3 L Urine Color Urine Appearance Urine pH Ur Specific Eugene Urine Protein Urine Glucose (UA) Urine Ketones Urine Blood Urine Nitrite Urine Bilirubin Urine Urobilinogen Ur Leukocyte Esterase Urine WBC (Auto) Urine RBC (Auto) Urine Casts (Auto) U Epithel Cells (Auto) U Sm Round Cell (Auto) Urine Bacteria (Auto) Influenza A (Rapid) Influenza B (Rapid) 09/20/19 09/20/19 00:30 00:30 WBC RBC Hgb Hct MCV MCH MCHC RDW Plt Count MPV Absolute Neuts (auto) Neutrophils % Lymphocytes % Monocytes % Eosinophils % Basophils % Nucleated RBC % PT with INR INR PTT (Actin FS) VBG pH POC VBG pCO2 POC VBG pO2 VBG HCO3 VBG O2 Sat (Sharee) VBG Base Excess Sodium Potassium Chloride Carbon Dioxide Anion Gap BUN Creatinine Est GFR (CKD-EPI)AfAm Est GFR (CKD-EPI)NonAf Random Glucose Lactic Acid Calcium Total Bilirubin AST ALT Alkaline Phosphatase Troponin I Total Protein Albumin Urine Color Yellow Urine Appearance Clear Urine pH 5.5 D Ur Specific [place] 1.022 Urine Protein Negative Urine Glucose (UA) Negative Urine Ketones Trace H Urine Blood Trace Urine Nitrite Negative Urine Bilirubin Negative Urine Urobilinogen 0.2 Ur Leukocyte Esterase Negative Urine WBC (Auto) 2 Urine RBC (Auto) 15 Urine Casts (Auto) 13 U Epithel Cells (Auto) 4.8 U Sm Round Cell (Auto) None seen Urine Bacteria (Auto) 6.7 Influenza A (Rapid) Negative Influenza B (Rapid) Negative patients labs are negative for infectious etiology CXR negative for PNA negative influenza levels were sent and will be send out labs Patient was observed in the department and had returned back to baseline per his nursing staff and will return to [place]. The patient was well appearing at the time of discharge. Dispo: Discharge Discharge - Discharge Information Problems reviewed: Yes Clinical Impression/Diagnosis: Seizure [facility]position[facility] - Follow up/Referral Referrals: Estrella Rhoades MD [Primary Care Provider] - - Patient Discharge Instructions - Post Discharge Activity
[2019-09-19 22:32] VITALS: BMI 24.3
[2019-09-19] MEDS ORDERED: ACETAMINOPHEN 1000 MG/100 ML VIAL (NON FORMULARY) IVPB ONE (22:35)
[2019-09-19] MEDS ORDERED: ACETAMINOPHEN INJECTION 100 ML IVPB ONE (22:38)
[2019-09-19 22:40] VITALS: TEMP 99.2
[2019-09-19] MEDS ORDERED: levETIRAcetam 500 MG/5 ML INJECTION VIAL IVPB ONE ×2 (22:40→22:51)
--- NOTE | 2019-09-19 22:40 | PDOC ---
Attending Attestation - Resident Resident Name: BingClint - ED Attending Attestation I have performed the following: I have examined & evaluated the patient, The case was reviewed & discussed with the resident, I agree w/resident's findings & plan - HPI HPI: 09/19/19 22:40 [place] resident with MR and marsha due to epilepsy; had several seizures today. 09/20/19 01:10 Pt comes with seizure today; more than usual. Pt takes 2 antiseizure meds daily and he has 2-3 seizures daily regardless; today he had approx 7 so second long seizures back in short succession. No other complaints. We will check basic labs, CXR and UA to look for irritants that could be causing his syptoms. - Physicial Exam PE: 09/20/19 00:41 Pt is afebrile No rashes. Pt has no tachycardia Lungs clear Abd soft NT ND Legs are thin nbut no edema. Pt has old surgical scar on distal right medial lower leg. - Medical Decision Making 09/20/19 00:16 Pt's labs are normal. 09/20/19 00:41 CXR normal 09/20/19 01:09 UA pending Pt is afebrile; no abd pain; no rashes. Pt is ready to go home. 09/20/19 01:12 UA normal; home is arranging transport for the patient. Heart Score/ECG Review - ECG Intrepretation Rhythm: Regular Rhythm - [place]: Normal - P and DE Prominent R with upright T in V1 (true posterior DE): No Delta Wave(s) Present: No WPW: No - QRS Poor R Wave Progression: No Q Wave Present: No - ST and T Early Repolarization: No Non Specific ST-T Wave changes: No Flattened T Waves: No Prolonged Q-T Interval: No - ECG Impressions Normal ECG: No Non-specific ST Elevation: No Ischemic Changes: No Bradycardia: No Tachycardia: Sinus Torsades jayda Pointes: No WPW: No
[2019-09-19 22:41] LABS: BASO % 0.6 % (0-2.0); EOS % 0.5 % (0-4.5); HEMATOCRIT 40.2 % (35.4-49); HEMOGLOBIN 13.3 GM/dL (11.7-16.9); LYMPH % 21.3 % (8-40); MCH 27.4 pg (25.7-33.7); MEAN CELL VOLUME 82.9 fl (80-96); MEAN PLT VOLUME 9.8 fl (7.5-11.1); MONO % 7.8 % (3.8-10.2); NEUT % 69.8 % (42.8-82.8); PLATELET COUNT 208 K/MM3 (134-434); RBC 4.85 M/mm3 (4.00-5.60); RDW 12.7 % (11.9-15.9); WHITE BLOOD COUNT 7.8 K/mm3 (4.0-10.0)
[2019-09-19 23:19] LABS: VENOUS PC02 50.1 mmHg (38-52); VENOUS PH 7.4 (7.31-7.41)
[2019-09-19 23:33] LABS: PROTHROMBIN TIME (PATIENT) 11.8 SEC (9.7-13.0)
[2019-09-19 23:49] LABS: ALBUMIN 3.3 g/dl (3.4-5.0); BILIRUBIN,TOTAL 0.1 mg/dL (0.2-1); BLOOD UREA NITROGEN 16.1 mg/dL (7-18); CALCIUM 9.2 mg/dL (8.5-10.1); POTASSIUM 4.1 mmol/L (3.5-5.1); TOT PROT 7.6 g/dl (6.4-8.2)
[2019-09-20 00:25] VITALS: BP 136/68; PULSE 72
[2019-09-20 00:45] LABS: EPI CELLS 4.8 /HPF (0-5/HPF); HYALINE CASTS 13 /lpf (0-8); PH,URINE 5.5 (5.0-8.0); URINE APPEARANCE CLEAR; URINE BACTERIA 6.7 /hpf (NEGATIVE); URINE BILIRUBIN NEGATIVE (NEGATIVE); URINE COLOR YELLOW; URINE GLUCOSE (UA) NEGATIVE (NEGATIVE); URINE KETONE TRACE (NEGATIVE); URINE LEUK ESTERASE NEGATIVE (NEGATIVE); URINE NITRITE NEGATIVE (NEGATIVE); URINE PROTEIN NEGATIVE (NEGATIVE); URINE RBC 15 /hpf (0-4); URINE UROBILINOGEN 0.2 mg/dL (0.2-1.0); URINE WBC 2 /hpf (0-5)
--- NOTE | 2019-09-21 01:02 | EKG ---
Test Reason : Blood Pressure : / mmHG Vent. Rate : 102 BPM Atrial Rate : 102 BPM P-R Int : 184 ms QRS Dur : 072 ms QT Int : 348 ms P-R-T Axes : 064 040 045 degrees QTc Int : 453 ms SINUS TACHYCARDIA OTHERWISE NORMAL ECG WHEN COMPARED WITH ECG OF 15-NOV-2017 17:48, NO SIGNIFICANT CHANGE WAS FOUND Confirmed by VICKIE CALLE MD ([id number]) on 09/21/2019 1:01:54 AM Referred By: Confirmed By:VICKIE CALLE MD
== END 2019-09-20 02:16 ==
LOC: JER 22:12
PROC: 3E033NZ Introduction of Analgesics, Hypnotics, Sedatives into Peripheral Vein, Percutaneous Approach (ICD-10-PCS; principal; 2019-09-19)
PROC: 3E033GC Introduction of Other Therapeutic Substance into Peripheral Vein, Percutaneous Approach (ICD-10-PCS; 2019-09-19)
DX: G40.909 Epilepsy, unspecified, not intractable, without status epilepticus (principal); L30.9 Dermatitis, unspecified; F72 Severe intellectual disabilities; K21.9 Gastro-esophageal reflux disease without esophagitis
CPT/HCPCS: 36415; 71045-TC-FY; 80053; 80184; 81003; 82803; 83605; 84484; 85025; 85610; 85730; 87040; 87086; 87804; 93005; 93010; 99283-25; G0480; J0131

== ENCOUNTER 2019-09-23 23:00 | Emergency (ER) | payer OTHER ==
--- NOTE | 2019-09-23 23:09 | PDOC ---
History of Present Illness - General Stated Complaint: SEIZURES Time Seen by Provider: 09/23/19 23:07 History Source: Care Provider, Senior Living Records Exam Limitations: Clinical Condition (baseline unresponsive, post-ictal) - History of Present Illness Initial Comments: 09/23/19 23:08 Bal Vogel is a 54M with H developmental disorder, epilepsy presenting from [place] with seizures. Per aide at bedside, patient had a seizure today during day activities and was given Diastat CT. Starting at 21:30, patient had another 5 seizure episodes and was given CT Diastat again. Aide did not witness events, but has seen them in the past, normally flexes at the wrist and becomes unresponsive, denies prior grand mal seizures. Per aide, patient still post-ictal, is non-verbal but ambulatory at baseline. Takes diazepam, clonazepam, and phenobarbitol for epilepsy. Patient has been acting at baseline mental status, no fevers/chills, eating well, patient has not complained of any symptoms. Was last seen at [facility] 4 days ago for same thing, was evaluated for infectious causes and discharged home. Patient has neurologists at [facility]. Past History - Past Medical History Allergies/Adverse Reactions: Allergies Allergy/AdvReac Type Severity Reaction Status Date / Time No Known Allergies Allergy Verified 09/19/19 22:32 Home Medications: Ambulatory Orders Ascorbic Acid [Vitamin C] 500 mg PO DAILY 09/19/19 Aspirin 81 mg PO DAILY 09/19/19 Atorvastatin Ca [Lipitor] 80 mg PO HS 09/19/19 Calcium Carb/Vitamin D3/Vit K1 [Calcium + D Soft Chewable Tab] 1 each PO BID 05/01 Clobazam 10 mg PO HS 09/19/19 Clonazepam 0.25 mg PO TID 09/19/19 Diazepam Rectal Gel [Diastat Rectal Gel -] [address] ONCE 09/19/19 Docusate Sodium [Colace -] 100 mg PO BID 09/19/19 LORazepam [Ativan] 2 mg PO QID PRN 09/19/19 Lacosamide [Vimpat] 200 mg PO BID 09/19/19 Lactulose 10 gm PO DAILY 09/19/19 Multivitamins [Tab-A-Vit -] 1 tab PO DAILY 09/19/19 [place]-3 Fatty Acids/Fish Oil [Fish Oil 1,000 mg Capsule] 1 each PO DAILY Phenobarbital 64.8 mg PO DAILY 09/19/19 Polyethylene Glycol 3350 [Purelax] 17 gm PO HS 09/19/19 Potassium Chloride [Klor-Con 10] 10 meq PO DAILY 09/19/19 Sennosides [Senna] 8.6 mg PO DAILY 09/19/19 Ubidecarenone/Vit E Acet [Co Q-10 100 mg Softgel] 1 each PO DAILY 09/19/19 Zolpidem Tartrate [Ambien] 10 mg PO ASDIR 09/19/19 Anemia: No Asthma: No Cancer: No Cardiac Disorders: No CVA: No COPD: No CHF: No DVT: No Dementia: No Diabetes: No GI Disorders: Yes (GERD /CONSTIPATION) Disorders: No HTN: No Hypercholesterolemia: No Liver Disease: No Seizures: Yes Thyroid Disease: No - Psycho Social/Smoking Cessation Hx Smoking History: Never smoked Have you smoked in the past 12 months: No Number of Cigarettes Smoked Daily: 0 Cigars Per Day: 0 Hx Alcohol Use: No Drug/Substance Use Hx: No Substance Use Type: None Hx Substance Use Treatment: No Review of Systems - Review of Systems Able to Perform ROS?: No (post-ictal) *Physical Exam - Physical Exam General Appearance: Yes: Nourished, Appropriately Dressed. No: Apparent Distress HEENT: positive: NOEMÍ, Normal ENT Inspection, Symmetrical, Pharynx Normal. negative: EOMI (does not follow commands to follow eyes), Normal Voice (non- verbal), Scleral Icterus (R), Scleral Icterus (L) Neck: positive: Trachea midline, Supple. negative: Tender, Rigid, Lymphadenopathy (R), Lymphadenopathy (L) Respiratory/Chest: positive: Lungs Clear, Normal Breath Sounds. negative: Chest Tender, Respiratory Distress, Accessory Muscle Use, Crackles, Rales, Rhonchi, Stridor, Wheezing Cardiovascular: positive: Regular Rhythm, Regular Rate. negative: Murmur Gastrointestinal/Abdominal: positive: Normal Bowel Sounds, Flat, Soft. negative : Tender, Guarding, Rebound Musculoskeletal: positive: Normal Inspection Extremity: positive: Normal Capillary Refill, Normal Inspection, Normal Range of Motion. negative: Tender, Pedal Edema, Swelling, Calf Tenderness Integumentary: positive: Normal Color, Dry, Warm Neurologic: positive: Respond to painful stimul. negative: designer architect II-XII NML intact (unable to asses, patient lethargic), Fully Oriented, Alert (patient is resting in bed, in no acutre distress, unresponsive to voice, raises head to IV placement attempts and sternal rub but is non-vocal), Normal Mood/Affect, Normal Response ED Treatment Course - LABORATORY CBC & Chemistry Diagram: 09/24/19 00:51 09/24/19 00:51 Medical Decision Making - Medical Decision Making 09/23/19 23:08 Bal Vogel is a 54M with H developmental disorder, epilepsy presenting from [place] with seizures. Patient here for at least 6 reported seizure-like activity episodes and was given 2x CT diazepam. Evaluating for infectious causes of seizures. CMP CBC CP lactate phenobarbitol level CXR 09/24/19 03:11 Patient had seizure episode in ED, arms contracted with shaking from the waist up, lasted <5 minutes. Given 2mg IV Ativan. Concern high for airway compromise, has smaller seizures after. Satting well on NRB. Ordering CT head given has had ~10 seizures in the last 2 days, last CT 1 year ago. 09/24/19 03:20 Labs notable for: - WBC 11.3 - Mg 1.7 - UA negative - AP 223 - trop negative Pending CT, will admit for repeated seizures and further evaluation. 09/24/19 04:27 CT head shows no ICH or other acute pathology. CXR appears normal. Patient has had multiple seizures in the ED, meets criteria for status epilepticus. Arranging transfer with [facility], Dr. Pascal has arranged for transfer under the care of neurologist Dr. Carvajal at [facility]. Patient's nurse has called back, confirms patient is not DNR/DNI. 09/24/19 05:20 Patient transferred out of ED to [facility]. Discharge - Discharge Information Problems reviewed: Yes Clinical Impression/Diagnosis: Seizure Condition: Stable Disposition: TRANSFER ACUTE CARE/OTHER HOSP - Admission No - Follow up/Referral - Patient Discharge Instructions - Post Discharge Activity
[2019-09-23 23:41] VITALS: TEMP 98; BMI 24.7
--- NOTE | 2019-09-24 00:44 | PDOC ---
Documentation entered by Placido Mcconnell SCRIBE, acting as scribe for Yuli Reveles DO. Yuli Reveles DO: This documentation has been prepared by the Jayesh rivas Daniel, SCRIBE, under my direction and personally reviewed by me in its entirety. I confirm that the documentation accurately reflects all work, treatment, procedures, and medical decision making performed by me. Attending Attestation - Resident Resident Name: CecyHemant - ED Attending Attestation I have performed the following: I have examined & evaluated the patient, The case was reviewed & discussed with the resident, I agree w/resident's findings & plan, Exceptions are as noted - HPI HPI: 09/24/19 00:09 The patient is a 54 year old male with a past medical history of epilepsy, severe intellectual disability, and eczema here today for evaluation of seizures. Patient was unable to provide history due to being in a postictal state. As per the aide at bedside, the patient had 5 seizures tonight starting at 9:33 PM. Aide reports that the patients seizure activity has become sporadic in the past year and can vary from no seizures a day to multiple in one day. Patient was seen on 09/19/19 for a similar symptoms. Allergies: NKA - Physicial Exam PE: 09/24/19 00:09 Constitutional: +in postictal state, not following commands. Head: Normocephalic. Atraumatic Eyes: PERRL. EOMI. Conjunctivae are not pale. ENT: No evidence of tongue biting. Mucous membranes are moist and intact. Posterior pharynx without exudates or erythema. Uvula midline. Neck: Supple. Full ROM. No lymphadenopathy. Cardiovascular: Regular rate. Regular rhythm. S1, S2 regular. Distal pulses are 2+ and symmetric. Pulmonary/Chest: No evidence of respiratory distress. Protecting airway. Clear to auscultation bilaterally No wheezing, rales or rhonchi. Abdominal: Soft and non-distended. There is no tenderness. No rebound, guarding or rigidity. No organomegaly. No palpable masses. Good bowel sounds. Back: No CVA tenderness. Musculoskeletal: No edema. No cyanosis. No clubbing. Full range of motion in all extremities. Nocalf tenderness. Radial/pedal pulses are intact and 2+ bilaterally Skin: Skin is warm and dry. No petechiae. No purpura. Neurological: unable to perform due to postictal state - Medical Decision Making 09/23/19 23:54 I, Dr. Yuli Reveles, DO, attest that this document has been prepared under my direction and personally reviewed by me in its entirety. I further attest, that it accurately reflects all work, treatment, procedures and medical decision -making performed by me. 09/24/19 00:35 a/p: 54yo male with hx of epilepsy from [place] with around 5 seizures tonight -pt did receive diastat tonight and has not seizures since -pt does take phenobarb, klonopin -will send labs, ekg, cxr, head ct -aide at the bedside denies trauma or missed meds -will send levels of meds -pt currently post-ictal, will monitor 09/24/19 01:24 cxr clear 09/24/19 01:44 pt still postictal wbc 11 lactate [address] will continue to monitor 09/24/19 02:15 pt with another seizure in the ER, resolved without meds given freq of seizures and lack of return to baseline, will need admission for further eval Heart Score/ECG Review - ECG Intrepretation Comment:: 09/24/19 00:44 sinus tach at 113, nl axis, nl interval, no acute st/t wave findings
[2019-09-24 01:27] LABS: BASO % 0.4 % (0-2.0); EOS % 0.2 % (0-4.5); HEMOGLOBIN 13.4 GM/dL (11.7-16.9); LYMPH % 17.2 % (8-40); MCH 27.6 pg (25.7-33.7); MCHC 33.5 g/dl (32.0-35.9); MEAN CELL VOLUME 82.3 fl (80-96); MEAN PLT VOLUME 9.5 fl (7.5-11.1); MONO % 7.7 % (3.8-10.2); NEUT % 74.5 % (42.8-82.8); PLATELET COUNT 205 K/MM3 (134-434); RBC 4.86 M/mm3 (4.00-5.60); RDW 12.6 % (11.9-15.9); WHITE BLOOD COUNT 11.3 K/mm3 (4.0-10.0)
[2019-09-24 01:42] LABS: ALBUMIN 3.4 g/dl (3.4-5.0); ALK PHOS 223 U/L (45-117); ANION GAP 6 MMOL/L (8-16); BILIRUBIN,TOTAL 0.2 mg/dL (0.2-1); BLOOD UREA NITROGEN 13.6 mg/dL (7-18); CALCIUM 9.2 mg/dL (8.5-10.1); CHLORIDE 105 mmol/L (98-107); CO2 32 mmol/L (21-32); CREATININE 0.9 mg/dL (0.55-1.3); GLUCOSE,RANDOM 99 mg/dL (74-106); MAGNESIUM 1.7 mg/dL (1.8-2.4); PHOSPHOROUS 2.8 mg/dL (2.5-4.9); POTASSIUM 3.7 mmol/L (3.5-5.1); SGOT/AST 26 U/L (15-37); SGPT/ALT 47 U/L (13-61); SODIUM 143 mmol/L (136-145); TOT PROT 7.9 g/dl (6.4-8.2)
[2019-09-24] MEDS ORDERED: SODIUM CHLORIDE 0.9% 1000 ML INFUS.BAG IV ONE (01:42)
[2019-09-24] MEDS ORDERED: LORazepam 2 MG/ML SDV VIAL ONE ×2 (02:07→03:04)
[2019-09-24 02:19] VITALS: BP 145/76; PULSE 88
[2019-09-24 02:32] LABS: URINE APPEARANCE CLEAR; URINE BILIRUBIN NEGATIVE (NEGATIVE); URINE COLOR YELLOW; URINE GLUCOSE (UA) NEGATIVE (NEGATIVE); URINE KETONE NEGATIVE (NEGATIVE); URINE LEUK ESTERASE NEGATIVE (NEGATIVE); URINE NITRITE NEGATIVE (NEGATIVE); URINE PROTEIN NEGATIVE (NEGATIVE); URINE UROBILINOGEN 0.2 mg/dL (0.2-1.0)
--- NOTE | 2019-09-25 13:21 | EKG ---
Test Reason : Blood Pressure : / mmHG Vent. Rate : 113 BPM Atrial Rate : 113 BPM P-R Int : 194 ms QRS Dur : 082 ms QT Int : 314 ms P-R-T Axes : 067 040 057 degrees QTc Int : 430 ms SINUS TACHYCARDIA NONSPECIFIC T WAVE ABNORMALITY ABNORMAL ECG WHEN COMPARED WITH ECG OF 19-SEP-2019 22:24, NO SIGNIFICANT CHANGE WAS FOUND Confirmed by ELZA CUNNINGHAM MD ([id number]) on 09/25/2019 1:21:15 PM Referred By: Confirmed By:ELZA CUNNINGHAM MD
== END 2019-09-24 05:30 | disposition short-term general hospital (02) ==
LOC: JER 23:00
PROC: 3E033NZ Introduction of Analgesics, Hypnotics, Sedatives into Peripheral Vein, Percutaneous Approach (ICD-10-PCS; principal; 2019-09-23)
PROC: 3E0337Z Introduction of Electrolytic and Water Balance Substance into Peripheral Vein, Percutaneous Approach (ICD-10-PCS; 2019-09-23)
DX: R56.9 Unspecified convulsions (principal); F89 Unspecified disorder of psychological development; K21.9 Gastro-esophageal reflux disease without esophagitis; K59.00 Constipation, unspecified
CPT/HCPCS: 36415; 70450-TC; 71045-TC-FY; 80053; 80184; 81003; 82550; 83605; 83735; 84100; 84484; 85025; 87086; 93005; 93010; 99285-25; J7030

== ENCOUNTER 2020-05-08 07:38 | Emergency (ER) | payer OTHER ==
--- NOTE | 2020-05-08 08:32 | PDOC ---
History of Present Illness - General Chief Complaint: Seizure Stated Complaint: SEIZURE Time Seen by Provider: 05/08/20 07:54 History Source: Patient, Care Provider Exam Limitations: Clinical Condition - History of Present Illness Initial Comments: 05/08/20 08:22 55M with PMH intellectual disability and epilepsy [facility] from senior living after 8 seizures this morning. As per [facility] nurse, there were 8 seizures lasting 30 seconds each, full body tremors, facial twitching, biting. He gets multiple seizures like this every few months, and often has one seizure per day, but sometimes goes a week without a seizure. No trauma. Recently discharged from [facility], where they added brivaracetam. Seizure Meds: phenobarbital, phenytoin, brivaracetam, lacosamide, diazepam ROS unable to obtain PE Vital Signs Period Temp Pulse Resp BP Sys/Morales Pulse Ox Last 24 Hr 98.3 F 87-87 13-17 109-122/52-67 98-100 GENERAL: Awake, non-verbal, in no acute distress HEAD: No signs of trauma, normocephalic, atraumatic EYES: PERRLA, EOMI, sclera anicteric, conjunctiva clear ENT: Auricles normal inspection, nares patent, oropharynx clear without exudates. Moist mucosa NECK: Normal ROM, supple, no lymphadenopathy, JVD, or masses LUNGS: No distress, speaks full sentences, clear to auscultation bilaterally HEART: Regular rate and rhythm, normal S1 and S2, no murmurs, rubs or gallops, peripheral pulses normal and equal bilaterally. ABDOMEN: Soft, nontender, normoactive bowel sounds. No guarding, no rebound. No masses EXTREMITIES : Contracted. 1+ pitting edema in b/l feet NEUROLOGICAL: patient unable to cooperate with exam. SKIN: Warm, Dry Assessment and Plan 55M with PMH intellectual disability and epilepsy [facility] from senior living after 8 seizures this morning. Vitals stable, no evidence of trauma, but this is more seizures than baseline -EKG, CT head, CXR, CBC, CMP, UA, drug levels -Didn't get morning meds, so will give lacosamide IV 05/08/20 11:48 -Reassess: no new seizure activity. EKG, CT head, CXR, CBC, CMP, UA unremarkable. Drug levels pending. Will send back to [facility] for PCP/neuro f/u. Past History - Medical History Allergies/Adverse Reactions: Allergies Allergy/AdvReac Type Severity Reaction Status Date / Time No Known Allergies Allergy Verified 09/19/19 22:32 Home Medications: Ambulatory Orders Ascorbic Acid [Vitamin C] 500 mg PO DAILY 09/19/19 Aspirin 81 mg PO DAILY 09/19/19 Atorvastatin Ca [Lipitor] 80 mg PO HS 09/19/19 Calcium Carb/Vitamin D3/Vit K1 [Calcium + D Soft Chewable Tab] 1 each PO BID 09/19/19 Clobazam 10 mg PO HS 09/19/19 Clonazepam 0.25 mg PO TID 09/19/19 Diazepam Rectal Gel [Diastat Rectal Gel -] 15 mg [place] ONCE 09/19/19 Docusate Sodium [Colace -] 100 mg PO BID 09/19/19 LORazepam [Ativan] 2 mg PO QID PRN 09/19/19 Lacosamide [Vimpat] 200 mg PO BID 09/19/19 Multivitamins [Tab-A-Vit -] 1 tab PO DAILY 09/19/19 [place]-3 Fatty Acids/Fish Oil [Fish Oil 1,000 mg Capsule] 1 each PO DAILY 09/19 Phenobarbital 64.8 mg PO DAILY 09/19/19 Polyethylene Glycol 3350 [Purelax] 17 gm PO HS 09/19/19 Potassium Chloride [Klor-Con 10] 10 meq PO DAILY 09/19/19 Sennosides [Senna] 8.6 mg PO DAILY 09/19/19 Ubidecarenone/Vit E Acet [Co Q-10 100 mg Softgel] 1 each PO DAILY 09/19/19 Zolpidem Tartrate [Ambien] 10 mg PO ASDIR 09/19/19 Brivaracetam [Briviact] 100 mg PO BID 05/08/20 Cannabidiol (Cbd) [Epidiolex] 100 mg PO BID 05/08/20 Ceramides 1,3,6-11 [Cerave] 340 gm TP Q1H PRN 05/08/20 Doxazosin Mesylate [Cardura -] 1 mg PO DAILY 05/08/20 Famotidine [Pepcid -] 20 mg PO DAILY 05/08/20 Lactulose 10 gm PO DAILY 05/08/20 Phenytoin 100 mg PO HS 05/08/20 Sennosides [Senna] 8.6 mg PO BID 05/08/20 Ubidecarenone [Co Q-10] 100 mg PO DAILY 05/08/20 Anemia: No Asthma: No Cancer: No Cardiac Disorders: No CVA: No COPD: No CHF: No DVT: No Dementia: No Diabetes: No GI Disorders: Yes (GERD /CONSTIPATION) Disorders: No HTN: No Hypercholesterolemia: No Liver Disease: No Seizures: Yes Thyroid Disease: No - Psycho-Social/Smoking History Smoking History: Never smoked Have you smoked in the past 12 months: No Number of Cigarettes Smoked Daily: 0 Cigars Per Day: 0 ED Treatment Course - LABORATORY CBC & Chemistry Diagram: 05/08/20 09:00 05/08/20 09:00 - RADIOLOGY Radiology Studies Ordered: Category Date Time Status CHEST X-RAY PORTABLE* [RAD] Stat Radiology 05/08/20 08:13 Ordered Discharge - Discharge Information Problems reviewed: Yes Clinical Impression/Diagnosis: Seizures Condition: Stable Disposition: [facility]ILITY - Admission No - Follow up/Referral - Patient Discharge Instructions Patient Printed Discharge Instructions: DI for Seizure Disorder -- Adult Additional Instructions: Mr. Vogel was seen in the ER for seizures. Our workup was negative for a cause of his seizures other than his underlying epilepsy. EKG, chest x-ray, CT-head, blood labs and urine labs were normal. Please seek emergent care for persistent or worsening symptoms, fever, falls, abdominal pain. Please follow up with the primary doctor and neurologist within one week. - Post Discharge Activity
[2020-05-08 08:35] VITALS: PULSE 87; TEMP 98.3; BMI 23.1
[2020-05-08] MEDS ORDERED: Lacosamide 200 MG/20 ML VIAL IVPB ONE ×2 (08:44→09:05)
[2020-05-08] MEDS ORDERED: PHENobarbital SODIUM 65 MG/1 ML VIAL IVPUSH ONE (08:47)
--- NOTE | 2020-05-08 08:58 | PDOC ---
Attending Attestation - Resident Resident Name: Anupam Castillo - ED Attending Attestation I have performed the following: I have examined & evaluated the patient, The case was reviewed & discussed with the resident, I agree w/resident's findings & plan, Exceptions are as noted - HPI HPI: 05/08/20 08:05 YOM with refractory seizure disorder (on phenobarbital, phenytoin, brivaracetam, lacosamide, diazepam; still tends to have about one seizure a day, was admitted to [facility] 10 days ago for the same thing and brivaracetam), developmental disability, nonverbal at baseline who was [facility] for 5 seizures lasting ~30 seconds long, as witnessed by [facility] staff. Staff described the episodes as teeth- clenching and all-over muscle contractions and face twitching, but they noted no trauma. The patient himself is nonverbal at baseline and unable to provide any relevant recent history, so the extent of his history is taken from chart review and [place] records. - Physicial Exam PE: 05/08/20 08:51 GENERAL: no distress, nonverbal as per [facility] record baseline HEENT: PERRLA, EOMI, moist mucous membranes NECK/BACK: no midline ttp, no spinal step-off or deformity, no hematoma, full ROM, neck supple CARDIOVASCULAR: regular rate/rhythm, no MGR, strong peripheral pulses, capillary refill <2 seconds, extremities wwp, no edema LUNGS/RESPIRATORY: no respiratory distress, CTAB GI/ABDOMEN: symmetric [id number], normoactive BS, soft, no ttp, no midline pulsatile masses : no CVA tenderness MSK/EXTREMITIES: no muscle atrophy, no acute deformity SKIN: warm and dry, no pallor, no jaundice, no rash, no pathologic-appearing bruising, no skin breakdown, no cuts, no lesions NEUROLOGICAL: GCS 15, CN II-XII grossly intact, 5/5 strength proximally and distally, no facial droop - Medical Decision Making 05/08/20 08:52 55YOM with long-standing refractory seizure disorder, on several medications with regular breakthrough seizures, who p/w 8 short seizures this morning. Initial Vital Signs Temp Pulse Resp BP Pulse Ox 98.3 F 87 17 109/52 L 100 05/08/20 08:12 05/08/20 08:12 05/08/20 08:12 05/08/20 08:12 05/08/20 08:12 DDX IBNLT: seizure with risk for status epilepticus vs. unlikely syncope, unlikely status epilepticus as patient is back to record-stated baseline at this time. Possible causes decreasing sx threshold infectious, structural WEBSPHERE ADMINISTRATOR abnormality, ICH, CVA, subtherapeutic antiepileptic levels, etc. W/U Ordered: labs as noted below, antiepileptic levels to send out, CXR, EKG, HCT EKG: Reviewed; results as noted in ECG Review section. CT/HEAD CT WITHOUT CONTRAST HISTORY PROVIDED: Seizure TECHNIQUE: Sequential axial images were obtained from the base of the skull to the vertex. There is no evidence of acute intracranial hemorrhage, mass lesions or infarctions. There is a mild degree of diffuse cerebral atrophy with sulcal widening and ventricular dilatation. There is partial opacification of the right maxillary sinus consistent with acute/chronic sinusitis. The remainder of the visualized paranasal sinuses and mastoid air cells are clear. There is no evidence of fracture or acute bony pathology. IMPRESSION: No evidence of acute intracranial pathology. Please see above discussion. RAD/CHEST X-RAY PORTABLE* Chest: Seizure. Shortness of breath A single view of the chest has been submitted. Since 11/20/2019 there is less chin artifact. There is still a weak inspiration with clear lungs and normal mediastinum. An acute process is not seen. The angles are sharp. The bones and soft tissues are intact. Impression : No acute chest pathology. Less chin artifact into 05/02/2020 Laboratory Tests 05/08/20 05/08/20 05/08/20 09:00 09:00 11:00 WBC 8.7 RBC 4.25 Hgb 11.6 L Hct 35.0 L MCV 82.3 MCH 27.3 MCHC 33.2 RDW 13.8 Plt Count 263 D MPV 8.9 Absolute Neuts (auto) 5.7 Neutrophils % 66.2 Lymphocytes % 23.1 D Monocytes % 8.0 Eosinophils % 1.9 D Basophils % 0.8 Nucleated RBC % 0 Sodium 141 Potassium 4.0 Chloride 104 Carbon Dioxide 32 Anion Gap 5 L BUN 16.1 Creatinine 0.8 Est GFR (CKD-EPI)AfAm 114.93 Est GFR (CKD-EPI)NonAf 99.16 Random Glucose 81 Calcium 9.0 Total Bilirubin 0.1 L AST 30 ALT 39 Alkaline Phosphatase 241 H Troponin I < 0.02 Total Protein 7.5 Albumin 2.8 L Urine Color Yellow Urine Appearance Cloudy Urine pH 8.5 H D Ur Specific [place] 1.018 Urine Protein Negative Urine Glucose (UA) Negative Urine Ketones Negative Urine Blood Negative Urine Nitrite Negative Urine Bilirubin Negative Urine Urobilinogen 0.2 Ur Leukocyte Esterase Trace Urine WBC (Auto) 2 Urine RBC (Auto) 6 Urine Casts (Auto) 0 U Epithel Cells (Auto) 3 Urine Bacteria (Auto) 23 Labs negative, imaging and EKG negative. The patient reportedly had many short seizure-like episodes this morning as reported by his facility, but no seizure- like activity seen here in the ED. Per his prior records and [place] report, he has similar episodes about once a month. He was just admitted to [facility] for similar and recently added new antiepileptic medication. He will f/u with neurology at [facility] tomorrow or return to the ED for any new or worsening symptoms, including more seizure-like episodes that do not resolve spontaneously or with medications. Last Vital Signs Temp Pulse Resp BP Pulse Ox 98.3 F 87 13 122/67 98 05/08/20 08:12 05/08/20 11:25 05/08/20 11:25 05/08/20 11:25 05/08/20 11:25 Heart Score/ECG Review #1 05/08/20 08:54 Sinus rhythm, rate 84, normal axis and intervals, no ischemic ST-T changes Discharge - Discharge Information Problems reviewed: Yes Clinical Impression/Diagnosis: Seizures Condition: Stable Disposition: [facility] HOME FACILITY - Admission No - Follow up/Referral Referrals: Luis Armando Kay MD [Primary Care Provider] - - Patient Discharge Instructions Patient Printed Discharge Instructions: DI for Seizure Disorder -- Adult Additional Instructions: Mr. Vogel was seen in the ER for seizures. Our workup was negative for a cause of his seizures other than his underlying epilepsy. EKG, chest x-ray, CT-head, blood labs and urine labs were normal. Please seek emergent care for persistent or worsening symptoms, fever, falls, abdominal pain. Please follow up with the primary doctor and neurologist within one week. - Post Discharge Activity
[2020-05-08] MEDS ORDERED: PHENobarbital SODIUM 65 MG/1 ML VIAL ONE (09:05)
[2020-05-08 09:13] LABS: BASO % 0.8 % (0-2.0); EOS % 1.9 % (0-4.5); HEMOGLOBIN 11.6 GM/dL (11.7-16.9); LYMPH % 23.1 % (8-40); MCH 27.3 pg (25.7-33.7); MCHC 33.2 g/dl (32.0-35.9); MEAN CELL VOLUME 82.3 fl (80-96); MEAN PLT VOLUME 8.9 fl (7.5-11.1); NEUT % 66.2 % (42.8-82.8); PLATELET COUNT 263 K/MM3 (134-434); RBC 4.25 M/mm3 (4.00-5.60); RDW 13.8 % (11.9-15.9); WHITE BLOOD COUNT 8.7 K/mm3 (4.0-10.0)
[2020-05-08 09:33] LABS: ALBUMIN 2.8 g/dl (3.4-5.0); ALK PHOS 241 U/L (45-117); ANION GAP 5 MMOL/L (8-16); BILIRUBIN,TOTAL 0.1 mg/dL (0.2-1); BLOOD UREA NITROGEN 16.1 mg/dL (7-18); CHLORIDE 104 mmol/L (98-107); CO2 32 mmol/L (21-32); CREATININE 0.8 mg/dL (0.55-1.3); GLUCOSE,RANDOM 81 mg/dL (74-106); SGOT/AST 30 U/L (15-37); SGPT/ALT 39 U/L (13-61); SODIUM 141 mmol/L (136-145); TOT PROT 7.5 g/dl (6.4-8.2)
[2020-05-08 11:17] LABS: EPI CELLS 3 /uL (0-25.1); HYALINE CASTS 0 /uL (0-3.1); PH,URINE 8.5 (5.0-8.0); URINE APPEARANCE CLOUDY; URINE BACTERIA 23 /uL (0-1359); URINE BILIRUBIN NEGATIVE (NEGATIVE); URINE COLOR YELLOW; URINE GLUCOSE (UA) NEGATIVE (NEGATIVE); URINE KETONE NEGATIVE (NEGATIVE); URINE LEUK ESTERASE TRACE (NEGATIVE); URINE NITRITE NEGATIVE (NEGATIVE); URINE PROTEIN NEGATIVE (NEGATIVE); URINE RBC 6 /uL (0-23.9); URINE UROBILINOGEN 0.2 mg/dL (0.2-1.0); URINE WBC 2 /uL (0-25.8)
[2020-05-08 11:26] VITALS: BP 122/67
--- NOTE | 2020-05-08 17:21 | EKG ---
Test Reason : Blood Pressure : / mmHG Vent. Rate : 084 BPM Atrial Rate : 084 BPM P-R Int : 206 ms QRS Dur : 076 ms QT Int : 392 ms P-R-T Axes : 063 042 055 degrees QTc Int : 463 ms NORMAL SINUS RHYTHM NONSPECIFIC ST AND T WAVE ABNORMALITY ABNORMAL ECG WHEN COMPARED WITH ECG OF 20-NOV-2019 12:17, NONSPECIFIC T WAVE ABNORMALITY NOW EVIDENT IN ANTEROLATERAL LEADS Confirmed by MD Jaquan, Bry ([id number]) on 05/08/2020 5:20:59 PM Referred By: Confirmed By:Bry Partida MD
== END 2020-05-08 13:04 ==
LOC: SUPCPDRO 07:38 → JER 07:38
PROC: 3E033NZ Introduction of Analgesics, Hypnotics, Sedatives into Peripheral Vein, Percutaneous Approach (ICD-10-PCS; principal; 2020-05-08)
PROC: 3E033GC Introduction of Other Therapeutic Substance into Peripheral Vein, Percutaneous Approach (ICD-10-PCS; 2020-05-08)
DX: G40.89 Other seizures (principal)
CPT/HCPCS: 36415; 70450-TC; 71045-TC-FY; 80053; 80184; 81003; 84484; 85025; 87086; 93005; 93010; 99285-25; G0480

== ENCOUNTER 2020-07-07 07:47 | Emergency (ER) | payer OTHER ==
[2020-07-07 08:06] VITALS: BMI 24.0
--- NOTE | 2020-07-07 08:21 | PDOC ---
Attending Attestation - Resident Resident Name: Anupam Castillo - HPI HPI: 07/07/20 11:06 Pt presents to the ED after sent in by [facility] for seizure last night. Patient has a history of seizure disorder with frequent breakthrough seizures. given ativan for seizure last night, sent to the ED because [facility] personnel found him to be sleepy in the morning. At baseline mental status as per aide who is with him now. - Physicial Exam PE: 07/07/20 11:28 agree with resident exam. Patient is alert and in no acute distress. Non verbal at baseline. lungs are clear. CV rrr no m/r/g. abdomen: soft non tender, non distended, no guarding or rebound. - Medical Decision Making 07/07/20 11:33 Pt presents to the ED after seizure last night. Appears to be at his baseline as per aide. no electrolyte abnormality on labs, dilantin level therapeutic. Will discharge to [facility]. Discharge - Discharge Information Problems reviewed: Yes Clinical Impression/Diagnosis: Seizure Condition: Fair Disposition: HOME - Follow up/Referral Referrals: Augustin Kline Jr [Primary Care Provider] - - Patient Discharge Instructions Additional Instructions: Mr. Vogel was seen in the ER for lethargy after a seizure last night. We did a physical exam, EKG, and labs, which did not show any emergent problems. We got a phenytoin level, which was therapeutic. We also got a phenobarbital level, which was sent out to an outside lab. You can call the [facility] ER at [phone] in 2-3 days for a result. Please have the patient see his primary doctor within three days. Please return to the ER for new, persistent, or worsening symptoms. - Post Discharge Activity
--- NOTE | 2020-07-07 08:48 | PDOC ---
History of Present Illness - General Chief Complaint: Seizure Stated Complaint: Lethargy Time Seen by Provider: 07/07/20 08:03 - History of Present Illness Initial Comments: 07/07/20 09:14 55yo M with PMH epilepsy with frequent seizure, intellectual disability (non- verbal and non-ambulatory at baseline) presents to the ED today for lethargy after a seizure at midnight for which lorazepam was given. Aide states patient has been increasingly somnolent since his recent hospital admissions for seizures, and was more somnolent this morning. Did not get morning meds. Aide states patient has a seizure most days. She does not know the nature of the seizure at midnight, but states he has had none since. PMH/PSH/Meds/Allergies: as per chart ROS: unable to obtain (non-verbal) PE GENERAL: Awake, non-verbal, eyes track HEAD: No signs of trauma, normocephalic, atraumatic EYES: PERRLA, EOMI, sclera anicteric, conjunctiva clear ENT: Auricles normal inspection, nares patent exudates. Moist mucosa NECK: Normal ROM, supple, no lymphadenopathy, JVD, or masses LUNGS: No distress, clear to auscultation bilaterally HEART: Regular rate and rhythm, normal S1 and S2, no murmurs, rubs or gallops ABDOMEN: Soft, nontender EXTREMITIES : no edema or cyanosis NEUROLOGICAL: non-verbal, eyes track, moves extremities SKIN: Warm, Dry, normal turgor, no rashes or lesions noted Vital Signs Temp Pulse Resp BP Pulse Ox 97.8 F 68 17 124/64 99 07/07/20 07:55 07/07/20 07:55 07/07/20 07:55 07/07/20 07:55 07/07/20 07:55 55yo M with PMH epilepsy with frequent seizure, intellectual disability (non- verbal and non-ambulatory at baseline) presents to the ED today for lethargy after a seizure at midnight for which lorazepam was given. Vitals and exam not concerning for trauma or infection. Will get EKG, CBC, CMP, and phenobarb and pheytoin levels. If no acute finding, will plan for DC. EKG: NSR, rate 66, normal axis and intervals, no ischemic ST-T changes Labs: no emergent values. pheytoin level is theraputic. phenobarb level is a send out Laboratory Tests 07/07/20 07/07/20 07/07/20 08:25 08:25 08:25 WBC 6.8 RBC 4.01 Hgb 11.0 L Hct 33.8 L MCV 84.4 MCH 27.4 MCHC 32.5 RDW 14.6 Plt Count 409 D MPV 9.0 Absolute Neuts (auto) 3.4 Neutrophils % 49.1 Lymphocytes % 38.9 D Monocytes % 8.4 Eosinophils % 2.7 Basophils % 0.9 Nucleated RBC % 0 Sodium 140 Potassium 4.2 Chloride 105 Carbon Dioxide 30 Anion Gap 5 L BUN 18.0 Creatinine 0.7 Est GFR (CKD-EPI)AfAm 121.41 Est GFR (CKD-EPI)NonAf 104.76 Random Glucose 72 L Calcium 8.9 Total Bilirubin < 0.1 L AST 25 ALT 30 Alkaline Phosphatase 279 H Total Protein 7.6 Albumin 2.8 L Phenytoin 12.3 No repeat seizures in ED DC Past History - Medical History Allergies/Adverse Reactions: Allergies Allergy/AdvReac Type Severity Reaction Status Date / Time No Known Allergies Allergy Verified 05/19/20 18:39 Home Medications: Ambulatory Orders Ascorbic Acid [Vitamin C] 500 mg PO DAILY 09/19/19 Aspirin 81 mg PO DAILY 09/19/19 Atorvastatin Ca [Lipitor] 80 mg PO HS 09/19/19 Calcium Carb/Vitamin D3/Vit K1 [Calcium + D Soft Chewable Tab] 1 each PO BID 09/19/19 Clobazam 10 mg PO BID 09/19/19 Clonazepam 0.25 mg PO TID 09/19/19 Diazepam Rectal Gel [Diastat Rectal Gel -] 15 mg ID PRN 09/19/19 Docusate Sodium [Colace -] 100 mg PO BID 09/19/19 LORazepam [Ativan] 2 mg PO QID PRN 09/19/19 Lacosamide [Vimpat] 200 mg PO BID 09/19/19 Multivitamins [Multivit ([facility] Formulary)] 1 tab PO DAILY 09/19/19 Castana-3 Fatty Acids/Fish Oil [Fish Oil 1,000 mg Capsule] 1 each PO DAILY 09/19/19 Phenobarbital 64.8 mg PO DAILY 09/19/19 Polyethylene Glycol 3350 [Purelax] 17 gm PO HS 09/19/19 Potassium Chloride [Klor-Con 10] 10 meq PO DAILY 09/19/19 Sennosides [Senna] 8.6 mg PO DAILY 09/19/19 Ubidecarenone/Vit E Acet [Co Q-10 100 mg Softgel] 1 each PO DAILY 09/19/19 Zolpidem Tartrate [Ambien] 10 mg PO ASDIR 09/19/19 Brivaracetam [Briviact] 100 mg PO BID 05/08/20 Cannabidiol (Cbd) [Epidiolex] 100 mg PO BID 05/08/20 Ceramides 1,3,6-11 [Cerave] 340 gm TP Q1H PRN 05/08/20 Doxazosin Mesylate [Cardura -] 1 mg PO DAILY 05/08/20 Famotidine [Pepcid -] 20 mg PO DAILY 05/08/20 Lactulose 10 gm PO DAILY 05/08/20 Phenytoin 100 mg PO HS 05/08/20 Ubidecarenone [Co Q-10] 100 mg PO DAILY 05/08/20 clonazePAM [Klonopin -] 0.25 mg PO TID 05/20/20 Anemia: No Asthma: No Cancer: No Cardiac Disorders: No CVA: No COPD: No CHF: No DVT: No Dementia: No Diabetes: No GI Disorders: Yes (GERD /CONSTIPATION) Disorders: No HTN: No Hypercholesterolemia: No Liver Disease: No Seizures: Yes Thyroid Disease: No - Immunization History Immunization Up to Date: Yes - Psycho-Social/Smoking History Smoking History: Unknown if ever smoked Have you smoked in the past 12 months: No Number of Cigarettes Smoked Daily: 0 Cigars Per Day: 0 Information on smoking cessation initiated: No - Substance Abuse Hx (Audit-C & DAST Scrn) How often the patient has a drink containing alcohol: Never Score: In Men: 4 or > Positive; In Women: 3 or > Positive: 0 Screen Result (Pos requires Nsg. Audit-10AR): Negative In the last yr the pt used illegal drug/Rx for NonMed reason: No Score: Yes response is considered Positive: 0 Screen Result (Positive result requires Nsg. DAST-10): Negative *Physical Exam - Vital Signs Last Vital Signs Temp Pulse Resp BP Pulse Ox 97.8 F 68 17 124/64 99 07/07/20 07:55 07/07/20 07:55 07/07/20 07:55 07/07/20 07:55 07/07/20 07:55 ED Treatment Course - LABORATORY CBC & Chemistry Diagram: 07/07/20 08:25 07/07/20 08:25 Discharge - Discharge Information Problems reviewed: Yes Clinical Impression/Diagnosis: Seizure Condition: Fair Disposition: HOME - Admission No - Follow up/Referral Referrals: Augustin Kline Jr [Primary Care Provider] - - Patient Discharge Instructions Additional Instructions: Mr. Vogel was seen in the ER for lethargy after a seizure last night. We did a physical exam, EKG, and labs, which did not show any emergent problems. We got a phenytoin level, which was therapeutic. We also got a phenobarbital level, which was sent out to an outside lab. You can call the [facility] ER at [phone] in 2-3 days for a result. Please have the patient see his primary doctor within three days. Please return to the ER for new, persistent, or worsening symptoms. - Post Discharge Activity
[2020-07-07 09:59] LABS: BASO % 0.9 % (0-2.0); EOS % 2.7 % (0-4.5); HEMATOCRIT 33.8 % (35.4-49); LYMPH % 38.9 % (8-40); MCH 27.4 pg (25.7-33.7); MCHC 32.5 g/dl (32.0-35.9); MEAN CELL VOLUME 84.4 fl (80-96); MONO % 8.4 % (3.8-10.2); NEUT % 49.1 % (42.8-82.8); PLATELET COUNT 409 K/MM3 (134-434); RBC 4.01 M/mm3 (4.00-5.60); RDW 14.6 % (11.9-15.9); WHITE BLOOD COUNT 6.8 K/mm3 (4.0-10.0)
[2020-07-07 10:13] LABS: ALBUMIN 2.8 g/dl (3.4-5.0); ALK PHOS 279 U/L (45-117); ANION GAP 5 MMOL/L (8-16); BILIRUBIN,TOTAL < 0.1 mg/dL (0.2-1); CALCIUM 8.9 mg/dL (8.5-10.1); CHLORIDE 105 mmol/L (98-107); CO2 30 mmol/L (21-32); CREATININE 0.7 mg/dL (0.55-1.3); GLUCOSE,RANDOM 72 mg/dL (74-106); POTASSIUM 4.2 mmol/L (3.5-5.1); SGOT/AST 25 U/L (15-37); SGPT/ALT 30 U/L (13-61); SODIUM 140 mmol/L (136-145); TOT PROT 7.6 g/dl (6.4-8.2)
[2020-07-07 11:35] VITALS: BP 132/67; PULSE 78; TEMP 98
--- NOTE | 2020-07-08 10:42 | EKG ---
Test Reason : Blood Pressure : / mmHG Vent. Rate : 066 BPM Atrial Rate : 066 BPM P-R Int : 204 ms QRS Dur : 076 ms QT Int : 412 ms P-R-T Axes : 054 022 038 degrees QTc Int : 431 ms NORMAL SINUS RHYTHM NORMAL ECG WHEN COMPARED WITH ECG OF 24-MAY-2020 19:52, NO SIGNIFICANT CHANGE WAS FOUND Confirmed by ELZA CUNNINGHAM MD ([id number]) on 07/08/2020 10:42:04 AM Referred By: Confirmed By:ELZA CUNNINGHAM MD
== END 2020-07-07 13:10 | disposition home or self-care (01) ==
LOC: JER 07:47
DX: G40.89 Other seizures (principal)
CPT/HCPCS: 36415; 80053; 80184; 80185; 85025; 93005; 93010; 99285-25

== ENCOUNTER 2020-09-25 13:45 | Emergency (ER) | payer OTHER ==
[2020-09-25 14:37] LABS: VENOUS BASE EXCESS 3.2 mmol/L (-2-2); VENOUS O2 SATURATION 47.1 % (70-80); VENOUS PCO2 61.8 mmHg (38-52); VENOUS PH 7.316 (7.310-7.410)
[2020-09-25 14:41] LABS: BASO % 0.1 % (0-2.0); EOS % 0.3 % (0-4.5); HEMOGLOBIN 11.4 GM/dL (11.7-16.9); LYMPH % 8.9 % (8-40); MCH 26.4 pg (25.7-33.7); MCHC 31.6 g/dl (32.0-35.9); MEAN CELL VOLUME 83.6 fl (80-96); MEAN PLT VOLUME 10.4 fl (7.5-11.1); NEUT % 87.7 % (42.8-82.8); PLATELET COUNT 101 K/MM3 (134-434); RBC 4.31 M/mm3 (4.00-5.60); RDW 14.5 % (11.9-15.9); WHITE BLOOD COUNT 12.8 K/mm3 (4.0-10.0)
[2020-09-25 14:47] VITALS: BMI 33.4
[2020-09-25 14:47] LABS: INR 0.99 (0.83-1.09); PROTHROMBIN TIME (PATIENT) 12.2 SEC (9.7-13.0)
[2020-09-25 14:49] LABS: ACTIVATED PTT 39.6 SECONDS (25.2-36.5)
[2020-09-25 15:10] LABS: CHLORIDE 105 mmol/L (98-107); POTASSIUM 4.5 mmol/L (3.5-5.1); SODIUM 145 mmol/L (136-145)
[2020-09-25 15:12] LABS: ALBUMIN 3.1 g/dl (3.4-5.0); ANION GAP 7 MMOL/L (8-16); BLOOD UREA NITROGEN 23.9 mg/dL (7-18); CALCIUM 9.6 mg/dL (8.5-10.1); CO2 32 mmol/L (21-32); GLUCOSE,RANDOM 70 mg/dL (74-106)
[2020-09-25 15:15] LABS: CREATININE 0.9 mg/dL (0.55-1.3); SGOT/AST 64 U/L (15-37); SGPT/ALT 75 U/L (13-61)
[2020-09-25 15:17] LABS: BILIRUBIN,TOTAL 0.1 mg/dL (0.2-1); TOT PROT 8.2 g/dl (6.4-8.2)
[2020-09-25 15:18] LABS: ALK PHOS 238 U/L (45-117)
[2020-09-25 15:42] LABS: PH,URINE 7.5 (5.0-8.0); URINE APPEARANCE CLOUDY; URINE BILIRUBIN NEGATIVE (NEGATIVE); URINE COLOR YELLOW; URINE GLUCOSE (UA) NEGATIVE (NEGATIVE); URINE KETONE NEGATIVE (NEGATIVE); URINE LEUK ESTERASE NEGATIVE (NEGATIVE); URINE NITRITE NEGATIVE (NEGATIVE); URINE PROTEIN NEGATIVE (NEGATIVE); URINE UROBILINOGEN 0.2 mg/dL (0.2-1.0)
[2020-09-25] MEDS ORDERED: PIPERACILLIN/TAZOB 4.5 GM 4.5 GM in DEXTROSE 5%-WATER 100 ML IVPB ONE (16:30)
[2020-09-25] MEDS ORDERED: levETIRAcetam 500 MG/5 ML INJECTION VIAL IVPB ONE ×2 (16:57→17:43)
[2020-09-25] MEDS ORDERED: PIPERACILLIN/TAZOB 4.5 GM 4.5 GM/100 ML BAG IVPB ONE (17:44)
[2020-09-25] MEDS ORDERED: diazePAM RECTAL GEL 5 MG KIT (PRE-CALIBRATED) RC STA ×2 (21:15→21:16)
[2020-09-25] MEDS ORDERED: LORazepam 2 MG/ML SDV VIAL ONE (21:18)
[2020-09-25 22:40] VITALS: BP 96/41; PULSE 100; TEMP 98
== END 2020-09-25 22:59 | disposition short-term general hospital (02) ==
LOC: JER 13:45
PROC: 3E033GC Introduction of Other Therapeutic Substance into Peripheral Vein, Percutaneous Approach (ICD-10-PCS; principal; 2020-09-25)
PROC: 3E033NZ Introduction of Analgesics, Hypnotics, Sedatives into Peripheral Vein, Percutaneous Approach (ICD-10-PCS; 2020-09-25)
PROC: 3E03329 Introduction of Other Anti-infective into Peripheral Vein, Percutaneous Approach (ICD-10-PCS; 2020-09-25)
DX: G40.89 Other seizures (principal)
CPT/HCPCS: 36415; 70450-TC; 71045-TC-FY; 80053; 80186; 81003; 82803; 82962; 83605; 84484; 85025; 85610; 85730; 87040; 87086; 93005; 93010; 93971-TC; 99285-25; C9803; U0003

== ENCOUNTER 2020-11-09 17:20 | Emergency (ER) | payer OTHER ==
[2020-11-09 17:44] VITALS: TEMP 98.6; BMI 24.3
[2020-11-09 20:58] LABS: BASO % 0.6 % (0-2.0); EOS % 3.3 % (0-4.5); HEMATOCRIT 31.4 % (35.4-49); HEMOGLOBIN 10.2 GM/dL (11.7-16.9); LYMPH % 14.6 % (8-40); MCHC 32.6 g/dl (32.0-35.9); MEAN CELL VOLUME 82.8 fl (80-96); MONO % 4.4 % (3.8-10.2); NEUT % 77.1 % (42.8-82.8); PLATELET COUNT 257 K/MM3 (134-434); RBC 3.79 M/mm3 (4.00-5.60); RDW 15.1 % (11.9-15.9); WHITE BLOOD COUNT 11.5 K/mm3 (4.0-10.0)
[2020-11-09 21:17] LABS: CHLORIDE 107 mmol/L (98-107); POTASSIUM 4.7 mmol/L (3.5-5.1); SODIUM 142 mmol/L (136-145)
[2020-11-09 21:22] LABS: ALBUMIN 2.6 g/dl (3.4-5.0); ANION GAP 5 MMOL/L (8-16); CALCIUM 9.3 mg/dL (8.5-10.1); CO2 30 mmol/L (21-32)
[2020-11-09 21:23] LABS: BLOOD UREA NITROGEN 12.7 mg/dL (7-18); GLUCOSE,RANDOM 80 mg/dL (74-106)
[2020-11-09 21:26] LABS: CREATININE 0.7 mg/dL (0.55-1.3); SGOT/AST 29 U/L (15-37); SGPT/ALT 36 U/L (13-61)
[2020-11-09 21:27] LABS: BILIRUBIN,TOTAL 0.2 mg/dL (0.2-1); TOT PROT 7.8 g/dl (6.4-8.2)
[2020-11-09 21:30] LABS: ALK PHOS 218 U/L (45-117)
[2020-11-09 22:02] VITALS: BP 130/64; PULSE 65
== END 2020-11-10 03:59 | disposition home or self-care (01) ==
LOC: JER 17:20
DX: R56.9 Unspecified convulsions (principal)
CPT/HCPCS: 36415; 71046-TC-FY; 80053; 80164; 80177; 80184; 80185; 82550; 83605; 84484; 85025; 93005; 93010; 99285-25

== ENCOUNTER 2020-11-12 10:08 | Inpatient (IN) | payer OTHER ==
[2020-11-12 10:30] VITALS: BMI 26.7
[2020-11-12 11:30] LABS: BASO % 0.3 % (0-2.0); EOS % 0.7 % (0-4.5); HEMATOCRIT 34.1 % (35.4-49); HEMOGLOBIN 11.2 GM/dL (11.7-16.9); LYMPH % 13.9 % (8-40); MCH 26.9 pg (25.7-33.7); MCHC 32.8 g/dl (32.0-35.9); MEAN CELL VOLUME 81.9 fl (80-96); MEAN PLT VOLUME 9.2 fl (7.5-11.1); NEUT % 77.1 % (42.8-82.8); PLATELET COUNT 226 K/MM3 (134-434); RBC 4.17 M/mm3 (4.00-5.60); RDW 15.5 % (11.9-15.9); WHITE BLOOD COUNT 12.5 K/mm3 (4.0-10.0)
[2020-11-12 11:32] LABS: VENOUS BASE EXCESS 4.5 mmol/L (-2-2); VENOUS O2 SATURATION 78.9 % (70-80); VENOUS PCO2 49.1 mmHg (38-52); VENOUS PH 7.405 (7.310-7.410)
[2020-11-12] MEDS ORDERED: LACTATED RINGERS SOLUTION 1000 ML INFUS.BAG IV ONE (11:36)
[2020-11-12 11:39] LABS: INR 1.08 (0.83-1.09); PROTHROMBIN TIME (PATIENT) 13.2 SEC (9.7-13.0)
[2020-11-12 11:41] LABS: ACTIVATED PTT 42.3 SECONDS (25.2-36.5)
[2020-11-12 11:55] LABS: URINE APPEARANCE TURBID; URINE BILIRUBIN NEGATIVE (NEGATIVE); URINE COLOR YELLOW; URINE GLUCOSE (UA) NEGATIVE (NEGATIVE); URINE KETONE NEGATIVE (NEGATIVE); URINE LEUK ESTERASE NEGATIVE (NEGATIVE); URINE NITRITE NEGATIVE (NEGATIVE); URINE PROTEIN NEGATIVE (NEGATIVE); URINE UROBILINOGEN 0.2 mg/dL (0.2-1.0)
[2020-11-12 11:57] LABS: POTASSIUM 4.7 mmol/L (3.5-5.1)
[2020-11-12 11:59] LABS: ALBUMIN 2.6 g/dl (3.4-5.0); BLOOD UREA NITROGEN 15.6 mg/dL (7-18); CALCIUM 10.2 mg/dL (8.5-10.1)
[2020-11-12] MEDS ORDERED: AZITHROMYCIN IVPB 500 MG in DEXTROSE 5%-WATER - 250 ML IVPB ONE (12:01)
[2020-11-12] MEDS ORDERED: CEFTRIAXONE 1 GM in DEXTROSE 5%-WATER - 100 ML IVPB ONE (12:01)
[2020-11-12 12:04] LABS: BILIRUBIN,TOTAL 0.2 mg/dL (0.2-1); TOT PROT 8.2 g/dl (6.4-8.2)
[2020-11-12] MEDS ORDERED: PIPERACILLIN/TAZOB 3.375 GM 3.375 GM in DEXTROSE 5%-WATER - 50 ML IVPB ONE (12:51)
[2020-11-12] MEDS ORDERED: VANCOMYCIN 1,000 MG in DEXTROSE 5%-WATER - 250 ML IVPB ONE (12:59)
[2020-11-12] MEDS ORDERED: PIPERACILLIN/TAZOB 3.375 GM 3.375 GM/50 ML BAG IVPB ONE ×2 (13:07→13:21)
[2020-11-12] MEDS ORDERED: AZITHROMYCIN IVPB 500 MG/250 ML BAG IVPB ONE ×2 (13:07→13:21)
[2020-11-12] MEDS ORDERED: VANCOMYCIN 1 GRAM (PRE-DOCKED) 1,000 MG/250 ML BAG IVPB ONE (14:24)
[2020-11-12] MEDS ORDERED: PATIENT'S OWN MEDICATION (NON-FORMULARY) (Phenobarbital [Phenobarbital] 64.8 MG Tablet) PO SCH (16:15)
[2020-11-12] MEDS: ASPIRIN 81 MG CHEWABLE TABLETS PO SCH (16:25)
[2020-11-12] MEDS ORDERED: PHENobarbital 30 MG TABLET PO SCH (16:30)
[2020-11-12] MEDS ORDERED: PIPERACILLIN/TAZOB 3.375 GM 3.375 GM in DEXTROSE 5%-WATER - 50 ML IVPB SCH (18:00)
[2020-11-12] MEDS ORDERED: PHENYTOIN NA EXTENDED 100 MG CAPSULE (FP) PO SCH (22:00)
[2020-11-12] MEDS: PIPERACILLIN/TAZOB 3.375 GM 3.375 GM in DEXTROSE 5%-WATER - 50 ML IVPB SCH (22:12)
[2020-11-12] MEDS: DOCUSATE SODIUM 100 MG CAPSULE (FP) PO SCH (22:39)
[2020-11-12] MEDS: clonazePAM 0.5 MG TABLET PO SCH (22:40)
[2020-11-12] MEDS: ATORVASTATIN CA 80 MG TABLET (FP) PO SCH (22:40)
[2020-11-12] MEDS: cloBAZam 10 MG TABLET PO SCH (22:42)
[2020-11-12] MEDS: LACOSAMIDE 50 MG TABLET PO SCH (22:42)
[2020-11-13] MEDS: PIPERACILLIN/TAZOB 3.375 GM 3.375 GM in DEXTROSE 5%-WATER - 50 ML IVPB SCH ×3 (01:39→17:11)
[2020-11-13] MEDS: clonazePAM 0.5 MG TABLET PO SCH ×2 (06:12→14:46)
[2020-11-13] MEDS: DOXAZOSIN MESYLATE 1 MG TABLET PO SCH (09:01)
[2020-11-13] MEDS: DOCUSATE SODIUM 100 MG CAPSULE (FP) PO SCH ×2 (09:01→21:29)
[2020-11-13] MEDS: ASPIRIN 81 MG CHEWABLE TABLETS PO SCH (09:01)
[2020-11-13] MEDS: ASCORBIC ACID 500 MG TABLET (FP) PO SCH (09:02)
[2020-11-13] MEDS: FOLIC ACID 1 MG TABLET (FP) PO SCH (09:02)
[2020-11-13] MEDS: FAMOTIDINE 20 MG TABLET PO SCH (09:02)
[2020-11-13] MEDS: cloBAZam 10 MG TABLET PO SCH ×2 (09:02→21:29)
[2020-11-13] MEDS: LACOSAMIDE 50 MG TABLET PO SCH (09:02)
[2020-11-13 09:13] LABS: HEMATOCRIT 30.9 % (35.4-49); HEMOGLOBIN 10.2 GM/dL (11.7-16.9); MCH 27.1 pg (25.7-33.7); MEAN CELL VOLUME 82.1 fl (80-96); MEAN PLT VOLUME 9.3 fl (7.5-11.1); PLATELET COUNT 185 K/MM3 (134-434); RBC 3.76 M/mm3 (4.00-5.60); RDW 15.6 % (11.9-15.9); WHITE BLOOD COUNT 9.5 K/mm3 (4.0-10.0)
[2020-11-13 09:16] LABS: POTASSIUM 4.2 mmol/L (3.5-5.1)
[2020-11-13 09:18] LABS: CALCIUM 9.3 mg/dL (8.5-10.1)
[2020-11-13 09:19] LABS: BLOOD UREA NITROGEN 13.6 mg/dL (7-18); MAGNESIUM 1.4 mg/dL (1.8-2.4)
[2020-11-13 09:21] LABS: CREATININE 0.9 mg/dL (0.55-1.3); PHOSPHOROUS 3.5 mg/dL (2.5-4.9)
[2020-11-13] MEDS: ENOXAPARIN NA (PORCINE) 40 MG/0.4 ML DISP.SYRIN SQ SCH (09:42)
[2020-11-13] MEDS: DEXTROSE 5%-NORMAL SALINE 1,000 ML IV SCH (11:00)
[2020-11-13] MEDS ORDERED: MAGNESIUM SULF 50% (8.12 MEQ/2 ML-1 GM VIAL) IVPB ONE (14:24)
[2020-11-13] MEDS ORDERED: LORazepam 2 MG/ML SDV VIAL IVPUSH PRN (14:34)
[2020-11-13] MEDS: PATIENT'S OWN MEDICATION (NON-FORMULARY) (Brivaracetam [Briviact] 100 MG Tablet) PO SCH ×2 (14:41→14:43)
[2020-11-13] MEDS: PHENobarbital SODIUM 65 MG/1 ML VIAL IVPUSH SCH (18:17)
[2020-11-13] MEDS: levETIRAcetam 500 MG/5 ML INJECTION VIAL IVPB SCH (21:28)
[2020-11-13] MEDS: PHENYTOIN SODIUM 100 MG/2 ML VIAL IVPB SCH (21:28)
[2020-11-13] MEDS: Lacosamide 200 MG/20 ML VIAL IVPB SCH (21:28)
[2020-11-13] MEDS: ATORVASTATIN CA 80 MG TABLET (FP) PO SCH (21:29)
[2020-11-14] MEDS: PIPERACILLIN/TAZOB 3.375 GM 3.375 GM in DEXTROSE 5%-WATER - 50 ML IVPB SCH ×3 (01:17→17:06)
[2020-11-14 08:53] LABS: BASO % 0.5 % (0-2.0); EOS % 6.2 % (0-4.5); HEMOGLOBIN 10.4 GM/dL (11.7-16.9); LYMPH % 39.5 % (8-40); MCH 26.8 pg (25.7-33.7); MCHC 32.6 g/dl (32.0-35.9); MEAN PLT VOLUME 9.2 fl (7.5-11.1); MONO % 9.2 % (3.8-10.2); NEUT % 44.6 % (42.8-82.8); PLATELET COUNT 156 K/MM3 (134-434); RDW 15.3 % (11.9-15.9); WHITE BLOOD COUNT 5.2 K/mm3 (4.0-10.0)
[2020-11-14 09:14] LABS: POTASSIUM 3.5 mmol/L (3.5-5.1)
[2020-11-14 09:16] LABS: ALBUMIN 2.2 g/dl (3.4-5.0)
[2020-11-14 09:17] LABS: BLOOD UREA NITROGEN 11.6 mg/dL (7-18); MAGNESIUM 1.7 mg/dL (1.8-2.4)
[2020-11-14 09:20] LABS: CREATININE 0.7 mg/dL (0.55-1.3); PHOSPHOROUS 3.4 mg/dL (2.5-4.9)
[2020-11-14 09:21] LABS: BILIRUBIN,TOTAL 0.6 mg/dL (0.2-1); TOT PROT 7.2 g/dl (6.4-8.2)
[2020-11-14] MEDS: levETIRAcetam 500 MG/5 ML INJECTION VIAL IVPB SCH ×2 (09:57→22:24)
[2020-11-14] MEDS: Lacosamide 200 MG/20 ML VIAL IVPB SCH ×2 (10:01→22:22)
[2020-11-14] MEDS: PHENobarbital SODIUM 65 MG/1 ML VIAL IVPUSH SCH (10:01)
[2020-11-14] MEDS: ENOXAPARIN NA (PORCINE) 40 MG/0.4 ML DISP.SYRIN SQ SCH (10:02)
[2020-11-14] MEDS: FOLIC ACID 1 MG TABLET (FP) PO SCH (10:04)
[2020-11-14] MEDS: DOCUSATE SODIUM 100 MG CAPSULE (FP) PO SCH ×2 (10:04→22:23)
[2020-11-14] MEDS: DOXAZOSIN MESYLATE 1 MG TABLET PO SCH (10:04)
[2020-11-14] MEDS: FAMOTIDINE 20 MG TABLET PO SCH (10:04)
[2020-11-14] MEDS: cloBAZam 10 MG TABLET PO SCH ×2 (10:04→22:23)
[2020-11-14] MEDS: ASCORBIC ACID 500 MG TABLET (FP) PO SCH (10:04)
[2020-11-14] MEDS: ASPIRIN 81 MG CHEWABLE TABLETS PO SCH (10:04)
[2020-11-14] MEDS: DEXTROSE 5%-NORMAL SALINE 1,000 ML IV SCH (11:00)
[2020-11-14] MEDS: PHENYTOIN SODIUM 100 MG/2 ML VIAL IVPB SCH ×2 (11:19→22:23)
[2020-11-14] MEDS ORDERED: MAGNESIUM SULF 50% (8.12 MEQ/2 ML-1 GM VIAL) IVPB ONE (14:02)
[2020-11-14] MEDS: MULTIVIT INJ. ADULT COMBO WITH VIT K 1 COMBO 10 ML VIAL IV SCH (17:56)
[2020-11-14] MEDS: AMINO ACIDS 4.25%/D5W 1,000 ML IV SCH (17:56)
[2020-11-14] MEDS ORDERED: FAT EMULSION/OLIVE/SOY (CLINOLIPID) 250 ML EMULSION IV SCH (22:00)
[2020-11-14] MEDS: ATORVASTATIN CA 80 MG TABLET (FP) PO SCH (22:22)
[2020-11-15] MEDS: PIPERACILLIN/TAZOB 3.375 GM 3.375 GM in DEXTROSE 5%-WATER - 50 ML IVPB SCH ×3 (01:02→17:37)
[2020-11-15] MEDS: ASPIRIN 81 MG CHEWABLE TABLETS PO SCH (09:46)
[2020-11-15] MEDS: FAMOTIDINE 20 MG TABLET PO SCH (09:47)
[2020-11-15] MEDS: cloBAZam 10 MG TABLET PO SCH ×2 (09:47→23:17)
[2020-11-15] MEDS: FOLIC ACID 1 MG TABLET (FP) PO SCH (09:47)
[2020-11-15] MEDS: DOXAZOSIN MESYLATE 1 MG TABLET PO SCH (09:47)
[2020-11-15] MEDS: DOCUSATE SODIUM 100 MG CAPSULE (FP) PO SCH ×2 (09:47→23:17)
[2020-11-15] MEDS: ASCORBIC ACID 500 MG TABLET (FP) PO SCH (09:48)
[2020-11-15] MEDS: AMINO ACIDS 4.25%/D5W 1,000 ML IV SCH ×2 (09:49→13:55)
[2020-11-15] MEDS: PHENobarbital SODIUM 65 MG/1 ML VIAL IVPUSH SCH (09:52)
[2020-11-15] MEDS: ENOXAPARIN NA (PORCINE) 40 MG/0.4 ML DISP.SYRIN SQ SCH (09:53)
[2020-11-15] MEDS: levETIRAcetam 500 MG/5 ML INJECTION VIAL IVPB SCH ×2 (11:22→22:27)
[2020-11-15 11:30] LABS: BASO % 0.3 % (0-2.0); EOS % 6.7 % (0-4.5); HEMATOCRIT 33.8 % (35.4-49); HEMOGLOBIN 11.3 GM/dL (11.7-16.9); MCH 26.8 pg (25.7-33.7); MCHC 33.5 g/dl (32.0-35.9); MEAN CELL VOLUME 80.2 fl (80-96); MEAN PLT VOLUME 8.6 fl (7.5-11.1); MONO % 8.6 % (3.8-10.2); NEUT % 54.4 % (42.8-82.8); PLATELET COUNT 158 K/MM3 (134-434); RBC 4.22 M/mm3 (4.00-5.60); RDW 14.9 % (11.9-15.9); WHITE BLOOD COUNT 5.5 K/mm3 (4.0-10.0)
[2020-11-15 11:52] LABS: CHLORIDE 100 mmol/L (98-107); POTASSIUM 3.4 mmol/L (3.5-5.1); SODIUM 137 mmol/L (136-145)
[2020-11-15 12:19] LABS: ALBUMIN 2.5 g/dl (3.4-5.0); ANION GAP 7 MMOL/L (8-16); BLOOD UREA NITROGEN 14.8 mg/dL (7-18); CALCIUM 9.3 mg/dL (8.5-10.1); CO2 30 mmol/L (21-32); GLUCOSE,RANDOM 69 mg/dL (74-106); MAGNESIUM 1.6 mg/dL (1.8-2.4)
[2020-11-15 12:21] LABS: CREATININE 0.6 mg/dL (0.55-1.3); PHOSPHOROUS 2.8 mg/dL (2.5-4.9); SGOT/AST 33 U/L (15-37)
[2020-11-15 12:22] LABS: BILIRUBIN,TOTAL < 0.1 mg/dL (0.2-1)
[2020-11-15 12:24] LABS: ALK PHOS 179 U/L (45-117); SGPT/ALT 26 U/L (13-61)
[2020-11-15 12:25] LABS: TOT PROT 7.9 g/dl (6.4-8.2)
[2020-11-15] MEDS: PHENYTOIN SODIUM 100 MG/2 ML VIAL IVPB SCH (12:35)
[2020-11-15] MEDS: DEXTROSE 5%-NORMAL SALINE 1,000 ML IV SCH (12:46)
[2020-11-15] MEDS: Lacosamide 200 MG/20 ML VIAL IVPB SCH ×2 (12:46→23:16)
[2020-11-15] MEDS: MULTIVIT INJ. ADULT COMBO WITH VIT K 1 COMBO 10 ML VIAL IV SCH (13:54)
[2020-11-15] MEDS ORDERED: MAGNESIUM SULF 50% (8.12 MEQ/2 ML-1 GM VIAL) IVPB ONE (14:30)
[2020-11-15] MEDS: KCL 10 MEQ IVPB 10 MEQ/100 ML INFUS.BAG IVPB SCH ×3 (21:31→22:51)
[2020-11-15] MEDS: ATORVASTATIN CA 80 MG TABLET (FP) PO SCH (23:17)
[2020-11-16] MEDS: PHENYTOIN SODIUM 100 MG/2 ML VIAL IVPB SCH ×2 (05:00→11:42)
[2020-11-16] MEDS: AMINO ACIDS 4.25%/D5W 1,000 ML IV SCH ×3 (05:06→17:39)
[2020-11-16] MEDS: ASPIRIN 81 MG CHEWABLE TABLETS PO SCH (10:01)
[2020-11-16] MEDS: FAMOTIDINE 20 MG TABLET PO SCH (10:02)
[2020-11-16] MEDS: DOXAZOSIN MESYLATE 1 MG TABLET PO SCH (10:02)
[2020-11-16] MEDS: FOLIC ACID 1 MG TABLET (FP) PO SCH (10:02)
[2020-11-16] MEDS: DOCUSATE SODIUM 100 MG CAPSULE (FP) PO SCH ×2 (10:02→22:52)
[2020-11-16] MEDS: cloBAZam 10 MG TABLET PO SCH ×2 (10:02→22:51)
[2020-11-16] MEDS: ASCORBIC ACID 500 MG TABLET (FP) PO SCH (10:03)
[2020-11-16] MEDS: ENOXAPARIN NA (PORCINE) 40 MG/0.4 ML DISP.SYRIN SQ SCH (10:43)
[2020-11-16] MEDS: PHENobarbital SODIUM 65 MG/1 ML VIAL IVPUSH SCH (11:02)
[2020-11-16] MEDS: levETIRAcetam 500 MG/5 ML INJECTION VIAL IVPB SCH (11:05)
[2020-11-16 15:07] LABS: BLOOD UREA NITROGEN 14.1 mg/dL (7-18); CALCIUM 9.4 mg/dL (8.5-10.1); CREATININE 0.6 mg/dL (0.55-1.3); MAGNESIUM 1.6 mg/dL (1.8-2.4); POTASSIUM 3.6 mmol/L (3.5-5.1)
[2020-11-16] MEDS: Lacosamide 200 MG/20 ML VIAL IVPB SCH (15:26)
[2020-11-16] MEDS: MULTIVIT INJ. ADULT COMBO WITH VIT K 1 COMBO 10 ML VIAL IV SCH (15:56)
[2020-11-16] MEDS: DEXTROSE 5%-NORMAL SALINE 1,000 ML IV SCH (15:57)
[2020-11-16] MEDS ORDERED: PT OWN MED DRAWER 7, Y5N ONE (21:59)
[2020-11-16] MEDS: PHENYTOIN 50 MG TAB.CHEW PO SCH (22:51)
[2020-11-16] MEDS: ATORVASTATIN CA 80 MG TABLET (FP) PO SCH (22:51)
[2020-11-16] MEDS: LACOSAMIDE 50 MG TABLET PO SCH (22:51)
[2020-11-17] MEDS: DEXTROSE 5%-NORMAL SALINE 1,000 ML IV SCH (01:02)
[2020-11-17] MEDS ORDERED: PHENobarbital 30 MG TABLET PO SCH (10:00)
[2020-11-17] MEDS: FAMOTIDINE 20 MG TABLET PO SCH (10:52)
[2020-11-17] MEDS: LACOSAMIDE 50 MG TABLET PO SCH ×2 (10:52→21:45)
[2020-11-17] MEDS: ENOXAPARIN NA (PORCINE) 40 MG/0.4 ML DISP.SYRIN SQ SCH (10:52)
[2020-11-17] MEDS: cloBAZam 10 MG TABLET PO SCH ×2 (10:52→21:45)
[2020-11-17] MEDS: FOLIC ACID 1 MG TABLET (FP) PO SCH (10:53)
[2020-11-17] MEDS: ASCORBIC ACID 500 MG TABLET (FP) PO SCH (10:53)
[2020-11-17] MEDS: DOCUSATE SODIUM 100 MG CAPSULE (FP) PO SCH ×2 (10:53→21:45)
[2020-11-17] MEDS: ASPIRIN 81 MG CHEWABLE TABLETS PO SCH (10:53)
[2020-11-17] MEDS: DOXAZOSIN MESYLATE 1 MG TABLET PO SCH (11:00)
[2020-11-17] MEDS: MULTIVIT INJ. ADULT COMBO WITH VIT K 1 COMBO 10 ML VIAL IV SCH (11:11)
[2020-11-17] MEDS: AMOX TR/POT CLAV 875MG/125MG TABLETS (FP) PO SCH (18:10)
[2020-11-17] MEDS: PHENYTOIN 50 MG TAB.CHEW PO SCH (21:44)
[2020-11-17] MEDS: ATORVASTATIN CA 80 MG TABLET (FP) PO SCH (21:45)
[2020-11-18 07:23] VITALS: BP 136/72; PULSE 77; TEMP 98.2
[2020-11-18] MEDS: LACOSAMIDE 50 MG TABLET PO SCH (09:58)
[2020-11-18] MEDS: DOCUSATE SODIUM 100 MG CAPSULE (FP) PO SCH (09:58)
[2020-11-18] MEDS: cloBAZam 10 MG TABLET PO SCH (09:59)
[2020-11-18] MEDS: DOXAZOSIN MESYLATE 1 MG TABLET PO SCH (09:59)
[2020-11-18] MEDS: AMOX TR/POT CLAV 875MG/125MG TABLETS (FP) PO SCH (09:59)
[2020-11-18] MEDS: FOLIC ACID 1 MG TABLET (FP) PO SCH (09:59)
[2020-11-18] MEDS: FAMOTIDINE 20 MG TABLET PO SCH (09:59)
[2020-11-18] MEDS: MULTIVIT INJ. ADULT COMBO WITH VIT K 1 COMBO 10 ML VIAL IV SCH (09:59)
[2020-11-18] MEDS: ENOXAPARIN NA (PORCINE) 40 MG/0.4 ML DISP.SYRIN SQ SCH (09:59)
[2020-11-18] MEDS: ASCORBIC ACID 500 MG TABLET (FP) PO SCH (09:59)
[2020-11-18] MEDS: ASPIRIN 81 MG CHEWABLE TABLETS PO SCH (09:59)
== END 2020-11-18 17:34 | disposition home or self-care (01) | DRG 871 ==
LOC: JER 10:08 → JERBED 12:02 → J5WEST-2 18:11 → J7W 11-16 13:38
PROVIDERS: ADMIT Internal Medicine; ATTEND Internal Medicine
DX: A41.89 Other specified sepsis (principal); J69.0 Pneumonitis due to inhalation of food and vomit; R53.2 Functional quadriplegia; G93.41 Metabolic encephalopathy; R65.20 Severe sepsis without septic shock; K21.9 Gastro-esophageal reflux disease without esophagitis; K59.09 Other constipation; G80.9 Cerebral palsy, unspecified; R09.02 Hypoxemia; G40.909 Epilepsy, unspecified, not intractable, without status epilepticus; R41.82 Altered mental status, unspecified; R13.10 Dysphagia, unspecified; E78.5 Hyperlipidemia, unspecified; E83.52 Hypercalcemia; I10 Essential (primary) hypertension; D72.829 Elevated white blood cell count, unspecified; R68.0 Hypothermia, not associated with low environmental temperature; Z74.01 Bed confinement status
CPT/HCPCS: 36415; 71045-TC-FY; 71046-TC-FY; 71250-TC; 74230-TC-FY; 80048; 80053; 80164; 80177; 80184; 80185; 81003; 82550; 82803; 83605; 83735; 84100; 84484; 85025; 85027; 85610; 85730; 87040; 87086; 87804; 92611-GN; 93005; 93010; 99285-25; C9803; U0003

== ENCOUNTER 2020-12-29 11:35 | Inpatient (IN) | payer OTHER ==
[2020-12-29 14:21] LABS: VENOUS BASE EXCESS 4.9 mmol/L (-2-2); VENOUS PCO2 66.8 mmHg (38-52); VENOUS PH 7.302 (7.310-7.410)
[2020-12-29 14:25] LABS: MCH 25.8 pg (25.7-33.7); MCHC 32.3 g/dl (32.0-35.9); MEAN CELL VOLUME 79.7 fl (80-96); MEAN PLT VOLUME 8.2 fl (7.5-11.1); PLATELET COUNT 370 K/MM3 (134-434); RBC 3.89 M/mm3 (4.00-5.60); RDW 18.7 % (11.9-15.9); WHITE BLOOD COUNT 11.3 K/mm3 (4.0-10.0)
[2020-12-29 14:26] LABS: URINE APPEARANCE CLEAR; URINE BILIRUBIN NEGATIVE (NEGATIVE); URINE COLOR YELLOW; URINE GLUCOSE (UA) NEGATIVE (NEGATIVE); URINE KETONE NEGATIVE (NEGATIVE); URINE LEUK ESTERASE NEGATIVE (NEGATIVE); URINE NITRITE NEGATIVE (NEGATIVE); URINE PROTEIN NEGATIVE (NEGATIVE); URINE UROBILINOGEN 0.2 mg/dL (0.2-1.0)
[2020-12-29 14:28] LABS: INR 1.13 (0.83-1.09); PROTHROMBIN TIME (PATIENT) 13.6 SEC (9.7-13.0)
[2020-12-29 14:30] LABS: ACTIVATED PTT 39.1 SECONDS (25.2-36.5)
[2020-12-29 14:43] LABS: CHLORIDE 99 mmol/L (98-107); SODIUM 138 mmol/L (136-145)
[2020-12-29 14:45] LABS: ALBUMIN 2.2 g/dl (3.4-5.0); ANION GAP 4 MMOL/L (8-16); BLOOD UREA NITROGEN 20.1 mg/dL (7-18); CALCIUM 9.6 mg/dL (8.5-10.1); CO2 35 mmol/L (21-32); GLUCOSE,RANDOM 89 mg/dL (74-106)
[2020-12-29 14:48] LABS: CREATININE 0.4 mg/dL (0.55-1.3); SGOT/AST 27 U/L (15-37); SGPT/ALT 37 U/L (13-61)
[2020-12-29] MEDS ORDERED: CEFTRIAXONE 1 GM in DEXTROSE 5%-WATER - 50 ML IVPB ONE (14:49)
[2020-12-29 14:50] LABS: BILIRUBIN,TOTAL 0.1 mg/dL (0.2-1); TOT PROT 7.2 g/dl (6.4-8.2)
[2020-12-29 14:51] LABS: ALK PHOS 211 U/L (45-117)
[2020-12-29] MEDS ORDERED: SODIUM CHLORIDE IV ONE (15:18)
[2020-12-29] MEDS ORDERED: PIPERACILLIN/TAZOB 3.375 GM 3.375 GM in DEXTROSE 5%-WATER - 50 ML IVPB ONE (15:31)
[2020-12-29 15:39] LABS: ERYTHROCYTE SEDIMENTATION RATE 87 mm/hr (0-20)
[2020-12-29] MEDS ORDERED: PIPERACILLIN/TAZOB 3.375 GM 3.375 GM/50 ML BAG IVPB ONE (16:00)
[2020-12-29] MEDS: PIPERACILLIN/TAZOB 3.375 GM 3.375 GM in DEXTROSE 5%-WATER - 50 ML IVPB SCH ×2 (16:06→19:53)
[2020-12-29] MEDS: LACTATED RINGERS SOLUTION 1,000 ML/1,000 ML INFUS.BAG IV SCH (18:40)
[2020-12-29] MEDS: HEPARIN NA (PORCINE) 5,000 UNITS/ML 1ML VIAL SQ SCH (21:07)
[2020-12-29] MEDS ORDERED: LORazepam 1 MG TABLET GT PRN (22:17)
[2020-12-29] MEDS ORDERED: PATIENT'S OWN MEDICATION (NON-FORMULARY) (Brivaracetam [Briviact] 100 MG Tablet) GT SCH (22:30)
[2020-12-29] MEDS ORDERED: LACOSAMIDE 50 MG TABLET PO SCH (23:00)
[2020-12-29] MEDS: PHENobarbital 30 MG TABLET PO SCH (23:35)
[2020-12-29] MEDS: clonazePAM 0.5 MG TABLET GT SCH (23:35)
[2020-12-29] MEDS: cloBAZam 10 MG TABLET GT SCH (23:49)
[2020-12-30] MEDS ORDERED: DEXTROSE 5%-WATER - 50 ML IVPB ONE ×3 (01:15→17:36)
[2020-12-30] MEDS ORDERED: PIPERACILLIN/TAZOBACTAM 3.375 GM VIAL IVPB ONE ×3 (01:15→17:36)
[2020-12-30] MEDS: PIPERACILLIN/TAZOB 3.375 GM 3.375 GM in DEXTROSE 5%-WATER - 50 ML IVPB SCH ×3 (01:22→17:25)
[2020-12-30] MEDS: clonazePAM 0.5 MG TABLET GT SCH ×3 (06:09→21:25)
[2020-12-30] MEDS: HEPARIN NA (PORCINE) 5,000 UNITS/ML 1ML VIAL SQ SCH ×3 (06:09→21:24)
[2020-12-30 08:31] LABS: BASO % 0.3 % (0-2.0); EOS % 0.5 % (0-4.5); HEMATOCRIT 29.5 % (35.4-49); HEMOGLOBIN 9.4 GM/dL (11.7-16.9); LYMPH % 12.6 % (8-40); MCH 25.4 pg (25.7-33.7); MCHC 32.1 g/dl (32.0-35.9); MEAN CELL VOLUME 79.1 fl (80-96); MEAN PLT VOLUME 8.9 fl (7.5-11.1); MONO % 8.1 % (3.8-10.2); NEUT % 78.5 % (42.8-82.8); PLATELET COUNT 354 K/MM3 (134-434); RBC 3.72 M/mm3 (4.00-5.60); RDW 18.9 % (11.9-15.9); WHITE BLOOD COUNT 16.1 K/mm3 (4.0-10.0)
[2020-12-30 09:04] LABS: CALCIUM 9.1 mg/dL (8.5-10.1)
[2020-12-30 09:05] LABS: BLOOD UREA NITROGEN 12.6 mg/dL (7-18); MAGNESIUM 1.5 mg/dL (1.8-2.4)
[2020-12-30 09:07] LABS: ALBUMIN 1.9 g/dl (3.4-5.0)
[2020-12-30 09:08] LABS: CREATININE 0.5 mg/dL (0.55-1.3)
[2020-12-30 09:09] LABS: BILIRUBIN,TOTAL 0.2 mg/dL (0.2-1)
[2020-12-30 09:10] LABS: PHOSPHOROUS 4.5 mg/dL (2.5-4.9); TOT PROT 6.6 g/dl (6.4-8.2)
[2020-12-30 09:53] LABS: ANISOCYTOSIS 0; MACROCYTOSIS 0; PLATELET ESTIMATE NORMAL
[2020-12-30] MEDS: levETIRAcetam 500 MG/5 ML ORAL SOLUTION (UNIT-DOSE CUPS) PEG SCH ×2 (10:54→21:24)
[2020-12-30] MEDS: cloBAZam 10 MG TABLET GT SCH ×2 (10:58→21:27)
[2020-12-30] MEDS: PHENobarbital 30 MG TABLET PO SCH ×2 (10:59→21:28)
[2020-12-30] MEDS: Lacosamide 50 MG/5 ML ORAL SOLUTION UNIT CUPS GT SCH ×2 (11:00→21:29)
[2020-12-30] MEDS ORDERED: MAGNESIUM SULF 50% (8.12 MEQ/2 ML-1 GM VIAL) IVPB ONE (13:48)
[2020-12-30] MEDS ORDERED: PT OWN MED DRAWER 7, Y5N ONE ×2 (16:25→21:32)
[2020-12-30] MEDS ORDERED: DEXTROSE 50%-WATER - 25 GM/50 ML VIAL IVPUSH ONE (17:32)
[2020-12-30] MEDS ORDERED: DEXTROSE 50%-WATER 25 GM/50 ML DISP.SYRIN ONE (17:51)
[2020-12-30] MEDS: LACTATED RINGERS SOLUTION 1,000 ML/1,000 ML INFUS.BAG IV SCH (18:01)
[2020-12-30] MEDS: DOCUSATE NA 100 MG/10 ML UNIT-DOSE CUPS GT SCH (21:23)
[2020-12-30] MEDS: NYSTATIN POWDER 100,000 UNITS/GM - 15 GM TOPICAL POWDER TP SCH (21:26)
[2020-12-30] MEDS: ZINC OXIDE 20% TOPICAL OINTMENT 30 GM TUBE TP SCH (21:30)
[2020-12-30] MEDS ORDERED: PHENYTOIN 50 MG TAB.CHEW GT SCH (22:00)
[2020-12-30] MEDS ORDERED: PHENYTOIN 100 MG/4 ML U-D CUP GT SCH (22:00)
[2020-12-31] MEDS ORDERED: PIPERACILLIN/TAZOBACTAM 3.375 GM VIAL IVPB ONE ×3 (01:02→19:33)
[2020-12-31] MEDS ORDERED: DEXTROSE 5%-WATER - 50 ML IVPB ONE ×3 (01:02→19:33)
[2020-12-31] MEDS: PIPERACILLIN/TAZOB 3.375 GM 3.375 GM in DEXTROSE 5%-WATER - 50 ML IVPB SCH ×3 (01:18→19:44)
[2020-12-31] MEDS: clonazePAM 0.5 MG TABLET GT SCH ×3 (06:01→21:43)
[2020-12-31] MEDS: HEPARIN NA (PORCINE) 5,000 UNITS/ML 1ML VIAL SQ SCH ×3 (06:01→21:43)
[2020-12-31 07:11] LABS: BASO % 0.4 % (0-2.0); EOS % 0.5 % (0-4.5); HEMATOCRIT 30.2 % (35.4-49); HEMOGLOBIN 9.7 GM/dL (11.7-16.9); MCH 25.5 pg (25.7-33.7); MCHC 32.1 g/dl (32.0-35.9); MEAN CELL VOLUME 79.5 fl (80-96); MEAN PLT VOLUME 9.2 fl (7.5-11.1); MONO % 7.1 % (3.8-10.2); PLATELET COUNT 336 K/MM3 (134-434); RDW 18.3 % (11.9-15.9); WHITE BLOOD COUNT 14.4 K/mm3 (4.0-10.0)
[2020-12-31 07:48] LABS: CALCIUM 9.4 mg/dL (8.5-10.1)
[2020-12-31 07:49] LABS: ALBUMIN 1.9 g/dl (3.4-5.0); MAGNESIUM 1.8 mg/dL (1.8-2.4)
[2020-12-31 07:52] LABS: CREATININE 0.6 mg/dL (0.55-1.3); PHOSPHOROUS 4.3 mg/dL (2.5-4.9)
[2020-12-31 07:53] LABS: BILIRUBIN,TOTAL 0.6 mg/dL (0.2-1); TOT PROT 6.9 g/dl (6.4-8.2)
[2020-12-31 09:15] LABS: ANISOCYTOSIS 2+; MACROCYTOSIS 0; PLATELET ESTIMATE NORMAL
[2020-12-31] MEDS ORDERED: PT OWN MED DRAWER 7, Y5N ONE ×3 (11:10→22:00)
[2020-12-31] MEDS: levETIRAcetam 500 MG/5 ML ORAL SOLUTION (UNIT-DOSE CUPS) PEG SCH ×2 (11:16→21:40)
[2020-12-31] MEDS: cloBAZam 10 MG TABLET GT SCH ×2 (11:17→21:45)
[2020-12-31] MEDS: Lacosamide 50 MG/5 ML ORAL SOLUTION UNIT CUPS GT SCH ×2 (11:17→21:46)
[2020-12-31] MEDS: PHENobarbital 30 MG TABLET PO SCH ×2 (11:17→21:40)
[2020-12-31] MEDS: FAMOTIDINE 20 MG TABLET PEG SCH (11:17)
[2020-12-31] MEDS: FOLIC ACID 1 MG TABLET (FP) GT SCH (11:17)
[2020-12-31] MEDS: DOCUSATE NA 100 MG/10 ML UNIT-DOSE CUPS GT SCH ×2 (11:18→22:28)
[2020-12-31] MEDS: PHENYTOIN ORAL SUSP 125 MG/5 ML GT SCH ×2 (11:18→22:28)
[2020-12-31] MEDS: NYSTATIN POWDER 100,000 UNITS/GM - 15 GM TOPICAL POWDER TP SCH ×2 (11:19→21:45)
[2020-12-31] MEDS: SENNOSIDES 8.8 MG/5 ML BULK BOTTLE GT SCH (11:19)
[2020-12-31] MEDS: ZINC OXIDE 20% TOPICAL OINTMENT 30 GM TUBE TP SCH ×2 (11:20→21:46)
[2021-01-01] MEDS: PIPERACILLIN/TAZOB 3.375 GM 3.375 GM in DEXTROSE 5%-WATER - 50 ML IVPB SCH ×3 (02:30→18:29)
[2021-01-01] MEDS ORDERED: PIPERACILLIN/TAZOBACTAM 3.375 GM VIAL IVPB ONE ×3 (02:58→18:25)
[2021-01-01] MEDS ORDERED: DEXTROSE 5%-WATER - 50 ML IVPB ONE ×3 (02:58→18:25)
[2021-01-01] MEDS ORDERED: PHENobarbital 30 MG TABLET GT SCH (05:33)
[2021-01-01] MEDS: HEPARIN NA (PORCINE) 5,000 UNITS/ML 1ML VIAL SQ SCH ×3 (06:16→21:54)
[2021-01-01] MEDS: clonazePAM 0.5 MG TABLET GT SCH ×3 (06:20→21:53)
[2021-01-01 08:25] LABS: BASO % 0.7 % (0-2.0); EOS % 1.1 % (0-4.5); HEMATOCRIT 29.4 % (35.4-49); HEMOGLOBIN 9.2 GM/dL (11.7-16.9); LYMPH % 16.8 % (8-40); MCH 25.1 pg (25.7-33.7); MCHC 31.4 g/dl (32.0-35.9); MEAN CELL VOLUME 79.9 fl (80-96); MEAN PLT VOLUME 9.5 fl (7.5-11.1); MONO % 7.5 % (3.8-10.2); NEUT % 73.9 % (42.8-82.8); PLATELET COUNT 275 K/MM3 (134-434); RBC 3.68 M/mm3 (4.00-5.60); WHITE BLOOD COUNT 14.1 K/mm3 (4.0-10.0)
[2021-01-01 08:53] LABS: ALBUMIN 1.9 g/dl (3.4-5.0); BLOOD UREA NITROGEN 10.1 mg/dL (7-18); CALCIUM 9.1 mg/dL (8.5-10.1)
[2021-01-01 08:55] LABS: MAGNESIUM 1.5 mg/dL (1.8-2.4)
[2021-01-01 08:57] LABS: CREATININE 0.5 mg/dL (0.55-1.3); PHOSPHOROUS 4.4 mg/dL (2.5-4.9)
[2021-01-01 08:58] LABS: BILIRUBIN,TOTAL 0.3 mg/dL (0.2-1); TOT PROT 6.9 g/dl (6.4-8.2)
[2021-01-01] MEDS ORDERED: ZINC OXIDE/PETROLATUM,WHITE 1 APPLIC OINT...G. TP SCH (10:00)
[2021-01-01] MEDS ORDERED: PT OWN MED DRAWER 7, Y5N ONE ×6 (11:00→22:13)
[2021-01-01] MEDS: FAMOTIDINE 20 MG TABLET PEG SCH (11:05)
[2021-01-01] MEDS: DOCUSATE NA 100 MG/10 ML UNIT-DOSE CUPS GT SCH ×3 (11:06→21:52)
[2021-01-01] MEDS: FOLIC ACID 1 MG TABLET (FP) GT SCH (11:06)
[2021-01-01] MEDS: PHENYTOIN ORAL SUSP 125 MG/5 ML GT SCH (11:08)
[2021-01-01] MEDS: DOXAZOSIN MESYLATE 1 MG TABLET GT SCH (11:08)
[2021-01-01] MEDS: cloBAZam 10 MG TABLET GT SCH ×2 (11:09→21:53)
[2021-01-01] MEDS: NYSTATIN POWDER 100,000 UNITS/GM - 15 GM TOPICAL POWDER TP SCH ×2 (11:09→21:54)
[2021-01-01] MEDS: SENNOSIDES 8.8 MG/5 ML BULK BOTTLE GT SCH (11:10)
[2021-01-01] MEDS: ZINC OXIDE 20% TOPICAL OINTMENT 30 GM TUBE TP SCH (11:11)
[2021-01-01] MEDS: Lacosamide 50 MG/5 ML ORAL SOLUTION UNIT CUPS GT SCH ×2 (11:11→21:55)
[2021-01-01 11:13] LABS: PLATELET ESTIMATE NORMAL
[2021-01-01] MEDS: ZINC OXIDE/PETROLATUM,WHITE 1 APPLIC OINT...G. TP SCH ×2 (11:13→21:55)
[2021-01-01] MEDS: PHENobarbital 20 MG/5 ML UNIT-DOSE CUP GT SCH (21:52)
[2021-01-01] MEDS ORDERED: PHENYTOIN NA EXTENDED 100 MG CAPSULE (FP) PO SCH ×2 (22:00)
[2021-01-01] MEDS: PHENYTOIN 100 MG/4 ML U-D CUP GT SCH (23:43)
[2021-01-02] MEDS ORDERED: PIPERACILLIN/TAZOBACTAM 3.375 GM VIAL IVPB ONE ×3 (01:43→17:08)
[2021-01-02] MEDS ORDERED: DEXTROSE 5%-WATER - 50 ML IVPB ONE ×3 (01:44→17:08)
[2021-01-02] MEDS: PIPERACILLIN/TAZOB 3.375 GM 3.375 GM in DEXTROSE 5%-WATER - 50 ML IVPB SCH ×3 (02:19→17:41)
[2021-01-02] MEDS: clonazePAM 0.5 MG TABLET GT SCH ×3 (05:19→22:10)
[2021-01-02] MEDS: HEPARIN NA (PORCINE) 5,000 UNITS/ML 1ML VIAL SQ SCH ×3 (05:19→22:11)
[2021-01-02] MEDS ORDERED: PT OWN MED DRAWER 7, Y5N ONE ×3 (11:24→21:01)
[2021-01-02] MEDS: FOLIC ACID 1 MG TABLET (FP) GT SCH (11:29)
[2021-01-02] MEDS: DOCUSATE NA 100 MG/10 ML UNIT-DOSE CUPS GT SCH ×2 (11:30→22:09)
[2021-01-02] MEDS: cloBAZam 10 MG TABLET GT SCH ×2 (11:30→22:13)
[2021-01-02] MEDS: PHENobarbital 20 MG/5 ML UNIT-DOSE CUP GT SCH ×2 (11:30→22:09)
[2021-01-02] MEDS: PHENYTOIN ORAL SUSP 125 MG/5 ML GT SCH (11:31)
[2021-01-02] MEDS: NYSTATIN POWDER 100,000 UNITS/GM - 15 GM TOPICAL POWDER TP SCH ×2 (11:31→22:12)
[2021-01-02] MEDS: ZINC OXIDE/PETROLATUM,WHITE 1 APPLIC OINT...G. TP SCH ×2 (11:32→22:13)
[2021-01-02] MEDS: FAMOTIDINE 40 MG/5 ML ORAL SUSPENSION PEG SCH (11:32)
[2021-01-02] MEDS: DOXAZOSIN MESYLATE 1 MG TABLET GT SCH (11:32)
[2021-01-02] MEDS: SENNOSIDES 8.8 MG/5 ML BULK BOTTLE GT SCH (11:33)
[2021-01-02] MEDS: Lacosamide 50 MG/5 ML ORAL SOLUTION UNIT CUPS GT SCH ×2 (11:33→22:14)
[2021-01-02] MEDS: BANATROL PLUS POWDER PACKET PO SCH ×2 (13:45→22:11)
[2021-01-02 21:05] LABS: BASO % 0.3 % (0-2.0); EOS % 4.6 % (0-4.5); HEMATOCRIT 27.5 % (35.4-49); HEMOGLOBIN 9.1 GM/dL (11.7-16.9); LYMPH % 32.2 % (8-40); MCH 25.7 pg (25.7-33.7); MEAN PLT VOLUME 8.6 fl (7.5-11.1); MONO % 7.4 % (3.8-10.2); NEUT % 55.5 % (42.8-82.8); PLATELET COUNT 218 K/MM3 (134-434); RBC 3.53 M/mm3 (4.00-5.60); RDW 18.1 % (11.9-15.9); WHITE BLOOD COUNT 5.2 K/mm3 (4.0-10.0)
[2021-01-02 21:11] LABS: CHLORIDE 100 mmol/L (98-107); SODIUM 141 mmol/L (136-145)
[2021-01-02 21:14] LABS: CALCIUM 9.1 mg/dL (8.5-10.1)
[2021-01-02 21:15] LABS: ANION GAP 3 MMOL/L (8-16); BLOOD UREA NITROGEN 6.5 mg/dL (7-18); CO2 37 mmol/L (21-32); GLUCOSE,RANDOM 94 mg/dL (74-106); MAGNESIUM 1.6 mg/dL (1.8-2.4)
[2021-01-02 21:17] LABS: BILIRUBIN,TOTAL < 0.1 mg/dL (0.2-1); CREATININE 0.4 mg/dL (0.55-1.3); PHOSPHOROUS 4.1 mg/dL (2.5-4.9); SGOT/AST 18 U/L (15-37); SGPT/ALT 23 U/L (13-61)
[2021-01-02 21:18] LABS: TOT PROT 6.9 g/dl (6.4-8.2)
[2021-01-02 21:20] LABS: ALK PHOS 189 U/L (45-117)
[2021-01-02] MEDS ORDERED: levETIRAcetam 500 MG/5 ML ORAL SOLUTION (UNIT-DOSE CUPS) PO SCH (22:00)
[2021-01-02] MEDS: levETIRAcetam 500 MG/5 ML ORAL SOLUTION (UNIT-DOSE CUPS) GT SCH (22:09)
[2021-01-02] MEDS: PHENYTOIN 100 MG/4 ML U-D CUP GT SCH (22:12)
[2021-01-03] MEDS ORDERED: PIPERACILLIN/TAZOBACTAM 3.375 GM VIAL IVPB ONE ×4 (01:59→16:43)
[2021-01-03] MEDS ORDERED: DEXTROSE 5%-WATER - 50 ML IVPB ONE ×4 (02:00→16:43)
[2021-01-03] MEDS: PIPERACILLIN/TAZOB 3.375 GM 3.375 GM in DEXTROSE 5%-WATER - 50 ML IVPB SCH ×3 (02:23→17:04)
[2021-01-03] MEDS ORDERED: PT OWN MED DRAWER 7, Y5N ONE ×2 (06:28→21:31)
[2021-01-03] MEDS: BANATROL PLUS POWDER PACKET PO SCH ×3 (06:42→21:28)
[2021-01-03] MEDS: HEPARIN NA (PORCINE) 5,000 UNITS/ML 1ML VIAL SQ SCH ×3 (06:43→21:28)
[2021-01-03] MEDS: clonazePAM 0.5 MG TABLET GT SCH ×3 (06:43→21:29)
[2021-01-03 07:57] LABS: BASO % 0.5 % (0-2.0); EOS % 4.7 % (0-4.5); HEMATOCRIT 28.7 % (35.4-49); HEMOGLOBIN 9.3 GM/dL (11.7-16.9); LYMPH % 41.9 % (8-40); MCH 25.4 pg (25.7-33.7); MCHC 32.2 g/dl (32.0-35.9); MEAN CELL VOLUME 78.8 fl (80-96); MEAN PLT VOLUME 8.6 fl (7.5-11.1); MONO % 6.9 % (3.8-10.2); PLATELET COUNT 204 K/MM3 (134-434); RBC 3.64 M/mm3 (4.00-5.60); RDW 17.7 % (11.9-15.9); WHITE BLOOD COUNT 5.3 K/mm3 (4.0-10.0)
[2021-01-03 08:27] LABS: CALCIUM 9.4 mg/dL (8.5-10.1); MAGNESIUM 1.6 mg/dL (1.8-2.4)
[2021-01-03 08:29] LABS: CREATININE 0.4 mg/dL (0.55-1.3); PHOSPHOROUS 4.4 mg/dL (2.5-4.9)
[2021-01-03 08:30] LABS: BILIRUBIN,TOTAL 0.3 mg/dL (0.2-1)
[2021-01-03] MEDS ORDERED: MAGNESIUM SULF 50% (8.12 MEQ/2 ML-1 GM VIAL) IVPB ONE (09:41)
[2021-01-03] MEDS: levETIRAcetam 500 MG/5 ML ORAL SOLUTION (UNIT-DOSE CUPS) GT SCH ×2 (10:06→21:27)
[2021-01-03] MEDS: DOXAZOSIN MESYLATE 1 MG TABLET GT SCH (10:07)
[2021-01-03] MEDS: FOLIC ACID 1 MG TABLET (FP) GT SCH (10:07)
[2021-01-03] MEDS: Lacosamide 50 MG/5 ML ORAL SOLUTION UNIT CUPS GT SCH ×2 (10:08→21:34)
[2021-01-03] MEDS: DOCUSATE NA 100 MG/10 ML UNIT-DOSE CUPS GT SCH ×2 (10:09→21:27)
[2021-01-03] MEDS: PHENYTOIN ORAL SUSP 125 MG/5 ML GT SCH (10:11)
[2021-01-03] MEDS: cloBAZam 10 MG TABLET GT SCH ×2 (10:12→21:33)
[2021-01-03] MEDS: NYSTATIN POWDER 100,000 UNITS/GM - 15 GM TOPICAL POWDER TP SCH ×2 (10:12→21:33)
[2021-01-03] MEDS: PHENobarbital 20 MG/5 ML UNIT-DOSE CUP GT SCH ×2 (10:14→21:27)
[2021-01-03] MEDS: FAMOTIDINE 40 MG/5 ML ORAL SUSPENSION PEG SCH (10:14)
[2021-01-03] MEDS: SENNOSIDES 8.8 MG/5 ML BULK BOTTLE GT SCH (10:15)
[2021-01-03] MEDS: ZINC OXIDE/PETROLATUM,WHITE 1 APPLIC OINT...G. TP SCH ×2 (10:15→21:34)
[2021-01-03] MEDS: PHENYTOIN 100 MG/4 ML U-D CUP GT SCH (21:32)
[2021-01-04] MEDS ORDERED: DEXTROSE 5%-WATER - 50 ML IVPB ONE ×3 (01:24→17:46)
[2021-01-04] MEDS ORDERED: PIPERACILLIN/TAZOBACTAM 3.375 GM VIAL IVPB ONE ×3 (01:24→17:45)
[2021-01-04] MEDS: PIPERACILLIN/TAZOB 3.375 GM 3.375 GM in DEXTROSE 5%-WATER - 50 ML IVPB SCH ×3 (01:55→18:03)
[2021-01-04] MEDS: HEPARIN NA (PORCINE) 5,000 UNITS/ML 1ML VIAL SQ SCH ×3 (07:10→21:37)
[2021-01-04] MEDS: BANATROL PLUS POWDER PACKET PO SCH ×3 (07:10→21:36)
[2021-01-04] MEDS: clonazePAM 0.5 MG TABLET GT SCH ×3 (07:10→21:36)
[2021-01-04 08:01] LABS: BASO % 0.3 % (0-2.0); EOS % 2.7 % (0-4.5); HEMOGLOBIN 9.2 GM/dL (11.7-16.9); LYMPH % 31.8 % (8-40); MCH 25.8 pg (25.7-33.7); MEAN CELL VOLUME 78.1 fl (80-96); MEAN PLT VOLUME 8.5 fl (7.5-11.1); MONO % 7.5 % (3.8-10.2); NEUT % 57.7 % (42.8-82.8); PLATELET COUNT 181 K/MM3 (134-434); RBC 3.58 M/mm3 (4.00-5.60); RDW 17.9 % (11.9-15.9); WHITE BLOOD COUNT 6.4 K/mm3 (4.0-10.0)
[2021-01-04 08:18] LABS: CHLORIDE 101 mmol/L (98-107); SODIUM 142 mmol/L (136-145)
[2021-01-04 08:28] LABS: ALBUMIN 2.1 g/dl (3.4-5.0); BLOOD UREA NITROGEN 7.4 mg/dL (7-18); CALCIUM 9.2 mg/dL (8.5-10.1); GLUCOSE,RANDOM 97 mg/dL (74-106); PHOSPHOROUS 4.1 mg/dL (2.5-4.9); SGPT/ALT 22 U/L (13-61)
[2021-01-04 08:29] LABS: ANION GAP 5 MMOL/L (8-16); BILIRUBIN,TOTAL < 0.1 mg/dL (0.2-1); CO2 37 mmol/L (21-32)
[2021-01-04 08:30] LABS: ALK PHOS 179 U/L (45-117); MAGNESIUM 1.8 mg/dL (1.8-2.4); SGOT/AST 18 U/L (15-37)
[2021-01-04 08:31] LABS: CREATININE 0.5 mg/dL (0.55-1.3)
[2021-01-04] MEDS: NYSTATIN POWDER 100,000 UNITS/GM - 15 GM TOPICAL POWDER TP SCH ×2 (09:54→21:40)
[2021-01-04] MEDS: PHENobarbital 20 MG/5 ML UNIT-DOSE CUP GT SCH ×2 (09:55→21:37)
[2021-01-04] MEDS: levETIRAcetam 500 MG/5 ML ORAL SOLUTION (UNIT-DOSE CUPS) GT SCH ×2 (09:55→21:38)
[2021-01-04] MEDS: Lacosamide 50 MG/5 ML ORAL SOLUTION UNIT CUPS GT SCH ×2 (09:56→21:39)
[2021-01-04] MEDS: FAMOTIDINE 40 MG/5 ML ORAL SUSPENSION PEG SCH (09:57)
[2021-01-04] MEDS: PHENYTOIN ORAL SUSP 125 MG/5 ML GT SCH (09:58)
[2021-01-04] MEDS: SENNOSIDES 8.8 MG/5 ML BULK BOTTLE GT SCH (09:58)
[2021-01-04] MEDS: DOXAZOSIN MESYLATE 1 MG TABLET GT SCH (09:58)
[2021-01-04] MEDS: FOLIC ACID 1 MG TABLET (FP) GT SCH (10:00)
[2021-01-04] MEDS: cloBAZam 10 MG TABLET GT SCH ×2 (10:00→21:39)
[2021-01-04] MEDS: ZINC OXIDE/PETROLATUM,WHITE 1 APPLIC OINT...G. TP SCH ×2 (10:01→21:54)
[2021-01-04] MEDS ORDERED: TAMSULOSIN HCL 0.4 MG CAP PO SCH (10:37)
[2021-01-04] MEDS: DOCUSATE NA 100 MG/10 ML UNIT-DOSE CUPS GT SCH ×2 (11:36→21:38)
[2021-01-04 14:53] VITALS: BMI 22.9
[2021-01-04] MEDS ORDERED: PT OWN MED DRAWER 7, Y5N ONE (21:46)
[2021-01-04] MEDS: PHENYTOIN 100 MG/4 ML U-D CUP GT SCH (22:43)
[2021-01-05] MEDS ORDERED: DEXTROSE 5%-WATER - 50 ML IVPB ONE ×2 (01:53→09:55)
[2021-01-05] MEDS ORDERED: PIPERACILLIN/TAZOBACTAM 3.375 GM VIAL IVPB ONE ×2 (01:53→09:55)
[2021-01-05] MEDS: PIPERACILLIN/TAZOB 3.375 GM 3.375 GM in DEXTROSE 5%-WATER - 50 ML IVPB SCH ×2 (01:54→10:15)
[2021-01-05] MEDS: clonazePAM 0.5 MG TABLET GT SCH ×3 (06:27→21:05)
[2021-01-05] MEDS: HEPARIN NA (PORCINE) 5,000 UNITS/ML 1ML VIAL SQ SCH ×3 (06:27→21:04)
[2021-01-05 08:19] LABS: BASO % 0.3 % (0-2.0); HEMATOCRIT 29.1 % (35.4-49); HEMOGLOBIN 9.4 GM/dL (11.7-16.9); LYMPH % 24.9 % (8-40); MCH 25.4 pg (25.7-33.7); MCHC 32.4 g/dl (32.0-35.9); MEAN CELL VOLUME 78.5 fl (80-96); MONO % 7.2 % (3.8-10.2); NEUT % 65.6 % (42.8-82.8); PLATELET COUNT 143 K/MM3 (134-434); RDW 17.8 % (11.9-15.9); WHITE BLOOD COUNT 8.3 K/mm3 (4.0-10.0)
[2021-01-05 08:42] LABS: ALBUMIN 2.3 g/dl (3.4-5.0); CALCIUM 9.5 mg/dL (8.5-10.1)
[2021-01-05 08:43] LABS: BLOOD UREA NITROGEN 9.4 mg/dL (7-18); MAGNESIUM 1.8 mg/dL (1.8-2.4)
[2021-01-05 08:46] LABS: CREATININE 0.6 mg/dL (0.55-1.3); PHOSPHOROUS 3.7 mg/dL (2.5-4.9)
[2021-01-05 08:47] LABS: BILIRUBIN,TOTAL 0.1 mg/dL (0.2-1)
[2021-01-05 08:49] LABS: TOT PROT 7.3 g/dl (6.4-8.2)
[2021-01-05] MEDS ORDERED: PT OWN MED DRAWER 7, Y5N ONE ×3 (09:55→20:59)
[2021-01-05] MEDS: PHENobarbital 20 MG/5 ML UNIT-DOSE CUP GT SCH ×2 (10:16→21:07)
[2021-01-05] MEDS: cloBAZam 10 MG TABLET GT SCH ×2 (10:16→21:05)
[2021-01-05] MEDS: FOLIC ACID 1 MG TABLET (FP) GT SCH (10:16)
[2021-01-05] MEDS: levETIRAcetam 500 MG/5 ML ORAL SOLUTION (UNIT-DOSE CUPS) GT SCH ×2 (10:17→21:07)
[2021-01-05] MEDS: SENNOSIDES 8.8 MG/5 ML BULK BOTTLE GT SCH (10:18)
[2021-01-05] MEDS: DOCUSATE NA 100 MG/10 ML UNIT-DOSE CUPS GT SCH ×2 (10:19→21:07)
[2021-01-05] MEDS: NYSTATIN POWDER 100,000 UNITS/GM - 15 GM TOPICAL POWDER TP SCH ×2 (10:19→21:08)
[2021-01-05] MEDS: FAMOTIDINE 40 MG/5 ML ORAL SUSPENSION PEG SCH (10:20)
[2021-01-05] MEDS: DOXAZOSIN MESYLATE 1 MG TABLET GT SCH (10:21)
[2021-01-05] MEDS: PHENYTOIN ORAL SUSP 125 MG/5 ML GT SCH (10:22)
[2021-01-05] MEDS: Lacosamide 50 MG/5 ML ORAL SOLUTION UNIT CUPS GT SCH ×2 (10:23→21:09)
[2021-01-05] MEDS: ZINC OXIDE/PETROLATUM,WHITE 1 APPLIC OINT...G. TP SCH ×2 (10:23→21:08)
[2021-01-05] MEDS: PHENYTOIN 100 MG/4 ML U-D CUP GT SCH (21:10)
[2021-01-06] MEDS: clonazePAM 0.5 MG TABLET GT SCH ×3 (05:44→21:40)
[2021-01-06] MEDS: HEPARIN NA (PORCINE) 5,000 UNITS/ML 1ML VIAL SQ SCH ×3 (05:44→21:40)
[2021-01-06 07:51] LABS: BASO % 0.5 % (0-2.0); EOS % 1.3 % (0-4.5); HEMATOCRIT 30.6 % (35.4-49); LYMPH % 27.6 % (8-40); MCH 25.5 pg (25.7-33.7); MCHC 32.6 g/dl (32.0-35.9); MEAN CELL VOLUME 78.1 fl (80-96); MEAN PLT VOLUME 9.1 fl (7.5-11.1); MONO % 7.8 % (3.8-10.2); NEUT % 62.8 % (42.8-82.8); PLATELET COUNT 131 K/MM3 (134-434); RBC 3.91 M/mm3 (4.00-5.60); RDW 18.1 % (11.9-15.9); WHITE BLOOD COUNT 7.7 K/mm3 (4.0-10.0)
[2021-01-06] MEDS ORDERED: AMOX TR/POT CLAV 875MG/125MG TABLETS (FP) PO SCH (08:00)
[2021-01-06] MEDS ORDERED: PT OWN MED DRAWER 7, Y5N ONE ×5 (08:06→18:32)
[2021-01-06 08:11] LABS: PHOSPHOROUS 3.2 mg/dL (2.5-4.9)
[2021-01-06 08:12] LABS: ALBUMIN 2.3 g/dl (3.4-5.0); BLOOD UREA NITROGEN 17.3 mg/dL (7-18); CALCIUM 9.4 mg/dL (8.5-10.1)
[2021-01-06 08:13] LABS: BILIRUBIN,TOTAL 0.1 mg/dL (0.2-1); MAGNESIUM 1.8 mg/dL (1.8-2.4); TOT PROT 7.9 g/dl (6.4-8.2)
[2021-01-06 08:15] LABS: CREATININE 0.7 mg/dL (0.55-1.3)
[2021-01-06] MEDS: AMOX TR/POTASSIUM CLAVULANATE 250 MG/5 ML BOTTLE GT SCH ×3 (08:27→19:27)
[2021-01-06] MEDS: PHENobarbital 20 MG/5 ML UNIT-DOSE CUP GT SCH ×2 (11:40→21:40)
[2021-01-06] MEDS: BACITRACIN 15 GM TUBE TOPICAL OINTMENT TP SCH (11:40)
[2021-01-06] MEDS: levETIRAcetam 500 MG/5 ML ORAL SOLUTION (UNIT-DOSE CUPS) GT SCH ×2 (11:41→21:40)
[2021-01-06] MEDS: DOCUSATE NA 100 MG/10 ML UNIT-DOSE CUPS GT SCH ×2 (11:41→21:40)
[2021-01-06] MEDS: cloBAZam 10 MG TABLET GT SCH ×2 (11:42→21:40)
[2021-01-06] MEDS: FOLIC ACID 1 MG TABLET (FP) GT SCH (11:43)
[2021-01-06] MEDS: DOXAZOSIN MESYLATE 1 MG TABLET GT SCH (11:43)
[2021-01-06] MEDS: FAMOTIDINE 40 MG/5 ML ORAL SUSPENSION PEG SCH (11:43)
[2021-01-06] MEDS: ZINC OXIDE/PETROLATUM,WHITE 1 APPLIC OINT...G. TP SCH ×2 (11:45→22:09)
[2021-01-06] MEDS: NYSTATIN POWDER 100,000 UNITS/GM - 15 GM TOPICAL POWDER TP SCH ×2 (11:45→22:09)
[2021-01-06] MEDS: PHENYTOIN ORAL SUSP 125 MG/5 ML GT SCH (11:46)
[2021-01-06] MEDS: SENNOSIDES 8.8 MG/5 ML BULK BOTTLE GT SCH (11:46)
[2021-01-06] MEDS: PHENYTOIN 100 MG/4 ML U-D CUP GT SCH (22:09)
[2021-01-07] MEDS: HEPARIN NA (PORCINE) 5,000 UNITS/ML 1ML VIAL SQ SCH ×3 (05:36→21:41)
[2021-01-07] MEDS: clonazePAM 0.5 MG TABLET GT SCH ×3 (05:36→21:42)
[2021-01-07 08:45] LABS: BASO % 0.5 % (0-2.0); EOS % 1.7 % (0-4.5); HEMATOCRIT 27.4 % (35.4-49); LYMPH % 32.5 % (8-40); MCH 25.6 pg (25.7-33.7); MCHC 32.9 g/dl (32.0-35.9); MEAN PLT VOLUME 8.7 fl (7.5-11.1); MONO % 10.8 % (3.8-10.2); NEUT % 54.5 % (42.8-82.8); PLATELET COUNT 114 K/MM3 (134-434); RBC 3.51 M/mm3 (4.00-5.60); WHITE BLOOD COUNT 7.2 K/mm3 (4.0-10.0)
[2021-01-07] MEDS: FOLIC ACID 1 MG TABLET (FP) GT SCH (10:45)
[2021-01-07] MEDS: AMOX TR/POTASSIUM CLAVULANATE 250 MG/5 ML BOTTLE GT SCH ×3 (10:50→17:04)
[2021-01-07] MEDS: SENNOSIDES 8.8 MG/5 ML BULK BOTTLE GT SCH (11:03)
[2021-01-07] MEDS: cloBAZam 10 MG TABLET GT SCH ×2 (11:03→21:42)
[2021-01-07] MEDS: PHENobarbital 20 MG/5 ML UNIT-DOSE CUP GT SCH ×2 (11:03→21:41)
[2021-01-07] MEDS: DOCUSATE NA 100 MG/10 ML UNIT-DOSE CUPS GT SCH ×2 (11:03→21:41)
[2021-01-07] MEDS: levETIRAcetam 500 MG/5 ML ORAL SOLUTION (UNIT-DOSE CUPS) GT SCH ×2 (11:03→21:40)
[2021-01-07] MEDS: DOXAZOSIN MESYLATE 1 MG TABLET GT SCH (11:03)
[2021-01-07] MEDS: BACITRACIN 15 GM TUBE TOPICAL OINTMENT TP SCH (11:04)
[2021-01-07] MEDS: PHENYTOIN ORAL SUSP 125 MG/5 ML GT SCH (11:08)
[2021-01-07 11:42] LABS: ALBUMIN 2.3 g/dl (3.4-5.0); BILIRUBIN,TOTAL 0.2 mg/dL (0.2-1); BLOOD UREA NITROGEN 18.9 mg/dL (7-18); CREATININE 0.6 mg/dL (0.55-1.3); MAGNESIUM 1.7 mg/dL (1.8-2.4); PHOSPHOROUS 3.4 mg/dL (2.5-4.9); TOT PROT 7.5 g/dl (6.4-8.2)
[2021-01-07] MEDS: FAMOTIDINE 40 MG/5 ML ORAL SUSPENSION PEG SCH (11:57)
[2021-01-07] MEDS: NYSTATIN POWDER 100,000 UNITS/GM - 15 GM TOPICAL POWDER TP SCH ×2 (11:57→21:43)
[2021-01-07] MEDS: ZINC OXIDE/PETROLATUM,WHITE 1 APPLIC OINT...G. TP SCH ×2 (11:58→21:45)
[2021-01-07] MEDS: PHENYTOIN 100 MG/4 ML U-D CUP GT SCH (21:41)
[2021-01-08] MEDS: HEPARIN NA (PORCINE) 5,000 UNITS/ML 1ML VIAL SQ SCH ×3 (06:24→21:34)
[2021-01-08] MEDS: clonazePAM 0.5 MG TABLET GT SCH ×3 (06:25→21:36)
[2021-01-08] MEDS ORDERED: MAGNESIUM SULF 50% (8.12 MEQ/2 ML-1 GM VIAL) IVPB ONE (11:00)
[2021-01-08] MEDS: DOCUSATE NA 100 MG/10 ML UNIT-DOSE CUPS GT SCH ×2 (11:00→21:36)
[2021-01-08] MEDS: PHENobarbital 20 MG/5 ML UNIT-DOSE CUP GT SCH ×2 (11:00→21:36)
[2021-01-08] MEDS: DOXAZOSIN MESYLATE 1 MG TABLET GT SCH (11:01)
[2021-01-08] MEDS: FAMOTIDINE 40 MG/5 ML ORAL SUSPENSION PEG SCH (11:01)
[2021-01-08] MEDS: cloBAZam 10 MG TABLET GT SCH ×2 (11:01→21:35)
[2021-01-08] MEDS: BACITRACIN 15 GM TUBE TOPICAL OINTMENT TP SCH (11:01)
[2021-01-08] MEDS: AMOX TR/POTASSIUM CLAVULANATE 250 MG/5 ML BOTTLE GT SCH ×3 (11:02→17:19)
[2021-01-08] MEDS: ZINC OXIDE/PETROLATUM,WHITE 1 APPLIC OINT...G. TP SCH ×2 (11:02→21:38)
[2021-01-08] MEDS: SENNOSIDES 8.8 MG/5 ML BULK BOTTLE GT SCH (11:03)
[2021-01-08] MEDS: PHENYTOIN ORAL SUSP 125 MG/5 ML GT SCH (11:03)
[2021-01-08] MEDS: levETIRAcetam 500 MG/5 ML ORAL SOLUTION (UNIT-DOSE CUPS) GT SCH ×2 (11:03→21:37)
[2021-01-08] MEDS: FOLIC ACID 1 MG TABLET (FP) GT SCH (11:04)
[2021-01-08] MEDS: NYSTATIN POWDER 100,000 UNITS/GM - 15 GM TOPICAL POWDER TP SCH ×2 (11:05→21:37)
[2021-01-08] MEDS ORDERED: GLYCERIN 1 RECTAL SUPPOSITORY, ADULT RC ONE (11:05)
[2021-01-08] MEDS: MAGNESIUM 1GM/D5W - 1 GM/100 ML IVPB IVPB ONE ×3 (11:43→18:54)
[2021-01-08 12:09] LABS: BASO % 0.5 % (0-2.0); EOS % 5.5 % (0-4.5); HEMATOCRIT 28.5 % (35.4-49); HEMOGLOBIN 9.4 GM/dL (11.7-16.9); LYMPH % 44.6 % (8-40); MCH 25.6 pg (25.7-33.7); MCHC 33.1 g/dl (32.0-35.9); MEAN CELL VOLUME 77.4 fl (80-96); MONO % 11.4 % (3.8-10.2); PLATELET COUNT 153 K/MM3 (134-434); RBC 3.68 M/mm3 (4.00-5.60); RDW 18.2 % (11.9-15.9); WHITE BLOOD COUNT 4.6 K/mm3 (4.0-10.0)
[2021-01-08 12:29] LABS: CALCIUM 8.7 mg/dL (8.5-10.1)
[2021-01-08 12:30] LABS: ALBUMIN 2.5 g/dl (3.4-5.0); BLOOD UREA NITROGEN 17.2 mg/dL (7-18); MAGNESIUM 1.7 mg/dL (1.8-2.4)
[2021-01-08 12:32] LABS: CREATININE 0.5 mg/dL (0.55-1.3)
[2021-01-08 12:33] LABS: PHOSPHOROUS 3.4 mg/dL (2.5-4.9)
[2021-01-08 12:34] LABS: BILIRUBIN,TOTAL 0.2 mg/dL (0.2-1)
[2021-01-08] MEDS: PHENYTOIN 100 MG/4 ML U-D CUP GT SCH (21:37)
[2021-01-09] MEDS: clonazePAM 0.5 MG TABLET GT SCH (05:24)
[2021-01-09] MEDS: HEPARIN NA (PORCINE) 5,000 UNITS/ML 1ML VIAL SQ SCH (05:24)
[2021-01-09 09:09] LABS: BASO % 0.7 % (0-2.0); EOS % 7.4 % (0-4.5); HEMATOCRIT 27.7 % (35.4-49); HEMOGLOBIN 9.1 GM/dL (11.7-16.9); LYMPH % 45.7 % (8-40); MCH 25.7 pg (25.7-33.7); MCHC 32.7 g/dl (32.0-35.9); MEAN CELL VOLUME 78.7 fl (80-96); MEAN PLT VOLUME 9.4 fl (7.5-11.1); MONO % 12.9 % (3.8-10.2); NEUT % 33.3 % (42.8-82.8); PLATELET COUNT 175 K/MM3 (134-434); RBC 3.52 M/mm3 (4.00-5.60); WHITE BLOOD COUNT 4.4 K/mm3 (4.0-10.0)
[2021-01-09 09:32] LABS: ALBUMIN 2.4 g/dl (3.4-5.0); BLOOD UREA NITROGEN 17.8 mg/dL (7-18); CALCIUM 8.9 mg/dL (8.5-10.1)
[2021-01-09 09:33] LABS: MAGNESIUM 1.8 mg/dL (1.8-2.4)
[2021-01-09 09:35] LABS: TOT PROT 7.8 g/dl (6.4-8.2)
[2021-01-09 09:36] LABS: CREATININE 0.5 mg/dL (0.55-1.3); PHOSPHOROUS 3.1 mg/dL (2.5-4.9)
[2021-01-09 09:39] LABS: BILIRUBIN,TOTAL 0.2 mg/dL (0.2-1)
[2021-01-09] MEDS ORDERED: PT OWN MED DRAWER 7, Y5N ONE (10:54)
[2021-01-09] MEDS: BACITRACIN 15 GM TUBE TOPICAL OINTMENT TP SCH (10:58)
[2021-01-09] MEDS: DOCUSATE NA 100 MG/10 ML UNIT-DOSE CUPS GT SCH (10:59)
[2021-01-09] MEDS: PHENobarbital 20 MG/5 ML UNIT-DOSE CUP GT SCH (10:59)
[2021-01-09] MEDS: NYSTATIN POWDER 100,000 UNITS/GM - 15 GM TOPICAL POWDER TP SCH (11:00)
[2021-01-09] MEDS: FAMOTIDINE 40 MG/5 ML ORAL SUSPENSION PEG SCH (11:00)
[2021-01-09] MEDS: cloBAZam 10 MG TABLET GT SCH (11:00)
[2021-01-09] MEDS: FOLIC ACID 1 MG TABLET (FP) GT SCH (11:00)
[2021-01-09] MEDS: levETIRAcetam 500 MG/5 ML ORAL SOLUTION (UNIT-DOSE CUPS) GT SCH (11:01)
[2021-01-09] MEDS: PHENYTOIN ORAL SUSP 125 MG/5 ML GT SCH (11:01)
[2021-01-09] MEDS: DOXAZOSIN MESYLATE 1 MG TABLET GT SCH (11:02)
[2021-01-09] MEDS: SENNOSIDES 8.8 MG/5 ML BULK BOTTLE GT SCH (11:02)
[2021-01-09] MEDS: ZINC OXIDE/PETROLATUM,WHITE 1 APPLIC OINT...G. TP SCH (11:03)
[2021-01-09] MEDS: AMOX TR/POTASSIUM CLAVULANATE 250 MG/5 ML BOTTLE GT SCH (11:12)
[2021-01-09 11:40] VITALS: BP 129/63; PULSE 75; TEMP 98.2
== END 2021-01-09 15:20 | disposition home or self-care (01) | DRG 871 ==
LOC: JER 11:35 → JERBED 16:11 → J8W 19:11
PROVIDERS: ADMIT Internal Medicine; ATTEND Internal Medicine
DX: A41.89 Other specified sepsis (principal); J69.0 Pneumonitis due to inhalation of food and vomit; J96.01 Acute respiratory failure with hypoxia; F84.0 Autistic disorder; R13.10 Dysphagia, unspecified; G80.9 Cerebral palsy, unspecified; F78 Other intellectual disabilities; K21.9 Gastro-esophageal reflux disease without esophagitis; G40.909 Epilepsy, unspecified, not intractable, without status epilepticus; Z93.1 Gastrostomy status; R68.0 Hypothermia, not associated with low environmental temperature; R74.8 Abnormal levels of other serum enzymes; E88.09 Other disorders of plasma-protein metabolism, not elsewhere classified; D64.9 Anemia, unspecified; L89.151 Pressure ulcer of sacral region, stage 1; L89.892 Pressure ulcer of other site, stage 2; R33.9 Retention of urine, unspecified; K59.09 Other constipation; L53.8 Other specified erythematous conditions
CPT/HCPCS: 36415; 71045-TC-FY; 80053; 81003; 82803; 82962; 83735; 84100; 84484; 85025; 85027; 85610; 85651; 85730; 86140; 87040; 87086; 93005; 93010; 94761; 99285-25; C9803; J1644; U0003

== ENCOUNTER 2021-01-16 10:28 | Inpatient (IN) | payer OTHER ==
[2021-01-16] MEDS ORDERED: VANCOMYCIN HCL 1,500 MG in DEXTROSE 5%-WATER - 500 ML IVPB ONE (10:52)
[2021-01-16] MEDS ORDERED: PIPERACILLIN/TAZOB 4.5 GM 4.5 GM in DEXTROSE 5%-WATER 100 ML IVPB ONE (10:52)
[2021-01-16 11:28] LABS: BASO % 0.4 % (0-2.0); EOS % 1.5 % (0-4.5); HEMATOCRIT 29.1 % (35.4-49); HEMOGLOBIN 9.4 GM/dL (11.7-16.9); LYMPH % 11.5 % (8-40); MCH 25.8 pg (25.7-33.7); MCHC 32.3 g/dl (32.0-35.9); MEAN CELL VOLUME 79.8 fl (80-96); MEAN PLT VOLUME 9.3 fl (7.5-11.1); MONO % 8.5 % (3.8-10.2); NEUT % 78.1 % (42.8-82.8); PLATELET COUNT 353 K/MM3 (134-434); RBC 3.65 M/mm3 (4.00-5.60); RDW 21.2 % (11.9-15.9); WHITE BLOOD COUNT 9.6 K/mm3 (4.0-10.0)
[2021-01-16] MEDS ORDERED: VANCOMYCIN 500 MG VIAL (RESTRICTED TO ID ONLY) ONE (11:30)
[2021-01-16] MEDS ORDERED: VANCOMYCIN 1 GRAM (PRE-DOCKED) 1,000 MG/250 ML BAG IVPB ONE ×2 (11:31→22:41)
[2021-01-16] MEDS ORDERED: PIPERACILLIN/TAZOB 4.5 GM 4.5 GM/100 ML BAG IVPB ONE ×2 (11:31→22:41)
[2021-01-16 11:42] LABS: INR 1.15 (0.83-1.09); PROTHROMBIN TIME (PATIENT) 13.8 SEC (9.7-13.0)
[2021-01-16 11:45] LABS: ACTIVATED PTT 40.9 SECONDS (25.2-36.5)
[2021-01-16 11:47] LABS: CHLORIDE 101 mmol/L (98-107); SODIUM 139 mmol/L (136-145)
[2021-01-16 11:49] LABS: ALBUMIN 2.7 g/dl (3.4-5.0)
[2021-01-16 11:50] LABS: ANION GAP 2 MMOL/L (8-16); BLOOD UREA NITROGEN 22.1 mg/dL (7-18); CO2 36 mmol/L (21-32); GLUCOSE,RANDOM 102 mg/dL (74-106)
[2021-01-16 11:52] LABS: BILIRUBIN,DIRECT 0.1 mg/dL (0.0-0.2); SGPT/ALT 41 U/L (13-61)
[2021-01-16 11:53] LABS: CREATININE 0.7 mg/dL (0.55-1.3); SGOT/AST 33 U/L (15-37)
[2021-01-16 11:54] LABS: BILIRUBIN,TOTAL 0.1 mg/dL (0.2-1); TOT PROT 8.3 g/dl (6.4-8.2)
[2021-01-16 11:55] LABS: LDH 130 U/L (87-246)
[2021-01-16 12:00] LABS: ALK PHOS 238 U/L (45-117); CALCIUM 10.3 mg/dL (8.5-10.1)
[2021-01-16] MEDS ORDERED: LACTATED RINGERS SOLUTION 1000 ML INFUS.BAG IV ONE (12:07)
[2021-01-16 12:22] LABS: ANISOCYTOSIS 1+; MACROCYTOSIS 0; PLATELET ESTIMATE NORMAL
[2021-01-16 14:19] LABS: PH,URINE 8.5 (5.0-8.0); URINE APPEARANCE CLEAR; URINE BILIRUBIN NEGATIVE (NEGATIVE); URINE COLOR YELLOW; URINE GLUCOSE (UA) NEGATIVE (NEGATIVE); URINE KETONE NEGATIVE (NEGATIVE); URINE LEUK ESTERASE NEGATIVE (NEGATIVE); URINE NITRITE NEGATIVE (NEGATIVE); URINE PROTEIN NEGATIVE (NEGATIVE); URINE UROBILINOGEN 0.2 mg/dL (0.2-1.0)
[2021-01-16] MEDS: SODIUM CHLORIDE 1,000 ML IV SCH (15:47)
[2021-01-16] MEDS ORDERED: PIPERACILLIN/TAZOB 3.375 GM 3.375 GM in DEXTROSE 5%-WATER - 50 ML IVPB SCH (18:15)
[2021-01-16] MEDS ORDERED: PIPERACILLIN/TAZOB 3.375 GM 3.375 GM/50 ML BAG IVPB ONE (18:33)
[2021-01-16] MEDS ORDERED: AMPICILLIN NA/SULBACTAM NA 3 GM in SODIUM CHLORIDE 100 ML IVPB SCH (21:00)
[2021-01-16] MEDS: PIPERACILLIN/TAZOB 4.5 GM 4.5 GM in DEXTROSE 5%-WATER 100 ML IVPB SCH (22:54)
[2021-01-16] MEDS: VANCOMYCIN 1 GM in D5W (PRE-DOCKED) 1,000 MG/250 ML IVPB SCH (22:54)
[2021-01-17] MEDS ORDERED: PIPERACILLIN/TAZOB 3.375 GM 3.375 GM in DEXTROSE 5%-WATER - 50 ML IVPB SCH (02:00)
[2021-01-17] MEDS ORDERED: PIPERACILLIN/TAZOBACTAM 4.5 GM VIAL IVPB ONE ×2 (05:13→08:52)
[2021-01-17] MEDS ORDERED: DEXTROSE 5%-WATER 100 ML IVPB ONE ×2 (05:14→08:52)
[2021-01-17] MEDS: SODIUM CHLORIDE 1,000 ML IV SCH ×2 (05:27→16:48)
[2021-01-17] MEDS: PIPERACILLIN/TAZOB 4.5 GM 4.5 GM in DEXTROSE 5%-WATER 100 ML IVPB SCH ×2 (05:27→09:43)
[2021-01-17 07:41] LABS: BASO % 0.4 % (0-2.0); EOS % 1.6 % (0-4.5); HEMATOCRIT 28.2 % (35.4-49); HEMOGLOBIN 9.2 GM/dL (11.7-16.9); LYMPH % 13.2 % (8-40); MCH 26.1 pg (25.7-33.7); MCHC 32.7 g/dl (32.0-35.9); MEAN CELL VOLUME 79.7 fl (80-96); MEAN PLT VOLUME 9.2 fl (7.5-11.1); MONO % 6.5 % (3.8-10.2); NEUT % 78.3 % (42.8-82.8); PLATELET COUNT 288 K/MM3 (134-434); RBC 3.54 M/mm3 (4.00-5.60); RDW 20.3 % (11.9-15.9); WHITE BLOOD COUNT 5.4 K/mm3 (4.0-10.0)
[2021-01-17 08:03] LABS: CALCIUM 9.5 mg/dL (8.5-10.1)
[2021-01-17 08:04] LABS: ALBUMIN 2.2 g/dl (3.4-5.0); BLOOD UREA NITROGEN 18.9 mg/dL (7-18); MAGNESIUM 1.5 mg/dL (1.8-2.4)
[2021-01-17 08:07] LABS: CREATININE 0.6 mg/dL (0.55-1.3); PHOSPHOROUS 4.4 mg/dL (2.5-4.9)
[2021-01-17 08:08] LABS: BILIRUBIN,TOTAL 0.3 mg/dL (0.2-1); TOT PROT 7.1 g/dl (6.4-8.2)
[2021-01-17] MEDS: ENOXAPARIN NA (PORCINE) 40 MG/0.4 ML DISP.SYRIN SQ SCH (09:44)
[2021-01-17] MEDS: VANCOMYCIN 1 GM in D5W (PRE-DOCKED) 1,000 MG/250 ML IVPB SCH (09:44)
[2021-01-17] MEDS ORDERED: LORazepam 2 MG TABLET GT PRN (09:45)
[2021-01-17] MEDS ORDERED: PATIENT'S OWN MEDICATION (NON-FORMULARY) (Brivaracetam [Briviact] 100 MG Tablet) GT SCH (10:00)
[2021-01-17] MEDS ORDERED: DOXAZOSIN MESYLATE 1 MG TABLET GT SCH (10:00)
[2021-01-17] MEDS ORDERED: VANCOMYCIN 1 GM in D5W (PRE-DOCKED) 1,000 MG/250 ML IVPB SCH (10:00)
[2021-01-17] MEDS ORDERED: Lacosamide 50 MG/5 ML ORAL SOLUTION UNIT CUPS GT SCH (11:15)
[2021-01-17] MEDS ORDERED: LORazepam 1 MG TABLET GT PRN (11:18)
[2021-01-17] MEDS ORDERED: MAGNESIUM SULF 50% (8.12 MEQ/2 ML-1 GM VIAL) IVPB ONE (11:30)
[2021-01-17] MEDS ORDERED: PATIENT'S OWN MEDICATION (NON-FORMULARY) (Phenobarbital [Phenobarbital] 64.8 MG Tablet) GT SCH (11:30)
[2021-01-17] MEDS ORDERED: FAMOTIDINE 40 MG/5 ML ORAL SUSPENSION PEG SCH (11:30)
[2021-01-17] MEDS ORDERED: PHENobarbital 20 MG/5 ML UNIT-DOSE CUP GT SCH (11:30)
[2021-01-17] MEDS: DOCUSATE NA 100 MG/10 ML UNIT-DOSE CUPS GT SCH ×2 (11:31→21:47)
[2021-01-17] MEDS: BACITRACIN 15 GM TUBE TOPICAL OINTMENT TP SCH (11:32)
[2021-01-17] MEDS ORDERED: cloBAZam 10 MG TABLET GT SCH (12:00)
[2021-01-17] MEDS: PHENobarbital 20 MG/5 ML UNIT-DOSE CUP GT SCH ×2 (12:49→21:48)
[2021-01-17] MEDS: Lacosamide 50 MG/5 ML ORAL SOLUTION UNIT CUPS GT SCH ×2 (12:51→21:47)
[2021-01-17] MEDS: DOXAZOSIN MESYLATE 1 MG TABLET GT SCH (12:55)
[2021-01-17] MEDS: cloBAZam 10 MG TABLET GT SCH ×2 (12:55→21:46)
[2021-01-17] MEDS: clonazePAM 0.5 MG TABLET GT SCH ×2 (14:33→21:45)
[2021-01-17] MEDS ORDERED: PT OWN MED DRAWER 7, Y5N ONE ×3 (14:35→21:50)
[2021-01-17] MEDS: FAMOTIDINE 40 MG/5 ML ORAL SUSPENSION PEG SCH (14:36)
[2021-01-17] MEDS ORDERED: PIPERACILLIN/TAZOBACTAM 3.375 GM VIAL IVPB ONE (17:40)
[2021-01-17] MEDS ORDERED: DEXTROSE 5%-WATER - 50 ML IVPB ONE (17:40)
[2021-01-17] MEDS: methylPREDNISolone NA SUCC 40 MG/1 ML VIAL IVPUSH SCH ×2 (17:56→18:14)
[2021-01-17] MEDS: PIPERACILLIN/TAZOB 3.375 GM 3.375 GM in DEXTROSE 5%-WATER - 50 ML IVPB SCH (17:58)
[2021-01-17] MEDS: ATORVASTATIN CA 80 MG TABLET (FP) GT SCH (21:46)
[2021-01-17] MEDS: PHENYTOIN 100 MG/4 ML U-D CUP GT SCH (21:50)
[2021-01-17] MEDS ORDERED: ZOLPIDEM TARTRATE 5 MG TABLET GT PRN (22:00)
[2021-01-17] MEDS ORDERED: PIPERACILLIN/TAZOB 4.5 GM 4.5 GM in DEXTROSE 5%-WATER 100 ML IVPB SCH (22:30)
[2021-01-18] MEDS ORDERED: DEXTROSE 5%-WATER - 50 ML IVPB ONE ×3 (03:53→16:52)
[2021-01-18] MEDS ORDERED: PIPERACILLIN/TAZOBACTAM 3.375 GM VIAL IVPB ONE ×3 (03:53→16:50)
[2021-01-18] MEDS: PIPERACILLIN/TAZOB 3.375 GM 3.375 GM in DEXTROSE 5%-WATER - 50 ML IVPB SCH ×3 (03:57→17:17)
[2021-01-18] MEDS: methylPREDNISolone NA SUCC 40 MG/1 ML VIAL IVPUSH SCH ×3 (03:57→17:17)
[2021-01-18] MEDS: clonazePAM 0.5 MG TABLET GT SCH ×3 (06:44→22:21)
[2021-01-18] MEDS ORDERED: PT OWN MED DRAWER 7, Y5N ONE ×3 (06:50→11:29)
[2021-01-18 07:38] LABS: HEMATOCRIT 27.1 % (35.4-49); HEMOGLOBIN 8.8 GM/dL (11.7-16.9); MCH 25.8 pg (25.7-33.7); MCHC 32.4 g/dl (32.0-35.9); MEAN CELL VOLUME 79.7 fl (80-96); MEAN PLT VOLUME 9.4 fl (7.5-11.1); PLATELET COUNT 343 K/MM3 (134-434); RDW 20.8 % (11.9-15.9); WHITE BLOOD COUNT 11.1 K/mm3 (4.0-10.0)
[2021-01-18 07:56] LABS: BLOOD UREA NITROGEN 16.9 mg/dL (7-18); CALCIUM 9.7 mg/dL (8.5-10.1)
[2021-01-18 08:00] LABS: CREATININE 0.7 mg/dL (0.55-1.3)
[2021-01-18 08:01] LABS: BILIRUBIN,TOTAL 0.3 mg/dL (0.2-1); TOT PROT 6.8 g/dl (6.4-8.2)
[2021-01-18] MEDS: BACITRACIN 15 GM TUBE TOPICAL OINTMENT TP SCH (09:09)
[2021-01-18] MEDS: PHENobarbital 20 MG/5 ML UNIT-DOSE CUP GT SCH ×2 (09:10→22:26)
[2021-01-18] MEDS: cloBAZam 10 MG TABLET GT SCH ×2 (09:11→22:23)
[2021-01-18] MEDS: Lacosamide 50 MG/5 ML ORAL SOLUTION UNIT CUPS GT SCH ×2 (09:12→22:28)
[2021-01-18] MEDS: DOXAZOSIN MESYLATE 1 MG TABLET GT SCH (09:12)
[2021-01-18] MEDS: DOCUSATE NA 100 MG/10 ML UNIT-DOSE CUPS GT SCH ×2 (09:13→22:08)
[2021-01-18] MEDS: ENOXAPARIN NA (PORCINE) 40 MG/0.4 ML DISP.SYRIN SQ SCH (09:13)
[2021-01-18] MEDS: FAMOTIDINE 40 MG/5 ML ORAL SUSPENSION PEG SCH (11:32)
[2021-01-18 13:18] VITALS: BMI 21.9
[2021-01-18] MEDS: SODIUM CHLORIDE 1,000 ML IV SCH (17:16)
[2021-01-18] MEDS: ATORVASTATIN CA 80 MG TABLET (FP) GT SCH (22:21)
[2021-01-18] MEDS: PHENYTOIN 100 MG/4 ML U-D CUP GT SCH (22:26)
[2021-01-19] MEDS: methylPREDNISolone NA SUCC 40 MG/1 ML VIAL IVPUSH SCH ×3 (04:30→17:26)
[2021-01-19] MEDS: PIPERACILLIN/TAZOB 3.375 GM 3.375 GM in DEXTROSE 5%-WATER - 50 ML IVPB SCH ×3 (04:30→17:26)
[2021-01-19] MEDS ORDERED: PIPERACILLIN/TAZOBACTAM 3.375 GM VIAL IVPB ONE ×4 (04:51→17:18)
[2021-01-19] MEDS ORDERED: DEXTROSE 5%-WATER - 50 ML IVPB ONE ×4 (04:52→17:19)
[2021-01-19] MEDS: clonazePAM 0.5 MG TABLET GT SCH ×3 (06:32→22:23)
[2021-01-19] MEDS ORDERED: PT OWN MED DRAWER 7, Y5N ONE ×2 (08:40→21:49)
[2021-01-19] MEDS: BACITRACIN 15 GM TUBE TOPICAL OINTMENT TP SCH (09:22)
[2021-01-19] MEDS: DOCUSATE NA 100 MG/10 ML UNIT-DOSE CUPS GT SCH ×2 (09:23→22:24)
[2021-01-19] MEDS: DOXAZOSIN MESYLATE 1 MG TABLET GT SCH (09:23)
[2021-01-19] MEDS: cloBAZam 10 MG TABLET GT SCH ×2 (09:23→22:23)
[2021-01-19] MEDS: ENOXAPARIN NA (PORCINE) 40 MG/0.4 ML DISP.SYRIN SQ SCH (09:24)
[2021-01-19] MEDS: PHENobarbital 20 MG/5 ML UNIT-DOSE CUP GT SCH ×2 (09:25→22:23)
[2021-01-19] MEDS: Lacosamide 50 MG/5 ML ORAL SOLUTION UNIT CUPS GT SCH ×2 (09:25→22:27)
[2021-01-19 10:08] LABS: HEMATOCRIT 26.7 % (35.4-49); HEMOGLOBIN 8.6 GM/dL (11.7-16.9); MCH 25.4 pg (25.7-33.7); MCHC 32.1 g/dl (32.0-35.9); MEAN CELL VOLUME 79.1 fl (80-96); MEAN PLT VOLUME 8.7 fl (7.5-11.1); PLATELET COUNT 355 K/MM3 (134-434); RBC 3.37 M/mm3 (4.00-5.60); RDW 20.2 % (11.9-15.9); WHITE BLOOD COUNT 11.7 K/mm3 (4.0-10.0)
[2021-01-19 10:31] LABS: ALBUMIN 2.1 g/dl (3.4-5.0); BLOOD UREA NITROGEN 14.8 mg/dL (7-18); CALCIUM 9.6 mg/dL (8.5-10.1)
[2021-01-19 10:35] LABS: CREATININE 0.5 mg/dL (0.55-1.3)
[2021-01-19 10:36] LABS: BILIRUBIN,TOTAL 0.2 mg/dL (0.2-1); TOT PROT 7.2 g/dl (6.4-8.2)
[2021-01-19] MEDS: levETIRAcetam 500 MG/5 ML INJECTION VIAL IVPB SCH ×2 (13:39→22:24)
[2021-01-19] MEDS: FAMOTIDINE 40 MG/5 ML ORAL SUSPENSION PEG SCH (13:47)
[2021-01-19] MEDS: PHENYTOIN 100 MG/4 ML U-D CUP GT SCH (22:24)
[2021-01-19] MEDS: ATORVASTATIN CA 80 MG TABLET (FP) GT SCH (22:25)
[2021-01-20] MEDS ORDERED: DEXTROSE 5%-WATER - 50 ML IVPB ONE ×3 (03:20→17:22)
[2021-01-20] MEDS ORDERED: PIPERACILLIN/TAZOBACTAM 3.375 GM VIAL IVPB ONE ×3 (03:20→17:21)
[2021-01-20] MEDS: PIPERACILLIN/TAZOB 3.375 GM 3.375 GM in DEXTROSE 5%-WATER - 50 ML IVPB SCH ×3 (04:00→17:29)
[2021-01-20] MEDS: methylPREDNISolone NA SUCC 40 MG/1 ML VIAL IVPUSH SCH ×3 (04:00→21:35)
[2021-01-20] MEDS: clonazePAM 0.5 MG TABLET GT SCH ×3 (06:13→21:33)
[2021-01-20 07:14] LABS: HEMATOCRIT 27.6 % (35.4-49); HEMOGLOBIN 8.9 GM/dL (11.7-16.9); MCH 25.8 pg (25.7-33.7); MCHC 32.3 g/dl (32.0-35.9); MEAN PLT VOLUME 9.4 fl (7.5-11.1); PLATELET COUNT 359 K/MM3 (134-434); RBC 3.46 M/mm3 (4.00-5.60); RDW 20.7 % (11.9-15.9); WHITE BLOOD COUNT 7.3 K/mm3 (4.0-10.0)
[2021-01-20 07:36] LABS: CALCIUM 9.4 mg/dL (8.5-10.1)
[2021-01-20 07:37] LABS: BLOOD UREA NITROGEN 20.6 mg/dL (7-18)
[2021-01-20 07:40] LABS: BILIRUBIN,TOTAL 0.2 mg/dL (0.2-1); CREATININE 0.6 mg/dL (0.55-1.3)
[2021-01-20] MEDS: ENOXAPARIN NA (PORCINE) 40 MG/0.4 ML DISP.SYRIN SQ SCH (09:53)
[2021-01-20] MEDS: DOCUSATE NA 100 MG/10 ML UNIT-DOSE CUPS GT SCH ×2 (09:53→21:32)
[2021-01-20] MEDS: cloBAZam 10 MG TABLET GT SCH ×2 (09:54→21:35)
[2021-01-20] MEDS: DOXAZOSIN MESYLATE 1 MG TABLET GT SCH (09:54)
[2021-01-20] MEDS: FAMOTIDINE 40 MG/5 ML ORAL SUSPENSION PEG SCH (09:54)
[2021-01-20] MEDS: BACITRACIN 15 GM TUBE TOPICAL OINTMENT TP SCH (10:08)
[2021-01-20] MEDS ORDERED: PT OWN MED DRAWER 7, Y5N ONE ×2 (10:09→20:48)
[2021-01-20] MEDS: levETIRAcetam 500 MG/5 ML INJECTION VIAL IVPB SCH ×2 (10:29→21:36)
[2021-01-20] MEDS: Lacosamide 50 MG/5 ML ORAL SOLUTION UNIT CUPS GT SCH ×2 (10:30→21:35)
[2021-01-20] MEDS: PHENobarbital 20 MG/5 ML UNIT-DOSE CUP GT SCH ×2 (10:30→21:34)
[2021-01-20] MEDS ORDERED: methylPREDNISolone NA SUCC 40 MG/1 ML VIAL IVPUSH SCH (11:45)
[2021-01-20] MEDS: ATORVASTATIN CA 80 MG TABLET (FP) GT SCH (21:33)
[2021-01-20] MEDS: PHENYTOIN 100 MG/4 ML U-D CUP GT SCH (21:34)
[2021-01-21] MEDS ORDERED: PIPERACILLIN/TAZOBACTAM 3.375 GM VIAL IVPB ONE ×3 (03:59→16:39)
[2021-01-21] MEDS ORDERED: DEXTROSE 5%-WATER - 50 ML IVPB ONE ×3 (03:59→16:39)
[2021-01-21] MEDS: PIPERACILLIN/TAZOB 3.375 GM 3.375 GM in DEXTROSE 5%-WATER - 50 ML IVPB SCH ×3 (04:15→17:02)
[2021-01-21] MEDS: clonazePAM 0.5 MG TABLET GT SCH ×3 (06:24→21:37)
[2021-01-21 07:41] LABS: BASO % 0.5 % (0-2.0); EOS % 0.5 % (0-4.5); HEMATOCRIT 25.9 % (35.4-49); HEMOGLOBIN 8.5 GM/dL (11.7-16.9); LYMPH % 27.9 % (8-40); MCH 25.7 pg (25.7-33.7); MCHC 32.8 g/dl (32.0-35.9); MEAN CELL VOLUME 78.4 fl (80-96); MEAN PLT VOLUME 8.7 fl (7.5-11.1); MONO % 6.3 % (3.8-10.2); NEUT % 64.8 % (42.8-82.8); PLATELET COUNT 349 K/MM3 (134-434); RBC 3.31 M/mm3 (4.00-5.60); RDW 19.9 % (11.9-15.9); WHITE BLOOD COUNT 7.4 K/mm3 (4.0-10.0)
[2021-01-21 08:06] LABS: BLOOD UREA NITROGEN 15.7 mg/dL (7-18)
[2021-01-21 08:07] LABS: CREATININE 0.5 mg/dL (0.55-1.3)
[2021-01-21 08:09] LABS: BILIRUBIN,TOTAL 0.1 mg/dL (0.2-1); TOT PROT 6.8 g/dl (6.4-8.2)
[2021-01-21 08:51] LABS: ANISOCYTOSIS 1+; MACROCYTOSIS 1+; PLATELET ESTIMATE NORMAL
[2021-01-21] MEDS ORDERED: PT OWN MED DRAWER 7, Y5N ONE ×3 (09:11→20:20)
[2021-01-21] MEDS: FAMOTIDINE 40 MG/5 ML ORAL SUSPENSION PEG SCH (10:00)
[2021-01-21] MEDS: BACITRACIN 15 GM TUBE TOPICAL OINTMENT TP SCH (10:00)
[2021-01-21] MEDS: ENOXAPARIN NA (PORCINE) 40 MG/0.4 ML DISP.SYRIN SQ SCH (10:00)
[2021-01-21] MEDS: cloBAZam 10 MG TABLET GT SCH ×2 (10:00→21:31)
[2021-01-21] MEDS: DOCUSATE NA 100 MG/10 ML UNIT-DOSE CUPS GT SCH ×2 (10:00→21:29)
[2021-01-21] MEDS: methylPREDNISolone NA SUCC 40 MG/1 ML VIAL IVPUSH SCH ×2 (10:00→21:32)
[2021-01-21] MEDS: DOXAZOSIN MESYLATE 1 MG TABLET GT SCH (10:55)
[2021-01-21] MEDS: levETIRAcetam 500 MG/5 ML INJECTION VIAL IVPB SCH ×2 (10:55→21:30)
[2021-01-21] MEDS: Lacosamide 50 MG/5 ML ORAL SOLUTION UNIT CUPS GT SCH ×2 (10:55→21:47)
[2021-01-21] MEDS: PHENobarbital 20 MG/5 ML UNIT-DOSE CUP GT SCH ×2 (12:10→21:35)
[2021-01-21] MEDS: ATORVASTATIN CA 80 MG TABLET (FP) GT SCH (21:37)
[2021-01-21] MEDS: PHENYTOIN 100 MG/4 ML U-D CUP GT SCH (21:48)
[2021-01-22] MEDS: PIPERACILLIN/TAZOB 3.375 GM 3.375 GM in DEXTROSE 5%-WATER - 50 ML IVPB SCH ×3 (03:00→17:02)
[2021-01-22] MEDS ORDERED: DEXTROSE 5%-WATER - 50 ML IVPB ONE ×3 (05:33→16:48)
[2021-01-22] MEDS ORDERED: PIPERACILLIN/TAZOBACTAM 3.375 GM VIAL IVPB ONE ×3 (05:33→16:48)
[2021-01-22] MEDS: clonazePAM 0.5 MG TABLET GT SCH ×3 (05:47→21:49)
[2021-01-22 08:28] LABS: BASO % 0.3 % (0-2.0); EOS % 1.1 % (0-4.5); HEMATOCRIT 27.1 % (35.4-49); HEMOGLOBIN 8.8 GM/dL (11.7-16.9); LYMPH % 18.6 % (8-40); MCH 25.2 pg (25.7-33.7); MCHC 32.4 g/dl (32.0-35.9); MEAN PLT VOLUME 8.7 fl (7.5-11.1); MONO % 11.4 % (3.8-10.2); NEUT % 68.6 % (42.8-82.8); PLATELET COUNT 339 K/MM3 (134-434); RBC 3.48 M/mm3 (4.00-5.60); RDW 19.9 % (11.9-15.9); WHITE BLOOD COUNT 13.9 K/mm3 (4.0-10.0)
[2021-01-22 09:02] LABS: BLOOD UREA NITROGEN 12.2 mg/dL (7-18); CALCIUM 9.1 mg/dL (8.5-10.1)
[2021-01-22 09:05] LABS: CREATININE 0.5 mg/dL (0.55-1.3)
[2021-01-22 09:08] LABS: BILIRUBIN,TOTAL 0.2 mg/dL (0.2-1)
[2021-01-22 09:09] LABS: TOT PROT 6.7 g/dl (6.4-8.2)
[2021-01-22] MEDS: levETIRAcetam 500 MG/5 ML INJECTION VIAL IVPB SCH ×2 (10:19→21:30)
[2021-01-22] MEDS: ENOXAPARIN NA (PORCINE) 40 MG/0.4 ML DISP.SYRIN SQ SCH (10:23)
[2021-01-22] MEDS: PHENobarbital 20 MG/5 ML UNIT-DOSE CUP GT SCH ×2 (10:23→21:48)
[2021-01-22] MEDS: methylPREDNISolone NA SUCC 40 MG/1 ML VIAL IVPUSH SCH ×2 (10:23→21:35)
[2021-01-22] MEDS: DOCUSATE NA 100 MG/10 ML UNIT-DOSE CUPS GT SCH ×2 (10:24→21:48)
[2021-01-22] MEDS: cloBAZam 10 MG TABLET GT SCH ×2 (10:24→21:49)
[2021-01-22] MEDS: FAMOTIDINE 40 MG/5 ML ORAL SUSPENSION PEG SCH (10:25)
[2021-01-22] MEDS: Lacosamide 50 MG/5 ML ORAL SOLUTION UNIT CUPS GT SCH ×2 (10:26→21:50)
[2021-01-22 10:30] LABS: ANISOCYTOSIS 1+; OVALOCYTE 1+
[2021-01-22 10:31] LABS: PLATELET ESTIMATE ADEQUATE
[2021-01-22] MEDS: DOXAZOSIN MESYLATE 1 MG TABLET GT SCH (10:40)
[2021-01-22] MEDS: BACITRACIN 15 GM TUBE TOPICAL OINTMENT TP SCH (10:40)
[2021-01-22] MEDS: ATORVASTATIN CA 80 MG TABLET (FP) GT SCH (21:48)
[2021-01-22] MEDS ORDERED: PT OWN MED DRAWER 7, Y5N ONE ×2 (21:52→23:20)
[2021-01-22] MEDS: PHENYTOIN 100 MG/4 ML U-D CUP GT SCH (23:09)
[2021-01-23] MEDS ORDERED: PIPERACILLIN/TAZOBACTAM 3.375 GM VIAL IVPB ONE ×3 (00:27→17:17)
[2021-01-23] MEDS ORDERED: DEXTROSE 5%-WATER - 50 ML IVPB ONE ×3 (00:27→17:17)
[2021-01-23] MEDS: PIPERACILLIN/TAZOB 3.375 GM 3.375 GM in DEXTROSE 5%-WATER - 50 ML IVPB SCH ×3 (01:53→17:36)
[2021-01-23] MEDS: clonazePAM 0.5 MG TABLET GT SCH ×3 (06:21→22:46)
[2021-01-23 07:35] LABS: BASO % 0.4 % (0-2.0); EOS % 0.9 % (0-4.5); HEMATOCRIT 26.6 % (35.4-49); HEMOGLOBIN 8.8 GM/dL (11.7-16.9); LYMPH % 29.5 % (8-40); MCHC 33.2 g/dl (32.0-35.9); MEAN CELL VOLUME 78.2 fl (80-96); MEAN PLT VOLUME 8.8 fl (7.5-11.1); MONO % 7.8 % (3.8-10.2); NEUT % 61.4 % (42.8-82.8); PLATELET COUNT 282 K/MM3 (134-434); RBC 3.41 M/mm3 (4.00-5.60); RDW 20.3 % (11.9-15.9)
[2021-01-23 07:54] LABS: CALCIUM 8.6 mg/dL (8.5-10.1)
[2021-01-23 07:56] LABS: ALBUMIN 2.1 g/dl (3.4-5.0); BLOOD UREA NITROGEN 13.3 mg/dL (7-18)
[2021-01-23 07:58] LABS: CREATININE 0.5 mg/dL (0.55-1.3)
[2021-01-23 08:00] LABS: BILIRUBIN,TOTAL 0.3 mg/dL (0.2-1); TOT PROT 6.9 g/dl (6.4-8.2)
[2021-01-23] MEDS ORDERED: PT OWN MED DRAWER 7, Y5N ONE ×3 (09:34→18:01)
[2021-01-23] MEDS: PHENobarbital 20 MG/5 ML UNIT-DOSE CUP GT SCH ×2 (10:29→22:45)
[2021-01-23] MEDS: ENOXAPARIN NA (PORCINE) 40 MG/0.4 ML DISP.SYRIN SQ SCH (10:29)
[2021-01-23] MEDS: levETIRAcetam 500 MG/5 ML INJECTION VIAL IVPB SCH ×2 (10:30→22:49)
[2021-01-23] MEDS: DOXAZOSIN MESYLATE 1 MG TABLET GT SCH (10:30)
[2021-01-23] MEDS: methylPREDNISolone NA SUCC 40 MG/1 ML VIAL IVPUSH SCH (10:30)
[2021-01-23] MEDS: DOCUSATE NA 100 MG/10 ML UNIT-DOSE CUPS GT SCH ×2 (10:30→22:49)
[2021-01-23] MEDS: cloBAZam 10 MG TABLET GT SCH ×2 (10:31→22:47)
[2021-01-23] MEDS: FAMOTIDINE 40 MG/5 ML ORAL SUSPENSION PEG SCH (10:31)
[2021-01-23] MEDS: BACITRACIN 15 GM TUBE TOPICAL OINTMENT TP SCH (10:32)
[2021-01-23] MEDS: Lacosamide 50 MG/5 ML ORAL SOLUTION UNIT CUPS GT SCH ×2 (10:32→22:49)
[2021-01-23 11:19] LABS: ANISOCYTOSIS 1+; MACROCYTOSIS 0; PLATELET ESTIMATE NORMAL
[2021-01-23] MEDS: PHENYTOIN 100 MG/4 ML U-D CUP GT SCH (22:45)
[2021-01-23] MEDS: ATORVASTATIN CA 80 MG TABLET (FP) GT SCH (22:48)
[2021-01-24] MEDS: PIPERACILLIN/TAZOB 3.375 GM 3.375 GM in DEXTROSE 5%-WATER - 50 ML IVPB SCH ×3 (04:13→18:52)
[2021-01-24] MEDS: clonazePAM 0.5 MG TABLET GT SCH ×3 (06:14→21:42)
[2021-01-24 08:54] LABS: HEMATOCRIT 27.3 % (35.4-49); HEMOGLOBIN 9.1 GM/dL (11.7-16.9); MCH 25.9 pg (25.7-33.7); MCHC 33.2 g/dl (32.0-35.9); MEAN PLT VOLUME 8.5 fl (7.5-11.1); PLATELET COUNT 246 K/MM3 (134-434); RDW 20.2 % (11.9-15.9); WHITE BLOOD COUNT 6.5 K/mm3 (4.0-10.0)
[2021-01-24 09:24] LABS: CALCIUM 8.7 mg/dL (8.5-10.1)
[2021-01-24 09:25] LABS: ALBUMIN 2.1 g/dl (3.4-5.0); BLOOD UREA NITROGEN 13.4 mg/dL (7-18)
[2021-01-24 09:28] LABS: BILIRUBIN,TOTAL 0.1 mg/dL (0.2-1); CREATININE 0.4 mg/dL (0.55-1.3)
[2021-01-24] MEDS ORDERED: DEXTROSE 5%-WATER - 50 ML IVPB ONE ×2 (10:32→18:49)
[2021-01-24] MEDS ORDERED: PIPERACILLIN/TAZOBACTAM 3.375 GM VIAL IVPB ONE ×2 (10:32→18:49)
[2021-01-24] MEDS ORDERED: PT OWN MED DRAWER 7, Y5N ONE ×2 (10:32→20:40)
[2021-01-24] MEDS: ENOXAPARIN NA (PORCINE) 40 MG/0.4 ML DISP.SYRIN SQ SCH (10:42)
[2021-01-24] MEDS: BACITRACIN 15 GM TUBE TOPICAL OINTMENT TP SCH (10:43)
[2021-01-24] MEDS: DOCUSATE NA 100 MG/10 ML UNIT-DOSE CUPS GT SCH ×2 (10:44→21:47)
[2021-01-24] MEDS: predniSONE 20 MG TABLET (UD) GT SCH (10:44)
[2021-01-24] MEDS: PHENobarbital 20 MG/5 ML UNIT-DOSE CUP GT SCH ×2 (10:44→21:41)
[2021-01-24] MEDS: cloBAZam 10 MG TABLET GT SCH ×2 (10:45→21:42)
[2021-01-24] MEDS: levETIRAcetam 500 MG/5 ML ORAL SOLUTION (UNIT-DOSE CUPS) GT SCH ×2 (10:45→21:47)
[2021-01-24] MEDS: FAMOTIDINE 40 MG/5 ML ORAL SUSPENSION PEG SCH (10:47)
[2021-01-24] MEDS: Lacosamide 50 MG/5 ML ORAL SOLUTION UNIT CUPS GT SCH ×2 (10:49→21:43)
[2021-01-24] MEDS: DOXAZOSIN MESYLATE 1 MG TABLET GT SCH (10:50)
[2021-01-24] MEDS: PHENYTOIN 100 MG/4 ML U-D CUP GT SCH (21:41)
[2021-01-24] MEDS: ATORVASTATIN CA 80 MG TABLET (FP) GT SCH (21:42)
[2021-01-25] MEDS ORDERED: PIPERACILLIN/TAZOBACTAM 3.375 GM VIAL IVPB ONE ×2 (01:10→09:50)
[2021-01-25] MEDS ORDERED: DEXTROSE 5%-WATER - 50 ML IVPB ONE ×2 (01:11→09:50)
[2021-01-25] MEDS: PIPERACILLIN/TAZOB 3.375 GM 3.375 GM in DEXTROSE 5%-WATER - 50 ML IVPB SCH ×2 (01:18→09:57)
[2021-01-25] MEDS: clonazePAM 0.5 MG TABLET GT SCH ×3 (06:06→21:17)
[2021-01-25] MEDS ORDERED: PT OWN MED DRAWER 7, Y5N ONE ×3 (09:48→10:13)
[2021-01-25] MEDS: BACITRACIN 15 GM TUBE TOPICAL OINTMENT TP SCH (09:53)
[2021-01-25] MEDS: predniSONE 20 MG TABLET (UD) GT SCH (09:54)
[2021-01-25] MEDS: DOXAZOSIN MESYLATE 1 MG TABLET GT SCH (09:54)
[2021-01-25] MEDS: DOCUSATE NA 100 MG/10 ML UNIT-DOSE CUPS GT SCH ×2 (09:54→21:17)
[2021-01-25] MEDS: cloBAZam 10 MG TABLET GT SCH ×2 (09:55→21:18)
[2021-01-25] MEDS: levETIRAcetam 500 MG/5 ML ORAL SOLUTION (UNIT-DOSE CUPS) GT SCH ×2 (09:55→21:20)
[2021-01-25] MEDS: FAMOTIDINE 40 MG/5 ML ORAL SUSPENSION PEG SCH (09:55)
[2021-01-25] MEDS: PHENobarbital 20 MG/5 ML UNIT-DOSE CUP GT SCH ×2 (09:56→22:24)
[2021-01-25] MEDS: Lacosamide 50 MG/5 ML ORAL SOLUTION UNIT CUPS GT SCH ×2 (09:57→21:21)
[2021-01-25] MEDS: AMOX TR/POT CLAV 875MG/125MG TABLETS (FP) PO SCH (18:01)
[2021-01-25] MEDS: ATORVASTATIN CA 80 MG TABLET (FP) GT SCH (21:18)
[2021-01-25] MEDS: PHENYTOIN 100 MG/4 ML U-D CUP GT SCH (22:24)
[2021-01-26] MEDS: clonazePAM 0.5 MG TABLET GT SCH ×2 (05:58→13:20)
[2021-01-26] MEDS ORDERED: PT OWN MED DRAWER 7, Y5N ONE (08:56)
[2021-01-26] MEDS: PHENobarbital 20 MG/5 ML UNIT-DOSE CUP GT SCH (09:31)
[2021-01-26] MEDS: ENOXAPARIN NA (PORCINE) 40 MG/0.4 ML DISP.SYRIN SQ SCH (09:31)
[2021-01-26] MEDS: levETIRAcetam 500 MG/5 ML ORAL SOLUTION (UNIT-DOSE CUPS) GT SCH (09:32)
[2021-01-26] MEDS: AMOX TR/POT CLAV 875MG/125MG TABLETS (FP) PO SCH ×2 (09:32→17:48)
[2021-01-26] MEDS: DOXAZOSIN MESYLATE 1 MG TABLET GT SCH (09:32)
[2021-01-26] MEDS: cloBAZam 10 MG TABLET GT SCH (09:33)
[2021-01-26] MEDS: BACITRACIN 15 GM TUBE TOPICAL OINTMENT TP SCH (09:33)
[2021-01-26] MEDS: DOCUSATE NA 100 MG/10 ML UNIT-DOSE CUPS GT SCH (09:33)
[2021-01-26] MEDS: FAMOTIDINE 40 MG/5 ML ORAL SUSPENSION PEG SCH (09:34)
[2021-01-26] MEDS: Lacosamide 50 MG/5 ML ORAL SOLUTION UNIT CUPS GT SCH (09:34)
[2021-01-26] MEDS ORDERED: predniSONE 10 MG TABLET (UD) PO SCH (10:00)
[2021-01-26 15:02] VITALS: BP 136/69; PULSE 90; TEMP 98.3
== END 2021-01-26 18:37 | disposition home or self-care (01) | DRG 871 ==
LOC: JER 10:28 → JERBED 15:41 → J4W 01-17 04:41 → J8W 01-23 21:31
PROVIDERS: ADMIT Internal Medicine; ATTEND Internal Medicine
DX: A41.9 Sepsis, unspecified organism (principal); J69.0 Pneumonitis due to inhalation of food and vomit; R53.2 Functional quadriplegia; J96.01 Acute respiratory failure with hypoxia; G93.41 Metabolic encephalopathy; F72 Severe intellectual disabilities; T68.XXXA Hypothermia, initial encounter; G80.9 Cerebral palsy, unspecified; G40.909 Epilepsy, unspecified, not intractable, without status epilepticus; E88.09 Other disorders of plasma-protein metabolism, not elsewhere classified; Z93.1 Gastrostomy status; E78.5 Hyperlipidemia, unspecified; K21.9 Gastro-esophageal reflux disease without esophagitis
CPT/HCPCS: 36415; 71045-TC-FY; 80053; 81003; 82248; 82550; 82553; 82728; 83605; 83615; 83735; 84100; 84484; 85025; 85027; 85379; 85610; 85730; 86140; 86769; 87040; 87086; 87804; 93005; 93010; 94761; 99291; C9803; U0003; U0005

== ENCOUNTER 2021-01-31 13:42 | Inpatient (IN) | payer OTHER ==
[2021-01-31 14:08] VITALS: BMI 23.8
[2021-01-31] MEDS ORDERED: SODIUM CHLORIDE 1,000 ML IV STA ×2 (16:01→16:02)
[2021-01-31 16:05] LABS: BASO % 0.8 % (0-2.0); EOS % 3.3 % (0-4.5); HEMATOCRIT 31.6 % (35.4-49); HEMOGLOBIN 10.1 GM/dL (11.7-16.9); LYMPH % 49.9 % (8-40); MCH 25.7 pg (25.7-33.7); MEAN CELL VOLUME 80.3 fl (80-96); MONO % 9.5 % (3.8-10.2); NEUT % 36.5 % (42.8-82.8); PLATELET COUNT 309 K/MM3 (134-434); RBC 3.94 M/mm3 (4.00-5.60); RDW 20.9 % (11.9-15.9); WHITE BLOOD COUNT 2.5 K/mm3 (4.0-10.0)
[2021-01-31 16:13] LABS: INR 1.03 (0.83-1.09); PROTHROMBIN TIME (PATIENT) 12.6 SEC (9.7-13.0)
[2021-01-31 16:16] LABS: ACTIVATED PTT 40.9 SECONDS (25.2-36.5)
[2021-01-31 16:24] LABS: CREATININE 0.6 mg/dL (0.55-1.3)
[2021-01-31 16:25] LABS: BLOOD UREA NITROGEN 20.8 mg/dL (7-18)
[2021-01-31 16:26] LABS: BILIRUBIN,TOTAL 0.4 mg/dL (0.2-1); TOT PROT 8.1 g/dl (6.4-8.2)
[2021-01-31 16:27] LABS: LACTIC ACID 2.2 mmol/L (0.4-2.0)
[2021-01-31 16:28] LABS: ALBUMIN 2.8 g/dl (3.4-5.0); CALCIUM 10.5 mg/dL (8.5-10.1)
[2021-01-31 18:38] LABS: URINE APPEARANCE CLOUDY; URINE BILIRUBIN NEGATIVE (NEGATIVE); URINE COLOR YELLOW; URINE GLUCOSE (UA) NEGATIVE (NEGATIVE); URINE KETONE NEGATIVE (NEGATIVE); URINE LEUK ESTERASE NEGATIVE (NEGATIVE); URINE NITRITE NEGATIVE (NEGATIVE); URINE PROTEIN NEGATIVE (NEGATIVE); URINE UROBILINOGEN 0.2 mg/dL (0.2-1.0)
[2021-01-31] MEDS ORDERED: PIPERACILLIN/TAZOB 3.375 GM 3.375 GM in DEXTROSE 5%-WATER - 50 ML IVPB ONE (19:15)
[2021-01-31] MEDS ORDERED: VANCOMYCIN 1 GM in D5W (PRE-DOCKED) 1,000 MG/250 ML IVPB ONE (19:15)
[2021-01-31] MEDS ORDERED: AZITHROMYCIN IVPB 500 MG in DEXTROSE 5%-WATER - 250 ML IVPB ONE (19:20)
[2021-01-31 19:25] LABS: ANISOCYTOSIS 1+; MACROCYTOSIS 0; PLATELET ESTIMATE NORMAL
[2021-01-31] MEDS ORDERED: VANCOMYCIN 1 GRAM (PRE-DOCKED) 1,000 MG/250 ML BAG IVPB ONE (20:21)
[2021-01-31] MEDS ORDERED: PIPERACILLIN/TAZOB 3.375 GM 3.375 GM/50 ML BAG IVPB ONE (20:21)
[2021-01-31] MEDS ORDERED: AZITHROMYCIN IVPB 500 MG/250 ML BAG IVPB ONE (20:22)
[2021-01-31] MEDS ORDERED: ZOLPIDEM TARTRATE 5 MG TABLET GT PRN (22:00)
[2021-01-31] MEDS ORDERED: VANCOMYCIN 1 GM in D5W (PRE-DOCKED) 1,000 MG/250 ML IVPB SCH (22:00)
[2021-01-31 22:11] LABS: PHOSPHOROUS 5.2 mg/dL (2.5-4.9)
[2021-01-31 22:27] LABS: ARTERIAL BLD GAS O2 SATURATION 94.1 mmHg (95-98); ARTERIAL BLOOD GAS BASE EXCESS 8.8 mmol/L (-2-2); ARTERIAL BLOOD GAS PO2 68.1 mmHg (80-100); ARTERIAL BLOOD GAS pH 7.448 (7.350-7.450)
[2021-01-31 22:29] LABS: ALLENS TEST POSITIVE
[2021-01-31 22:30] LABS: VENT MODE ROOM AIR
[2021-02-01] MEDS: POTASSIUM CHLORIDE ORAL LIQUID 20 MEQ/15 ML GT SCH ×3 (00:23→21:37)
[2021-02-01] MEDS: clonazePAM 0.5 MG TABLET GT SCH ×4 (00:24→21:36)
[2021-02-01] MEDS: PHENobarbital 30 MG TABLET GT SCH ×3 (00:25→21:36)
[2021-02-01] MEDS: ATORVASTATIN CA 80 MG TABLET (FP) GT SCH ×2 (00:26→21:36)
[2021-02-01] MEDS: cloBAZam 10 MG TABLET GT SCH ×3 (00:26→21:36)
[2021-02-01] MEDS: PHENYTOIN 100 MG/4 ML U-D CUP GT SCH ×3 (00:27→21:38)
[2021-02-01] MEDS: LACTATED RINGERS SOLUTION 1,000 ML/1,000 ML INFUS.BAG IV SCH (00:29)
[2021-02-01] MEDS: Lacosamide 50 MG/5 ML ORAL SOLUTION UNIT CUPS GT SCH ×3 (00:50→21:38)
[2021-02-01] MEDS ORDERED: PIPERACILLIN/TAZOB 3.375 GM 3.375 GM in DEXTROSE 5%-WATER - 50 ML IVPB SCH (05:00)
[2021-02-01] MEDS ORDERED: PIPERACILLIN/TAZOBACTAM 3.375 GM VIAL IVPB ONE ×3 (05:33→18:13)
[2021-02-01] MEDS ORDERED: DEXTROSE 5%-WATER - 50 ML IVPB ONE ×3 (05:33→18:13)
[2021-02-01] MEDS: PIPERACILLIN/TAZOB 3.375 GM 3.375 GM in DEXTROSE 5%-WATER - 50 ML IVPB SCH ×5 (05:45→18:37)
[2021-02-01 08:04] LABS: BASO % 0.8 % (0-2.0); HEMATOCRIT 27.7 % (35.4-49); HEMOGLOBIN 9.1 GM/dL (11.7-16.9); LYMPH % 28.3 % (8-40); MCH 25.8 pg (25.7-33.7); MCHC 32.9 g/dl (32.0-35.9); MEAN CELL VOLUME 78.5 fl (80-96); MEAN PLT VOLUME 8.6 fl (7.5-11.1); MONO % 8.6 % (3.8-10.2); NEUT % 61.3 % (42.8-82.8); PLATELET COUNT 368 K/MM3 (134-434); RBC 3.53 M/mm3 (4.00-5.60); RDW 21.7 % (11.9-15.9); WHITE BLOOD COUNT 5.9 K/mm3 (4.0-10.0)
[2021-02-01 08:41] LABS: CALCIUM 10.3 mg/dL (8.5-10.1)
[2021-02-01 08:42] LABS: ALBUMIN 2.5 g/dl (3.4-5.0); BLOOD UREA NITROGEN 15.7 mg/dL (7-18); MAGNESIUM 1.8 mg/dL (1.8-2.4)
[2021-02-01 08:45] LABS: CREATININE 0.7 mg/dL (0.55-1.3); PHOSPHOROUS 4.5 mg/dL (2.5-4.9)
[2021-02-01 08:46] LABS: BILIRUBIN,TOTAL 0.2 mg/dL (0.2-1); TOT PROT 7.2 g/dl (6.4-8.2)
[2021-02-01 09:13] LABS: IRON SERUM 24 ug/dL (50-175); TOTAL IRON BINDING CAPACITY 259 ug/dL (250-450)
[2021-02-01] MEDS ORDERED: PT OWN MED DRAWER 7, Y5N ONE ×5 (10:33→21:35)
[2021-02-01] MEDS: VANCOMYCIN 1 GM in D5W (PRE-DOCKED) 1,000 MG/250 ML IVPB SCH ×2 (10:45→21:39)
[2021-02-01] MEDS: FOLIC ACID 1 MG TABLET (FP) GT SCH (10:54)
[2021-02-01] MEDS: ENOXAPARIN NA (PORCINE) 40 MG/0.4 ML DISP.SYRIN SQ SCH (10:56)
[2021-02-01] MEDS: POLYETHYLENE GLYCOL 3350 119 GM BTL GT SCH (11:10)
[2021-02-01] MEDS: ASCORBIC ACID 500 MG/5 ML UNIT DOSE CUP GT SCH (13:41)
[2021-02-01] MEDS: SENNOSIDES 8.8 MG/5 ML BULK BOTTLE GT SCH (13:42)
[2021-02-01] MEDS: DOXAZOSIN MESYLATE 1 MG TABLET GT SCH (13:45)
[2021-02-02] MEDS ORDERED: PIPERACILLIN/TAZOBACTAM 3.375 GM VIAL IVPB ONE ×3 (01:14→17:40)
[2021-02-02] MEDS ORDERED: DEXTROSE 5%-WATER - 50 ML IVPB ONE ×3 (01:14→17:40)
[2021-02-02] MEDS: LACTATED RINGERS SOLUTION 1,000 ML/1,000 ML INFUS.BAG IV SCH ×2 (01:40→11:17)
[2021-02-02] MEDS: PIPERACILLIN/TAZOB 3.375 GM 3.375 GM in DEXTROSE 5%-WATER - 50 ML IVPB SCH ×3 (01:40→17:43)
[2021-02-02] MEDS: clonazePAM 0.5 MG TABLET GT SCH ×3 (05:14→21:47)
[2021-02-02 07:30] LABS: HEMATOCRIT 28.8 % (35.4-49); HEMOGLOBIN 9.4 GM/dL (11.7-16.9); MCH 25.7 pg (25.7-33.7); MCHC 32.5 g/dl (32.0-35.9); MEAN CELL VOLUME 79.1 fl (80-96); PLATELET COUNT 315 K/MM3 (134-434); RBC 3.64 M/mm3 (4.00-5.60); RDW 21.6 % (11.9-15.9); WHITE BLOOD COUNT 9.8 K/mm3 (4.0-10.0)
[2021-02-02 07:50] LABS: CALCIUM 8.9 mg/dL (8.5-10.1)
[2021-02-02 07:54] LABS: CREATININE 0.6 mg/dL (0.55-1.3)
[2021-02-02] MEDS ORDERED: PT OWN MED DRAWER 7, Y5N ONE ×3 (10:42→21:35)
[2021-02-02] MEDS: ENOXAPARIN NA (PORCINE) 40 MG/0.4 ML DISP.SYRIN SQ SCH (10:51)
[2021-02-02] MEDS: PHENobarbital 30 MG TABLET GT SCH ×2 (10:52→21:46)
[2021-02-02] MEDS: DOXAZOSIN MESYLATE 1 MG TABLET GT SCH (10:53)
[2021-02-02] MEDS: FOLIC ACID 1 MG TABLET (FP) GT SCH (10:54)
[2021-02-02] MEDS: cloBAZam 10 MG TABLET GT SCH ×2 (10:55→21:47)
[2021-02-02] MEDS: Lacosamide 50 MG/5 ML ORAL SOLUTION UNIT CUPS GT SCH ×2 (10:56→21:45)
[2021-02-02] MEDS: SENNOSIDES 8.8 MG/5 ML BULK BOTTLE GT SCH (10:57)
[2021-02-02] MEDS: ASCORBIC ACID 500 MG/5 ML UNIT DOSE CUP GT SCH (10:57)
[2021-02-02] MEDS: POTASSIUM CHLORIDE ORAL LIQUID 20 MEQ/15 ML GT SCH ×2 (10:58→21:46)
[2021-02-02] MEDS: PHENYTOIN 100 MG/4 ML U-D CUP GT SCH ×2 (11:01→21:46)
[2021-02-02] MEDS: POLYETHYLENE GLYCOL 3350 119 GM BTL GT SCH (11:02)
[2021-02-02] MEDS: ATORVASTATIN CA 80 MG TABLET (FP) GT SCH (21:47)
[2021-02-03] MEDS ORDERED: PIPERACILLIN/TAZOBACTAM 3.375 GM VIAL IVPB ONE ×3 (00:53→16:09)
[2021-02-03] MEDS ORDERED: DEXTROSE 5%-WATER - 50 ML IVPB ONE ×3 (00:53→16:09)
[2021-02-03] MEDS: PIPERACILLIN/TAZOB 3.375 GM 3.375 GM in DEXTROSE 5%-WATER - 50 ML IVPB SCH ×3 (01:05→17:08)
[2021-02-03] MEDS: clonazePAM 0.5 MG TABLET GT SCH ×3 (05:47→21:51)
[2021-02-03 06:49] LABS: HEMATOCRIT 26.7 % (35.4-49); HEMOGLOBIN 8.7 GM/dL (11.7-16.9); MCH 26.1 pg (25.7-33.7); MCHC 32.6 g/dl (32.0-35.9); MEAN CELL VOLUME 79.8 fl (80-96); MEAN PLT VOLUME 9.2 fl (7.5-11.1); PLATELET COUNT 302 K/MM3 (134-434); RBC 3.34 M/mm3 (4.00-5.60); RDW 21.5 % (11.9-15.9); WHITE BLOOD COUNT 4.8 K/mm3 (4.0-10.0)
[2021-02-03 07:19] LABS: CALCIUM 8.8 mg/dL (8.5-10.1)
[2021-02-03 07:20] LABS: BLOOD UREA NITROGEN 13.7 mg/dL (7-18)
[2021-02-03 07:23] LABS: CREATININE 0.8 mg/dL (0.55-1.3)
[2021-02-03] MEDS ORDERED: PT OWN MED DRAWER 7, Y5N ONE ×2 (09:38→21:50)
[2021-02-03] MEDS: POTASSIUM CHLORIDE ORAL LIQUID 20 MEQ/15 ML GT SCH ×2 (09:45→21:56)
[2021-02-03] MEDS: Lacosamide 50 MG/5 ML ORAL SOLUTION UNIT CUPS GT SCH ×2 (09:46→21:56)
[2021-02-03] MEDS: PHENobarbital 30 MG TABLET GT SCH ×2 (09:46→21:52)
[2021-02-03] MEDS: cloBAZam 10 MG TABLET GT SCH ×2 (09:46→21:52)
[2021-02-03] MEDS: ENOXAPARIN NA (PORCINE) 40 MG/0.4 ML DISP.SYRIN SQ SCH (09:47)
[2021-02-03] MEDS: FOLIC ACID 1 MG TABLET (FP) GT SCH (09:47)
[2021-02-03] MEDS: PHENYTOIN 100 MG/4 ML U-D CUP GT SCH ×2 (09:49→21:56)
[2021-02-03] MEDS: DOXAZOSIN MESYLATE 1 MG TABLET GT SCH (09:50)
[2021-02-03] MEDS: SENNOSIDES 8.8 MG/5 ML BULK BOTTLE GT SCH (09:51)
[2021-02-03] MEDS: POLYETHYLENE GLYCOL 3350 119 GM BTL GT SCH (09:51)
[2021-02-03] MEDS: ASCORBIC ACID 500 MG/5 ML UNIT DOSE CUP GT SCH (09:52)
[2021-02-03] MEDS ORDERED: ALBUTEROL SO4 2.5/IPRATROPIUM 0.5 INH SOL 3 ML VIAL.NEB. NEB PRN (11:09)
[2021-02-03] MEDS: ATORVASTATIN CA 80 MG TABLET (FP) GT SCH (21:52)
[2021-02-04] MEDS ORDERED: DEXTROSE 5%-WATER - 50 ML IVPB ONE ×3 (01:12→17:03)
[2021-02-04] MEDS ORDERED: PIPERACILLIN/TAZOBACTAM 3.375 GM VIAL IVPB ONE ×3 (01:12→17:03)
[2021-02-04] MEDS: PIPERACILLIN/TAZOB 3.375 GM 3.375 GM in DEXTROSE 5%-WATER - 50 ML IVPB SCH ×3 (01:22→17:08)
[2021-02-04] MEDS: clonazePAM 0.5 MG TABLET GT SCH ×3 (05:36→22:14)
[2021-02-04 07:51] LABS: HEMATOCRIT 28.2 % (35.4-49); HEMOGLOBIN 9.1 GM/dL (11.7-16.9); MCH 25.8 pg (25.7-33.7); MCHC 32.4 g/dl (32.0-35.9); MEAN CELL VOLUME 79.5 fl (80-96); MEAN PLT VOLUME 8.8 fl (7.5-11.1); PLATELET COUNT 294 K/MM3 (134-434); RBC 3.54 M/mm3 (4.00-5.60); RDW 21.1 % (11.9-15.9); WHITE BLOOD COUNT 6.5 K/mm3 (4.0-10.0)
[2021-02-04 08:11] LABS: CALCIUM 9.1 mg/dL (8.5-10.1)
[2021-02-04 08:12] LABS: BLOOD UREA NITROGEN 14.7 mg/dL (7-18)
[2021-02-04 08:15] LABS: CREATININE 0.7 mg/dL (0.55-1.3)
[2021-02-04] MEDS ORDERED: PT OWN MED DRAWER 7, Y5N ONE ×2 (09:51→20:48)
[2021-02-04] MEDS: POTASSIUM CHLORIDE ORAL LIQUID 20 MEQ/15 ML GT SCH ×2 (09:56→22:15)
[2021-02-04] MEDS: POLYETHYLENE GLYCOL 3350 119 GM BTL GT SCH (09:56)
[2021-02-04] MEDS: Lacosamide 50 MG/5 ML ORAL SOLUTION UNIT CUPS GT SCH ×2 (09:56→22:16)
[2021-02-04] MEDS: PHENobarbital 30 MG TABLET GT SCH ×2 (09:57→22:13)
[2021-02-04] MEDS: SENNOSIDES 8.8 MG/5 ML BULK BOTTLE GT SCH (09:57)
[2021-02-04] MEDS: ENOXAPARIN NA (PORCINE) 40 MG/0.4 ML DISP.SYRIN SQ SCH (09:57)
[2021-02-04] MEDS: FOLIC ACID 1 MG TABLET (FP) GT SCH (09:57)
[2021-02-04] MEDS: ASCORBIC ACID 500 MG/5 ML UNIT DOSE CUP GT SCH (09:57)
[2021-02-04] MEDS: cloBAZam 10 MG TABLET GT SCH ×2 (09:58→22:15)
[2021-02-04] MEDS: PHENYTOIN 100 MG/4 ML U-D CUP GT SCH ×2 (09:59→22:12)
[2021-02-04] MEDS: DOXAZOSIN MESYLATE 1 MG TABLET GT SCH (09:59)
[2021-02-04] MEDS: ATORVASTATIN CA 80 MG TABLET (FP) GT SCH (22:13)
[2021-02-05] MEDS ORDERED: PIPERACILLIN/TAZOBACTAM 3.375 GM VIAL IVPB ONE ×3 (00:16→17:13)
[2021-02-05] MEDS ORDERED: DEXTROSE 5%-WATER - 50 ML IVPB ONE ×3 (00:17→17:13)
[2021-02-05] MEDS ORDERED: ALBUTEROL SO4 2.5/IPRATROPIUM 0.5 INH SOL 3 ML VIAL.NEB. NEB PRN (00:23)
[2021-02-05] MEDS ORDERED: ZOLPIDEM TARTRATE 5 MG TABLET GT PRN (00:23)
[2021-02-05] MEDS: PIPERACILLIN/TAZOB 3.375 GM 3.375 GM in DEXTROSE 5%-WATER - 50 ML IVPB SCH ×3 (01:21→17:16)
[2021-02-05] MEDS: clonazePAM 0.5 MG TABLET GT SCH ×3 (05:48→21:26)
[2021-02-05 08:30] LABS: BASO % 0.5 % (0-2.0); HEMATOCRIT 27.9 % (35.4-49); HEMOGLOBIN 8.9 GM/dL (11.7-16.9); MCH 25.5 pg (25.7-33.7); MEAN CELL VOLUME 79.7 fl (80-96); MEAN PLT VOLUME 9.2 fl (7.5-11.1); NEUT % 63.5 % (42.8-82.8); PLATELET COUNT 279 K/MM3 (134-434); RDW 21.4 % (11.9-15.9); WHITE BLOOD COUNT 6.9 K/mm3 (4.0-10.0)
[2021-02-05 08:53] LABS: CALCIUM 9.1 mg/dL (8.5-10.1)
[2021-02-05 08:54] LABS: ALBUMIN 2.4 g/dl (3.4-5.0); BLOOD UREA NITROGEN 13.9 mg/dL (7-18)
[2021-02-05 08:57] LABS: CREATININE 0.6 mg/dL (0.55-1.3)
[2021-02-05 08:59] LABS: BILIRUBIN,TOTAL 0.1 mg/dL (0.2-1); TOT PROT 7.6 g/dl (6.4-8.2)
[2021-02-05] MEDS: POTASSIUM CHLORIDE ORAL LIQUID 20 MEQ/15 ML GT SCH ×2 (09:27→21:25)
[2021-02-05] MEDS: Lacosamide 50 MG/5 ML ORAL SOLUTION UNIT CUPS GT SCH ×2 (09:28→21:25)
[2021-02-05] MEDS: FOLIC ACID 1 MG TABLET (FP) GT SCH (09:29)
[2021-02-05] MEDS: ENOXAPARIN NA (PORCINE) 40 MG/0.4 ML DISP.SYRIN SQ SCH (09:29)
[2021-02-05] MEDS: cloBAZam 10 MG TABLET GT SCH ×2 (09:29→21:27)
[2021-02-05] MEDS: PHENobarbital 30 MG TABLET GT SCH ×2 (09:29→21:26)
[2021-02-05] MEDS: ASCORBIC ACID 500 MG/5 ML UNIT DOSE CUP GT SCH (09:35)
[2021-02-05] MEDS: SENNOSIDES 8.8 MG/5 ML BULK BOTTLE GT SCH (09:35)
[2021-02-05] MEDS: PHENYTOIN 100 MG/4 ML U-D CUP GT SCH ×2 (09:36→21:24)
[2021-02-05] MEDS: DOXAZOSIN MESYLATE 1 MG TABLET GT SCH (09:37)
[2021-02-05] MEDS: POLYETHYLENE GLYCOL 3350 119 GM BTL GT SCH (09:37)
[2021-02-05 09:53] LABS: ANISOCYTOSIS 3+; MACROCYTOSIS 0; PLATELET ESTIMATE NORMAL
[2021-02-05] MEDS ORDERED: PT OWN MED DRAWER 7, Y5N ONE (11:07)
[2021-02-05] MEDS: ATORVASTATIN CA 80 MG TABLET (FP) GT SCH (21:26)
[2021-02-06] MEDS ORDERED: DEXTROSE 5%-WATER - 50 ML IVPB ONE ×2 (00:58→09:19)
[2021-02-06] MEDS ORDERED: PIPERACILLIN/TAZOBACTAM 3.375 GM VIAL IVPB ONE ×3 (00:58→16:41)
[2021-02-06] MEDS: PIPERACILLIN/TAZOB 3.375 GM 3.375 GM in DEXTROSE 5%-WATER - 50 ML IVPB SCH ×3 (01:21→17:04)
[2021-02-06] MEDS: clonazePAM 0.5 MG TABLET GT SCH ×3 (05:35→21:15)
[2021-02-06] MEDS: ENOXAPARIN NA (PORCINE) 40 MG/0.4 ML DISP.SYRIN SQ SCH (09:25)
[2021-02-06] MEDS: PHENobarbital 30 MG TABLET GT SCH ×2 (09:25→21:16)
[2021-02-06] MEDS: FOLIC ACID 1 MG TABLET (FP) GT SCH (09:26)
[2021-02-06] MEDS: cloBAZam 10 MG TABLET GT SCH ×2 (09:26→21:18)
[2021-02-06] MEDS: Lacosamide 50 MG/5 ML ORAL SOLUTION UNIT CUPS GT SCH ×2 (09:27→21:17)
[2021-02-06] MEDS: POTASSIUM CHLORIDE ORAL LIQUID 20 MEQ/15 ML GT SCH ×2 (09:27→21:08)
[2021-02-06] MEDS: SENNOSIDES 8.8 MG/5 ML BULK BOTTLE GT SCH (09:27)
[2021-02-06] MEDS: ASCORBIC ACID 500 MG/5 ML UNIT DOSE CUP GT SCH (09:28)
[2021-02-06] MEDS: PHENYTOIN 100 MG/4 ML U-D CUP GT SCH ×2 (09:28→21:12)
[2021-02-06] MEDS: DOXAZOSIN MESYLATE 1 MG TABLET GT SCH (09:29)
[2021-02-06] MEDS: POLYETHYLENE GLYCOL 3350 119 GM BTL GT SCH (09:29)
[2021-02-06] MEDS ORDERED: PT OWN MED DRAWER 7, Y5N ONE (20:27)
[2021-02-06] MEDS: ATORVASTATIN CA 80 MG TABLET (FP) GT SCH (21:14)
[2021-02-07] MEDS ORDERED: PIPERACILLIN/TAZOBACTAM 3.375 GM VIAL IVPB ONE ×2 (01:25→08:19)
[2021-02-07] MEDS ORDERED: DEXTROSE 5%-WATER - 50 ML IVPB ONE ×2 (01:25→08:19)
[2021-02-07] MEDS: PIPERACILLIN/TAZOB 3.375 GM 3.375 GM in DEXTROSE 5%-WATER - 50 ML IVPB SCH ×3 (01:27→17:03)
[2021-02-07] MEDS: clonazePAM 0.5 MG TABLET GT SCH ×3 (05:53→21:55)
[2021-02-07] MEDS: POTASSIUM CHLORIDE ORAL LIQUID 20 MEQ/15 ML GT SCH ×2 (09:05→21:56)
[2021-02-07] MEDS: SENNOSIDES 8.8 MG/5 ML BULK BOTTLE GT SCH (09:05)
[2021-02-07] MEDS: PHENYTOIN 100 MG/4 ML U-D CUP GT SCH ×2 (09:05→21:55)
[2021-02-07] MEDS: Lacosamide 50 MG/5 ML ORAL SOLUTION UNIT CUPS GT SCH ×2 (09:06→21:58)
[2021-02-07] MEDS: FOLIC ACID 1 MG TABLET (FP) GT SCH (09:06)
[2021-02-07] MEDS: ENOXAPARIN NA (PORCINE) 40 MG/0.4 ML DISP.SYRIN SQ SCH (09:06)
[2021-02-07] MEDS: PHENobarbital 30 MG TABLET GT SCH ×2 (09:06→21:55)
[2021-02-07] MEDS: ASCORBIC ACID 500 MG/5 ML UNIT DOSE CUP GT SCH (09:06)
[2021-02-07] MEDS: POLYETHYLENE GLYCOL 3350 119 GM BTL GT SCH (09:07)
[2021-02-07] MEDS: DOXAZOSIN MESYLATE 1 MG TABLET GT SCH (09:07)
[2021-02-07] MEDS: cloBAZam 10 MG TABLET GT SCH ×2 (09:07→21:55)
[2021-02-07] MEDS ORDERED: DEXTROSE 50%-WATER 25 GM/50 ML DISP.SYRIN ONE (16:27)
[2021-02-07] MEDS ORDERED: DEXTROSE 50%-WATER - 25 GM/50 ML VIAL IVPUSH ONE (17:00)
[2021-02-07] MEDS ORDERED: ZOLPIDEM TARTRATE 5 MG TABLET GT PRN (19:14)
[2021-02-07] MEDS ORDERED: ALBUTEROL SO4 2.5/IPRATROPIUM 0.5 INH SOL 3 ML VIAL.NEB. NEB PRN (19:14)
[2021-02-07 20:14] LABS: ALLENS TEST POSITIVE; ARTERIAL BLD GAS O2 SATURATION 95.1 mmHg (95-98); ARTERIAL BLOOD GAS BASE EXCESS 3.3 mmol/L (-2-2); ARTERIAL BLOOD GAS PO2 76.5 mmHg (80-100); ARTERIAL BLOOD GAS pH 7.393 (7.350-7.450)
[2021-02-07] MEDS ORDERED: PT OWN MED DRAWER 7, Y5N ONE (21:18)
[2021-02-07] MEDS: DEXTROSE 5%-NORMAL SALINE 1,000 ML IV SCH (21:27)
[2021-02-07] MEDS: ATORVASTATIN CA 80 MG TABLET (FP) GT SCH (21:54)
[2021-02-08] MEDS ORDERED: PIPERACILLIN/TAZOBACTAM 3.375 GM VIAL IVPB ONE ×3 (01:30→16:17)
[2021-02-08] MEDS ORDERED: DEXTROSE 5%-WATER - 50 ML IVPB ONE ×3 (01:30→16:17)
[2021-02-08] MEDS: PIPERACILLIN/TAZOB 3.375 GM 3.375 GM in DEXTROSE 5%-WATER - 50 ML IVPB SCH ×3 (01:36→17:02)
[2021-02-08] MEDS: clonazePAM 0.5 MG TABLET GT SCH ×3 (05:29→21:15)
[2021-02-08 07:34] LABS: BASO % 0.4 % (0-2.0); EOS % 1.4 % (0-4.5); HEMATOCRIT 29.2 % (35.4-49); HEMOGLOBIN 9.6 GM/dL (11.7-16.9); LYMPH % 12.9 % (8-40); MCH 26.1 pg (25.7-33.7); MCHC 32.8 g/dl (32.0-35.9); MEAN CELL VOLUME 79.7 fl (80-96); MONO % 8.3 % (3.8-10.2); PLATELET COUNT 219 K/MM3 (134-434); RBC 3.66 M/mm3 (4.00-5.60); RDW 21.1 % (11.9-15.9); WHITE BLOOD COUNT 10.7 K/mm3 (4.0-10.0)
[2021-02-08] MEDS ORDERED: AMINO ACIDS/PROTEIN HYDROLYS 30 ML LIQUID.PKT PO SCH (08:00)
[2021-02-08 08:04] LABS: BLOOD UREA NITROGEN 12.7 mg/dL (7-18); CALCIUM 9.4 mg/dL (8.5-10.1)
[2021-02-08 08:08] LABS: CREATININE 0.6 mg/dL (0.55-1.3)
[2021-02-08] MEDS ORDERED: PT OWN MED DRAWER 7, Y5N ONE ×4 (09:43→21:13)
[2021-02-08] MEDS: POTASSIUM CHLORIDE ORAL LIQUID 20 MEQ/15 ML GT SCH ×2 (09:50→21:16)
[2021-02-08] MEDS: Lacosamide 50 MG/5 ML ORAL SOLUTION UNIT CUPS GT SCH ×2 (09:51→21:16)
[2021-02-08] MEDS: FOLIC ACID 1 MG TABLET (FP) GT SCH (09:52)
[2021-02-08] MEDS: ASCORBIC ACID 500 MG/5 ML UNIT DOSE CUP GT SCH (09:52)
[2021-02-08] MEDS: SENNOSIDES 8.8 MG/5 ML BULK BOTTLE GT SCH (09:53)
[2021-02-08] MEDS: POLYETHYLENE GLYCOL 3350 119 GM BTL GT SCH (09:54)
[2021-02-08] MEDS: cloBAZam 10 MG TABLET GT SCH ×2 (09:54→21:16)
[2021-02-08] MEDS: PHENobarbital 30 MG TABLET GT SCH ×2 (09:54→21:16)
[2021-02-08] MEDS: PHENYTOIN 100 MG/4 ML U-D CUP GT SCH ×2 (09:55→21:15)
[2021-02-08] MEDS: AMINO ACIDS/PROTEIN HYDROLYS 30 ML LIQUID.PKT PO SCH (10:04)
[2021-02-08] MEDS: ENOXAPARIN NA (PORCINE) 40 MG/0.4 ML DISP.SYRIN SQ SCH (11:17)
[2021-02-08] MEDS: DOXAZOSIN MESYLATE 1 MG TABLET GT SCH (11:17)
[2021-02-08 13:07] LABS: ANISOCYTOSIS 1+; MACROCYTOSIS 1+; PLATELET ESTIMATE NORMAL
[2021-02-08] MEDS: ALBUTEROL SO4 2.5/IPRATROPIUM 0.5 INH SOL 3 ML VIAL.NEB. NEB SCH ×2 (16:00→20:36)
[2021-02-08] MEDS: DEXTROSE 5%-NORMAL SALINE 1,000 ML IV SCH (20:00)
[2021-02-08] MEDS: ATORVASTATIN CA 80 MG TABLET (FP) GT SCH (21:15)
[2021-02-09] MEDS ORDERED: DEXTROSE 5%-WATER - 50 ML IVPB ONE ×2 (00:55→08:55)
[2021-02-09] MEDS ORDERED: PIPERACILLIN/TAZOBACTAM 3.375 GM VIAL IVPB ONE ×2 (00:55→08:55)
[2021-02-09] MEDS: PIPERACILLIN/TAZOB 3.375 GM 3.375 GM in DEXTROSE 5%-WATER - 50 ML IVPB SCH ×2 (01:12→09:22)
[2021-02-09] MEDS: clonazePAM 0.5 MG TABLET GT SCH ×3 (05:18→22:46)
[2021-02-09 07:15] LABS: BASO % 0.4 % (0-2.0); EOS % 1.1 % (0-4.5); HEMATOCRIT 29.4 % (35.4-49); HEMOGLOBIN 9.2 GM/dL (11.7-16.9); MCHC 31.3 g/dl (32.0-35.9); MEAN CELL VOLUME 79.9 fl (80-96); MEAN PLT VOLUME 9.1 fl (7.5-11.1); MONO % 6.4 % (3.8-10.2); NEUT % 80.1 % (42.8-82.8); PLATELET COUNT 211 K/MM3 (134-434); RBC 3.68 M/mm3 (4.00-5.60); RDW 21.5 % (11.9-15.9)
[2021-02-09] MEDS: ALBUTEROL SO4 2.5/IPRATROPIUM 0.5 INH SOL 3 ML VIAL.NEB. NEB SCH ×4 (08:19→19:54)
[2021-02-09] MEDS ORDERED: PT OWN MED DRAWER 7, Y5N ONE ×2 (08:54→17:29)
[2021-02-09] MEDS: AMINO ACIDS/PROTEIN HYDROLYS 30 ML LIQUID.PKT PO SCH (09:10)
[2021-02-09] MEDS: POTASSIUM CHLORIDE ORAL LIQUID 20 MEQ/15 ML GT SCH ×2 (09:16→22:48)
[2021-02-09] MEDS: Lacosamide 50 MG/5 ML ORAL SOLUTION UNIT CUPS GT SCH ×2 (09:17→22:50)
[2021-02-09] MEDS: ASCORBIC ACID 500 MG/5 ML UNIT DOSE CUP GT SCH (09:17)
[2021-02-09] MEDS: SENNOSIDES 8.8 MG/5 ML BULK BOTTLE GT SCH (09:17)
[2021-02-09] MEDS: PHENobarbital 30 MG TABLET GT SCH ×2 (09:19→22:48)
[2021-02-09] MEDS: FOLIC ACID 1 MG TABLET (FP) GT SCH (09:20)
[2021-02-09] MEDS: DOXAZOSIN MESYLATE 1 MG TABLET GT SCH (09:20)
[2021-02-09] MEDS: ENOXAPARIN NA (PORCINE) 40 MG/0.4 ML DISP.SYRIN SQ SCH (09:21)
[2021-02-09] MEDS: PHENYTOIN 100 MG/4 ML U-D CUP GT SCH ×2 (09:21→22:52)
[2021-02-09] MEDS: cloBAZam 10 MG TABLET GT SCH ×2 (09:21→22:48)
[2021-02-09] MEDS ORDERED: FUROSEMIDE 40 MG/4 ML INJECTABLE VIAL IVPUSH ONE (10:25)
[2021-02-09] MEDS: POLYETHYLENE GLYCOL 3350 119 GM BTL GT SCH (12:18)
[2021-02-09] MEDS: FAMOTIDINE 20 MG TABLET PO SCH (18:58)
[2021-02-09] MEDS ORDERED: ZOLPIDEM TARTRATE 5 MG TABLET GT PRN (19:17)
[2021-02-09] MEDS ORDERED: ALBUTEROL SO4 2.5/IPRATROPIUM 0.5 INH SOL 3 ML VIAL.NEB. NEB PRN (19:17)
[2021-02-09] MEDS: ATORVASTATIN CA 80 MG TABLET (FP) GT SCH (22:48)
[2021-02-10] MEDS: DEXTROSE 5%-NORMAL SALINE 1,000 ML IV SCH (01:36)
[2021-02-10] MEDS: clonazePAM 0.5 MG TABLET GT SCH ×3 (06:40→21:55)
[2021-02-10] MEDS: ALBUTEROL SO4 2.5/IPRATROPIUM 0.5 INH SOL 3 ML VIAL.NEB. NEB SCH ×4 (08:25→20:10)
[2021-02-10 08:51] LABS: HEMATOCRIT 28.8 % (35.4-49); HEMOGLOBIN 9.4 GM/dL (11.7-16.9); MCH 25.6 pg (25.7-33.7); MCHC 32.6 g/dl (32.0-35.9); MEAN CELL VOLUME 78.4 fl (80-96); MEAN PLT VOLUME 9.1 fl (7.5-11.1); PLATELET COUNT 217 K/MM3 (134-434); RBC 3.68 M/mm3 (4.00-5.60); RDW 21.6 % (11.9-15.9); WHITE BLOOD COUNT 8.2 K/mm3 (4.0-10.0)
[2021-02-10 09:24] LABS: BLOOD UREA NITROGEN 10.2 mg/dL (7-18); CALCIUM 9.2 mg/dL (8.5-10.1)
[2021-02-10 09:27] LABS: CREATININE 0.5 mg/dL (0.55-1.3)
[2021-02-10] MEDS ORDERED: PT OWN MED DRAWER 7, Y5N ONE (11:28)
[2021-02-10] MEDS: PHENYTOIN 100 MG/4 ML U-D CUP GT SCH ×2 (11:42→22:01)
[2021-02-10] MEDS: ASCORBIC ACID 500 MG/5 ML UNIT DOSE CUP GT SCH (11:42)
[2021-02-10] MEDS: AMINO ACIDS/PROTEIN HYDROLYS 30 ML LIQUID.PKT GT SCH (11:42)
[2021-02-10] MEDS: POTASSIUM CHLORIDE ORAL LIQUID 20 MEQ/15 ML GT SCH ×2 (11:43→22:01)
[2021-02-10] MEDS: SENNOSIDES 8.8 MG/5 ML BULK BOTTLE GT SCH (11:44)
[2021-02-10] MEDS: FAMOTIDINE 20 MG TABLET PO SCH (11:45)
[2021-02-10] MEDS: FOLIC ACID 1 MG TABLET (FP) GT SCH (11:45)
[2021-02-10] MEDS: cloBAZam 10 MG TABLET GT SCH ×2 (11:46→22:00)
[2021-02-10] MEDS: POLYETHYLENE GLYCOL 3350 119 GM BTL GT SCH (11:46)
[2021-02-10] MEDS: DOXAZOSIN MESYLATE 1 MG TABLET GT SCH (11:47)
[2021-02-10] MEDS: ENOXAPARIN NA (PORCINE) 40 MG/0.4 ML DISP.SYRIN SQ SCH (11:47)
[2021-02-10] MEDS: PHENobarbital 30 MG TABLET GT SCH ×2 (11:48→21:59)
[2021-02-10] MEDS: Lacosamide 50 MG/5 ML ORAL SOLUTION UNIT CUPS GT SCH ×2 (11:49→22:00)
[2021-02-10] MEDS ORDERED: PIPERACILLIN/TAZOBACTAM 3.375 GM VIAL IVPB ONE (18:02)
[2021-02-10] MEDS ORDERED: DEXTROSE 5%-WATER - 50 ML IVPB ONE (18:03)
[2021-02-10] MEDS: PIPERACILLIN/TAZOB 3.375 GM 3.375 GM in DEXTROSE 5%-WATER - 50 ML IVPB SCH (18:08)
[2021-02-10] MEDS: AMINO ACIDS 4.25%/D5W 1,000 ML IV SCH (18:08)
[2021-02-10] MEDS: ATORVASTATIN CA 80 MG TABLET (FP) GT SCH (21:59)
[2021-02-11] MEDS ORDERED: DEXTROSE 5%-WATER - 50 ML IVPB ONE ×3 (02:01→18:10)
[2021-02-11] MEDS ORDERED: PIPERACILLIN/TAZOBACTAM 3.375 GM VIAL IVPB ONE ×3 (02:01→18:10)
[2021-02-11] MEDS: PIPERACILLIN/TAZOB 3.375 GM 3.375 GM in DEXTROSE 5%-WATER - 50 ML IVPB SCH ×3 (02:02→18:59)
[2021-02-11] MEDS: clonazePAM 0.5 MG TABLET GT SCH ×3 (05:30→23:10)
[2021-02-11] MEDS: ALBUTEROL SO4 2.5/IPRATROPIUM 0.5 INH SOL 3 ML VIAL.NEB. NEB SCH ×4 (08:28→19:15)
[2021-02-11 09:01] LABS: HEMATOCRIT 26.7 % (35.4-49); HEMOGLOBIN 8.9 GM/dL (11.7-16.9); MCH 26.2 pg (25.7-33.7); MCHC 33.2 g/dl (32.0-35.9); MEAN CELL VOLUME 78.9 fl (80-96); PLATELET COUNT 238 K/MM3 (134-434); RBC 3.39 M/mm3 (4.00-5.60); RDW 20.7 % (11.9-15.9); WHITE BLOOD COUNT 6.6 K/mm3 (4.0-10.0)
[2021-02-11 09:02] LABS: BLOOD UREA NITROGEN 10.5 mg/dL (7-18)
[2021-02-11 09:03] LABS: CALCIUM 8.7 mg/dL (8.5-10.1)
[2021-02-11 09:10] LABS: CREATININE 0.5 mg/dL (0.55-1.3)
[2021-02-11] MEDS ORDERED: PT OWN MED DRAWER 7, Y5N ONE ×2 (09:29→23:08)
[2021-02-11] MEDS: PHENYTOIN 100 MG/4 ML U-D CUP GT SCH ×2 (09:58→23:11)
[2021-02-11] MEDS: SENNOSIDES 8.8 MG/5 ML BULK BOTTLE GT SCH (09:58)
[2021-02-11] MEDS: ASCORBIC ACID 500 MG/5 ML UNIT DOSE CUP GT SCH (09:58)
[2021-02-11] MEDS: POTASSIUM CHLORIDE ORAL LIQUID 20 MEQ/15 ML GT SCH ×2 (09:59→23:09)
[2021-02-11] MEDS: AMINO ACIDS/PROTEIN HYDROLYS 30 ML LIQUID.PKT GT SCH (09:59)
[2021-02-11] MEDS: Lacosamide 50 MG/5 ML ORAL SOLUTION UNIT CUPS GT SCH ×2 (09:59→23:08)
[2021-02-11] MEDS: ENOXAPARIN NA (PORCINE) 40 MG/0.4 ML DISP.SYRIN SQ SCH (10:00)
[2021-02-11] MEDS: FAMOTIDINE 20 MG TABLET PO SCH (10:03)
[2021-02-11] MEDS: PHENobarbital 30 MG TABLET GT SCH ×2 (10:03→23:09)
[2021-02-11] MEDS: cloBAZam 10 MG TABLET GT SCH ×2 (10:04→23:09)
[2021-02-11] MEDS: POLYETHYLENE GLYCOL 3350 119 GM BTL GT SCH (10:04)
[2021-02-11] MEDS: FOLIC ACID 1 MG TABLET (FP) GT SCH (10:04)
[2021-02-11] MEDS: DOXAZOSIN MESYLATE 1 MG TABLET GT SCH (10:05)
[2021-02-11] MEDS: AMINO ACIDS 4.25%/D5W 1,000 ML IV SCH (15:05)
[2021-02-11] MEDS ORDERED: PIPERACILLIN/TAZOB 3.375 GM 3.375 GM in DEXTROSE 5%-WATER - 50 ML IVPB SCH (18:00)
[2021-02-11] MEDS: DEXTROSE 5%-NORMAL SALINE 1,000 ML IV SCH ×2 (18:57→19:43)
[2021-02-11] MEDS: ATORVASTATIN CA 80 MG TABLET (FP) GT SCH (23:10)
[2021-02-12] MEDS ORDERED: DEXTROSE 5%-WATER - 50 ML IVPB ONE ×3 (03:08→17:06)
[2021-02-12] MEDS ORDERED: PIPERACILLIN/TAZOBACTAM 3.375 GM VIAL IVPB ONE ×3 (03:08→17:06)
[2021-02-12] MEDS: PIPERACILLIN/TAZOB 3.375 GM 3.375 GM in DEXTROSE 5%-WATER - 50 ML IVPB SCH ×3 (03:20→17:48)
[2021-02-12] MEDS: clonazePAM 0.5 MG TABLET GT SCH ×3 (05:11→21:27)
[2021-02-12] MEDS: ALBUTEROL SO4 2.5/IPRATROPIUM 0.5 INH SOL 3 ML VIAL.NEB. NEB SCH ×4 (08:32→20:05)
[2021-02-12] MEDS ORDERED: PT OWN MED DRAWER 7, Y5N ONE ×2 (09:34→21:39)
[2021-02-12] MEDS: POTASSIUM CHLORIDE ORAL LIQUID 20 MEQ/15 ML GT SCH ×2 (09:46→21:28)
[2021-02-12] MEDS: FAMOTIDINE 20 MG TABLET PO SCH (09:46)
[2021-02-12] MEDS: FOLIC ACID 1 MG TABLET (FP) GT SCH (09:46)
[2021-02-12] MEDS: PHENobarbital 30 MG TABLET GT SCH ×2 (09:46→21:27)
[2021-02-12] MEDS: Lacosamide 50 MG/5 ML ORAL SOLUTION UNIT CUPS GT SCH ×2 (09:46→21:27)
[2021-02-12] MEDS: ENOXAPARIN NA (PORCINE) 40 MG/0.4 ML DISP.SYRIN SQ SCH (09:46)
[2021-02-12] MEDS: cloBAZam 10 MG TABLET GT SCH ×2 (09:46→21:28)
[2021-02-12] MEDS: AMINO ACIDS/PROTEIN HYDROLYS 30 ML LIQUID.PKT GT SCH (09:47)
[2021-02-12] MEDS: ASCORBIC ACID 500 MG/5 ML UNIT DOSE CUP GT SCH (09:48)
[2021-02-12] MEDS: SENNOSIDES 8.8 MG/5 ML BULK BOTTLE GT SCH (09:48)
[2021-02-12] MEDS: PHENYTOIN 100 MG/4 ML U-D CUP GT SCH ×2 (09:48→21:53)
[2021-02-12] MEDS: DOXAZOSIN MESYLATE 1 MG TABLET GT SCH (09:49)
[2021-02-12] MEDS: POLYETHYLENE GLYCOL 3350 119 GM BTL GT SCH (09:49)
[2021-02-12] MEDS: AMINO ACIDS 4.25%/D5W 1,000 ML IV SCH ×2 (15:47→20:46)
[2021-02-12] MEDS: DEXTROSE 5%-NORMAL SALINE 1,000 ML IV SCH (21:24)
[2021-02-12] MEDS: ATORVASTATIN CA 80 MG TABLET (FP) GT SCH (21:28)
[2021-02-13] MEDS ORDERED: DEXTROSE 5%-WATER - 50 ML IVPB ONE ×2 (00:41→09:12)
[2021-02-13] MEDS ORDERED: PIPERACILLIN/TAZOBACTAM 3.375 GM VIAL IVPB ONE ×2 (00:41→09:12)
[2021-02-13] MEDS: PIPERACILLIN/TAZOB 3.375 GM 3.375 GM in DEXTROSE 5%-WATER - 50 ML IVPB SCH ×2 (02:00→09:20)
[2021-02-13] MEDS: clonazePAM 0.5 MG TABLET GT SCH ×3 (05:45→22:26)
[2021-02-13] MEDS: ALBUTEROL SO4 2.5/IPRATROPIUM 0.5 INH SOL 3 ML VIAL.NEB. NEB SCH ×4 (08:35→20:30)
[2021-02-13] MEDS: POTASSIUM CHLORIDE ORAL LIQUID 20 MEQ/15 ML GT SCH ×2 (09:16→22:29)
[2021-02-13] MEDS: Lacosamide 50 MG/5 ML ORAL SOLUTION UNIT CUPS GT SCH ×2 (09:17→22:28)
[2021-02-13] MEDS: ENOXAPARIN NA (PORCINE) 40 MG/0.4 ML DISP.SYRIN SQ SCH (09:18)
[2021-02-13] MEDS: AMINO ACIDS/PROTEIN HYDROLYS 30 ML LIQUID.PKT GT SCH (09:19)
[2021-02-13] MEDS: PHENobarbital 30 MG TABLET GT SCH ×2 (09:19→22:29)
[2021-02-13] MEDS: cloBAZam 10 MG TABLET GT SCH ×2 (09:19→22:28)
[2021-02-13] MEDS: FOLIC ACID 1 MG TABLET (FP) GT SCH (09:20)
[2021-02-13] MEDS: FAMOTIDINE 20 MG TABLET PO SCH (09:20)
[2021-02-13] MEDS: DOXAZOSIN MESYLATE 1 MG TABLET GT SCH (09:21)
[2021-02-13] MEDS: POLYETHYLENE GLYCOL 3350 119 GM BTL GT SCH (09:22)
[2021-02-13] MEDS: PHENYTOIN 100 MG/4 ML U-D CUP GT SCH ×2 (09:22→22:26)
[2021-02-13] MEDS: SENNOSIDES 8.8 MG/5 ML BULK BOTTLE GT SCH (09:22)
[2021-02-13] MEDS: ASCORBIC ACID 500 MG/5 ML UNIT DOSE CUP GT SCH (09:23)
[2021-02-13] MEDS: AMINO ACIDS 4.25%/D5W 1,000 ML IV SCH (15:06)
[2021-02-13] MEDS: DEXTROSE 5%-NORMAL SALINE 1,000 ML IV SCH (20:24)
[2021-02-13] MEDS ORDERED: FUROSEMIDE 40 MG/4 ML INJECTABLE VIAL IVPUSH ONE (20:57)
[2021-02-13] MEDS: ATORVASTATIN CA 80 MG TABLET (FP) GT SCH (22:26)
[2021-02-14] MEDS: clonazePAM 0.5 MG TABLET GT SCH ×3 (06:19→21:35)
[2021-02-14] MEDS: ALBUTEROL SO4 2.5/IPRATROPIUM 0.5 INH SOL 3 ML VIAL.NEB. NEB SCH ×4 (08:35→20:36)
[2021-02-14] MEDS: AMINO ACIDS/PROTEIN HYDROLYS 30 ML LIQUID.PKT GT SCH (12:19)
[2021-02-14] MEDS: POLYETHYLENE GLYCOL 3350 119 GM BTL GT SCH (12:20)
[2021-02-14] MEDS: SENNOSIDES 8.8 MG/5 ML BULK BOTTLE GT SCH (12:20)
[2021-02-14] MEDS ORDERED: PT OWN MED DRAWER 7, Y5N ONE (13:04)
[2021-02-14] MEDS: ENOXAPARIN NA (PORCINE) 40 MG/0.4 ML DISP.SYRIN SQ SCH (13:07)
[2021-02-14] MEDS: PHENobarbital 30 MG TABLET GT SCH ×2 (13:08→21:36)
[2021-02-14] MEDS: PHENYTOIN 100 MG/4 ML U-D CUP GT SCH ×2 (13:08→21:38)
[2021-02-14] MEDS: FAMOTIDINE 20 MG TABLET PO SCH (13:08)
[2021-02-14] MEDS: POTASSIUM CHLORIDE ORAL LIQUID 20 MEQ/15 ML GT SCH ×2 (13:08→21:36)
[2021-02-14] MEDS: FOLIC ACID 1 MG TABLET (FP) GT SCH (13:08)
[2021-02-14] MEDS: Lacosamide 50 MG/5 ML ORAL SOLUTION UNIT CUPS GT SCH ×2 (13:09→21:37)
[2021-02-14] MEDS: ASCORBIC ACID 500 MG/5 ML UNIT DOSE CUP GT SCH (13:09)
[2021-02-14] MEDS: DOXAZOSIN MESYLATE 1 MG TABLET GT SCH (13:09)
[2021-02-14] MEDS: cloBAZam 10 MG TABLET GT SCH ×2 (13:09→21:36)
[2021-02-14] MEDS: DEXTROSE 5%-NORMAL SALINE 1,000 ML IV SCH (21:34)
[2021-02-14] MEDS: ATORVASTATIN CA 80 MG TABLET (FP) GT SCH (21:36)
[2021-02-15] MEDS: clonazePAM 0.5 MG TABLET GT SCH ×3 (05:04→23:16)
[2021-02-15] MEDS: ALBUTEROL SO4 2.5/IPRATROPIUM 0.5 INH SOL 3 ML VIAL.NEB. NEB SCH ×4 (08:10→20:37)
[2021-02-15] MEDS ORDERED: ACETAMINOPHEN 1000 MG/100 ML BAG IVPB ONE (09:23)
[2021-02-15] MEDS ORDERED: PT OWN MED DRAWER 7, Y5N ONE ×2 (10:54→19:53)
[2021-02-15] MEDS: FAMOTIDINE 20 MG TABLET PO SCH (10:58)
[2021-02-15] MEDS: PHENobarbital 30 MG TABLET GT SCH ×2 (10:58→23:18)
[2021-02-15] MEDS: FOLIC ACID 1 MG TABLET (FP) GT SCH (10:58)
[2021-02-15] MEDS: Lacosamide 50 MG/5 ML ORAL SOLUTION UNIT CUPS GT SCH ×2 (10:58→23:15)
[2021-02-15] MEDS: ENOXAPARIN NA (PORCINE) 40 MG/0.4 ML DISP.SYRIN SQ SCH (10:58)
[2021-02-15] MEDS: POTASSIUM CHLORIDE ORAL LIQUID 20 MEQ/15 ML GT SCH ×2 (10:58→23:18)
[2021-02-15] MEDS: AMINO ACIDS/PROTEIN HYDROLYS 30 ML LIQUID.PKT GT SCH (10:58)
[2021-02-15] MEDS: DOXAZOSIN MESYLATE 1 MG TABLET GT SCH (11:00)
[2021-02-15] MEDS: PHENYTOIN 100 MG/4 ML U-D CUP GT SCH ×2 (11:00→23:19)
[2021-02-15] MEDS: SENNOSIDES 8.8 MG/5 ML BULK BOTTLE GT SCH ×2 (11:00→11:14)
[2021-02-15] MEDS: ASCORBIC ACID 500 MG/5 ML UNIT DOSE CUP GT SCH (11:00)
[2021-02-15] MEDS: POLYETHYLENE GLYCOL 3350 119 GM BTL GT SCH ×2 (11:01→11:14)
[2021-02-15] MEDS: cloBAZam 10 MG TABLET GT SCH ×2 (11:01→23:18)
[2021-02-15] MEDS ORDERED: DEXTROSE 5%-WATER - 50 ML IVPB ONE ×2 (13:56→17:36)
[2021-02-15] MEDS ORDERED: PIPERACILLIN/TAZOBACTAM 3.375 GM VIAL IVPB ONE ×2 (13:56→17:36)
[2021-02-15] MEDS: PIPERACILLIN/TAZOB 3.375 GM 3.375 GM in DEXTROSE 5%-WATER - 50 ML IVPB SCH ×2 (14:05→17:38)
[2021-02-15] MEDS: ACETAMINOPHEN 1000 MG/100 ML BAG IVPB PRN ×2 (14:24→21:16)
[2021-02-15 15:19] LABS: BASO % 0.2 % (0-2.0); EOS % 0.2 % (0-4.5); HEMATOCRIT 31.9 % (35.4-49); HEMOGLOBIN 10.3 GM/dL (11.7-16.9); LYMPH % 7.9 % (8-40); MCH 25.4 pg (25.7-33.7); MCHC 32.3 g/dl (32.0-35.9); MEAN CELL VOLUME 78.8 fl (80-96); MEAN PLT VOLUME 8.3 fl (7.5-11.1); MONO % 4.3 % (3.8-10.2); NEUT % 87.4 % (42.8-82.8); PLATELET COUNT 404 K/MM3 (134-434); RBC 4.05 M/mm3 (4.00-5.60); WHITE BLOOD COUNT 16.8 K/mm3 (4.0-10.0)
[2021-02-15 15:41] LABS: CALCIUM 9.4 mg/dL (8.5-10.1)
[2021-02-15 15:42] LABS: ALBUMIN 2.7 g/dl (3.4-5.0); BLOOD UREA NITROGEN 17.6 mg/dL (7-18)
[2021-02-15 15:45] LABS: CREATININE 0.9 mg/dL (0.55-1.3)
[2021-02-15 15:47] LABS: BILIRUBIN,TOTAL 0.3 mg/dL (0.2-1); TOT PROT 8.4 g/dl (6.4-8.2)
[2021-02-15] MEDS ORDERED: AMINO ACIDS 4.25%/D5W 1,000 ML IV SCH (16:30)
[2021-02-15] MEDS ORDERED: SODIUM CHLORIDE 250 ML IV STA (21:47)
[2021-02-15 22:55] LABS: ARTERIAL BLD GAS O2 SATURATION 75.7 mmHg (95-98); ARTERIAL BLOOD GAS BASE EXCESS -2.5 mmol/L (-2-2); ARTERIAL BLOOD GAS PO2 42.4 mmHg (80-100)
[2021-02-15 22:56] LABS: ALLENS TEST POSITIVE
[2021-02-15] MEDS: ATORVASTATIN CA 80 MG TABLET (FP) GT SCH (23:17)
[2021-02-16] MEDS ORDERED: SODIUM CHLORIDE 1,000 ML IV STA ×2 (00:10→03:05)
[2021-02-16] MEDS ORDERED: PIPERACILLIN/TAZOBACTAM 3.375 GM VIAL IVPB ONE ×3 (03:24→16:50)
[2021-02-16] MEDS ORDERED: DEXTROSE 5%-WATER - 50 ML IVPB ONE ×3 (03:24→16:50)
[2021-02-16] MEDS: PIPERACILLIN/TAZOB 3.375 GM 3.375 GM in DEXTROSE 5%-WATER - 50 ML IVPB SCH ×3 (03:53→17:04)
[2021-02-16] MEDS ORDERED: SODIUM CHLORIDE 1,000 ML IV SCH ×2 (04:30→11:39)
[2021-02-16] MEDS: clonazePAM 0.5 MG TABLET GT SCH ×3 (05:50→21:14)
[2021-02-16] MEDS: ALBUTEROL SO4 2.5/IPRATROPIUM 0.5 INH SOL 3 ML VIAL.NEB. NEB SCH ×2 (08:00→11:25)
[2021-02-16 08:27] LABS: BASO % 0.1 % (0-2.0); HEMATOCRIT 28.2 % (35.4-49); HEMOGLOBIN 9.1 GM/dL (11.7-16.9); LYMPH % 4.3 % (8-40); MCH 25.8 pg (25.7-33.7); MCHC 32.3 g/dl (32.0-35.9); MEAN CELL VOLUME 79.9 fl (80-96); MEAN PLT VOLUME 8.7 fl (7.5-11.1); MONO % 2.5 % (3.8-10.2); NEUT % 93.1 % (42.8-82.8); PLATELET COUNT 312 K/MM3 (134-434); RBC 3.53 M/mm3 (4.00-5.60); RDW 22.3 % (11.9-15.9); WHITE BLOOD COUNT 19.3 K/mm3 (4.0-10.0)
[2021-02-16] MEDS ORDERED: SODIUM CHLORIDE 250 ML IV STA (08:44)
[2021-02-16 09:01] LABS: CALCIUM 8.4 mg/dL (8.5-10.1)
[2021-02-16 09:02] LABS: BLOOD UREA NITROGEN 27.9 mg/dL (7-18)
[2021-02-16 09:05] LABS: CREATININE 1.3 mg/dL (0.55-1.3)
[2021-02-16 09:06] LABS: BILIRUBIN,TOTAL 0.2 mg/dL (0.2-1)
[2021-02-16 09:07] LABS: TOT PROT 6.7 g/dl (6.4-8.2)
[2021-02-16] MEDS: ENOXAPARIN NA (PORCINE) 40 MG/0.4 ML DISP.SYRIN SQ SCH (11:16)
[2021-02-16] MEDS: POTASSIUM CHLORIDE ORAL LIQUID 20 MEQ/15 ML GT SCH ×2 (11:17→21:27)
[2021-02-16] MEDS: Lacosamide 50 MG/5 ML ORAL SOLUTION UNIT CUPS GT SCH ×2 (11:17→21:28)
[2021-02-16] MEDS: AMINO ACIDS/PROTEIN HYDROLYS 30 ML LIQUID.PKT GT SCH (11:18)
[2021-02-16] MEDS: FAMOTIDINE 20 MG TABLET PO SCH (11:19)
[2021-02-16] MEDS: PHENobarbital 30 MG TABLET GT SCH ×2 (11:19→21:27)
[2021-02-16] MEDS: FOLIC ACID 1 MG TABLET (FP) GT SCH (11:19)
[2021-02-16] MEDS: DOXAZOSIN MESYLATE 1 MG TABLET GT SCH (11:42)
[2021-02-16] MEDS: PHENYTOIN 100 MG/4 ML U-D CUP GT SCH ×2 (11:45→21:15)
[2021-02-16] MEDS: POLYETHYLENE GLYCOL 3350 119 GM BTL GT SCH (11:46)
[2021-02-16] MEDS: ASCORBIC ACID 500 MG/5 ML UNIT DOSE CUP GT SCH (11:48)
[2021-02-16] MEDS: SENNOSIDES 8.8 MG/5 ML BULK BOTTLE GT SCH (11:48)
[2021-02-16] MEDS: cloBAZam 10 MG TABLET GT SCH ×2 (11:52→21:15)
[2021-02-16 12:59] LABS: ANISOCYTOSIS 1+; MACROCYTOSIS 0; PLATELET ESTIMATE NORMAL
[2021-02-16] MEDS ORDERED: ALBUTEROL SO4 2.5/IPRATROPIUM 0.5 INH SOL 3 ML VIAL.NEB. NEB PRN (16:09)
[2021-02-16] MEDS: AMINO ACIDS 4.25%/D5W 1,000 ML IV SCH (17:06)
[2021-02-16] MEDS ORDERED: PT OWN MED DRAWER 7, Y5N ONE ×2 (18:38→20:48)
[2021-02-16] MEDS ORDERED: ALBUTEROL SO4 2.5/IPRATROPIUM 0.5 INH SOL 3 ML VIAL.NEB. NEB SCH (20:00)
[2021-02-16] MEDS: ATORVASTATIN CA 80 MG TABLET (FP) GT SCH (21:15)
[2021-02-17] MEDS: ACETAMINOPHEN 1000 MG/100 ML BAG IVPB PRN ×2 (01:11→22:26)
[2021-02-17] MEDS ORDERED: DEXTROSE 5%-WATER - 50 ML IVPB ONE ×3 (01:52→17:17)
[2021-02-17] MEDS ORDERED: PIPERACILLIN/TAZOBACTAM 3.375 GM VIAL IVPB ONE ×3 (01:52→17:17)
[2021-02-17] MEDS: PIPERACILLIN/TAZOB 3.375 GM 3.375 GM in DEXTROSE 5%-WATER - 50 ML IVPB SCH ×3 (02:06→17:28)
[2021-02-17] MEDS ORDERED: ALBUTEROL SO4 0.083% IH SOL 2.5 MG/3 ML VIAL.NEB. NEB ONE (03:16)
[2021-02-17] MEDS: ACETYLCYSTEINE 20% 200MG/ML 30 ML VIAL *FOR ORAL / INH USE ONLY NEB SCH ×4 (03:29→18:43)
[2021-02-17] MEDS: ALBUTEROL SO4 0.083% IH SOL 2.5 MG/3 ML VIAL.NEB. NEB PRN ×4 (03:29→20:02)
[2021-02-17] MEDS: clonazePAM 0.5 MG TABLET GT SCH ×3 (06:03→22:33)
[2021-02-17] MEDS ORDERED: AMINO ACIDS/PROTEIN HYDROLYS 30 ML LIQUID.PKT GT SCH (08:00)
[2021-02-17 08:06] LABS: BASO % 0.3 % (0-2.0); EOS % 1.2 % (0-4.5); HEMOGLOBIN 8.6 GM/dL (11.7-16.9); LYMPH % 7.2 % (8-40); MCH 25.6 pg (25.7-33.7); MCHC 31.7 g/dl (32.0-35.9); MEAN CELL VOLUME 80.6 fl (80-96); MEAN PLT VOLUME 8.5 fl (7.5-11.1); MONO % 3.5 % (3.8-10.2); NEUT % 87.8 % (42.8-82.8); PLATELET COUNT 298 K/MM3 (134-434); RBC 3.35 M/mm3 (4.00-5.60); RDW 22.4 % (11.9-15.9); WHITE BLOOD COUNT 28.5 K/mm3 (4.0-10.0)
[2021-02-17 08:13] LABS: CALCIUM 8.3 mg/dL (8.5-10.1)
[2021-02-17 08:14] LABS: ALBUMIN 1.9 g/dl (3.4-5.0)
[2021-02-17 08:17] LABS: CREATININE 0.8 mg/dL (0.55-1.3); PHOSPHOROUS 2.9 mg/dL (2.5-4.9)
[2021-02-17 08:19] LABS: BILIRUBIN,TOTAL 0.1 mg/dL (0.2-1); TOT PROT 6.7 g/dl (6.4-8.2)
[2021-02-17] MEDS: ENOXAPARIN NA (PORCINE) 40 MG/0.4 ML DISP.SYRIN SQ SCH (09:15)
[2021-02-17] MEDS: FOLIC ACID 1 MG TABLET (FP) GT SCH (09:15)
[2021-02-17] MEDS: PHENYTOIN 100 MG/4 ML U-D CUP GT SCH ×2 (09:16→22:49)
[2021-02-17] MEDS: FAMOTIDINE 40 MG/5 ML ORAL SUSPENSION PO SCH (09:17)
[2021-02-17] MEDS: cloBAZam 10 MG TABLET GT SCH ×2 (09:18→22:31)
[2021-02-17] MEDS: DOXAZOSIN MESYLATE 1 MG TABLET GT SCH (09:19)
[2021-02-17] MEDS: SENNOSIDES 8.8 MG/5 ML BULK BOTTLE GT SCH (09:20)
[2021-02-17] MEDS: PHENobarbital 30 MG TABLET GT SCH ×2 (09:20→22:50)
[2021-02-17] MEDS: ASCORBIC ACID 500 MG/5 ML UNIT DOSE CUP GT SCH (09:22)
[2021-02-17] MEDS: POLYETHYLENE GLYCOL 3350 119 GM BTL GT SCH (09:23)
[2021-02-17] MEDS ORDERED: PT OWN MED DRAWER 7, Y5N ONE ×2 (09:50→14:02)
[2021-02-17] MEDS: Lacosamide 50 MG/5 ML ORAL SOLUTION UNIT CUPS GT SCH ×2 (09:56→22:29)
[2021-02-17] MEDS: POTASSIUM CHLORIDE ORAL LIQUID 20 MEQ/15 ML GT SCH ×2 (09:57→22:51)
[2021-02-17 12:14] LABS: MACROCYTOSIS 0; PLATELET ESTIMATE NORMAL
[2021-02-17] MEDS ORDERED: MAGNESIUM SULF 50% (8.12 MEQ/2 ML-1 GM VIAL) IVPB ONE (13:31)
[2021-02-17] MEDS: AMINO ACIDS/PROTEIN HYDROLYS 30 ML LIQUID.PKT GT SCH (17:28)
[2021-02-17] MEDS: AMINO ACIDS 4.25%/D5W 1,000 ML IV SCH (17:42)
[2021-02-17] MEDS: ACETYLCYSTEINE 20% 200MG/ML 4 ML VIAL *FOR ORAL / INH USE ONLY NEB SCH (20:02)
[2021-02-17] MEDS: ATORVASTATIN CA 80 MG TABLET (FP) GT SCH (22:33)
[2021-02-18] MEDS ORDERED: DEXTROSE 5%-WATER - 50 ML IVPB ONE (01:01)
[2021-02-18] MEDS ORDERED: PIPERACILLIN/TAZOBACTAM 3.375 GM VIAL IVPB ONE (01:01)
[2021-02-18] MEDS: PIPERACILLIN/TAZOB 3.375 GM 3.375 GM in DEXTROSE 5%-WATER - 50 ML IVPB SCH (01:20)
[2021-02-18] MEDS: clonazePAM 0.5 MG TABLET GT SCH ×3 (05:31→22:09)
[2021-02-18 08:13] LABS: CALCIUM 9.3 mg/dL (8.5-10.1)
[2021-02-18 08:14] LABS: BLOOD UREA NITROGEN 30.2 mg/dL (7-18); MAGNESIUM 1.6 mg/dL (1.8-2.4)
[2021-02-18 08:17] LABS: CREATININE 0.7 mg/dL (0.55-1.3)
[2021-02-18] MEDS: ACETYLCYSTEINE 20% 200MG/ML 4 ML VIAL *FOR ORAL / INH USE ONLY NEB SCH ×4 (09:05→20:00)
[2021-02-18] MEDS ORDERED: MEROPENEM 1 GM in DEXTROSE 5%-WATER 100 ML IVPB SCH (10:30)
[2021-02-18] MEDS ORDERED: MEROPENEM 1 GM VIAL (RESTRICTED TO ID) IVPB ONE ×2 (11:46→17:12)
[2021-02-18] MEDS ORDERED: DEXTROSE 5%-WATER 100 ML IVPB ONE ×2 (11:46→17:12)
[2021-02-18] MEDS: AMINO ACIDS/PROTEIN HYDROLYS 30 ML LIQUID.PKT GT SCH ×2 (12:05→17:30)
[2021-02-18] MEDS: ENOXAPARIN NA (PORCINE) 40 MG/0.4 ML DISP.SYRIN SQ SCH (12:05)
[2021-02-18] MEDS: FOLIC ACID 1 MG TABLET (FP) GT SCH (12:05)
[2021-02-18] MEDS: cloBAZam 10 MG TABLET GT SCH ×2 (12:06→22:08)
[2021-02-18] MEDS: PHENobarbital 30 MG TABLET GT SCH ×2 (12:06→22:09)
[2021-02-18] MEDS: POTASSIUM CHLORIDE ORAL LIQUID 20 MEQ/15 ML GT SCH ×2 (12:06→22:05)
[2021-02-18 12:18] LABS: ARTERIAL BLD GAS O2 SATURATION 97.9 mmHg (95-98); ARTERIAL BLOOD GAS BASE EXCESS 1.1 mmol/L (-2-2); ARTERIAL BLOOD GAS PO2 116.2 mmHg (80-100); ARTERIAL BLOOD GAS pH 7.336 (7.350-7.450)
[2021-02-18 12:24] LABS: ALLENS TEST POSITIVE; VENT MODE AC
[2021-02-18 12:25] LABS: VENT RATE 12
[2021-02-18] MEDS ORDERED: PT OWN MED DRAWER 7, Y5N ONE ×2 (12:52→22:03)
[2021-02-18] MEDS: PHENYTOIN 100 MG/4 ML U-D CUP GT SCH ×2 (12:56→22:06)
[2021-02-18] MEDS: DOXAZOSIN MESYLATE 1 MG TABLET GT SCH (12:56)
[2021-02-18] MEDS: POLYETHYLENE GLYCOL 3350 119 GM BTL GT SCH (12:56)
[2021-02-18] MEDS: NOREPINEPHRINE NS PREMIX 8,000 MCG/500 ML BAG IVPB SCH (12:57)
[2021-02-18] MEDS: Lacosamide 50 MG/5 ML ORAL SOLUTION UNIT CUPS GT SCH ×2 (12:57→22:05)
[2021-02-18] MEDS: ASCORBIC ACID 500 MG/5 ML UNIT DOSE CUP GT SCH (12:57)
[2021-02-18] MEDS: FAMOTIDINE 40 MG/5 ML ORAL SUSPENSION PO SCH (12:57)
[2021-02-18] MEDS: SENNOSIDES 8.8 MG/5 ML BULK BOTTLE GT SCH (12:57)
[2021-02-18] MEDS: AMINO ACIDS 4.25%/D5W 1,000 ML IV SCH (16:57)
[2021-02-18] MEDS: MEROPENEM 1 GM in DEXTROSE 5%-WATER 100 ML IVPB SCH (17:30)
[2021-02-18] MEDS: ALBUTEROL SO4 0.083% IH SOL 2.5 MG/3 ML VIAL.NEB. NEB PRN (20:00)
[2021-02-18] MEDS: PROPOFOL 1,000,000 MCG/100 ML VIAL IVPB SCH (21:12)
[2021-02-18] MEDS: ATORVASTATIN CA 80 MG TABLET (FP) GT SCH (22:08)
[2021-02-19] MEDS ORDERED: MEROPENEM 1 GM VIAL (RESTRICTED TO ID) IVPB ONE ×3 (02:09→17:51)
[2021-02-19] MEDS ORDERED: DEXTROSE 5%-WATER 100 ML IVPB ONE ×3 (02:10→17:52)
[2021-02-19] MEDS: MEROPENEM 1 GM in DEXTROSE 5%-WATER 100 ML IVPB SCH ×3 (02:12→18:05)
[2021-02-19] MEDS: clonazePAM 0.5 MG TABLET GT SCH ×3 (06:00→21:34)
[2021-02-19 07:02] LABS: BASO % 0.4 % (0-2.0); EOS % 0.6 % (0-4.5); HEMATOCRIT 24.9 % (35.4-49); HEMOGLOBIN 8.1 GM/dL (11.7-16.9); LYMPH % 12.4 % (8-40); MCH 25.8 pg (25.7-33.7); MCHC 32.6 g/dl (32.0-35.9); MEAN CELL VOLUME 79.2 fl (80-96); MEAN PLT VOLUME 8.7 fl (7.5-11.1); MONO % 6.9 % (3.8-10.2); NEUT % 79.7 % (42.8-82.8); PLATELET COUNT 315 K/MM3 (134-434); RBC 3.14 M/mm3 (4.00-5.60); RDW 22.3 % (11.9-15.9); WHITE BLOOD COUNT 19.6 K/mm3 (4.0-10.0)
[2021-02-19 07:12] LABS: ALBUMIN 1.7 g/dl (3.4-5.0); BLOOD UREA NITROGEN 48.3 mg/dL (7-18); MAGNESIUM 1.4 mg/dL (1.8-2.4)
[2021-02-19 07:15] LABS: CREATININE 1.3 mg/dL (0.55-1.3); PHOSPHOROUS 2.8 mg/dL (2.5-4.9)
[2021-02-19 07:16] LABS: BILIRUBIN,TOTAL 0.2 mg/dL (0.2-1)
[2021-02-19 07:17] LABS: TOT PROT 6.5 g/dl (6.4-8.2)
[2021-02-19] MEDS: ALBUTEROL SO4 0.083% IH SOL 2.5 MG/3 ML VIAL.NEB. NEB PRN ×4 (08:09→20:12)
[2021-02-19] MEDS: ACETYLCYSTEINE 20% 200MG/ML 4 ML VIAL *FOR ORAL / INH USE ONLY NEB SCH ×4 (08:09→20:12)
[2021-02-19] MEDS ORDERED: MAGNESIUM 2GM/50ML STERILE WATER IVPB IVPB SCH (09:00)
[2021-02-19] MEDS ORDERED: MAGNESIUM 2GM/50ML STERILE WATER IVPB IVPB ONE (09:00)
[2021-02-19 09:11] LABS: ANISOCYTOSIS 1+; PLATELET ESTIMATE NORMAL
[2021-02-19] MEDS: PHENobarbital 30 MG TABLET GT SCH ×2 (09:39→21:32)
[2021-02-19] MEDS: Lacosamide 50 MG/5 ML ORAL SOLUTION UNIT CUPS GT SCH ×2 (09:40→21:33)
[2021-02-19] MEDS: cloBAZam 10 MG TABLET GT SCH ×2 (09:41→21:32)
[2021-02-19] MEDS: POLYETHYLENE GLYCOL 3350 119 GM BTL GT SCH (09:41)
[2021-02-19] MEDS: ENOXAPARIN NA (PORCINE) 40 MG/0.4 ML DISP.SYRIN SQ SCH (09:41)
[2021-02-19] MEDS: DOXAZOSIN MESYLATE 1 MG TABLET GT SCH (09:43)
[2021-02-19] MEDS ORDERED: PT OWN MED DRAWER 7, Y5N ONE ×3 (09:43→21:30)
[2021-02-19] MEDS: PHENYTOIN 100 MG/4 ML U-D CUP GT SCH ×2 (09:44→21:34)
[2021-02-19] MEDS: AMINO ACIDS/PROTEIN HYDROLYS 30 ML LIQUID.PKT GT SCH ×3 (09:44→18:05)
[2021-02-19] MEDS: FOLIC ACID 1 MG TABLET (FP) GT SCH (09:44)
[2021-02-19] MEDS: SENNOSIDES 8.8 MG/5 ML BULK BOTTLE GT SCH (09:45)
[2021-02-19] MEDS: FAMOTIDINE 40 MG/5 ML ORAL SUSPENSION PO SCH (09:45)
[2021-02-19] MEDS: POTASSIUM CHLORIDE ORAL LIQUID 20 MEQ/15 ML GT SCH ×2 (09:48→21:32)
[2021-02-19] MEDS: ASCORBIC ACID 500 MG/5 ML UNIT DOSE CUP GT SCH (12:06)
[2021-02-19] MEDS: VASOPRESSIN 40 UNITS in SODIUM CHLORIDE 98 ML IVPB SCH (16:00)
[2021-02-19] MEDS: NOREPINEPHRINE NS PREMIX 8,000 MCG/500 ML BAG IVPB SCH (17:00)
[2021-02-19] MEDS: AMINO ACIDS 4.25%/D5W 1,000 ML IV SCH (18:05)
[2021-02-19] MEDS: ATORVASTATIN CA 80 MG TABLET (FP) GT SCH (21:32)
[2021-02-20] MEDS ORDERED: DEXTROSE 5%-WATER 100 ML IVPB ONE ×3 (01:15→17:14)
[2021-02-20] MEDS ORDERED: MEROPENEM 1 GM VIAL (RESTRICTED TO ID) IVPB ONE ×3 (01:15→17:13)
[2021-02-20] MEDS: MEROPENEM 1 GM in DEXTROSE 5%-WATER 100 ML IVPB SCH ×3 (01:17→17:34)
[2021-02-20 06:56] LABS: HEMATOCRIT 23.8 % (35.4-49); HEMOGLOBIN 7.9 GM/dL (11.7-16.9); MCH 26.1 pg (25.7-33.7); MEAN CELL VOLUME 79.1 fl (80-96); MEAN PLT VOLUME 9.2 fl (7.5-11.1); PLATELET COUNT 283 K/MM3 (134-434); RBC 3.01 M/mm3 (4.00-5.60); RDW 21.8 % (11.9-15.9); WHITE BLOOD COUNT 13.3 K/mm3 (4.0-10.0)
[2021-02-20] MEDS: clonazePAM 0.5 MG TABLET GT SCH ×3 (07:15→22:40)
[2021-02-20 07:24] LABS: ALBUMIN 1.4 g/dl (3.4-5.0); CALCIUM 9.6 mg/dL (8.5-10.1)
[2021-02-20 07:25] LABS: BLOOD UREA NITROGEN 50.8 mg/dL (7-18); MAGNESIUM 1.9 mg/dL (1.8-2.4)
[2021-02-20 07:27] LABS: CREATININE 1.1 mg/dL (0.55-1.3)
[2021-02-20 07:28] LABS: PHOSPHOROUS 2.7 mg/dL (2.5-4.9)
[2021-02-20 07:29] LABS: BILIRUBIN,TOTAL 0.3 mg/dL (0.2-1)
[2021-02-20 07:31] LABS: TOT PROT 6.3 g/dl (6.4-8.2)
[2021-02-20] MEDS: ACETYLCYSTEINE 20% 200MG/ML 4 ML VIAL *FOR ORAL / INH USE ONLY NEB SCH ×4 (08:00→20:05)
[2021-02-20] MEDS: NOREPINEPHRINE NS PREMIX 8,000 MCG/500 ML BAG IVPB SCH ×2 (08:42→17:34)
[2021-02-20] MEDS: AMINO ACIDS/PROTEIN HYDROLYS 30 ML LIQUID.PKT GT SCH ×3 (08:42→17:32)
[2021-02-20] MEDS ORDERED: PT OWN MED DRAWER 7, Y5N ONE ×3 (09:51→22:17)
[2021-02-20] MEDS: PHENYTOIN 100 MG/4 ML U-D CUP GT SCH ×2 (09:59→22:42)
[2021-02-20] MEDS: FOLIC ACID 1 MG TABLET (FP) GT SCH (09:59)
[2021-02-20] MEDS: ENOXAPARIN NA (PORCINE) 40 MG/0.4 ML DISP.SYRIN SQ SCH (10:00)
[2021-02-20] MEDS: cloBAZam 10 MG TABLET GT SCH ×2 (10:05→22:40)
[2021-02-20] MEDS: POLYETHYLENE GLYCOL 3350 119 GM BTL GT SCH (10:05)
[2021-02-20] MEDS: PHENobarbital 30 MG TABLET GT SCH ×2 (10:05→22:41)
[2021-02-20] MEDS: POTASSIUM CHLORIDE ORAL LIQUID 20 MEQ/15 ML GT SCH ×2 (10:06→22:39)
[2021-02-20] MEDS: Lacosamide 50 MG/5 ML ORAL SOLUTION UNIT CUPS GT SCH ×2 (10:07→22:40)
[2021-02-20] MEDS: SENNOSIDES 8.8 MG/5 ML BULK BOTTLE GT SCH (10:08)
[2021-02-20] MEDS: FAMOTIDINE 40 MG/5 ML ORAL SUSPENSION PO SCH (10:30)
[2021-02-20] MEDS: ASCORBIC ACID 500 MG/5 ML UNIT DOSE CUP GT SCH (10:31)
[2021-02-20] MEDS: DOXAZOSIN MESYLATE 1 MG TABLET GT SCH (11:04)
[2021-02-20] MEDS: ALBUTEROL SO4 0.083% IH SOL 2.5 MG/3 ML VIAL.NEB. NEB PRN ×3 (12:00→20:06)
[2021-02-20] MEDS: PROPOFOL 1,000,000 MCG/100 ML VIAL IVPB SCH (15:19)
[2021-02-20] MEDS: AMINO ACIDS 4.25%/D5W 1,000 ML IV SCH ×2 (15:40→17:34)
[2021-02-20] MEDS: ATORVASTATIN CA 80 MG TABLET (FP) GT SCH (22:41)
[2021-02-21] MEDS ORDERED: MEROPENEM 1 GM VIAL (RESTRICTED TO ID) IVPB ONE ×3 (03:08→17:37)
[2021-02-21] MEDS ORDERED: DEXTROSE 5%-WATER 100 ML IVPB ONE ×3 (03:08→17:37)
[2021-02-21] MEDS: MEROPENEM 1 GM in DEXTROSE 5%-WATER 100 ML IVPB SCH ×3 (03:10→18:00)
[2021-02-21] MEDS ORDERED: ACETAMINOPHEN 1000 MG/100 ML BAG IVPB ONE (04:00)
[2021-02-21] MEDS: clonazePAM 0.5 MG TABLET GT SCH ×3 (05:54→22:33)
[2021-02-21] MEDS: ALBUTEROL SO4 0.083% IH SOL 2.5 MG/3 ML VIAL.NEB. NEB PRN ×4 (08:30→20:18)
[2021-02-21] MEDS: ACETYLCYSTEINE 20% 200MG/ML 4 ML VIAL *FOR ORAL / INH USE ONLY NEB SCH ×4 (08:30→20:17)
[2021-02-21] MEDS: AMINO ACIDS/PROTEIN HYDROLYS 30 ML LIQUID.PKT GT SCH ×3 (08:41→17:59)
[2021-02-21] MEDS: ENOXAPARIN NA (PORCINE) 40 MG/0.4 ML DISP.SYRIN SQ SCH (09:49)
[2021-02-21] MEDS: FOLIC ACID 1 MG TABLET (FP) GT SCH (09:50)
[2021-02-21] MEDS: POLYETHYLENE GLYCOL 3350 119 GM BTL GT SCH (09:51)
[2021-02-21] MEDS: POTASSIUM CHLORIDE ORAL LIQUID 20 MEQ/15 ML GT SCH ×2 (09:51→22:32)
[2021-02-21] MEDS: PHENobarbital 30 MG TABLET GT SCH ×2 (09:51→22:33)
[2021-02-21] MEDS: cloBAZam 10 MG TABLET GT SCH ×2 (09:51→22:33)
[2021-02-21] MEDS: Lacosamide 50 MG/5 ML ORAL SOLUTION UNIT CUPS GT SCH ×2 (09:52→22:32)
[2021-02-21 09:57] LABS: HEMATOCRIT 23.7 % (35.4-49); HEMOGLOBIN 7.8 GM/dL (11.7-16.9); MCH 25.4 pg (25.7-33.7); MCHC 32.9 g/dl (32.0-35.9); MEAN CELL VOLUME 77.2 fl (80-96); MEAN PLT VOLUME 8.6 fl (7.5-11.1); PLATELET COUNT 398 K/MM3 (134-434); RBC 3.07 M/mm3 (4.00-5.60); RDW 21.8 % (11.9-15.9)
[2021-02-21] MEDS: DOXAZOSIN MESYLATE 1 MG TABLET GT SCH (10:00)
[2021-02-21] MEDS: SENNOSIDES 8.8 MG/5 ML BULK BOTTLE GT SCH (10:13)
[2021-02-21] MEDS: PHENYTOIN 100 MG/4 ML U-D CUP GT SCH ×2 (10:13→22:32)
[2021-02-21] MEDS: FAMOTIDINE 40 MG/5 ML ORAL SUSPENSION PO SCH (10:14)
[2021-02-21] MEDS: ASCORBIC ACID 500 MG/5 ML UNIT DOSE CUP GT SCH (10:14)
[2021-02-21 10:23] LABS: CALCIUM 9.6 mg/dL (8.5-10.1)
[2021-02-21 10:24] LABS: ALBUMIN 1.3 g/dl (3.4-5.0); BLOOD UREA NITROGEN 52.2 mg/dL (7-18); MAGNESIUM 1.4 mg/dL (1.8-2.4)
[2021-02-21 10:27] LABS: PHOSPHOROUS 2.8 mg/dL (2.5-4.9)
[2021-02-21 10:28] LABS: BILIRUBIN,TOTAL 0.2 mg/dL (0.2-1); CREATININE 0.9 mg/dL (0.55-1.3); TOT PROT 6.2 g/dl (6.4-8.2)
[2021-02-21] MEDS ORDERED: LORazepam 2 MG/ML SDV VIAL ONE (10:36)
[2021-02-21] MEDS ORDERED: LORazepam 2 MG/ML SDV VIAL IVPUSH ONE (10:50)
[2021-02-21] MEDS ORDERED: PT OWN MED DRAWER 7, Y5N ONE ×4 (11:44→22:47)
[2021-02-21] MEDS: AMINO ACIDS 4.25%/D5W 1,000 ML IV SCH (14:00)
[2021-02-21] MEDS: ATORVASTATIN CA 80 MG TABLET (FP) GT SCH (22:33)
[2021-02-22] MEDS ORDERED: MEROPENEM 1 GM VIAL (RESTRICTED TO ID) IVPB ONE ×3 (02:14→16:29)
[2021-02-22] MEDS ORDERED: DEXTROSE 5%-WATER 100 ML IVPB ONE ×3 (02:15→16:29)
[2021-02-22] MEDS: MEROPENEM 1 GM in DEXTROSE 5%-WATER 100 ML IVPB SCH ×3 (02:16→18:38)
[2021-02-22] MEDS: clonazePAM 0.5 MG TABLET GT SCH ×3 (06:00→21:51)
[2021-02-22 06:29] LABS: BASO % 0.5 % (0-2.0); HEMOGLOBIN 7.6 GM/dL (11.7-16.9); LYMPH % 16.4 % (8-40); MCH 25.6 pg (25.7-33.7); MCHC 33.1 g/dl (32.0-35.9); MEAN CELL VOLUME 77.3 fl (80-96); MEAN PLT VOLUME 8.5 fl (7.5-11.1); NEUT % 72.1 % (42.8-82.8); PLATELET COUNT 468 K/MM3 (134-434); RBC 2.98 M/mm3 (4.00-5.60); RDW 21.5 % (11.9-15.9); WHITE BLOOD COUNT 13.4 K/mm3 (4.0-10.0)
[2021-02-22 07:03] LABS: CALCIUM 9.4 mg/dL (8.5-10.1)
[2021-02-22 07:04] LABS: ALBUMIN 1.2 g/dl (3.4-5.0); BLOOD UREA NITROGEN 53.6 mg/dL (7-18); MAGNESIUM 1.4 mg/dL (1.8-2.4)
[2021-02-22 07:07] LABS: PHOSPHOROUS 3.9 mg/dL (2.5-4.9)
[2021-02-22 07:08] LABS: BILIRUBIN,TOTAL 0.2 mg/dL (0.2-1); TOT PROT 6.2 g/dl (6.4-8.2)
[2021-02-22] MEDS: NOREPINEPHRINE NS PREMIX 8,000 MCG/500 ML BAG IVPB SCH (07:30)
[2021-02-22] MEDS: ACETYLCYSTEINE 20% 200MG/ML 4 ML VIAL *FOR ORAL / INH USE ONLY NEB SCH ×4 (07:45→20:00)
[2021-02-22] MEDS ORDERED: PT OWN MED DRAWER 7, Y5N ONE ×5 (10:06→21:42)
[2021-02-22] MEDS: ENOXAPARIN NA (PORCINE) 40 MG/0.4 ML DISP.SYRIN SQ SCH (10:26)
[2021-02-22] MEDS: AMINO ACIDS/PROTEIN HYDROLYS 30 ML LIQUID.PKT GT SCH ×4 (10:27→16:45)
[2021-02-22] MEDS: PHENYTOIN 100 MG/4 ML U-D CUP GT SCH ×2 (10:27→21:50)
[2021-02-22] MEDS: cloBAZam 10 MG TABLET GT SCH ×2 (10:28→21:50)
[2021-02-22] MEDS: POTASSIUM CHLORIDE ORAL LIQUID 20 MEQ/15 ML GT SCH ×2 (10:28→21:48)
[2021-02-22] MEDS: PHENobarbital 30 MG TABLET GT SCH ×2 (10:28→21:50)
[2021-02-22] MEDS: FOLIC ACID 1 MG TABLET (FP) GT SCH (10:28)
[2021-02-22] MEDS: Lacosamide 50 MG/5 ML ORAL SOLUTION UNIT CUPS GT SCH ×2 (10:29→21:49)
[2021-02-22] MEDS: FAMOTIDINE 40 MG/5 ML ORAL SUSPENSION PO SCH (10:30)
[2021-02-22] MEDS: SENNOSIDES 8.8 MG/5 ML BULK BOTTLE GT SCH (10:31)
[2021-02-22] MEDS: ASCORBIC ACID 500 MG/5 ML UNIT DOSE CUP GT SCH (10:31)
[2021-02-22] MEDS: DOXAZOSIN MESYLATE 1 MG TABLET GT SCH (10:32)
[2021-02-22] MEDS: POLYETHYLENE GLYCOL 3350 119 GM BTL GT SCH (10:46)
[2021-02-22 10:55] LABS: ANISOCYTOSIS 1+; MACROCYTOSIS 0; PLATELET ESTIMATE INCREASED
[2021-02-22] MEDS: PROPOFOL 1,000,000 MCG/100 ML VIAL IVPB SCH (14:42)
[2021-02-22] MEDS: VASOPRESSIN 40 UNITS in SODIUM CHLORIDE 98 ML IVPB SCH (16:47)
[2021-02-22] MEDS: AMINO ACIDS 4.25%/D5W 1,000 ML IV SCH (16:49)
[2021-02-22] MEDS: ATORVASTATIN CA 80 MG TABLET (FP) GT SCH (21:50)
[2021-02-23] MEDS ORDERED: DEXTROSE 5%-WATER 100 ML IVPB ONE ×3 (03:07→17:34)
[2021-02-23] MEDS ORDERED: MEROPENEM 1 GM VIAL (RESTRICTED TO ID) IVPB ONE ×3 (03:07→17:34)
[2021-02-23] MEDS: MEROPENEM 1 GM in DEXTROSE 5%-WATER 100 ML IVPB SCH ×3 (03:11→17:48)
[2021-02-23] MEDS: clonazePAM 0.5 MG TABLET GT SCH ×3 (06:23→22:02)
[2021-02-23] MEDS: ACETYLCYSTEINE 20% 200MG/ML 4 ML VIAL *FOR ORAL / INH USE ONLY NEB SCH ×3 (08:00→20:15)
[2021-02-23] MEDS ORDERED: FUROSEMIDE 40 MG/4 ML INJECTABLE VIAL IVPUSH ONE (10:19)
[2021-02-23] MEDS: SENNOSIDES 8.8 MG/5 ML BULK BOTTLE GT SCH (10:35)
[2021-02-23] MEDS: PHENYTOIN 100 MG/4 ML U-D CUP GT SCH ×2 (10:35→22:01)
[2021-02-23] MEDS: ASCORBIC ACID 500 MG/5 ML UNIT DOSE CUP GT SCH (10:35)
[2021-02-23] MEDS: PROPOFOL 1,000,000 MCG/100 ML VIAL IVPB SCH ×2 (10:36→17:51)
[2021-02-23] MEDS: FAMOTIDINE 40 MG/5 ML ORAL SUSPENSION PO SCH (10:36)
[2021-02-23] MEDS: ENOXAPARIN NA (PORCINE) 40 MG/0.4 ML DISP.SYRIN SQ SCH (10:38)
[2021-02-23] MEDS: DOXAZOSIN MESYLATE 1 MG TABLET GT SCH (10:38)
[2021-02-23] MEDS: AMINO ACIDS/PROTEIN HYDROLYS 30 ML LIQUID.PKT GT SCH ×3 (10:38→17:48)
[2021-02-23] MEDS: FOLIC ACID 1 MG TABLET (FP) GT SCH (10:39)
[2021-02-23] MEDS: PHENobarbital 30 MG TABLET GT SCH ×2 (10:39→22:01)
[2021-02-23] MEDS: cloBAZam 10 MG TABLET GT SCH ×2 (10:39→22:01)
[2021-02-23] MEDS: Lacosamide 50 MG/5 ML ORAL SOLUTION UNIT CUPS GT SCH ×2 (10:39→22:01)
[2021-02-23] MEDS: POTASSIUM CHLORIDE ORAL LIQUID 20 MEQ/15 ML GT SCH ×2 (10:40→22:02)
[2021-02-23] MEDS: POLYETHYLENE GLYCOL 3350 119 GM BTL GT SCH (10:41)
[2021-02-23] MEDS ORDERED: METOCLOPRAMIDE HCL INJECTION 10 MG/2 ML VIAL IVPUSH ONE (12:38)
[2021-02-23] MEDS ORDERED: PT OWN MED DRAWER 7, Y5N ONE ×2 (12:51→21:56)
[2021-02-23] MEDS ORDERED: ACETAMINOPHEN 1000 MG/100 ML BAG IVPB ONE (15:07)
[2021-02-23 17:09] LABS: EPI CELLS >36 /uL (0-25.1); HYALINE CASTS 15 /uL (0-3.1); URINE APPEARANCE CLOUDY; URINE BACTERIA 143 /uL (0-1359); URINE BILIRUBIN NEGATIVE (NEGATIVE); URINE COLOR YELLOW; URINE GLUCOSE (UA) NEGATIVE (NEGATIVE); URINE KETONE NEGATIVE (NEGATIVE); URINE LEUK ESTERASE TRACE (NEGATIVE); URINE NITRITE NEGATIVE (NEGATIVE); URINE PROTEIN 1+ (NEGATIVE); URINE UROBILINOGEN 0.2 mg/dL (0.2-1.0); URINE WBC 83 /uL (0-25.8)
[2021-02-23 17:18] LABS: URINE RBC 237.1 /uL (0-23.9)
[2021-02-23] MEDS: ATORVASTATIN CA 80 MG TABLET (FP) GT SCH (22:01)
[2021-02-23] MEDS: METOCLOPRAMIDE HCL INJECTION 10 MG/2 ML VIAL IVPUSH SCH (22:02)
[2021-02-24] MEDS ORDERED: MEROPENEM 1 GM VIAL (RESTRICTED TO ID) IVPB ONE ×3 (03:27→17:53)
[2021-02-24] MEDS ORDERED: DEXTROSE 5%-WATER 100 ML IVPB ONE ×3 (03:27→17:53)
[2021-02-24] MEDS: MEROPENEM 1 GM in DEXTROSE 5%-WATER 100 ML IVPB SCH ×3 (03:30→18:35)
[2021-02-24] MEDS: clonazePAM 0.5 MG TABLET GT SCH ×3 (06:30→22:32)
[2021-02-24] MEDS: ACETYLCYSTEINE 20% 200MG/ML 4 ML VIAL *FOR ORAL / INH USE ONLY NEB SCH ×4 (07:55→20:37)
[2021-02-24] MEDS ORDERED: PT OWN MED DRAWER 7, Y5N ONE ×4 (09:00→15:48)
[2021-02-24] MEDS: PROPOFOL 1,000,000 MCG/100 ML VIAL IVPB SCH (09:24)
[2021-02-24] MEDS: AMINO ACIDS/PROTEIN HYDROLYS 30 ML LIQUID.PKT GT SCH ×2 (09:25→18:35)
[2021-02-24] MEDS: cloBAZam 10 MG TABLET GT SCH ×2 (09:26→22:31)
[2021-02-24] MEDS: PHENobarbital 30 MG TABLET GT SCH ×2 (09:26→22:33)
[2021-02-24] MEDS: METOCLOPRAMIDE HCL INJECTION 10 MG/2 ML VIAL IVPUSH SCH (09:27)
[2021-02-24] MEDS: ENOXAPARIN NA (PORCINE) 40 MG/0.4 ML DISP.SYRIN SQ SCH (09:28)
[2021-02-24] MEDS: FOLIC ACID 1 MG TABLET (FP) GT SCH (09:29)
[2021-02-24] MEDS: DOXAZOSIN MESYLATE 1 MG TABLET GT SCH (09:29)
[2021-02-24] MEDS: POLYETHYLENE GLYCOL 3350 119 GM BTL GT SCH (09:30)
[2021-02-24] MEDS: POTASSIUM CHLORIDE ORAL LIQUID 20 MEQ/15 ML GT SCH ×2 (09:30→22:33)
[2021-02-24] MEDS: Lacosamide 50 MG/5 ML ORAL SOLUTION UNIT CUPS GT SCH ×2 (09:32→22:34)
[2021-02-24] MEDS: SENNOSIDES 8.8 MG/5 ML BULK BOTTLE GT SCH (09:33)
[2021-02-24] MEDS: PHENYTOIN 100 MG/4 ML U-D CUP GT SCH ×2 (09:45→22:35)
[2021-02-24] MEDS: FAMOTIDINE 40 MG/5 ML ORAL SUSPENSION PO SCH (09:45)
[2021-02-24] MEDS: ASCORBIC ACID 500 MG/5 ML UNIT DOSE CUP GT SCH (09:46)
[2021-02-24 10:38] LABS: BASO % 0.5 % (0-2.0); EOS % 5.5 % (0-4.5); HEMATOCRIT 24.4 % (35.4-49); HEMOGLOBIN 8.1 GM/dL (11.7-16.9); LYMPH % 12.5 % (8-40); MCH 25.4 pg (25.7-33.7); MCHC 33.1 g/dl (32.0-35.9); MEAN CELL VOLUME 76.8 fl (80-96); MEAN PLT VOLUME 8.5 fl (7.5-11.1); MONO % 9.7 % (3.8-10.2); NEUT % 71.8 % (42.8-82.8); PLATELET COUNT 547 K/MM3 (134-434); RBC 3.17 M/mm3 (4.00-5.60); RDW 21.6 % (11.9-15.9); WHITE BLOOD COUNT 11.8 K/mm3 (4.0-10.0)
[2021-02-24 11:07] LABS: ANISOCYTOSIS 3+; MACROCYTOSIS 0; PLATELET ESTIMATE INCREASED
[2021-02-24 11:15] LABS: CHLORIDE 102 mmol/L (98-107); SODIUM 135 mmol/L (136-145)
[2021-02-24 11:18] LABS: ALBUMIN 1.3 g/dl (3.4-5.0); CALCIUM 10.4 mg/dL (8.5-10.1)
[2021-02-24 11:19] LABS: ANION GAP 8 MMOL/L (8-16); BLOOD UREA NITROGEN 61.4 mg/dL (7-18); CO2 26 mmol/L (21-32); GLUCOSE,RANDOM 70 mg/dL (74-106)
[2021-02-24 11:21] LABS: CREATININE 0.7 mg/dL (0.55-1.3); SGOT/AST 157 U/L (15-37); SGPT/ALT 75 U/L (13-61)
[2021-02-24 11:22] LABS: BILIRUBIN,TOTAL 0.1 mg/dL (0.2-1)
[2021-02-24 11:23] LABS: TOT PROT 6.6 g/dl (6.4-8.2)
[2021-02-24 11:27] LABS: ALK PHOS 437 U/L (45-117)
[2021-02-24] MEDS ORDERED: AMINO ACIDS 4.25%/D5W 1,000 ML IV SCH (13:15)
[2021-02-24] MEDS ORDERED: MIDAZOLAM HCL 5 MG/1 ML Single Dose Vial ONE (13:26)
[2021-02-24] MEDS ORDERED: ROCURONIUM BROMIDE 100 MG/10 ML VIAL ONE (13:35)
[2021-02-24] MEDS ORDERED: AMINO ACIDS 4.25%/D5W 2,000 ML IV SCH (14:00)
[2021-02-24] MEDS ORDERED: LIDOCAINE HCL 1%, 10 MG/ML (20ML VIAL) NR ONE (14:18)
[2021-02-24] MEDS ORDERED: VECURONIUM BROMIDE 50 MG/50 ML VIAL IVPUSH ONE (14:20)
[2021-02-24] MEDS ORDERED: MIDAZOLAM HCL 5 MG/1 ML Single Dose Vial IVPUSH ONE (14:20)
[2021-02-24] MEDS ORDERED: METOCLOPRAMIDE HCL INJECTION 10 MG/2 ML VIAL IVPUSH PRN (14:27)
[2021-02-24] MEDS: ALBUTEROL SO4 0.083% IH SOL 2.5 MG/3 ML VIAL.NEB. NEB PRN (15:17)
[2021-02-24] MEDS: AMINO ACIDS 4.25%/D5W 1,000 ML IV SCH (16:59)
[2021-02-24] MEDS: MULTIVIT INJ. ADULT COMBO WITH VIT K 1 COMBO 10 ML VIAL IV SCH (16:59)
[2021-02-24] MEDS: ATORVASTATIN CA 80 MG TABLET (FP) GT SCH (22:33)
[2021-02-24] MEDS: NOREPINEPHRINE NS PREMIX 8,000 MCG/500 ML BAG IVPB SCH (23:00)
[2021-02-24] MEDS ORDERED: NOREPINEPHRINE BITARTRATE 8,000 MCG/500 ML BAG IVPB ONE (23:09)
[2021-02-25] MEDS: PROPOFOL 1,000,000 MCG/100 ML VIAL IVPB SCH (00:05)
[2021-02-25] MEDS: MEROPENEM 1 GM in DEXTROSE 5%-WATER 100 ML IVPB SCH ×3 (03:00→17:12)
[2021-02-25] MEDS: AMINO ACIDS 4.25%/D5W 1,000 ML IV SCH ×2 (04:05→18:32)
[2021-02-25] MEDS: clonazePAM 0.5 MG TABLET GT SCH ×3 (06:36→21:49)
[2021-02-25] MEDS: ACETYLCYSTEINE 20% 200MG/ML 4 ML VIAL *FOR ORAL / INH USE ONLY NEB SCH ×4 (08:15→20:10)
[2021-02-25] MEDS: ALBUTEROL SO4 0.083% IH SOL 2.5 MG/3 ML VIAL.NEB. NEB PRN ×4 (08:15→20:10)
[2021-02-25] MEDS: AMINO ACIDS/PROTEIN HYDROLYS 30 ML LIQUID.PKT GT SCH ×2 (08:36→17:12)
[2021-02-25] MEDS ORDERED: MEROPENEM 1 GM VIAL (RESTRICTED TO ID) IVPB ONE ×2 (10:00→17:03)
[2021-02-25] MEDS ORDERED: DEXTROSE 5%-WATER 100 ML IVPB ONE ×2 (10:00→17:03)
[2021-02-25] MEDS ORDERED: PT OWN MED DRAWER 7, Y5N ONE ×3 (10:03→21:23)
[2021-02-25] MEDS: DOXAZOSIN MESYLATE 1 MG TABLET GT SCH (10:36)
[2021-02-25] MEDS: PHENYTOIN 100 MG/4 ML U-D CUP GT SCH ×2 (10:36→22:01)
[2021-02-25] MEDS: ENOXAPARIN NA (PORCINE) 40 MG/0.4 ML DISP.SYRIN SQ SCH (10:37)
[2021-02-25] MEDS: FOLIC ACID 1 MG TABLET (FP) GT SCH (10:37)
[2021-02-25] MEDS: FAMOTIDINE 40 MG/5 ML ORAL SUSPENSION PO SCH (10:37)
[2021-02-25] MEDS: cloBAZam 10 MG TABLET GT SCH ×2 (10:37→21:49)
[2021-02-25] MEDS: PHENobarbital 30 MG TABLET GT SCH ×2 (10:37→21:49)
[2021-02-25] MEDS: ASCORBIC ACID 500 MG/5 ML UNIT DOSE CUP GT SCH (10:38)
[2021-02-25] MEDS: POTASSIUM CHLORIDE ORAL LIQUID 20 MEQ/15 ML GT SCH ×2 (10:38→21:49)
[2021-02-25] MEDS: Lacosamide 50 MG/5 ML ORAL SOLUTION UNIT CUPS GT SCH ×2 (10:38→21:49)
[2021-02-25] MEDS: POLYETHYLENE GLYCOL 3350 119 GM BTL GT SCH (11:37)
[2021-02-25] MEDS: SENNOSIDES 8.8 MG/5 ML BULK BOTTLE GT SCH (11:38)
[2021-02-25] MEDS: MULTIVIT INJ. ADULT COMBO WITH VIT K 1 COMBO 10 ML VIAL IV SCH (18:32)
[2021-02-25] MEDS: ATORVASTATIN CA 80 MG TABLET (FP) GT SCH (21:49)
[2021-02-26] MEDS: PROPOFOL 1,000,000 MCG/100 ML VIAL IVPB SCH
[2021-02-26] MEDS: MEROPENEM 1 GM in DEXTROSE 5%-WATER 100 ML IVPB SCH ×3 (03:05→17:44)
[2021-02-26] MEDS: NOREPINEPHRINE NS PREMIX 8,000 MCG/500 ML BAG IVPB SCH (04:40)
[2021-02-26] MEDS ORDERED: MEROPENEM 1 GM VIAL (RESTRICTED TO ID) IVPB ONE ×3 (05:10→17:49)
[2021-02-26] MEDS ORDERED: DEXTROSE 5%-WATER 100 ML IVPB ONE ×3 (05:11→17:49)
[2021-02-26] MEDS: clonazePAM 0.5 MG TABLET GT SCH ×3 (06:05→22:25)
[2021-02-26 06:18] LABS: BASO % 0.4 % (0-2.0); EOS % 4.6 % (0-4.5); HEMATOCRIT 24.5 % (35.4-49); HEMOGLOBIN 7.9 GM/dL (11.7-16.9); LYMPH % 11.2 % (8-40); MCH 24.8 pg (25.7-33.7); MCHC 32.2 g/dl (32.0-35.9); MEAN CELL VOLUME 77.1 fl (80-96); MEAN PLT VOLUME 8.2 fl (7.5-11.1); MONO % 8.8 % (3.8-10.2); PLATELET COUNT 663 K/MM3 (134-434); RBC 3.17 M/mm3 (4.00-5.60); RDW 21.5 % (11.9-15.9); WHITE BLOOD COUNT 12.1 K/mm3 (4.0-10.0)
[2021-02-26 06:25] LABS: CALCIUM 10.1 mg/dL (8.5-10.1)
[2021-02-26 06:30] LABS: CREATININE 0.5 mg/dL (0.55-1.3)
[2021-02-26 06:36] LABS: INR 1.24 (0.83-1.09); PROTHROMBIN TIME (PATIENT) 14.9 SEC (9.7-13.0)
[2021-02-26] MEDS: ACETYLCYSTEINE 20% 200MG/ML 4 ML VIAL *FOR ORAL / INH USE ONLY NEB SCH ×4 (08:28→20:02)
[2021-02-26] MEDS: ALBUTEROL SO4 0.083% IH SOL 2.5 MG/3 ML VIAL.NEB. NEB PRN ×4 (08:29→20:02)
[2021-02-26 08:50] LABS: ANISOCYTOSIS 2+; MACROCYTOSIS 0; PLATELET ESTIMATE INCREASED
[2021-02-26] MEDS ORDERED: PT OWN MED DRAWER 7, Y5N ONE ×2 (10:11→22:05)
[2021-02-26] MEDS: PHENYTOIN 100 MG/4 ML U-D CUP GT SCH ×2 (10:44→22:25)
[2021-02-26] MEDS: ENOXAPARIN NA (PORCINE) 40 MG/0.4 ML DISP.SYRIN SQ SCH (10:44)
[2021-02-26] MEDS: FAMOTIDINE 40 MG/5 ML ORAL SUSPENSION PO SCH (10:44)
[2021-02-26] MEDS: PHENobarbital 30 MG TABLET GT SCH ×2 (10:44→22:27)
[2021-02-26] MEDS: AMINO ACIDS/PROTEIN HYDROLYS 30 ML LIQUID.PKT GT SCH ×2 (10:44→17:44)
[2021-02-26] MEDS: AMINO ACIDS 4.25%/D5W 1,000 ML IV SCH ×2 (10:44→17:44)
[2021-02-26] MEDS: DOXAZOSIN MESYLATE 1 MG TABLET GT SCH (10:44)
[2021-02-26] MEDS: cloBAZam 10 MG TABLET GT SCH ×2 (10:44→22:27)
[2021-02-26] MEDS: POLYETHYLENE GLYCOL 3350 119 GM BTL GT SCH (10:44)
[2021-02-26] MEDS: FOLIC ACID 1 MG TABLET (FP) GT SCH (10:44)
[2021-02-26] MEDS: POTASSIUM CHLORIDE ORAL LIQUID 20 MEQ/15 ML GT SCH ×2 (10:45→22:28)
[2021-02-26] MEDS: SENNOSIDES 8.8 MG/5 ML BULK BOTTLE GT SCH (10:45)
[2021-02-26] MEDS: Lacosamide 50 MG/5 ML ORAL SOLUTION UNIT CUPS GT SCH ×2 (10:45→22:28)
[2021-02-26] MEDS: ASCORBIC ACID 500 MG/5 ML UNIT DOSE CUP GT SCH (10:45)
[2021-02-26] MEDS: MULTIVIT INJ. ADULT COMBO WITH VIT K 1 COMBO 10 ML VIAL IV SCH (17:44)
[2021-02-26] MEDS: ATORVASTATIN CA 80 MG TABLET (FP) GT SCH (22:26)
[2021-02-27] MEDS ORDERED: DEXTROSE 5%-WATER 100 ML IVPB ONE ×3 (01:40→16:21)
[2021-02-27] MEDS ORDERED: MEROPENEM 1 GM VIAL (RESTRICTED TO ID) IVPB ONE ×3 (01:40→16:21)
[2021-02-27] MEDS: MEROPENEM 1 GM in DEXTROSE 5%-WATER 100 ML IVPB SCH ×3 (01:54→17:17)
[2021-02-27] MEDS: AMINO ACIDS 4.25%/D5W 1,000 ML IV SCH ×3 (04:07→17:16)
[2021-02-27] MEDS: clonazePAM 0.5 MG TABLET GT SCH ×3 (06:39→21:54)
[2021-02-27] MEDS: ACETYLCYSTEINE 20% 200MG/ML 4 ML VIAL *FOR ORAL / INH USE ONLY NEB SCH ×4 (07:40→20:44)
[2021-02-27] MEDS: AMINO ACIDS/PROTEIN HYDROLYS 30 ML LIQUID.PKT GT SCH ×2 (07:45→17:17)
[2021-02-27] MEDS: MULTIVIT INJ. ADULT COMBO WITH VIT K 1 COMBO 10 ML VIAL IV SCH ×2 (07:45→13:17)
[2021-02-27] MEDS ORDERED: NOREPINEPHRINE BITARTRATE 4 MG/4 ML ML IV ONE (07:58)
[2021-02-27] MEDS: NOREPINEPHRINE NS PREMIX 8,000 MCG/500 ML BAG IVPB SCH (08:05)
[2021-02-27] MEDS ORDERED: PT OWN MED DRAWER 7, Y5N ONE ×4 (09:44→21:23)
[2021-02-27] MEDS: PHENobarbital 30 MG TABLET GT SCH ×2 (10:01→21:54)
[2021-02-27] MEDS: cloBAZam 10 MG TABLET GT SCH ×2 (10:01→21:54)
[2021-02-27] MEDS: FOLIC ACID 1 MG TABLET (FP) GT SCH (10:01)
[2021-02-27] MEDS: ENOXAPARIN NA (PORCINE) 40 MG/0.4 ML DISP.SYRIN SQ SCH (10:01)
[2021-02-27] MEDS: POTASSIUM CHLORIDE ORAL LIQUID 20 MEQ/15 ML GT SCH ×2 (10:02→21:55)
[2021-02-27] MEDS: Lacosamide 50 MG/5 ML ORAL SOLUTION UNIT CUPS GT SCH ×2 (10:02→21:54)
[2021-02-27] MEDS: POLYETHYLENE GLYCOL 3350 119 GM BTL GT SCH (10:04)
[2021-02-27] MEDS: ASCORBIC ACID 500 MG/5 ML UNIT DOSE CUP GT SCH (10:04)
[2021-02-27] MEDS: SENNOSIDES 8.8 MG/5 ML BULK BOTTLE GT SCH (10:04)
[2021-02-27] MEDS: FAMOTIDINE 40 MG/5 ML ORAL SUSPENSION PO SCH (10:04)
[2021-02-27] MEDS: DOXAZOSIN MESYLATE 1 MG TABLET GT SCH (10:05)
[2021-02-27] MEDS: PHENYTOIN 100 MG/4 ML U-D CUP GT SCH ×2 (10:05→21:53)
[2021-02-27 10:43] LABS: BASO % 0.6 % (0-2.0); EOS % 4.4 % (0-4.5); HEMATOCRIT 23.4 % (35.4-49); HEMOGLOBIN 7.6 GM/dL (11.7-16.9); LYMPH % 14.3 % (8-40); MCHC 32.7 g/dl (32.0-35.9); MEAN CELL VOLUME 76.4 fl (80-96); MEAN PLT VOLUME 8.1 fl (7.5-11.1); MONO % 6.5 % (3.8-10.2); NEUT % 74.2 % (42.8-82.8); PLATELET COUNT 635 K/MM3 (134-434); RBC 3.06 M/mm3 (4.00-5.60); RDW 21.3 % (11.9-15.9); WHITE BLOOD COUNT 11.2 K/mm3 (4.0-10.0)
[2021-02-27 11:08] LABS: CHLORIDE 103 mmol/L (98-107); SODIUM 135 mmol/L (136-145)
[2021-02-27 11:11] LABS: ALBUMIN 1.2 g/dl (3.4-5.0); ANION GAP 6 MMOL/L (8-16); BLOOD UREA NITROGEN 47.2 mg/dL (7-18); CALCIUM 10.2 mg/dL (8.5-10.1); CO2 25 mmol/L (21-32); GLUCOSE,RANDOM 139 mg/dL (74-106)
[2021-02-27 11:14] LABS: SGOT/AST 36 U/L (15-37); SGPT/ALT 29 U/L (13-61)
[2021-02-27 11:15] LABS: CREATININE 0.4 mg/dL (0.55-1.3)
[2021-02-27 11:16] LABS: BILIRUBIN,TOTAL 0.2 mg/dL (0.2-1); TOT PROT 6.1 g/dl (6.4-8.2)
[2021-02-27 11:19] LABS: ALK PHOS 267 U/L (45-117)
[2021-02-27] MEDS: ALBUTEROL SO4 0.083% IH SOL 2.5 MG/3 ML VIAL.NEB. NEB PRN ×2 (11:53→20:44)
[2021-02-27] MEDS: MIDODRINE HCL 2.5 MG TABLET PO SCH (17:18)
[2021-02-27] MEDS: ATORVASTATIN CA 80 MG TABLET (FP) GT SCH (21:54)
[2021-02-28] MEDS: MEROPENEM 1 GM in DEXTROSE 5%-WATER 100 ML IVPB SCH ×3 (01:04→17:29)
[2021-02-28] MEDS ORDERED: MEROPENEM 1 GM VIAL (RESTRICTED TO ID) IVPB ONE ×3 (01:32→17:18)
[2021-02-28] MEDS ORDERED: DEXTROSE 5%-WATER 100 ML IVPB ONE ×3 (01:32→17:18)
[2021-02-28 06:20] LABS: ARTERIAL BLD GAS O2 SATURATION 95.1 mmHg (95-98); ARTERIAL BLOOD GAS BASE EXCESS -0.2 mmol/L (-2-2); ARTERIAL BLOOD GAS PO2 80.4 mmHg (80-100); ARTERIAL BLOOD GAS pH 7.335 (7.350-7.450)
[2021-02-28 06:24] LABS: ALLENS TEST POSITIVE
[2021-02-28 06:25] LABS: VENT MODE A/C; VENT RATE 12
[2021-02-28] MEDS: clonazePAM 0.5 MG TABLET GT SCH ×3 (06:37→22:27)
[2021-02-28 07:17] LABS: MAGNESIUM 1.4 mg/dL (1.8-2.4)
[2021-02-28 07:21] LABS: PHOSPHOROUS 3.5 mg/dL (2.5-4.9)
[2021-02-28] MEDS: MULTIVIT INJ. ADULT COMBO WITH VIT K 1 COMBO 10 ML VIAL IV SCH ×2 (07:45→13:01)
[2021-02-28 07:48] LABS: BASO % 0.9 % (0-2.0); EOS % 5.2 % (0-4.5); HEMATOCRIT 23.8 % (35.4-49); LYMPH % 14.2 % (8-40); MCH 25.5 pg (25.7-33.7); MCHC 33.7 g/dl (32.0-35.9); MEAN CELL VOLUME 75.7 fl (80-96); MEAN PLT VOLUME 8.1 fl (7.5-11.1); MONO % 5.1 % (3.8-10.2); NEUT % 74.6 % (42.8-82.8); PLATELET COUNT 669 K/MM3 (134-434); RBC 3.14 M/mm3 (4.00-5.60); RDW 21.9 % (11.9-15.9); WHITE BLOOD COUNT 10.9 K/mm3 (4.0-10.0)
[2021-02-28] MEDS: AMINO ACIDS 4.25%/D5W 1,000 ML IV SCH ×2 (07:48→12:07)
[2021-02-28] MEDS: NOREPINEPHRINE NS PREMIX 8,000 MCG/500 ML BAG IVPB SCH (07:57)
[2021-02-28 08:05] LABS: CHLORIDE 104 mmol/L (98-107); SODIUM 135 mmol/L (136-145)
[2021-02-28 08:08] LABS: CALCIUM 10.6 mg/dL (8.5-10.1)
[2021-02-28 08:10] LABS: ALBUMIN 1.3 g/dl (3.4-5.0); ANION GAP 4 MMOL/L (8-16); BLOOD UREA NITROGEN 44.1 mg/dL (7-18); CO2 26 mmol/L (21-32); GLUCOSE,RANDOM 64 mg/dL (74-106)
[2021-02-28 08:12] LABS: CREATININE 0.4 mg/dL (0.55-1.3); SGOT/AST 56 U/L (15-37); SGPT/ALT 42 U/L (13-61)
[2021-02-28 08:14] LABS: BILIRUBIN,TOTAL 0.1 mg/dL (0.2-1); TOT PROT 6.4 g/dl (6.4-8.2)
[2021-02-28 08:15] LABS: ALK PHOS 281 U/L (45-117)
[2021-02-28] MEDS: ACETYLCYSTEINE 20% 200MG/ML 4 ML VIAL *FOR ORAL / INH USE ONLY NEB SCH (08:21)
[2021-02-28] MEDS: ALBUTEROL SO4 0.083% IH SOL 2.5 MG/3 ML VIAL.NEB. NEB PRN (08:21)
[2021-02-28] MEDS ORDERED: PT OWN MED DRAWER 7, Y5N ONE ×3 (09:10→22:04)
[2021-02-28] MEDS: AMINO ACIDS/PROTEIN HYDROLYS 30 ML LIQUID.PKT GT SCH ×2 (09:11→17:29)
[2021-02-28] MEDS: FAMOTIDINE 40 MG/5 ML ORAL SUSPENSION PO SCH (09:12)
[2021-02-28] MEDS: POLYETHYLENE GLYCOL 3350 119 GM BTL GT SCH (09:12)
[2021-02-28] MEDS: cloBAZam 10 MG TABLET GT SCH ×2 (09:12→22:27)
[2021-02-28] MEDS: FOLIC ACID 1 MG TABLET (FP) GT SCH (09:12)
[2021-02-28] MEDS: PHENobarbital 30 MG TABLET GT SCH ×2 (09:12→22:28)
[2021-02-28] MEDS: Lacosamide 50 MG/5 ML ORAL SOLUTION UNIT CUPS GT SCH ×2 (09:12→22:28)
[2021-02-28] MEDS: ENOXAPARIN NA (PORCINE) 40 MG/0.4 ML DISP.SYRIN SQ SCH (09:13)
[2021-02-28] MEDS: MIDODRINE HCL 2.5 MG TABLET PO SCH (09:13)
[2021-02-28] MEDS: POTASSIUM CHLORIDE ORAL LIQUID 20 MEQ/15 ML GT SCH ×2 (09:13→22:28)
[2021-02-28] MEDS: SENNOSIDES 8.8 MG/5 ML BULK BOTTLE GT SCH (09:14)
[2021-02-28] MEDS: ASCORBIC ACID 500 MG/5 ML UNIT DOSE CUP GT SCH (09:14)
[2021-02-28] MEDS: PHENYTOIN 100 MG/4 ML U-D CUP GT SCH ×2 (09:14→22:26)
[2021-02-28] MEDS: DOXAZOSIN MESYLATE 1 MG TABLET GT SCH (09:15)
[2021-02-28 09:44] LABS: BASO % 0.7 % (0-2.0); EOS % 4.9 % (0-4.5); HEMOGLOBIN 7.8 GM/dL (11.7-16.9); LYMPH % 13.6 % (8-40); MCH 25.2 pg (25.7-33.7); MCHC 32.5 g/dl (32.0-35.9); MEAN CELL VOLUME 77.5 fl (80-96); MEAN PLT VOLUME 8.4 fl (7.5-11.1); MONO % 5.2 % (3.8-10.2); NEUT % 75.6 % (42.8-82.8); PLATELET COUNT 643 K/MM3 (134-434); WHITE BLOOD COUNT 10.7 K/mm3 (4.0-10.0)
[2021-02-28 10:08] LABS: CHLORIDE 105 mmol/L (98-107); SODIUM 136 mmol/L (136-145)
[2021-02-28 10:10] LABS: ALBUMIN 1.3 g/dl (3.4-5.0); BLOOD UREA NITROGEN 42.5 mg/dL (7-18)
[2021-02-28 10:12] LABS: ANION GAP 8 MMOL/L (8-16); CO2 23 mmol/L (21-32); GLUCOSE,RANDOM 68 mg/dL (74-106)
[2021-02-28 10:13] LABS: CREATININE 0.3 mg/dL (0.55-1.3); SGOT/AST 54 U/L (15-37); SGPT/ALT 43 U/L (13-61)
[2021-02-28 10:14] LABS: BILIRUBIN,TOTAL 0.1 mg/dL (0.2-1)
[2021-02-28 10:16] LABS: ALK PHOS 286 U/L (45-117); TOT PROT 6.2 g/dl (6.4-8.2)
[2021-02-28] MEDS ORDERED: ACETYLCYSTEINE 20% 200MG/ML 4 ML VIAL *FOR ORAL / INH USE ONLY NEB SCH (10:30)
[2021-02-28 10:58] LABS: ANISOCYTOSIS 2+; MACROCYTOSIS 0; OVALOCYTE 1+; PLATELET ESTIMATE INCREASED; TARGET CELLS 1+
[2021-02-28] MEDS: METOCLOPRAMIDE HCL INJECTION 10 MG/2 ML VIAL IVPUSH SCH ×2 (13:15→17:29)
[2021-02-28] MEDS: MIDODRINE HCL 5 MG TABLET PO SCH (17:29)
[2021-02-28] MEDS: ATORVASTATIN CA 80 MG TABLET (FP) GT SCH (22:27)
[2021-03-01] MEDS: METOCLOPRAMIDE HCL INJECTION 10 MG/2 ML VIAL IVPUSH SCH ×4 (01:17→17:36)
[2021-03-01] MEDS: MEROPENEM 1 GM in DEXTROSE 5%-WATER 100 ML IVPB SCH ×2 (01:18→09:25)
[2021-03-01] MEDS ORDERED: DEXTROSE 5%-WATER 100 ML IVPB ONE ×2 (02:58→09:01)
[2021-03-01] MEDS ORDERED: MEROPENEM 1 GM VIAL (RESTRICTED TO ID) IVPB ONE ×2 (02:58→09:01)
[2021-03-01] MEDS: clonazePAM 0.5 MG TABLET GT SCH ×3 (05:52→22:45)
[2021-03-01 06:54] LABS: MAGNESIUM 1.4 mg/dL (1.8-2.4)
[2021-03-01 06:57] LABS: PHOSPHOROUS 3.3 mg/dL (2.5-4.9)
[2021-03-01] MEDS ORDERED: PT OWN MED DRAWER 7, Y5N ONE ×4 (09:03→15:08)
[2021-03-01] MEDS ORDERED: MAGNESIUM SULF 50% (8.12 MEQ/2 ML-1 GM VIAL) IVPB ONE (09:10)
[2021-03-01] MEDS: Lacosamide 50 MG/5 ML ORAL SOLUTION UNIT CUPS GT SCH ×2 (09:24→22:43)
[2021-03-01] MEDS: POTASSIUM CHLORIDE ORAL LIQUID 20 MEQ/15 ML GT SCH ×2 (09:25→22:43)
[2021-03-01] MEDS: ENOXAPARIN NA (PORCINE) 40 MG/0.4 ML DISP.SYRIN SQ SCH (09:25)
[2021-03-01] MEDS: PHENobarbital 30 MG TABLET GT SCH ×2 (09:26→22:43)
[2021-03-01] MEDS: AMINO ACIDS/PROTEIN HYDROLYS 30 ML LIQUID.PKT GT SCH ×2 (09:26→17:36)
[2021-03-01] MEDS: PHENYTOIN 100 MG/4 ML U-D CUP GT SCH ×2 (09:27→22:47)
[2021-03-01] MEDS: cloBAZam 10 MG TABLET GT SCH ×2 (09:27→22:45)
[2021-03-01] MEDS: MIDODRINE HCL 5 MG TABLET PO SCH ×2 (09:27→17:36)
[2021-03-01] MEDS: FOLIC ACID 1 MG TABLET (FP) GT SCH (09:27)
[2021-03-01] MEDS: ASCORBIC ACID 500 MG/5 ML UNIT DOSE CUP GT SCH (09:28)
[2021-03-01] MEDS: DOXAZOSIN MESYLATE 1 MG TABLET GT SCH (09:28)
[2021-03-01] MEDS: SENNOSIDES 8.8 MG/5 ML BULK BOTTLE GT SCH (09:28)
[2021-03-01] MEDS: POLYETHYLENE GLYCOL 3350 119 GM BTL GT SCH (09:28)
[2021-03-01] MEDS: AMINO ACIDS 4.25%/D5W 1,000 ML IV SCH (10:05)
[2021-03-01] MEDS ORDERED: VASOPRESSIN 40 UNITS in SODIUM CHLORIDE 98 ML IVPB SCH (11:45)
[2021-03-01] MEDS: FAMOTIDINE 40 MG/5 ML ORAL SUSPENSION PO SCH (15:12)
[2021-03-01] MEDS ORDERED: HEPARIN NA (PORCINE) 5,000 UNITS/ML 1ML VIAL SQ SCH (15:45)
[2021-03-01] MEDS ORDERED: ERYTHROMYCIN BASE 250 MG TAB PO SCH (16:00)
[2021-03-01] MEDS: MULTIVIT INJ. ADULT COMBO WITH VIT K 1 COMBO 10 ML VIAL IV SCH (16:27)
[2021-03-01] MEDS: NOREPINEPHRINE NS PREMIX 8,000 MCG/500 ML BAG IVPB SCH (16:49)
[2021-03-01] MEDS: ERYTHROMYCIN ETHYLSUCCINATE 200 MG/5 ML BTL GT SCH (17:35)
[2021-03-01] MEDS: ATORVASTATIN CA 80 MG TABLET (FP) GT SCH (22:45)
[2021-03-02] MEDS: ERYTHROMYCIN ETHYLSUCCINATE 200 MG/5 ML BTL GT SCH ×3 (00:05→17:08)
[2021-03-02] MEDS: METOCLOPRAMIDE HCL INJECTION 10 MG/2 ML VIAL IVPUSH SCH ×4 (06:04→17:09)
[2021-03-02 06:05] LABS: BASO % 0.7 % (0-2.0); EOS % 1.8 % (0-4.5); LYMPH % 17.2 % (8-40); MCH 25.6 pg (25.7-33.7); MCHC 33.4 g/dl (32.0-35.9); MEAN CELL VOLUME 76.7 fl (80-96); MEAN PLT VOLUME 7.7 fl (7.5-11.1); MONO % 9.4 % (3.8-10.2); NEUT % 70.9 % (42.8-82.8); PLATELET COUNT 577 K/MM3 (134-434); RBC 2.62 M/mm3 (4.00-5.60); RDW 21.8 % (11.9-15.9); WHITE BLOOD COUNT 8.9 K/mm3 (4.0-10.0)
[2021-03-02] MEDS: clonazePAM 0.5 MG TABLET GT SCH ×2 (06:05→13:39)
[2021-03-02 06:16] LABS: HEMATOCRIT 20.1 % (35.4-49); HEMOGLOBIN 6.7 GM/dL (11.7-16.9)
[2021-03-02 06:45] LABS: CALCIUM 10.4 mg/dL (8.5-10.1)
[2021-03-02 06:46] LABS: ALBUMIN 1.3 g/dl (3.4-5.0); BLOOD UREA NITROGEN 38.6 mg/dL (7-18); MAGNESIUM 1.6 mg/dL (1.8-2.4)
[2021-03-02 06:49] LABS: CREATININE 0.4 mg/dL (0.55-1.3); PHOSPHOROUS 3.6 mg/dL (2.5-4.9)
[2021-03-02 06:50] LABS: BILIRUBIN,TOTAL 0.2 mg/dL (0.2-1); TOT PROT 6.2 g/dl (6.4-8.2)
[2021-03-02] MEDS ORDERED: PT OWN MED DRAWER 7, Y5N ONE ×3 (09:34→15:12)
[2021-03-02] MEDS: AMINO ACIDS/PROTEIN HYDROLYS 30 ML LIQUID.PKT GT SCH ×2 (09:48→17:09)
[2021-03-02] MEDS: DOXAZOSIN MESYLATE 1 MG TABLET GT SCH (09:48)
[2021-03-02] MEDS: POTASSIUM CHLORIDE ORAL LIQUID 20 MEQ/15 ML GT SCH ×2 (09:49→23:35)
[2021-03-02] MEDS: cloBAZam 10 MG TABLET GT SCH (09:49)
[2021-03-02] MEDS: PHENYTOIN 100 MG/4 ML U-D CUP GT SCH ×2 (09:49→23:00)
[2021-03-02] MEDS: Lacosamide 50 MG/5 ML ORAL SOLUTION UNIT CUPS GT SCH (09:49)
[2021-03-02] MEDS: ASCORBIC ACID 500 MG/5 ML UNIT DOSE CUP GT SCH (09:49)
[2021-03-02] MEDS: PHENobarbital 30 MG TABLET GT SCH (09:50)
[2021-03-02] MEDS: POLYETHYLENE GLYCOL 3350 119 GM BTL GT SCH (09:50)
[2021-03-02] MEDS: FOLIC ACID 1 MG TABLET (FP) GT SCH (09:50)
[2021-03-02] MEDS: SENNOSIDES 8.8 MG/5 ML BULK BOTTLE GT SCH (10:10)
[2021-03-02] MEDS ORDERED: MAGNESIUM SULF 50% (8.12 MEQ/2 ML-1 GM VIAL) IVPB ONE (10:15)
[2021-03-02] MEDS: AMINO ACIDS 4.25%/D5W 1,000 ML IV SCH (10:58)
[2021-03-02] MEDS: FAMOTIDINE 40 MG/5 ML ORAL SUSPENSION PO SCH (10:58)
[2021-03-02] MEDS: NOREPINEPHRINE NS PREMIX 8,000 MCG/500 ML BAG IVPB SCH (10:59)
[2021-03-02] MEDS: MIDODRINE HCL 5 MG TABLET PO SCH ×3 (11:17→17:08)
[2021-03-02 12:37] LABS: IRON SERUM 50 ug/dL (50-175)
[2021-03-02 12:39] LABS: TOTAL IRON BINDING CAPACITY 146 ug/dL (250-450)
[2021-03-02] MEDS: MULTIVIT INJ. ADULT COMBO WITH VIT K 1 COMBO 10 ML VIAL IV SCH (15:15)
[2021-03-02 20:50] LABS: BASO % 0.8 % (0-2.0); EOS % 1.9 % (0-4.5); HEMATOCRIT 25.2 % (35.4-49); HEMOGLOBIN 8.4 GM/dL (11.7-16.9); LYMPH % 13.9 % (8-40); MCH 26.2 pg (25.7-33.7); MCHC 33.4 g/dl (32.0-35.9); MEAN CELL VOLUME 78.7 fl (80-96); MEAN PLT VOLUME 7.7 fl (7.5-11.1); MONO % 8.2 % (3.8-10.2); NEUT % 75.2 % (42.8-82.8); PLATELET COUNT 581 K/MM3 (134-434); RBC 3.21 M/mm3 (4.00-5.60); RDW 21.6 % (11.9-15.9); WHITE BLOOD COUNT 10.1 K/mm3 (4.0-10.0)
[2021-03-02] MEDS: ATORVASTATIN CA 80 MG TABLET (FP) GT SCH (23:36)
[2021-03-03] MEDS: METOCLOPRAMIDE HCL INJECTION 10 MG/2 ML VIAL IVPUSH SCH ×4 (00:02→17:22)
[2021-03-03] MEDS ORDERED: PT OWN MED DRAWER 7, Y5N ONE ×4 (10:05→21:59)
[2021-03-03] MEDS: FOLIC ACID 1 MG TABLET (FP) GT SCH (10:14)
[2021-03-03] MEDS: AMINO ACIDS/PROTEIN HYDROLYS 30 ML LIQUID.PKT GT SCH ×2 (10:14→17:21)
[2021-03-03] MEDS: MIDODRINE HCL 5 MG TABLET PO SCH ×4 (10:14→17:22)
[2021-03-03] MEDS: POTASSIUM CHLORIDE ORAL LIQUID 20 MEQ/15 ML GT SCH ×2 (10:15→22:03)
[2021-03-03] MEDS: PHENYTOIN 100 MG/4 ML U-D CUP GT SCH ×2 (10:16→22:02)
[2021-03-03] MEDS: ASCORBIC ACID 500 MG/5 ML UNIT DOSE CUP GT SCH (10:16)
[2021-03-03] MEDS: DOXAZOSIN MESYLATE 1 MG TABLET GT SCH (10:17)
[2021-03-03] MEDS: POLYETHYLENE GLYCOL 3350 119 GM BTL GT SCH (10:18)
[2021-03-03] MEDS: SENNOSIDES 8.8 MG/5 ML BULK BOTTLE GT SCH (10:19)
[2021-03-03] MEDS: PANTOPRAZOLE SODIUM 40 MG VIAL IVPUSH SCH (11:16)
[2021-03-03] MEDS: AMINO ACIDS 4.25%/D5W 1,000 ML IV SCH (15:06)
[2021-03-03] MEDS: ENOXAPARIN NA (PORCINE) 40 MG/0.4 ML DISP.SYRIN SQ SCH (15:06)
[2021-03-03] MEDS: MULTIVIT INJ. ADULT COMBO WITH VIT K 1 COMBO 10 ML VIAL IV SCH (15:06)
[2021-03-03] MEDS: NOREPINEPHRINE NS PREMIX 8,000 MCG/500 ML BAG IVPB SCH (20:48)
[2021-03-03] MEDS: FAMOTIDINE 40 MG/5 ML ORAL SUSPENSION PO SCH (20:49)
[2021-03-03] MEDS: ATORVASTATIN CA 80 MG TABLET (FP) GT SCH (22:04)
[2021-03-04] MEDS: METOCLOPRAMIDE HCL INJECTION 10 MG/2 ML VIAL IVPUSH SCH ×4 (00:28→17:40)
[2021-03-04 07:54] LABS: BLOOD UREA NITROGEN 32.4 mg/dL (7-18); CALCIUM 9.4 mg/dL (8.5-10.1)
[2021-03-04 07:55] LABS: ALBUMIN 1.4 g/dl (3.4-5.0); MAGNESIUM 1.4 mg/dL (1.8-2.4)
[2021-03-04 07:58] LABS: CREATININE 0.4 mg/dL (0.55-1.3); PHOSPHOROUS 3.1 mg/dL (2.5-4.9)
[2021-03-04 07:59] LABS: TOT PROT 6.4 g/dl (6.4-8.2)
[2021-03-04 08:03] LABS: BILIRUBIN,TOTAL 0.2 mg/dL (0.2-1)
[2021-03-04] MEDS ORDERED: PT OWN MED DRAWER 7, Y5N ONE ×4 (10:10→22:35)
[2021-03-04] MEDS: POTASSIUM CHLORIDE ORAL LIQUID 20 MEQ/15 ML GT SCH ×2 (10:14→22:39)
[2021-03-04] MEDS: ENOXAPARIN NA (PORCINE) 40 MG/0.4 ML DISP.SYRIN SQ SCH (10:14)
[2021-03-04] MEDS: PANTOPRAZOLE SODIUM 40 MG VIAL IVPUSH SCH (10:14)
[2021-03-04] MEDS: MIDODRINE HCL 5 MG TABLET PO SCH ×3 (10:14→17:40)
[2021-03-04] MEDS: AMINO ACIDS/PROTEIN HYDROLYS 30 ML LIQUID.PKT GT SCH ×2 (10:14→18:07)
[2021-03-04] MEDS: FOLIC ACID 1 MG TABLET (FP) GT SCH (10:15)
[2021-03-04] MEDS: PHENYTOIN 100 MG/4 ML U-D CUP GT SCH ×2 (10:15→22:39)
[2021-03-04] MEDS: ASCORBIC ACID 500 MG/5 ML UNIT DOSE CUP GT SCH (10:15)
[2021-03-04] MEDS: DOXAZOSIN MESYLATE 1 MG TABLET GT SCH (10:15)
[2021-03-04] MEDS: POLYETHYLENE GLYCOL 3350 119 GM BTL GT SCH (10:16)
[2021-03-04] MEDS: SENNOSIDES 8.8 MG/5 ML BULK BOTTLE GT SCH (10:16)
[2021-03-04 14:22] LABS: BASO % 0.4 % (0-2.0); HEMATOCRIT 24.7 % (35.4-49); HEMOGLOBIN 8.2 GM/dL (11.7-16.9); LYMPH % 21.4 % (8-40); MCH 26.2 pg (25.7-33.7); MCHC 33.2 g/dl (32.0-35.9); MEAN PLT VOLUME 7.8 fl (7.5-11.1); MONO % 7.2 % (3.8-10.2); PLATELET COUNT 541 K/MM3 (134-434); RBC 3.13 M/mm3 (4.00-5.60); RDW 21.7 % (11.9-15.9); WHITE BLOOD COUNT 8.2 K/mm3 (4.0-10.0)
[2021-03-04 14:48] LABS: ANISOCYTOSIS 2+; MACROCYTOSIS 0; PLATELET ESTIMATE INCREASED
[2021-03-04] MEDS ORDERED: MAGNESIUM SULF 50% (8.12 MEQ/2 ML-1 GM VIAL) IVPB ONE ×2 (15:00)
[2021-03-04] MEDS: AMINO ACIDS 4.25%/D5W 1,000 ML IV SCH (16:04)
[2021-03-04] MEDS ORDERED: ACETAMINOPHEN INJECTION 100 ML IVPB ONE (16:06)
[2021-03-04] MEDS: MULTIVIT INJ. ADULT COMBO WITH VIT K 1 COMBO 10 ML VIAL IV SCH (16:42)
[2021-03-04] MEDS: ATORVASTATIN CA 80 MG TABLET (FP) GT SCH (22:38)
[2021-03-05] MEDS: METOCLOPRAMIDE HCL INJECTION 10 MG/2 ML VIAL IVPUSH SCH ×5 (00:33→23:51)
[2021-03-05 07:49] LABS: BASO % 0.4 % (0-2.0); EOS % 6.2 % (0-4.5); HEMATOCRIT 25.2 % (35.4-49); HEMOGLOBIN 8.4 GM/dL (11.7-16.9); LYMPH % 18.3 % (8-40); MCH 26.2 pg (25.7-33.7); MCHC 33.2 g/dl (32.0-35.9); MEAN CELL VOLUME 78.9 fl (80-96); MEAN PLT VOLUME 8.2 fl (7.5-11.1); MONO % 7.3 % (3.8-10.2); NEUT % 67.8 % (42.8-82.8); PLATELET COUNT 565 K/MM3 (134-434); RBC 3.19 M/mm3 (4.00-5.60); WHITE BLOOD COUNT 8.9 K/mm3 (4.0-10.0)
[2021-03-05 07:55] LABS: CALCIUM 8.9 mg/dL (8.5-10.1)
[2021-03-05 07:56] LABS: ALBUMIN 1.4 g/dl (3.4-5.0); BLOOD UREA NITROGEN 27.4 mg/dL (7-18)
[2021-03-05 07:57] LABS: MAGNESIUM 1.9 mg/dL (1.8-2.4)
[2021-03-05 07:59] LABS: CREATININE 0.3 mg/dL (0.55-1.3)
[2021-03-05 08:01] LABS: BILIRUBIN,TOTAL 0.1 mg/dL (0.2-1); TOT PROT 6.5 g/dl (6.4-8.2)
[2021-03-05] MEDS ORDERED: PT OWN MED DRAWER 7, Y5N ONE ×2 (10:00→21:51)
[2021-03-05] MEDS: AMINO ACIDS/PROTEIN HYDROLYS 30 ML LIQUID.PKT GT SCH ×2 (10:01→18:59)
[2021-03-05] MEDS: PANTOPRAZOLE SODIUM 40 MG VIAL IVPUSH SCH (10:01)
[2021-03-05] MEDS: FOLIC ACID 1 MG TABLET (FP) GT SCH (10:02)
[2021-03-05] MEDS: MIDODRINE HCL 5 MG TABLET PO SCH ×2 (10:02→13:29)
[2021-03-05] MEDS: POTASSIUM CHLORIDE ORAL LIQUID 20 MEQ/15 ML GT SCH ×2 (10:02→22:00)
[2021-03-05] MEDS: PHENYTOIN 100 MG/4 ML U-D CUP GT SCH ×2 (10:03→21:59)
[2021-03-05] MEDS: ENOXAPARIN NA (PORCINE) 40 MG/0.4 ML DISP.SYRIN SQ SCH (10:04)
[2021-03-05] MEDS: POLYETHYLENE GLYCOL 3350 119 GM BTL GT SCH (10:04)
[2021-03-05] MEDS: DOXAZOSIN MESYLATE 1 MG TABLET GT SCH (10:04)
[2021-03-05] MEDS: SENNOSIDES 8.8 MG/5 ML BULK BOTTLE GT SCH (10:04)
[2021-03-05] MEDS: ASCORBIC ACID 500 MG/5 ML UNIT DOSE CUP GT SCH (10:05)
[2021-03-05] MEDS: AMINO ACIDS 4.25%/D5W 1,000 ML IV SCH (17:01)
[2021-03-05] MEDS: MULTIVIT INJ. ADULT COMBO WITH VIT K 1 COMBO 10 ML VIAL IV SCH (17:01)
[2021-03-05] MEDS: MIDODRINE HCL 5 MG TABLET GT SCH (18:59)
[2021-03-05] MEDS: ATORVASTATIN CA 80 MG TABLET (FP) GT SCH (21:59)
[2021-03-06] MEDS: METOCLOPRAMIDE HCL INJECTION 10 MG/2 ML VIAL IVPUSH SCH ×3 (05:45→17:22)
[2021-03-06 09:44] LABS: BASO % 0.7 % (0-2.0); EOS % 4.2 % (0-4.5); HEMATOCRIT 24.6 % (35.4-49); HEMOGLOBIN 8.2 GM/dL (11.7-16.9); LYMPH % 18.3 % (8-40); MCH 26.3 pg (25.7-33.7); MCHC 33.3 g/dl (32.0-35.9); MEAN CELL VOLUME 78.9 fl (80-96); MEAN PLT VOLUME 8.2 fl (7.5-11.1); MONO % 7.6 % (3.8-10.2); NEUT % 69.2 % (42.8-82.8); PLATELET COUNT 514 K/MM3 (134-434); RBC 3.12 M/mm3 (4.00-5.60); WHITE BLOOD COUNT 8.8 K/mm3 (4.0-10.0)
[2021-03-06 10:13] LABS: BLOOD UREA NITROGEN 24.6 mg/dL (7-18)
[2021-03-06 10:16] LABS: CALCIUM 8.7 mg/dL (8.5-10.1)
[2021-03-06 10:18] LABS: ALBUMIN 1.6 g/dl (3.4-5.0); TOT PROT 6.8 g/dl (6.4-8.2)
[2021-03-06 10:19] LABS: CREATININE 0.3 mg/dL (0.55-1.3)
[2021-03-06 10:23] LABS: BILIRUBIN,TOTAL 0.2 mg/dL (0.2-1)
[2021-03-06] MEDS ORDERED: PT OWN MED DRAWER 7, Y5N ONE ×2 (10:29→11:07)
[2021-03-06] MEDS: AMINO ACIDS/PROTEIN HYDROLYS 30 ML LIQUID.PKT GT SCH ×2 (10:33→17:22)
[2021-03-06] MEDS: MIDODRINE HCL 5 MG TABLET GT SCH ×3 (10:33→17:48)
[2021-03-06] MEDS: ASCORBIC ACID 500 MG/5 ML UNIT DOSE CUP GT SCH (10:34)
[2021-03-06] MEDS: POTASSIUM CHLORIDE ORAL LIQUID 20 MEQ/15 ML GT SCH ×2 (10:34→23:05)
[2021-03-06] MEDS: PANTOPRAZOLE SODIUM 40 MG VIAL IVPUSH SCH (10:34)
[2021-03-06] MEDS: ENOXAPARIN NA (PORCINE) 40 MG/0.4 ML DISP.SYRIN SQ SCH (10:34)
[2021-03-06] MEDS: POLYETHYLENE GLYCOL 3350 119 GM BTL GT SCH (10:35)
[2021-03-06] MEDS: DOXAZOSIN MESYLATE 1 MG TABLET GT SCH (10:35)
[2021-03-06] MEDS: FOLIC ACID 1 MG TABLET (FP) GT SCH (10:35)
[2021-03-06] MEDS: SENNOSIDES 8.8 MG/5 ML BULK BOTTLE GT SCH (10:35)
[2021-03-06] MEDS: PHENYTOIN 100 MG/4 ML U-D CUP GT SCH ×2 (10:35→23:04)
[2021-03-06] MEDS: ATORVASTATIN CA 80 MG TABLET (FP) GT SCH (23:04)
[2021-03-07] MEDS: METOCLOPRAMIDE HCL INJECTION 10 MG/2 ML VIAL IVPUSH SCH ×5 (00:36→17:20)
[2021-03-07 09:23] LABS: HEMATOCRIT 23.8 % (35.4-49); HEMOGLOBIN 8.1 GM/dL (11.7-16.9); MCH 26.9 pg (25.7-33.7); MCHC 34.1 g/dl (32.0-35.9); MEAN CELL VOLUME 78.9 fl (80-96); MEAN PLT VOLUME 8.8 fl (7.5-11.1); MONO % 7.4 % (3.8-10.2); NEUT % 68.6 % (42.8-82.8); PLATELET COUNT 531 K/MM3 (134-434); RBC 3.01 M/mm3 (4.00-5.60); RDW 22.8 % (11.9-15.9); WHITE BLOOD COUNT 8.4 K/mm3 (4.0-10.0)
[2021-03-07] MEDS ORDERED: PT OWN MED DRAWER 7, Y5N ONE (09:44)
[2021-03-07] MEDS: POTASSIUM CHLORIDE ORAL LIQUID 20 MEQ/15 ML GT SCH ×2 (10:02→22:01)
[2021-03-07] MEDS: MIDODRINE HCL 5 MG TABLET GT SCH ×3 (10:02→17:18)
[2021-03-07] MEDS: FOLIC ACID 1 MG TABLET (FP) GT SCH (10:03)
[2021-03-07] MEDS: ENOXAPARIN NA (PORCINE) 40 MG/0.4 ML DISP.SYRIN SQ SCH (10:03)
[2021-03-07] MEDS: AMINO ACIDS/PROTEIN HYDROLYS 30 ML LIQUID.PKT GT SCH ×2 (10:03→17:18)
[2021-03-07] MEDS: POLYETHYLENE GLYCOL 3350 119 GM BTL GT SCH (10:04)
[2021-03-07] MEDS: PHENYTOIN 100 MG/4 ML U-D CUP GT SCH ×2 (10:04→22:01)
[2021-03-07] MEDS: DOXAZOSIN MESYLATE 1 MG TABLET GT SCH (10:04)
[2021-03-07] MEDS: PANTOPRAZOLE SODIUM 40 MG VIAL IVPUSH SCH ×2 (10:04→17:19)
[2021-03-07 10:05] LABS: CALCIUM 8.6 mg/dL (8.5-10.1)
[2021-03-07] MEDS: ASCORBIC ACID 500 MG/5 ML UNIT DOSE CUP GT SCH (10:05)
[2021-03-07] MEDS: SENNOSIDES 8.8 MG/5 ML BULK BOTTLE GT SCH (10:05)
[2021-03-07 10:08] LABS: BLOOD UREA NITROGEN 22.5 mg/dL (7-18)
[2021-03-07 10:10] LABS: ALBUMIN 1.6 g/dl (3.4-5.0)
[2021-03-07 10:12] LABS: CREATININE 0.4 mg/dL (0.55-1.3)
[2021-03-07 10:13] LABS: BILIRUBIN,TOTAL 0.2 mg/dL (0.2-1); TOT PROT 6.7 g/dl (6.4-8.2)
[2021-03-07] MEDS: ATORVASTATIN CA 80 MG TABLET (FP) GT SCH (22:01)
[2021-03-08] MEDS: METOCLOPRAMIDE HCL INJECTION 10 MG/2 ML VIAL IVPUSH SCH ×5 (00:13→23:40)
[2021-03-08] MEDS ORDERED: PT OWN MED DRAWER 7, Y5N ONE ×4 (10:06→23:38)
[2021-03-08] MEDS: AMINO ACIDS/PROTEIN HYDROLYS 30 ML LIQUID.PKT GT SCH ×2 (10:31→17:40)
[2021-03-08] MEDS: PANTOPRAZOLE SODIUM 40 MG VIAL IVPUSH SCH (10:31)
[2021-03-08] MEDS: ENOXAPARIN NA (PORCINE) 40 MG/0.4 ML DISP.SYRIN SQ SCH (10:31)
[2021-03-08] MEDS: MIDODRINE HCL 5 MG TABLET GT SCH ×3 (10:31→17:40)
[2021-03-08] MEDS: POTASSIUM CHLORIDE ORAL LIQUID 20 MEQ/15 ML GT SCH ×2 (10:31→23:40)
[2021-03-08] MEDS: FOLIC ACID 1 MG TABLET (FP) GT SCH (10:31)
[2021-03-08] MEDS: DOXAZOSIN MESYLATE 1 MG TABLET GT SCH (10:32)
[2021-03-08] MEDS: PHENYTOIN 100 MG/4 ML U-D CUP GT SCH ×2 (10:32→23:39)
[2021-03-08] MEDS: POLYETHYLENE GLYCOL 3350 119 GM BTL GT SCH (10:32)
[2021-03-08] MEDS: ASCORBIC ACID 500 MG/5 ML UNIT DOSE CUP GT SCH (10:33)
[2021-03-08] MEDS: SENNOSIDES 8.8 MG/5 ML BULK BOTTLE GT SCH (10:33)
[2021-03-08] MEDS: ATORVASTATIN CA 80 MG TABLET (FP) GT SCH (23:40)
[2021-03-09] MEDS: METOCLOPRAMIDE HCL INJECTION 10 MG/2 ML VIAL IVPUSH SCH ×2 (05:40→14:00)
[2021-03-09] MEDS: PANTOPRAZOLE SODIUM 40 MG VIAL IVPUSH SCH (10:23)
[2021-03-09] MEDS: AMINO ACIDS/PROTEIN HYDROLYS 30 ML LIQUID.PKT GT SCH (10:24)
[2021-03-09] MEDS: ASCORBIC ACID 500 MG/5 ML UNIT DOSE CUP GT SCH (10:24)
[2021-03-09] MEDS: SENNOSIDES 8.8 MG/5 ML BULK BOTTLE GT SCH (10:24)
[2021-03-09] MEDS: PHENYTOIN 100 MG/4 ML U-D CUP GT SCH (10:26)
[2021-03-09] MEDS: DOXAZOSIN MESYLATE 1 MG TABLET GT SCH (10:26)
[2021-03-09] MEDS: FOLIC ACID 1 MG TABLET (FP) GT SCH (10:27)
[2021-03-09] MEDS: POLYETHYLENE GLYCOL 3350 119 GM BTL GT SCH (10:27)
[2021-03-09] MEDS: ENOXAPARIN NA (PORCINE) 40 MG/0.4 ML DISP.SYRIN SQ SCH (10:27)
[2021-03-09] MEDS: POTASSIUM CHLORIDE ORAL LIQUID 20 MEQ/15 ML GT SCH (10:28)
[2021-03-09] MEDS: MIDODRINE HCL 5 MG TABLET GT SCH ×2 (10:31→15:12)
[2021-03-09 15:54] VITALS: BP 141/59; PULSE 91; TEMP 98.8
== END 2021-03-09 16:14 | DRG 4 ==
LOC: JER 13:42 → JERBED 19:11 → J4S 23:10 → J8W 02-04 21:35 → J4W 02-07 18:42 → J5S 02-09 17:58 → J4W 02-16 14:54 → JICU 02-18 08:36 → J5S 03-05 15:44
PROVIDERS: ADMIT Hospitalist; ATTEND Internal Medicine
PROC: 5A1955Z Respiratory Ventilation, Greater than 96 Consecutive Hours (ICD-10-PCS; 2021-02-18)
PROC: 0BH17EZ Insertion of Endotracheal Airway into Trachea, Via Natural or Artificial Opening (ICD-10-PCS; 2021-02-18)
PROC: 05HM33Z Insertion of Infusion Device into Right Internal Jugular Vein, Percutaneous Approach (ICD-10-PCS; 2021-02-18)
PROC: B543ZZA Ultrasonography of Right Jugular Veins, Guidance (ICD-10-PCS; 2021-02-18)
PROC: 5A12012 Performance of Cardiac Output, Single, Manual (ICD-10-PCS; 2021-02-18)
PROC: 0BJ08ZZ Inspection of Tracheobronchial Tree, Via Natural or Artificial Opening Endoscopic (ICD-10-PCS; 2021-02-24)
PROC: 0B113F4 Bypass Trachea to Cutaneous with Tracheostomy Device, Percutaneous Approach (ICD-10-PCS; principal; 2021-02-24 14:30)
PROC: 30233N1 Transfusion of Nonautologous Red Blood Cells into Peripheral Vein, Percutaneous Approach (ICD-10-PCS; 2021-03-02)
DX: A41.9 Sepsis, unspecified organism (principal); R53.2 Functional quadriplegia; J69.0 Pneumonitis due to inhalation of food and vomit; J96.01 Acute respiratory failure with hypoxia; G93.41 Metabolic encephalopathy; R65.21 Severe sepsis with septic shock; F73 Profound intellectual disabilities; E87.2 Acidosis; E87.3 Alkalosis; G80.9 Cerebral palsy, unspecified; Z93.1 Gastrostomy status; E78.5 Hyperlipidemia, unspecified; R00.1 Bradycardia, unspecified; D72.829 Elevated white blood cell count, unspecified; G40.909 Epilepsy, unspecified, not intractable, without status epilepticus; K21.9 Gastro-esophageal reflux disease without esophagitis; D70.9 Neutropenia, unspecified; K31.84 Gastroparesis; K59.00 Constipation, unspecified; T68.XXXA Hypothermia, initial encounter; D64.9 Anemia, unspecified; I10 Essential (primary) hypertension; D72.819 Decreased white blood cell count, unspecified
CPT/HCPCS: 36415; 36430; 36600; 71045-TC-FY; 74018-TC-FY; 74176-TC; 80048; 80053; 81003; 82272; 82550; 82553; 82803; 82962; 83010; 83540; 83550; 83605; 83735; 84100; 84443; 84484; 85025; 85027; 85045; 85379; 85610; 85730; 86850; 86900; 86901; 86922; 87040; 87045; 87046; 87070; 87086; 87186; 87205; 87324; 87449; 93005; 93010; 94002; 94640; 94761; 99285-25; C9803; J0131; P9058; Q9967; U0003; U0005